=== PATIENT | female | born 1945 | race Caucasian/White ===

== ENCOUNTER 2018-06-22 13:13 | Observation (INO) | payer OTHER ==
[2018-06-22] VITALS (13 sets, daily range): BP systolic 130–168; BP diastolic 67–82; PULSE 75–91; TEMP 36.4–37; O2SAT 91–97; Ht 162.6 cm; Wt 69.7 kg
[~2018-06-22] VITALS: Ht 162.6 cm; Wt 69.7 kg
[2018-06-22] MEDS ORDERED: ASPIRIN 81 MG CHEW PO STA (13:36)
[2018-06-22] MEDS ORDERED: LORAZEPAM 0.5 MG TAB SL STA (13:40)
[2018-06-22] MEDS ORDERED: NITROGLYCERIN 0.4 MG SL PER TAB CHARGE SL PRN (13:45)
--- NOTE | 2018-06-22 13:56 | EMERGENCY ROOM VISIT NOTE ---
History Report prepared by Cayla: Amandeep Tracy Under the Supervision of: Dr. Yaritza Graff M.D. First contact with patient: 13:35 Chief Complaint: CHEST PAIN Stated Complaint: CHEST PAIN History of Present Illness The patient is a 72 year old female who presents to the Emergency Room with complaints of worsening chest pain beginning 2.5 hours ago. The patient states her symptoms radiate into her back and shoulders. She reports she also has numbness in her left arm. The patient denies jaw pain. She notes she is also mildly short of breath and deep breathing worsens her symptoms. The patient denies a pertinent past medication history. She states she has been in and out of [facility] because of foot surgery that became infected. The patient has been on several different antibiotics and has had reactions to vancomycin most recently. The patient reports she takes a baby aspirin every morning, and she took one this morning. She notes she did not take nitroglycerin. The patient states she was evaluated for a blood clot one week ago at [facility]. She reports she had a CT and US to evaluate for a PE. The patient notes the D-Dimer was elevated, and it has been elevated since her foot surgery in January. She denies taking nitroglycerin, a history of hypertension, and a history of smoking. Source of History: patient Onset: 2.5 hours ago Position: chest Timing: worsening Modifying Factors (Worsening): breathing (deep) Associated Symptoms: + SOB, + back pain Note: Associated symptoms: shoulder pain Denies: jaw pain Review of Systems See HPI for pertinent positives & negatives. A total of 10 systems reviewed and were otherwise negative. Past Medical & Surgical Medical Problems: (1) No Known Active Medical Problems Family History Patient reports no known family medical history. Social History Smoking Status: Never Smoker Marital Status: Housing Status: lives with significant other Occupation Status: employed Current/Historical Medications Scheduled Aspirin (Aspirin Ec), 81 MG PO DAILY Estrogens, Conjugated (Premarin), 1 APPLN VAGRING 3XWK Multiple Vitamin (Multi Vitamin), 1 TAB PO DAILY Scheduled PRN Albuterol Hfa (Ventolin Hfa), 2-4 PUFFS INH Q6H PRN for Shortness of Breath Allergies Coded Allergies: Cefaclor (Unverified Allergy, Unknown, ., 06/22/18) Ceftaroline (Unverified Allergy, Unknown, WHITE BLOOD COUNT DECREASE, 06/22) Daptomycin (Unverified Allergy, Unknown, PNEUMONIA, 06/22/18) Diphenhydramine (Unverified Allergy, Unknown, ., 06/22/18) Gluten (Unverified Allergy, Unknown, ., 06/22/18) Indomethacin (Unverified Allergy, Unknown, ., 06/22/18) Moxifloxacin (Unverified Allergy, Unknown, ., 06/22/18) Nitrofurantoin (Unverified Allergy, Unknown, ., 06/22/18) Penicillins (Unverified Allergy, Unknown, ., 06/22/18) Hubert (Unverified Allergy, Unknown, ., 06/22/18) Sulfa Antibiotics (Unverified Allergy, Unknown, ., 06/22/18) Tetracycline (Unverified Allergy, Unknown, ., 06/22/18) Vancomycin (Unverified Allergy, Unknown, JANET BEBETO SYNDROME, 06/22/18) Physical Exam Vital Signs Date Time Temp Pulse Resp B/P (MAP) Pulse Ox O2 Delivery O2 Flow Rate FiO2 06/22/18 15:08 94 22 163/94 97 Room Air 06/22/18 13:30 100 Room Air 06/22/18 13:21 110 06/22/18 13:18 36.6 111 20 206/111 100 Room Air 06/22/18 13:15 100 Room Air Physical Exam Vital signs reviewed. Noted to be markedly hypertensive and tachycardic General: Anxious-appearing 72 year old female, in no significant distress. HEENT: No scleral icterus, PERRLA, neck supple. Atraumatic. Cardiovascular: Tachycardic rate and regular rhythm, no extra sounds. Pulmonary: Clear to auscultation bilaterally, normal work of breathing. Abdomen: Soft, nontender, nondistended, positive bowel sounds. Musculoskeletal: Atraumatic, no peripheral edema. Neurologic: Patient awake alert and oriented x 3 Skin: Warm, dry, no rash Medical Decision & Procedures ER Provider Diagnostic Interpretation: Radiology results as stated below per my review and radiologist interpretation: SINGLE VIEW CHEST CLINICAL HISTORY: Atypical chest pain. FINDINGS: An AP, portable, upright chest radiograph is obtained. No prior studies are available for comparison at the time of dictation. The examination is degraded by portable technique and patient rotation. The cardiomediastinal silhouette is unremarkable noting atherosclerotic calcification of the thoracic aorta. Nonspecific interstitial thickening is likely chronic. No airspace consolidation or large pleural effusion is identified. Minimal bibasilar atelectasis is observed. No pneumothorax is seen. The skeletal structures are osteopenic. The bony thorax is grossly intact. Extensive fusion hardware is seen at the thoracolumbar junction. IMPRESSION: No acute cardiopulmonary abnormality. Electronically signed by: Royce Henry M.D. 06/22/2018 2:19 PM Dictated Date/Time: 06/22/2018 2:[address] ANGIOGRAM OF THE CHEST CLINICAL HISTORY: Atypical chest pain. COMPARISON STUDY: Chest x-ray dated 06/22/2018. TECHNIQUE: Following the IV administration of 93 of Optiray 320, CT angiogram of the chest is performed from the upper abdomen to the thoracic inlet utilizing the pulmonary embolus protocol. Images are reviewed in the axial, sagittal, and coronal planes. 3-D MIPS images are created and assessed. IV contrast was administered without complication. A dose lowering technique was utilized adhering to the principles of ALARA. CT DOSE: 495.80 mGycm FINDINGS: Thyroid: Imaged portions of the thyroid gland are normal in size and attenuation. Thoracic aorta: There is atherosclerotic calcification of the thoracic aorta, which is normal in caliber and demonstrates standard 3-vessel arch anatomy. No dissection is seen. Pulmonary vasculature: The pulmonary trunk is normal in caliber. There are no filling defects identified in the main, lobar, or segmental pulmonary arteries to indicate pulmonary embolus. Heart: The heart is top normal in size, noting trace pericardial effusion. The coronary arteries are densely calcified. Lungs and pleural spaces: Evaluation of the lung parenchyma is degraded by motion artifact. There is no airspace consolidation or pleural effusion. Dependent atelectasis is noted the trachea and central airways are clear. Mediastinum: There is no mediastinal lymphadenopathy. Courtney: Clear. Axillae: There is no axillary lymphadenopathy. Upper abdomen: Scattered hepatic cysts measure up to 5.3 cm. There is a small to moderate hiatal hernia. Bony thorax: The skeletal structures are osteopenic. Post laminectomy and fusion change is seen at the thoracolumbar junction. No lytic or blastic lesions are identified. Arthritic change is seen in the shoulders. Calcific tendinopathy is noted in the left shoulder. IMPRESSION: 1. There is no evidence of pulmonary embolus in the main, lobar, or segmental pulmonary arteries. 2. There is no airspace consolidation or pleural effusion. 3. Hiatal hernia. Electronically signed by: Royce Henry M.D. 06/22/2018 3:26 PM Dictated Date/Time: 06/22/2018 3:19 PM Laboratory Results 06/22/18 13:30 Red Blood Count 4.14, Mean Corpuscular Volume 86.7, Mean Corpuscular Hemoglobin 28.3, Mean Corpuscular Hemoglobin Concent 32.6, Mean Platelet Volume 9.3, Neutrophils (%) (Auto) 63.6, Lymphocytes (%) (Auto) 19.4, Monocytes (%) (Auto) 13.7, Eosinophils (%) (Auto) 2.6, Basophils (%) (Auto) 0.5, Neutrophils # (Auto ) 6.05, Lymphocytes # (Auto) 1.85, Monocytes # (Auto) 1.31, Eosinophils # (Auto ) 0.25, Basophils # (Auto) 0.05 06/22/18 13:30 Test 06/22/18 13:30 06/22/18 13:46 White Blood Count 9.53 K/uL (4.8-10.8) Red Blood Count 4.14 M/uL (4.2-5.4) Hemoglobin 11.7 g/dL (12.0-16.0) Hematocrit 35.9 % (37-47) Mean Corpuscular Volume 86.7 fL (80-100) Mean Corpuscular Hemoglobin 28.3 pg (25-34) Mean Corpuscular Hemoglobin Concent 32.6 g/dl (32-36) Platelet Count 463 K/uL (130-400) Mean Platelet Volume 9.3 fL (7.4-10.4) Neutrophils (%) (Auto) 63.6 % Lymphocytes (%) (Auto) 19.4 % Monocytes (%) (Auto) 13.7 % Eosinophils (%) (Auto) 2.6 % Basophils (%) (Auto) 0.5 % Neutrophils # (Auto) 6.05 K/uL (1.4-6.5) Lymphocytes # (Auto) 1.85 K/uL (1.2-3.4) Monocytes # (Auto) 1.31 K/uL (0.11-0.59) Eosinophils # (Auto) 0.25 K/uL (0-0.5) Basophils # (Auto) 0.05 K/uL (0-0.2) RDW Standard Deviation 49.0 fL (36.4-46.3) RDW Coefficient of Variation 15.3 % (11.5-14.5) Immature Granulocyte % (Auto) 0.2 % Immature Granulocyte # (Auto) 0.02 K/uL (0.00-0.02) Prothrombin Time 10.4 SECONDS (9.0-12.0) Prothromb Time International Ratio 1.0 (0.9-1.1) Activated Partial Thromboplast Time 28.9 SECONDS (21.0-31.0) Partial Thromboplastin Ratio 1.1 Anion Gap 11.0 mmol/L (3-11) Est Creatinine Clear Calc Drug Dose 50.8 ml/min Estimated GFR () 70.2 Estimated GFR (Non- 60.5 BUN/Creatinine Ratio 21.7 (10-20) Calcium Level 9.1 mg/dl (8.5-10.1) Magnesium Level 2.0 mg/dl (1.8-2.4) Total Bilirubin 0.3 mg/dl (0.2-1) Direct Bilirubin 0.1 mg/dl (0-0.2) Aspartate Amino Transf (AST/SGOT) 17 U/L (15-37) Alanine Aminotransferase (ALT/SGPT) 28 U/L (12-78) Alkaline Phosphatase 148 U/L (45-117) Troponin I 0.199 ng/ml (0-0.045) Total Protein 8.2 gm/dl (6.4-8.2) Albumin 3.3 gm/dl (3.4-5.0) Lipase 115 U/L (73-393) Bedside D-Dimer > 450 ng/mlFEU (0-450) Laboratory results per my review. Medications Administered Medications (Trade) Dose Ordered Sig/Cherelle Route Start Time Stop Time Status Last Admin Dose Admin Aspirin (Aspirin Chew) 243 mg NOW STAT PO 06/22/18 13:36 06/22/18 13:38 DC 06/22/18 14:10 243 MG Nitroglycerin (Nitrostat Tab) 0.4 mg Q5M PRN SL 06/22/18 13:45 07/22/18 13:44 06/22/18 14:11 0.4 MG Lorazepam (Ativan Tab) 0.5 mg NOW STAT SL 06/22/18 13:40 06/22/18 13:41 DC 06/22/18 14:10 0.5 MG Nitroglycerin (Nitroglycerin 2% Oint) 0.5 inch NOW STAT EXT 06/22/18 14:00 06/22/18 14:01 DC 06/22/18 14:10 0.5 INCH Fentanyl Citrate (Fentanyl Inj) 25 mcg NOW STAT IV 06/22/18 14:49 06/22/18 14:52 DC 06/22/18 15:21 25 MCG Heparin Sodium (Porcine) (Heparin Iv Bolus) 10,000 unit STK-MED ONCE .ROUTE 06/22/18 15:05 06/22/18 15:06 DC 06/22/18 15:19 10,000 UNIT Heparin Sodium/ Dextrose (Heparin 25,000 Unit/500ml D5W) 25,000 unit STK-MED ONCE .ROUTE 06/22/18 15:05 06/22/18 15:06 DC 06/22/18 15:21 25,000 UNIT ECG Per My Interpretation Indication: chest pain Rate (beats per minute): 111 Rhythm: sinus tachycardia Findings: ST depression (Diffuse), no acute ischemic change, other (QTc of 514) Change: Repeat at 1322: Sinus tachycardia with a rate of 109. Left atrial enlargement. Diffuse ST depression. No change from previous. Repeat at 1402: Normal sinus with a rate of 93. Diffuse ST depression but improved from previous. ED Course 1335: Past medical records reviewed. The patient was evaluated in room A09B. A complete history and physical examination was performed. 1441: Upon reevaluation, the patient is resting comfortably. I discussed laboratory and radiographic results with her. She verbalized agreement of the treatment plan. The patient will be evaluated for further management and care. 1453: I discussed the patient's case with Dr. Casillas, Cardiology. He will evaluate the patient. 1459: I discussed the patient's case with Dr. Gomez, [facility] Hospitalist. The patient will be evaluated for further management and care. Medical Decision Differential diagnoses include: Acute coronary syndrome, pulmonary embolus, aortic dissection, musculoskeletal pain, pneumonia, pleural effusion, pneumothorax This patient was evaluated and appeared to be anxious but in no significant distress. EKG was performed and reveals a sinus tachycardia with diffuse ST segment depression. Patient was given 3 baby aspirin to chew as she had taken one prior to arrival. Patient was given sublingual nitroglycerin which did help improve both pain and blood pressure. Patient's laboratory work reveals an elevated d-dimer. Given the presentation with back pain and hypertension, CT angiogram was performed which shows no evidence of PE. There is no change of the aorta to suggest aortic dissection to my review. Patient's troponin is noted to be mildly elevated at 0.199. Consents for records from [facility] have been signed and are in progress. The patient was started on heparin drip. Dr. Casillas of cardiology was consulted. He did agree to evaluate the patient in the emergency department. Patient's pain continued and she was given 25 mcg of IV fentanyl. She does have 1/2 inch of nitroglycerin paste to the anterior chest wall. Symptoms seem to be largely under control at this time. Dr. Casillas is at the bedside, Dr Gomez of the hospitalist service was consulted for admission. Patient and are aware of the plan and agree. Medication Reconcilliation Current Medication List: was personally reviewed by me Blood Pressure Screening Patient's blood pressure: Elevated blood pressure Blood pressure disposition: Elevated BP felt to be situational Consults Time Called: 1448 Consulting Physician: Dr. Casillas, Cardiology Returned Call: [phone] I discussed the patient's case with Dr. Casillas, Cardiology. He will evaluate the patient. Additional Consults: Time Called: 1454 Consulted Physician: Dr. Gomez, [facility] Hospitalist Returned Call: [phone] Additional Comments: I discussed the patient's case with Dr. Gomez, [facility] Hospitalist. The patient will be evaluated for further management and care. Impression Primary Impression: NSTEMI (non-ST elevated myocardial infarction) Critical Care I have personally spent greater than 60 minutes of critical care time in the direct management of this patient. This includes bedside care, interpretation of diagnostic studies, and testing, discussion with consultants, patient, and family members, and other required patient management activities. This 60 minutes is in excess of all separately billable procedures. Scribe Attestation The scribe's documentation has been prepared under my direction and personally reviewed by me in its entirety. I confirm that the note above accurately reflects all work, treatment, procedures, and medical decision making performed by me. Departure Information Dispostion Being Evaluated By Hospitalist Referrals Jesus Membreno M.D. (PCP) Patient Instructions My [facility]
[2018-06-22 13:59] LABS: BASO % 0.5 %; BASO ABS # 0.05 K/uL (0-0.2); EOS % 2.6 %; EOS ABS # 0.25 K/uL (0-0.5); HEMATOCRIT 35.9 % (37-47); HEMOGLOBIN 11.7 g/dL (12.0-16.0); IG# 0.02 K/uL (0.00-0.02); LYMPH % 19.4 %; LYMPH ABS # 1.85 K/uL (1.2-3.4); MEAN CELL VOLUME 86.7 fL (80-100); MEAN CORPUSCULAR HEMOGLOBIN 28.3 pg (25-34); MEAN CORPUSCULAR HGB CONC 32.6 g/dl (32-36); MEAN PLATELET VOLUME 9.3 fL (7.4-10.4); MONO % 13.7 %; MONO ABS # 1.31 K/uL (0.11-0.59); NEUT % 63.6 %; NEUT ABS # 6.05 K/uL (1.4-6.5); PLATELET COUNT 463 K/uL (130-400); RED CELL DISTRIBUTION WIDTH CV 15.3 % (11.5-14.5); WHITE BLOOD COUNT 9.53 K/uL (4.8-10.8)
[2018-06-22] MEDS ORDERED: NITROGLYCERIN 2% OINTMENT 30GM TUBE EXT ONE (14:00)
[2018-06-22] MEDS ORDERED: NITROGLYCERIN 2% OINTMENT 30GM TUBE EXT STA (14:00)
[2018-06-22] MEDS ORDERED: OPTIRAY 320 IV PRN (14:15)
--- NOTE | 2018-06-22 14:21 | DIAGNOSTIC IMAGING REPORT ---
SINGLE VIEW CHEST CLINICAL HISTORY: Atypical chest pain. FINDINGS: An AP, portable, upright chest radiograph is obtained. No prior studies are available for comparison at the time of dictation. The examination is degraded by portable technique and patient rotation. The cardiomediastinal silhouette is unremarkable noting atherosclerotic calcification of the thoracic aorta. Nonspecific interstitial thickening is likely chronic. No airspace consolidation or large pleural effusion is identified. Minimal bibasilar atelectasis is observed. No pneumothorax is seen. The skeletal structures are osteopenic. The bony thorax is grossly intact. Extensive fusion hardware is seen at the thoracolumbar junction. IMPRESSION: No acute cardiopulmonary abnormality. Electronically signed by: Royce Henry M.D. 06/22/2018 2:19 PM Dictated Date/Time: 06/22/2018 2:18 PM
[2018-06-22 14:24] LABS: ALBUMIN 3.3 gm/dl (3.4-5.0); CALCIUM 9.1 mg/dl (8.5-10.1); CREATININE 0.93 mg/dl (0.60-1.20); POTASSIUM 3.8 mmol/L (3.5-5.1); TOTAL PROTEIN 8.2 gm/dl (6.4-8.2)
[2018-06-22] MEDS ORDERED: FENTANYL CITRATE INJ 50 MCG/1 ML 2 ML VIAL IV STA (14:49)
[2018-06-22 14:53] LABS: PTT PATIENT 28.9 SECONDS (21.0-31.0)
[2018-06-22] MEDS ORDERED: ASPI81TA28 PO (14:58)
[2018-06-22] MEDS ORDERED: VNTHFA/IN INH (14:58)
[2018-06-22] MEDS ORDERED: PRMVC VAGRING (14:58)
[2018-06-22] MEDS ORDERED: MULT-1027 PO (14:58)
[2018-06-22] MEDS ORDERED: HEPARIN 25000 UNIT/500 ML D5W ONE (15:05)
[2018-06-22] MEDS ORDERED: HEPARIN SOD (PORCINE) 1000 UNIT/ML 10 ML VIAL ONE ×3 (15:05→17:35)
--- NOTE | 2018-06-22 15:28 | DIAGNOSTIC IMAGING REPORT ---
CT ANGIOGRAM OF THE CHEST CLINICAL HISTORY: Atypical chest pain. COMPARISON STUDY: Chest x-ray dated 06/22/2018. TECHNIQUE: Following the IV administration of 93 of Optiray 320, CT angiogram of the chest is performed from the upper abdomen to the thoracic inlet utilizing the pulmonary embolus protocol. Images are reviewed in the axial, sagittal, and coronal planes. 3-D MIPS images are created and assessed. IV contrast was administered without complication. A dose lowering technique was utilized adhering to the principles of ALARA. CT DOSE: 495.80 mGycm FINDINGS: Thyroid: Imaged portions of the thyroid gland are normal in size and attenuation. Thoracic aorta: There is atherosclerotic calcification of the thoracic aorta, which is normal in caliber and demonstrates standard 3-vessel arch anatomy. No dissection is seen. Pulmonary vasculature: The pulmonary trunk is normal in caliber. There are no filling defects identified in the main, lobar, or segmental pulmonary arteries to indicate pulmonary embolus. Heart: The heart is top normal in size, noting trace pericardial effusion. The coronary arteries are densely calcified. Lungs and pleural spaces: Evaluation of the lung parenchyma is degraded by motion artifact. There is no airspace consolidation or pleural effusion. Dependent atelectasis is noted the trachea and central airways are clear. Mediastinum: There is no mediastinal lymphadenopathy. Courtney: Clear. Axillae: There is no axillary lymphadenopathy. Upper abdomen: Scattered hepatic cysts measure up to 5.3 cm. There is a small to moderate hiatal hernia. Bony thorax: The skeletal structures are osteopenic. Post laminectomy and fusion change is seen at the thoracolumbar junction. No lytic or blastic lesions are identified. Arthritic change is seen in the shoulders. Calcific tendinopathy is noted in the left shoulder. IMPRESSION: 1. There is no evidence of pulmonary embolus in the main, lobar, or segmental pulmonary arteries. 2. There is no airspace consolidation or pleural effusion. 3. Hiatal hernia. Electronically signed by: Royce Henry M.D. 06/22/2018 3:26 PM Dictated Date/Time: 06/22/2018 3:19 PM
[2018-06-22] MEDS ORDERED: NiCARDipine HCL INJ 2.5 MG/ML 10 ML AMP ONE (16:33)
[2018-06-22] MEDS ORDERED: MIDAZOLAM HCL 1 MG/ML 2ML VIAL ONE (16:34)
[2018-06-22] MEDS ORDERED: FENTANYL CITRATE INJ 50 MCG/1 ML 2 ML VIAL ONE (16:34)
[2018-06-22] MEDS ORDERED: NITROGLYCERIN/D5W 100MCG/ML 20ML SYR ONE (16:34)
--- NOTE | 2018-06-22 16:43 | Pre Sedation Assessment ---
Pre Sedation Assessment General Date of Sedation: Jun 22, 2018. Vital Signs Past 12 Hours Date Time Temp Pulse Resp B/P (MAP) Pulse Ox O2 Delivery O2 Flow Rate FiO2 06/22/18 15:08 94 22 163/94 97 Room Air 06/22/18 13:30 100 Room Air 06/22/18 13:21 110 06/22/18 13:18 36.6 111 20 206/111 100 Room Air 06/22/18 13:15 100 Room Air Review Cardiovascular: regular rate, rhythm, no murmur Lungs: lungs clear Pre-Sedation Airway Assessment Smoking Status: Never Smoker Hx of Sleep Apnea: No Hx of difficult intubation: No Short Thick Neck: No Thyro-mental Distance: > 3 Finger Breadths Oral Cavity: WNL Mallampati Classification: Class III ASA Classification: Class III Procedure Planning Contraindications for Sedation: None Current Medications Reviewed: Yes Notes The planned sedation has been discussed with the patient. Informed Consent was obtained. I have identified the patient, determined the appropriateness of sedation and have assessed the patient immediately prior to the procedure. All medicine(s) and interventions are by my order.
--- NOTE | 2018-06-22 17:27 | Cardiology Procedure Brief Nt ---
Preliminary Cardiology Note Procedure Date Jun 22, 2018. Pre-Procedure Diagnosis NSTEMI Post-Procedure Diagnosis NSTEMI Procedure(s) Performed Left heart catheterization, coronary angiography, PCI to the OM1 Gold Beater Chemo Casillas Lost Charge Card Clerk(s) none Estimated Blood Loss 10cc Medication(s) nicardipine, nitroglycerin, heparin Preliminary Findings 99 percent stenosis of OM1, 50 percent stenosis proximal right coronary, normal left ventricular pressures Recommendations Per orders Specimens None Complication(s) None Disposition PCU
[2018-06-22] MEDS ORDERED: TICAGRELOR 90 MG TAB PO ONE (17:28)
[2018-06-22] MEDS ORDERED: NITROGLYCERIN 0.4 MG SL PER TAB CHARGE ONE (17:35)
--- NOTE | 2018-06-22 17:55 | Cardiology Consultation ---
Cardiology Consultation Date of Consultation: Jun 22, 2018. Requesting Physician: Prerna Reason for Consultation: chest pain Pt evaluation today including: conversation w/ patient, conversation w/ family , physical exam, chart review, lab review, review of studies, review of inpatient medication list, conversation w/ attending History of Present Illness The patient is a 72-year-old woman without a known history of cardiac disease who has been struggling recently with a left foot infection. Patient underwent operative intervention for arthritis in the left foot which eventually resulted in poor healing and an infectious process. Her care has been provided at [facility] and she has cycle through a variety of antibiotics all of which appear to produce adverse reactions. Recently she had therapy with daptomycin which apparently caused symptoms such as chest discomfort and breathing difficulty. The daptomycin was discontinued as was a PICC line used for infusion. However, her symptoms of chest discomfort and some breathing difficulty have persisted. Initially this involved the precordium back and left shoulder. The symptoms were fairly fleeting in nature and nonexertional. More recently they become more frequent and today they were prolonged in nature. Patient was working outside earlier today and noticed the onset of the symptoms. Despite resting symptoms persisted and became more severe. The symptoms appear to be worse with deep inspiration and also with certain movements of the arms. Patient has difficulty getting comfortable in any particular position. The patient presented to [facility] for evaluation. Upon arrival she was notably hypertensive. Her EKG demonstrated some ST segment changes. She is placed on heparin infusion and given nitroglycerin. She also was given sedatives and narcotics all of which failed to alleviate her symptoms. At the time of this interview the patient states she is more comfortable but continues to have symptoms of chest discomfort. She just returned from the CT scanner and states that her symptoms became worse when she was required to raise her arms above her head. Past Medical/Surgical History Arthritis Obstructive sleep apnea Peripheral neuropathy Post concussion syndrome Glucose intolerance Reflex sympathetic dystrophy Sjogren syndrome Past surgical history: Hysterectomy Lumbar fusion Left foot surgery Family History Patient reports no known family medical history. Noncontributory given her advanced age Social History Smoking Status: Never Smoker Patient is [employer] sports [employer] Review of Systems Patient has not felt well for several weeks. She denies overt fevers but did have some chills. She has not had gastrointestinal symptoms. She generally monitors her blood pressure at home and is normotensive. All Other Systems: Reviewed and Negative Allergies Coded Allergies: Cefaclor (Unverified Allergy, Unknown, ., 06/22/18) Ceftaroline (Unverified Allergy, Unknown, WHITE BLOOD COUNT DECREASE, 06/22) Daptomycin (Unverified Allergy, Unknown, PNEUMONIA, 06/22/18) Diphenhydramine (Unverified Allergy, Unknown, ., 06/22/18) Gluten (Unverified Allergy, Unknown, ., 06/22/18) Indomethacin (Unverified Allergy, Unknown, ., 06/22/18) Moxifloxacin (Unverified Allergy, Unknown, ., 06/22/18) Nitrofurantoin (Unverified Allergy, Unknown, ., 06/22/18) Penicillins (Unverified Allergy, Unknown, ., 06/22/18) [place] (Unverified Allergy, Unknown, ., 06/22/18) Sulfa Antibiotics (Unverified Allergy, Unknown, ., 06/22/18) Tetracycline (Unverified Allergy, Unknown, ., 06/22/18) Vancomycin (Unverified Allergy, Unknown, JANET BEBETO SYNDROME, 06/22/18) Medications Current Inpatient Medications Medications (Trade) Dose Ordered Sig/Cherelle Route Start Time Stop Time Status Last Admin Dose Admin Nitroglycerin (Nitrostat Tab) 0.4 mg Q5M PRN SL 06/22/18 13:45 07/22/18 13:44 06/22/18 14:11 0.4 MG Ioversol (Optiray 320) 100 ml UD PRN IV 06/22/18 14:15 06/26/18 14:14 Ticagrelor (Brilinta Tab) 90 mg BID PO 06/22/18 21:00 07/22/18 20:59 UNV Sodium Chloride 1,000 ml @ 75 mls/hr [id number] IV 06/22/18 17:30 06/23/18 01:29 UNV Aspirin (Ecotrin Tab) 81 mg QAM PO 06/23/18 09:00 07/23/18 08:59 UNV Atorvastatin Calcium (Lipitor Tab) 80 mg QAM PO 06/23/18 09:00 07/23/18 08:59 UNV Metoprolol Tartrate (Lopressor Tab) 25 mg BID PO 06/22/18 21:00 07/22/18 20:59 UNV Lisinopril (Zestril Tab) 5 mg QAM PO 06/23/18 09:00 07/23/18 08:59 UNV Physical Exam Vital Signs Past 12 Hours Date Time Temp Pulse Resp B/P (MAP) Pulse Ox O2 Delivery O2 Flow Rate FiO2 06/22/18 17:42 77 16 152/78 (102) 98 Room Air 06/22/18 17:38 78 16 167/80 (109) 98 Room Air 06/22/18 17:27 80 16 165/80 (108) 98 Room Air 06/22/18 16:57 36.6 94 22 163/94 97 06/22/18 15:08 94 22 163/94 97 Room Air 06/22/18 13:30 100 Room Air 06/22/18 13:21 110 06/22/18 13:18 36.6 111 20 206/111 100 Room Air 06/22/18 13:15 100 Room Air She is alert and oriented x3. She did appear uncomfortable and mildly distressed. She answered all questions appropriately. HEENT: Sclerae are anicteric. Pupils are equal and reactive to light and accommodation. Extraocular movements were intact. Neuro: Cranial nerves intact Neck: Examination of the submandibular region did not reveal any significant lymphadenopathy. Carotids are palpable bilaterally and free of bruits on auscultation. There was no evidence of jugular venous distention. The thyroid was not enlarged. Lungs: Lungs are clear to auscultation bilaterally. There are no rales wheezes or rhonchi. She has normal respiratory effort without use of accessory muscles. There is normal pulmonary excursion. Cardiac: The rhythm was regular. S1 and S2 were normal. There are no murmurs on examination. The PMI was not markedly displaced on palpation. Abdomen: The abdomen was soft and nontender. Extremities: Patient has bilateral radial pulses that are equal in intensity. There is no evidence cyanosis or clubbing. There was no evidence of significant peripheral edema bilaterally. She did have a splint on the left foot Skin: There are no rashes noted on examination today. Data Laboratory Results: Last 24 Hours Test 06/22/18 13:30 06/22/18 13:46 White Blood Count 9.53 K/uL Red Blood Count 4.14 M/uL Hemoglobin 11.7 g/dL Hematocrit 35.9 % Mean Corpuscular Volume 86.7 fL Mean Corpuscular Hemoglobin 28.3 pg Mean Corpuscular Hemoglobin Concent 32.6 g/dl Platelet Count 463 K/uL Mean Platelet Volume 9.3 fL Neutrophils (%) (Auto) 63.6 % Lymphocytes (%) (Auto) 19.4 % Monocytes (%) (Auto) 13.7 % Eosinophils (%) (Auto) 2.6 % Basophils (%) (Auto) 0.5 % Neutrophils # (Auto) 6.05 K/uL Lymphocytes # (Auto) 1.85 K/uL Monocytes # (Auto) 1.31 K/uL Eosinophils # (Auto) 0.25 K/uL Basophils # (Auto) 0.05 K/uL RDW Standard Deviation 49.0 fL RDW Coefficient of Variation 15.3 % Immature Granulocyte % (Auto) 0.2 % Immature Granulocyte # (Auto) 0.02 K/uL Prothrombin Time 10.4 SECONDS Prothromb Time International Ratio 1.0 Activated Partial Thromboplast Time 28.9 SECONDS Partial Thromboplastin Ratio 1.1 Sodium Level 134 mmol/L Potassium Level 3.8 mmol/L Chloride Level 102 mmol/L Carbon Dioxide Level 21 mmol/L Anion Gap 11.0 mmol/L Blood Urea Nitrogen 20 mg/dl Creatinine 0.93 mg/dl Est Creatinine Clear Calc Drug Dose 50.8 ml/min Estimated GFR () 70.2 Estimated GFR (Non- 60.5 BUN/Creatinine Ratio 21.7 Random Glucose 142 mg/dl Calcium Level 9.1 mg/dl Magnesium Level 2.0 mg/dl Total Bilirubin 0.3 mg/dl Direct Bilirubin 0.1 mg/dl Aspartate Amino Transf (AST/SGOT) 17 U/L Alanine Aminotransferase (ALT/SGPT) 28 U/L Alkaline Phosphatase 148 U/L Troponin I 0.199 ng/ml Total Protein 8.2 gm/dl Albumin 3.3 gm/dl Lipase 115 U/L Bedside D-Dimer > 450 ng/mlFEU Imaging: Chest x-ray did not demonstrate any acute process. CT scan of the chest did not demonstrate any pulmonary embolus, pericardial effusion or aortic dissection. No parenchymal lung disease. She did have an incidental finding of liver cysts. EKG: Initial EKG demonstrated sinus tachycardia with diffuse ST segment depressions. Second EKG demonstrated sinus tachycardia with improvement of the depressions. Bedside echocardiogram revealed preserved LV systolic function with normal wall motion. No overt valvular disease. No pericardial effusion. Assessment & Plan 1. Atypical chest pain: Patient's symptoms of chest pain are clearly atypical. They are nonexertional and somewhat pleuritic in nature. They appear to have started after institution of daptomycin therapy. They have been present for several days but have progressed to increased severity. She does have some objective indicators of ischemia such as an abnormal EKG and elevated cardiac biomarkers. She was markedly hypertensive at the time of admission which could also have caused some of these changes. However, given the objective findings and persistent symptoms that would seem reasonable to proceed with coronary angiography. My suspicion for an acute coronary syndrome is quite low, but the persistent nature of her symptoms and abnormal studies precludes us from finding an alternate cause. I did discuss the risks benefits and alternatives of the procedure with the patient and her . We will plan on proceeding this afternoon. 2. Hypertension: Patient was markedly hypertensive the time of admission. This appears to be a rare thing for her. She claims to be normotensive most of the time in her outpatient record would support that assertion. This was likely due to her acute illness and feeling poorly. We will treat her with nitrates currently and additional agents as needed. 3. Elevated troponin: Her biomarkers are not normal. While my suspicion for an acute coronary syndrome is low it is in the differential. Will evaluate her with coronary angiography. Her EKG and echocardiogram are not consistent with a stress-induced cardiomyopathy. A myocarditis could produce similar elevations and symptoms although there is no evidence of regional wall motion abnormalities on her echocardiogram. Could be related to poorly controlled hypertension recently. We will trend her markers during her admission.
[2018-06-22] MEDS ORDERED: IV FLUIDS COMPLETED PRN (18:00)
--- NOTE | 2018-06-22 18:15 | ECHOCARDIOGRAM REPORT ---
*NOTICE TO RECEIVING DEMOCRAT AGENCY This information is strictly Confidential and protected under [place] law. [place] law prohibits you from making any further disclosure of this information unless further disclosure is expressly permitted by the written consent of the person to whom it pertains or is authorized by law. A general authorization for the release of medical or other information is not sufficient for this purpose. Hospital accepts no responsibility if the information is made available to any other person, INCLUDING THE PATIENT. Interpretation Summary * Name: NOHEMY LYNN Study Date: 06/22/2018 04:10 PM BP: 163/94 mmHg * Patient Location: [facility] HR: 94 * : 1945 (M/d/yyyy) Gender: Female Height: 64 in * Age: 72 yrs Ethnicity: CA Weight: 153 lb * Ordering Physician: Osiel Casillas * Referring Physician: Self, Referred * Performed By: Pita Mendez RDCS * * Reason For Study: Chest pain * BSA: 1.7 m2 * -- Conclusions -- * Left ventricular systolic function is normal. * Grade I diastolic dysfunction, (abnormal relaxation pattern). * Right ventricular systolic pressure is normal. Procedure Details * A complete two-dimensional transthoracic echocardiogram was performed (2D, M-mode, Doppler and color flow Doppler). Left Ventricle * The left ventricle is normal in size. * There is normal left ventricular wall thickness. * Ejection Fraction = 55-60%. * Left ventricular systolic function is normal. * Grade I diastolic dysfunction, (abnormal relaxation pattern). * The left ventricular wall motion is normal. Right Ventricle * The right ventricle is normal in size and function. Atria * The left atrial size is normal. * Right atrial size is normal. Mitral Valve * The mitral valve is grossly normal. * There is no mitral regurgitation noted. Tricuspid Valve * The tricuspid valve is not well visualized, but is grossly normal. * There is trace tricuspid regurgitation. * Right ventricular systolic pressure is normal. Aortic Valve * The aortic valve is normal in structure and function. * The aortic valve is trileaflet. * No hemodynamically significant valvular aortic stenosis. * There is no significant aortic regurgitation. Pulmonic Valve * The pulmonic valve is not well visualized. Great Vessels * The aortic root is normal size. Pericardium/Pleural * There is no pericardial effusion. MMode 2D Measurements and Calculations IVSd 1.0 cm LVIDd 3.6 cm LVIDs 2.5 cm LVPWd 1.1 cm IVS/LVPW 0.95 FS 28.7 % EDV(Teich) 52.9 ml ESV(Teich) 23.2 ml EF(Teich) 56.2 % EDV(cubed) 45.0 ml ESV(cubed) 16.3 ml EF(cubed) 63.7 % LV mass(C)d 112.2 grams LV mass(C)dI 64.3 grams/m\S\2 SV(Teich) 29.7 ml SI(Teich) 17.0 ml/m\S\2 SV(cubed) 28.7 ml SI(cubed) 16.4 ml/m\S\2 Ao root diam 3.0 cm Ao root area 7.0 cm\S\2 ACS 1.9 cm LA dimension 2.6 cm asc Aorta Diam 3.0 cm LA/Ao 0.88 LVOT diam 2.0 cm LVOT area 3.2 cm\S\2 LVAd ap4 25.5 cm\S\2 LVLd ap4 7.8 cm EDV(MOD-sp4) 67.3 ml EDV(sp4-el) 70.3 ml LVAs ap4 14.4 cm\S\2 LVLs ap4 6.3 cm ESV(MOD-sp4) 29.0 ml ESV(sp4-el) 28.2 ml EF(MOD-sp4) 56.9 % EF(sp4-el) 59.9 % LVAd ap2 21.2 cm\S\2 LVLd ap2 7.5 cm EDV(MOD-sp2) 48.0 ml EDV(sp2-el) 50.6 ml LVAs ap2 11.4 cm\S\2 LVLs ap2 5.8 cm ESV(MOD-sp2) 18.4 ml ESV(sp2-el) 18.9 ml EF(MOD-sp2) 61.7 % EF(sp2-el) 62.7 % LVLd %diff -4.05 % EDV(MOD-bp) 57.7 ml LVLs %diff -7.74 % ESV(MOD-bp) 23.6 ml EF(MOD-bp) 59.0 % SV(MOD-sp4) 38.3 ml SI(MOD-sp4) 21.9 ml/m\S\2 SV(MOD-sp2) 29.6 ml SI(MOD-sp2) 17.0 ml/m\S\2 SV(MOD-bp) 34.0 ml SI(MOD-bp) 19.5 ml/m\S\2 SV(sp4-el) 42.2 ml SI(sp4-el) 24.1 ml/m\S\2 SV(sp2-el) 31.7 ml SI(sp2-el) 18.2 ml/m\S\2 Doppler Measurements and Calculations MV E max madeleine 45.5 cm/sec MV A max madeleine 72.7 cm/sec MV E/A 0.63 MV dec time 0.20 sec Ao V2 max 82.0 cm/sec Ao max PG 2.7 mmHg Ao max PG (full) 0.89 mmHg CAREN(V,A) 2.6 cm\S\2 CAREN(V,D) 2.6 cm\S\2 LV V1 max PG 1.8 mmHg LV V1 max 67.0 cm/sec PA V2 max 74.2 cm/sec PA max PG 2.2 mmHg PA acc slope 462.0 cm/sec\S\2 PA acc time 0.14 sec TR max madeleine 69.0 cm/sec PA pr(Accel) 16.5 mmHg
[2018-06-22] MEDS: SODIUM CHLORIDE 0.45% 1000ML 1,000 ML IV SCH (18:47)
--- NOTE | 2018-06-22 18:52 | History and Physical ---
History & Physical Date & Time of Service: Jun 22, 2018 at 18:40 Chief Complaint: Heart Alert Primary Care Physician: Jesus Membreno M.D. History of Present Illness Source: patient 72 y/o F c/o chest pain. Pt is typically heathy and without any prior hx of cardiac disease, however she has had a rough course of care s/p OR for L foot arthritis. 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 Her surgery was done at [facility]. Her most recent d/c from that facility was 06/16. She was having chest pain and it was thought to be related to abx. Abx have been stopped at this time. She had a CT chest and LE US that were neg for PE. She was put on aspirin 81mg for DVT/PE prevention at that time. Despite this, she was still having ongoing chest pain and SOB. Initially, this was radiating to the back and left shoulder with mild sx that resolved quickly, however sx become more frequent and today they were not resolving. Patient was working outside at onset of the symptoms. She tried resting, however sx continued and became more severe. Chest pain and SOB are worse with deep inspiration UE movements. Pt was noted to have an elevated trop. She was taken to the supervisor laboratory and found to have a small circumflex lesion that was stented. Pt still has some chest pain, but it is much less than prior. No further SOB. Pt denies fever, abd pain, n/v/c/d. She does have LE swelling and pain related to her L foot post-op status. Past Medical/Surgical History Arthritis Obstructive sleep apnea Peripheral neuropathy Post concussion syndrome Glucose intolerance Reflex sympathetic dystrophy Sjogren syndrome Past surgical history: Hysterectomy Lumbar fusion Left foot surgery Family History Family history was reviewed; no changes noted. Mother: SC Brother: SC, DM Social History Smoking Status: Never Smoker Alcohol Use: none Drug Use: none Marital Status: Occupational Status: employed Allergies Coded Allergies: Cefaclor (Unverified Allergy, Unknown, ., 06/22/18) Ceftaroline (Unverified Allergy, Unknown, WHITE BLOOD COUNT DECREASE, 06/22) Daptomycin (Unverified Allergy, Unknown, PNEUMONIA, 06/22/18) Diphenhydramine (Unverified Allergy, Unknown, ., 06/22/18) Gluten (Unverified Allergy, Unknown, ., 06/22/18) Indomethacin (Unverified Allergy, Unknown, ., 06/22/18) Moxifloxacin (Unverified Allergy, Unknown, ., 06/22/18) Nitrofurantoin (Unverified Allergy, Unknown, ., 06/22/18) Penicillins (Unverified Allergy, Unknown, ., 06/22/18) [place] (Unverified Allergy, Unknown, ., 06/22/18) Sulfa Antibiotics (Unverified Allergy, Unknown, ., 06/22/18) Tetracycline (Unverified Allergy, Unknown, ., 06/22/18) Vancomycin (Unverified Allergy, Unknown, JANET BEBETO SYNDROME, 06/22/18) Home Medications Scheduled Aspirin (Aspirin Ec), 81 MG PO DAILY Estrogens, Conjugated (Premarin), 1 APPLN VAGRING 3XWK Multiple Vitamin (Multi Vitamin), 1 TAB PO DAILY Scheduled PRN Albuterol Hfa (Ventolin Hfa), 2-4 PUFFS INH Q6H PRN for Shortness of Breath Review of Systems Pertinent positives and negatives reviewed in HPI--all others negative Physical Exam Vital Signs Date Time Temp Pulse Resp B/P (MAP) Pulse Ox O2 Delivery O2 Flow Rate FiO2 06/22/18 18:15 36.4 79 18 162/82 (108) 91 Room Air 06/22/18 18:05 36.7 81 18 168/82 Room Air 06/22/18 17:58 36.7 81 18 168/82 (110) 95 Room Air 06/22/18 17:42 77 16 152/78 (102) 98 Room Air 06/22/18 17:38 78 16 167/80 (109) 98 Room Air 06/22/18 17:27 80 16 165/80 (108) 98 Room Air 06/22/18 16:57 36.6 94 22 163/94 97 06/22/18 15:08 94 22 163/94 97 Room Air 06/22/18 13:30 100 Room Air 06/22/18 13:21 110 06/22/18 13:18 36.6 111 20 206/111 100 Room Air 06/22/18 13:15 100 Room Air General Appearance: WD/WN, no apparent distress Head: normocephalic, atraumatic Eyes: normal inspection, sclerae normal Respiratory/Chest: normal breath sounds, no respiratory distress Cardiovascular: regular rate, rhythm, normal peripheral pulses Abdomen/GI: non tender, soft Extremities/Musculoskelatal: no calf tenderness, + swelling (L foot) Neurologic/Psych: alert, normal mood/affect, oriented x 3 Skin: normal color, warm/dry Diagnostics Laboratory Results Results Past 24 Hours Test 06/22/18 13:30 06/22/18 13:46 06/22/18 17:20 06/22/18 17:31 Range/Units White Blood Count 9.53 4.8-10.8 K/uL Red Blood Count 4.14 4.2-5.4 M/uL Hemoglobin 11.7 12.0-16.0 g/dL Hematocrit 35.9 37-47 % Mean Corpuscular Volume 86.7 80-100 fL Mean Corpuscular Hemoglobin 28.3 25-34 pg Mean Corpuscular Hemoglobin Concent 32.6 32-36 g/dl Platelet Count 463 130-400 K/uL Mean Platelet Volume 9.3 7.4-10.4 fL Neutrophils (%) (Auto) 63.6 % Lymphocytes (%) (Auto) 19.4 % Monocytes (%) (Auto) 13.7 % Eosinophils (%) (Auto) 2.6 % Basophils (%) (Auto) 0.5 % Neutrophils # (Auto) 6.05 1.4-6.5 K/uL Lymphocytes # (Auto) 1.85 1.2-3.4 K/uL Monocytes # (Auto) 1.31 0.11-0.59 K/uL Eosinophils # (Auto) 0.25 0-0.5 K/uL Basophils # (Auto) 0.05 0-0.2 K/uL RDW Standard Deviation 49.0 36.4-46.3 fL RDW Coefficient of Variation 15.3 11.5-14.5 % Immature Granulocyte % (Auto) 0.2 % Immature Granulocyte # (Auto) 0.02 0.00-0.02 K/uL Prothrombin Time 10.4 9.0-12.0 SECONDS Prothromb Time International Ratio 1.0 0.9-1.1 Activated Partial Thromboplast Time 28.9 21.0-31.0 SECONDS Partial Thromboplastin Ratio 1.1 Sodium Level 134 136-145 mmol/L Potassium Level 3.8 3.5-5.1 mmol/L Chloride Level 102 98-107 mmol/L Carbon Dioxide Level 21 21-32 mmol/L Anion Gap 11.0 3-11 mmol/L Blood Urea Nitrogen 20 7-18 mg/dl Creatinine 0.93 0.60-1.20 mg/dl Est Creatinine Clear Calc Drug Dose 50.8 ml/min Estimated GFR () 70.2 Estimated GFR (Non- 60.5 BUN/Creatinine Ratio 21.7 10-20 Random Glucose 142 70-99 mg/dl Calcium Level 9.1 8.5-10.1 mg/dl Magnesium Level 2.0 1.8-2.4 mg/dl Total Bilirubin 0.3 0.2-1 mg/dl Direct Bilirubin 0.1 0-0.2 mg/dl Aspartate Amino Transf (AST/SGOT) 17 15-37 U/L Alanine Aminotransferase (ALT/SGPT) 28 12-78 U/L Alkaline Phosphatase 148 45-117 U/L Troponin I 0.199 0-0.045 ng/ml Total Protein 8.2 6.4-8.2 gm/dl Albumin 3.3 3.4-5.0 gm/dl Lipase 115 73-393 U/L Bedside D-Dimer > 450 0-450 ng/mlFEU [place] Activated Coagulation Time 175 208 94-[address] chest: neg CXR: neg Normal EKG Impression Assessment and Plan 72 y/o F who was admitted for observation on 06/22 for chest pain Chest pain: possible ACS given circumflex lesion and improving sx s/p cath, however lesion was small Thoughts prior that this was related to abx use CT chest neg for PE, pt has been on aspirin 81mg as well ECHO noted Elevated trop, monitor Meds as per cardiology HTN emergency: Improving No hx of HTN, monitor + ddimer: has been elevated since post-op and likely related to post-op and infection status L foot post-op status: no plans for further abx Recent hardware d/c Asthma: PRN albuterol Diet and DVT proph as per cardiology Advanced Directives Existing Living Will: Yes Existing Power of Buggy Loader: Yes Resuscitation Status VTE Prophylaxis Will order VTE Prophylaxis: Yes
[2018-06-22] MEDS ORDERED: ALBUTEROL HFA 8 GM INHALER INH PRN (19:00)
[2018-06-22] MEDS: METOPROLOL TARTRATE 25 MG TAB PO SCH (21:05)
[2018-06-22] MEDS: TICAGRELOR 90 MG TAB PO SCH (21:05)
[2018-06-23 00:45] VITALS: BP 143/78; PULSE 76; TEMP 36.9; O2SAT 98
[2018-06-23 01:45] VITALS: BP 150/80; PULSE 79; TEMP 36.9; O2SAT 94
[2018-06-23 04:00] VITALS: BP 134/69; PULSE 82; TEMP 37; O2SAT 96
[2018-06-23] MEDS: SODIUM CHLORIDE 0.45% 1000ML 1,000 ML IV SCH (05:45)
[2018-06-23 06:27] LABS: BASO % 0.7 %; BASO ABS # 0.07 K/uL (0-0.2); EOS % 2.8 %; EOS ABS # 0.27 K/uL (0-0.5); HEMATOCRIT 33.4 % (37-47); HEMOGLOBIN 10.7 g/dL (12.0-16.0); IG# 0.02 K/uL (0.00-0.02); LYMPH % 20.3 %; LYMPH ABS # 1.98 K/uL (1.2-3.4); MEAN CELL VOLUME 86.1 fL (80-100); MEAN CORPUSCULAR HEMOGLOBIN 27.6 pg (25-34); MEAN PLATELET VOLUME 9.2 fL (7.4-10.4); MONO % 9.2 %; NEUT % 66.8 %; NEUT ABS # 6.51 K/uL (1.4-6.5); PLATELET COUNT 396 K/uL (130-400); RED CELL DISTRIBUTION WIDTH CV 15.4 % (11.5-14.5); RED CELL DISTRIBUTION WIDTH SD 48.4 fL (36.4-46.3); WHITE BLOOD COUNT 9.75 K/uL (4.8-10.8)
[2018-06-23 06:36] LABS: PTT PATIENT 26.5 SECONDS (21.0-31.0)
[2018-06-23 07:07] VITALS: BP 107/64; PULSE 73; TEMP 37; O2SAT 95
[2018-06-23] MEDS: TICAGRELOR 90 MG TAB PO SCH (08:05)
[2018-06-23] MEDS: METOPROLOL TARTRATE 25 MG TAB PO SCH (08:10)
[2018-06-23] MEDS ORDERED: ATORVASTATIN 40 MG TAB PO SCH (09:00)
[2018-06-23] MEDS ORDERED: MULTIVITAMIN TAB PO SCH (09:00)
[2018-06-23] MEDS ORDERED: ASPIRIN 81 MG ECTAB PO SCH (09:00)
[2018-06-23] MEDS ORDERED: LISINOPRIL 5 MG TAB PO SCH (09:00)
[2018-06-23] MEDS ORDERED: LISI-730 PO (11:14)
[2018-06-23] MEDS ORDERED: BRL90 PO (11:14)
[2018-06-23] MEDS ORDERED: ATOR80TA PO (11:14)
[2018-06-23 11:17] VITALS: BP 100/62; PULSE 62; TEMP 36.2; O2SAT 96
--- NOTE | 2018-06-23 11:28 | Discharge Instructions ---
Discharge Instructions Date of Service Jun 23, 2018. 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 Instructions / Follow-Up Instructions / Follow-Up Blockage in Obtuse Marginal Heart Vessel: - This has a stent in it now and will be important to take a baby aspirin (81 mg ) daily and Brilinta 90 mg twice a day. You may be on both of these for about a year but your engineering scientist will monitor this and adjust if needed. This will help keep the stent open and help prevent further heart disease - You will be started on Lisinopril 5 mg daily. This is a blood pressure medication but is a low dose. This may get adjusted with your follow-up appointment. It will be helpful to watch you blood pressure and keep a diary of this to show your doctor - You will also be started on Atorvastatin 80 mg daily. This will help prevent cholesterol issues and protect your heart. If you have to go on Daptomycin again for your foot please discuss with your doctor as it is recommended to not use Daptomycin and Cholesterol medications at the same time - Please read the handout on activity restrictions after a catheterization. Watch the insertion site in your hand for any redness, increased pain, or drainage. Please call your doctor or come to the hospital if you notice anything like this - Will give a prescription for Nitroglycerin. This is to be used if you develop chest pain. Take one tablet at place it under your tongue. If the chest pain does not go away in 5 minutes you can take another tablet. Then call 911. You may take another tablet 5 minutes after the last if you are still having chest pain. Home Care: * Take your medications exactly as directed. Don't skip doses. * May gradually increase activity but take breaks as needed. Walking is fine. Avoid strenuous acitivty until you follow-up with cardiology. Then return to normal activity when your doctor says it's okay. * If you are having chest pain, call 911 for an ambulance. Do NOT drive yourself to the hospital. * Ask your family members to learn CPR. * Learn to take your own blood pressure and pulse. Keep a record of your results. Ask your doctor when you should seek emergency medical attention. He or she will tell you which blood pressure reading is dangerous. Lifestyle Changes: * Maintain a healthy weight. Get help to lose any extra pounds. * Cut back on salt. * Limit canned, dried, packaged, and fast foods. * Don't add salt to your food. * Season foods with herbs instead of salt when you cook. * Break the smoking habit. Enroll in a stop-smoking program to improve your chances of success. * Limit fatty foods. * Ask your doctor about having your lipid levels checked regularly. * Build up your activity according to your doctor's recommendation. * Ask your doctor when it's okay to resume sexual activity. * Try to manage stress. Follow Up: It is important for you to keep your follow up appointments with your medical provider. Current Hospital Diet Patient's current hospital diet: AHA Diet (Heart Healthy) Discharge Diet Recommended Diet: AHA Diet (Heart Healthy) Pending Studies Studies pending at discharge: no Medical Emergencies . Who to Call and When: Medical Emergencies: If at any time you feel your situation is an emergency, please call 911 immediately. Call 911 immediately or go to your nearest Emergency Room if you experience any of the following: Warning Signs and Symptoms of a Heart Attack * Chest pain that is not relieved by medication * Shortness of breath . Non-Emergent Contact Non-Emergency issues call your: Primary Care Provider Call Non-Emergent contact if: you have a fever, your pain is concerning you, you have any medication questions . . "Provider Documentation" section prepared by Karissa Mosley. . AMI Core Measures Reason no ASA as I/P: Treatment provided - N/A Reason no ASA at D/C: Treatment provided - N/A Reason no statin as I/P: Treatment provided - N/A Reason no statin at D/C: Treatment provided - N/A
[2018-06-23] MEDS ORDERED: NTRGSL4 SL (11:34)
[2018-06-23 11:48] VITALS: BP 100/62; PULSE 62; TEMP 36.2; O2SAT 96
--- NOTE | 2018-06-23 12:45 | Cardiology Follow-Up ---
Subjective Date of Service: Jun 23, 2018. Pt evaluation today including: conversation w/ patient, physical exam, chart review, lab review, review of studies, review of inpatient medication list, conversation w/ attending History of Present Illness This morning the patient claims to be feeling quite well. It seems that her symptoms of chest discomfort have resolved entirely. Unclear when this exactly took place but sometime over the course of the evening she had resolution of her discomfort. This morning she is able eat breakfast. She has been ambulatory around her room without additional symptoms. She denies any discomfort at the site of her procedure performed yesterday. Social History Smoking Status: Never Smoker History of Alcohol Use: Yes (socially) Review of Systems Patient has not felt well for several weeks. She denies overt fevers but did have some chills. She has not had gastrointestinal symptoms. She generally monitors her blood pressure at home and is normotensive. Objective Vital Signs Past 12 Hours Date Time Temp Pulse Resp B/P (MAP) Pulse Ox O2 Delivery O2 Flow Rate FiO2 06/23/18 12:00 Room Air 06/23/18 11:48 36.2 62 19 96 Room Air 06/23/18 11:17 36.2 62 19 100/62 (75) 96 Room Air 06/23/18 08:00 Room Air 06/23/18 07:07 37.0 73 18 107/64 (78) 95 Room Air 06/23/18 04:00 37.0 82 16 134/69 (90) 96 Room Air 06/23/18 01:45 36.9 79 16 150/80 (103) 94 Room Air 06/23/18 00:45 36.9 76 16 143/78 (99) 98 Room Air Last Recorded Weight-Kilograms: 69.700 Physical Exam She is alert and oriented x3. She did appear uncomfortable and mildly distressed. She answered all questions appropriately. HEENT: Sclerae are anicteric. Pupils are equal and reactive to light and accommodation. Extraocular movements were intact. Neuro: Cranial nerves intact Neck: Examination of the submandibular region did not reveal any significant lymphadenopathy. Carotids are palpable bilaterally and free of bruits on auscultation. There was no evidence of jugular venous distention. The thyroid was not enlarged. Lungs: Lungs are clear to auscultation bilaterally. There are no rales wheezes or rhonchi. She has normal respiratory effort without use of accessory muscles. There is normal pulmonary excursion. Cardiac: The rhythm was regular. S1 and S2 were normal. There are no murmurs on examination. The PMI was not markedly displaced on palpation. Extremities: Patient has bilateral radial pulses that are equal in intensity. There is no evidence cyanosis or clubbing. She did have a splint on the left foot. She has good perfusion her right hand. Palpable right radial pulse. No hematoma. Skin: There are no rashes noted on examination today. Data Laboratory Results: Last 24 Hours Test 06/22/18 13:30 06/22/18 13:46 06/22/18 17:20 06/22/18 17:31 White Blood Count 9.53 K/uL Red Blood Count 4.14 M/uL Hemoglobin 11.7 g/dL Hematocrit 35.9 % Mean Corpuscular Volume 86.7 fL Mean Corpuscular Hemoglobin 28.3 pg Mean Corpuscular Hemoglobin Concent 32.6 g/dl Platelet Count 463 K/uL Mean Platelet Volume 9.3 fL Neutrophils (%) (Auto) 63.6 % Lymphocytes (%) (Auto) 19.4 % Monocytes (%) (Auto) 13.7 % Eosinophils (%) (Auto) 2.6 % Basophils (%) (Auto) 0.5 % Neutrophils # (Auto) 6.05 K/uL Lymphocytes # (Auto) 1.85 K/uL Monocytes # (Auto) 1.31 K/uL Eosinophils # (Auto) 0.25 K/uL Basophils # (Auto) 0.05 K/uL RDW Standard Deviation 49.0 fL RDW Coefficient of Variation 15.3 % Immature Granulocyte % (Auto) 0.2 % Immature Granulocyte # (Auto) 0.02 K/uL Prothrombin Time 10.4 SECONDS Prothromb Time International Ratio 1.0 Activated Partial Thromboplast Time 28.9 SECONDS Partial Thromboplastin Ratio 1.1 Sodium Level 134 mmol/L Potassium Level 3.8 mmol/L Chloride Level 102 mmol/L Carbon Dioxide Level 21 mmol/L Anion Gap 11.0 mmol/L Blood Urea Nitrogen 20 mg/dl Creatinine 0.93 mg/dl Est Creatinine Clear Calc Drug Dose 50.8 ml/min Estimated GFR () 70.2 Estimated GFR (Non- 60.5 BUN/Creatinine Ratio 21.7 Random Glucose 142 mg/dl Calcium Level 9.1 mg/dl Magnesium Level 2.0 mg/dl Total Bilirubin 0.3 mg/dl Direct Bilirubin 0.1 mg/dl Aspartate Amino Transf (AST/SGOT) 17 U/L Alanine Aminotransferase (ALT/SGPT) 28 U/L Alkaline Phosphatase 148 U/L Troponin I 0.199 ng/ml Total Protein 8.2 gm/dl Albumin 3.3 gm/dl Lipase 115 U/L Bedside D-Dimer > 450 ng/mlFEU Kaolin Activated Coagulation Time 175 SECONDS 208 SECONDS Test 06/23/18 06:00 White Blood Count 9.75 K/uL Red Blood Count 3.88 M/uL Hemoglobin 10.7 g/dL Hematocrit 33.4 % Mean Corpuscular Volume 86.1 fL Mean Corpuscular Hemoglobin 27.6 pg Mean Corpuscular Hemoglobin Concent 32.0 g/dl Platelet Count 396 K/uL Mean Platelet Volume 9.2 fL Neutrophils (%) (Auto) 66.8 % Lymphocytes (%) (Auto) 20.3 % Monocytes (%) (Auto) 9.2 % Eosinophils (%) (Auto) 2.8 % Basophils (%) (Auto) 0.7 % Neutrophils # (Auto) 6.51 K/uL Lymphocytes # (Auto) 1.98 K/uL Monocytes # (Auto) 0.90 K/uL Eosinophils # (Auto) 0.27 K/uL Basophils # (Auto) 0.07 K/uL RDW Standard Deviation 48.4 fL RDW Coefficient of Variation 15.4 % Immature Granulocyte % (Auto) 0.2 % Immature Granulocyte # (Auto) 0.02 K/uL Activated Partial Thromboplast Time 26.5 SECONDS Partial Thromboplastin Ratio 1.0 Telemetry reviewed: No significant arrhythmia Assessment and Plan 1. Atypical chest pain: This appears to have resolved. I am skeptical that her symptoms were entirely related to the coronary stenosis discovered. Her symptoms seemed more likely related to an inflammatory process of sorts. However she is not appear to have any life-threatening etiology otherwise. 2. Hypertension: Much improved today. The elevations seen yesterday likely related to her acute symptoms. She could continue on a dose of beta-tanner or a low-dose of Kraig inhibitor as an outpatient. Lisinopril may be better tolerated and metabolically more favorable. Given the absence of a significant infarct do not feel she requires a beta-tanner although this would also be reasonable antihypertensive. 3. Coronary artery disease: She underwent percutaneous intervention on the OM 1 yesterday. She had no evidence of complication. She will need to continue on dual anti-platelet therapy preferably for a year. She was started on high- dose atorvastatin.
--- NOTE | 2018-06-23 15:57 | [facility] Operative Report ---
Operative Report Date of Service Jun 22, 2018. Operative Report Procedure performed: Cardiac catheterization Staff relay mechanic: Osiel Casillas MD Indication: Patient is a 72-year-old woman without a known history of coronary disease who presented to [facility] with chest pain. She is noted to have both an abnormal EKG as well as elevated cardiac biomarkers. Based on certainty regarding the etiology of her symptoms she was advised to consider coronary angiography. Procedure in detail: The patient was informed of the risks benefits and alternatives to the intended procedure, he understood such and wished to proceed. He was taken to the cardiac catheterization suite in a fasting state. Conscious sedation was administered per protocol and the patient was monitored electrocardiographically throughout today's procedure. The right wrist area was prepped and draped in usual sterile fashion. This area was anesthetized using subcutaneous administration of a lidocaine solution. The right radial artery was then accessed using Seldinger technique, and a arterial sheath was placed at this site over a guidewire. The sheath was used to facilitate passage of the cardiac catheter for coronary angiography and left heart catheterization. Coronary angiogram was then obtained in multiple orthogonal views prior to removal of the catheter. At the conclusion of the procedure the sheath was removed and hemostasis was achieved at the access site using manual pressure. The patient tolerated procedure well, there were no immediate complications. Equipment used: 5 Armenian tiger 4 Findings: Opening aortic pressure: 143/70 Left ventricular pressure: 153/15 Left ventricular end-diastolic pressure 15 Coronary angiography: Left main: Left main was very short with nearly dual ostial physiology. Left anterior descending: Left anterior descending was a large transapical vessel it produced a medium size 1st diagonal and medium size 2nd diagonal branch with some additional diminutive diagonals more distally. There is no significant obstructive disease in this distribution Left circumflex: Left circumflex artery was a non dominant vessel. It produced a large 1st OM branch with a 99 percent stenosis in its proximal portion. There was a 2nd smaller obtuse marginal without significant disease. Right coronary artery: Right coronary was a large dominant vessel. He had had an irregular 50 percent lesion in its midportion. Impression: Obstructive coronary disease involving OM 1 Right-dominant system Normal left ventricular end-diastolic pressures Plan: Patient will be referred for immediate percutaneous intervention involving OM 1 I attest to the content of the Intraoperative Record and any orders documented therein. Any exceptions are noted below.
--- NOTE | 2018-06-23 17:49 | Discharge Summary ---
Discharge Summary Date of Service Jun 23, 2018. Discharge Summary Admission Date: Jun 22, 2018 at 17:05 Discharge Date: Jun 23, 2018 Discharge Disposition: Home Principal Diagnosis: CAD S/P PCI Problems/Secondary Diagnoses: 1. CAD S/P PCI to OM1; Mild RCA 2. ZANDER 3. Peripheral Neuropathy 4. Glucose Intolerance 5. Sjogren syndrome 6. S/P Hysterectomy 7.. S/P Lumbar Fusion 8. S/P L Foot Surgery and Infection Procedures: HEART CATHETERIZATION: Findings: Opening aortic pressure: 143/70 Left ventricular pressure: 153/15 Left ventricular end-diastolic pressure 15 Coronary angiography: Left main: Left main was very short with nearly dual ostial physiology. Left anterior descending: Left anterior descending was a large transapical vessel it produced a medium size 1st diagonal and medium size 2nd diagonal branch with some additional diminutive diagonals more distally. There is no significant obstructive disease in this distribution Left circumflex: Left circumflex artery was a non dominant vessel. It produced a large 1st OM branch with a 99 percent stenosis in its proximal portion. There was a 2nd smaller obtuse marginal without significant disease. Right coronary artery: Right coronary was a large dominant vessel. He had had an irregular 50 percent lesion in its midportion. Impression: Obstructive coronary disease involving OM 1 Right-dominant system Normal left ventricular end-diastolic pressures CT ANGIOGRAM OF THE CHEST FINDINGS: Thyroid: Imaged portions of the thyroid gland are normal in size and attenuation. Thoracic aorta: There is atherosclerotic calcification of the thoracic aorta, which is normal in caliber and demonstrates standard 3-vessel arch anatomy. No dissection is seen. Pulmonary vasculature: The pulmonary trunk is normal in caliber. There are no filling defects identified in the main, lobar, or segmental pulmonary arteries to indicate pulmonary embolus. Heart: The heart is top normal in size, noting trace pericardial effusion. The coronary arteries are densely calcified. Lungs and pleural spaces: Evaluation of the lung parenchyma is degraded by motion artifact. There is no airspace consolidation or pleural effusion. Dependent atelectasis is noted the trachea and central airways are clear. Mediastinum: There is no mediastinal lymphadenopathy. Courtney: Clear. Axillae: There is no axillary lymphadenopathy. Upper abdomen: Scattered hepatic cysts measure up to 5.3 cm. There is a small to moderate hiatal hernia. Bony thorax: The skeletal structures are osteopenic. Post laminectomy and fusion change is seen at the thoracolumbar junction. No lytic or blastic lesions are identified. Arthritic change is seen in the shoulders. Calcific tendinopathy is noted in the left shoulder. IMPRESSION: 1. There is no evidence of pulmonary embolus in the main, lobar, or segmental pulmonary arteries. 2. There is no airspace consolidation or pleural effusion. 3. Hiatal hernia. ECHO -- Conclusions -- * Left ventricular systolic function is normal. EF 55-60% * Grade I diastolic dysfunction, (abnormal relaxation pattern). * Right ventricular systolic pressure is normal. Consultations: 1. Cardiology - Dr. Casillas Medication Reconciliation New Medications: Nitroglycerin (Nitrostat) 0.4 Mg/1 Tab Subl 1 TAB SL UD PRN for Chest Pain for 30 Days, #10 TABS 1 tab under tongue for chest pain. Repeat in 5 mins if needed. If it doesn't resolve call 911 Atorvastatin (Lipitor) 80 Mg Tab 1 TAB PO DAILY for 30 Days, #30 TAB Lisinopril (Lisinopril) 5 Mg Tab 5 MG PO QAM for 30 Days, #30 TAB Ticagrelor (Brilinta) 90 Mg Tab 90 MG PO BID for 30 Days, #60 TAB Continued Medications: Albuterol Hfa (Ventolin Hfa) 200 Puffs/03055 Mcg Aers 2-4 PUFFS INH Q6H PRN for Shortness of Breath, #1 INHALER Aspirin (Aspirin Ec) 81 Mg Tab 81 MG PO DAILY Estrogens, Conjugated (Premarin) 14 Appln/30 Gm Cr 1 APPLN VAGRING 3XWK Multiple Vitamin (Multi Vitamin) 1 Tab Tab 1 TAB PO DAILY Discharge Exam Review of Systems: Constitutional: No fever, No chills, No fatigue Respiratory: No cough, No shortness of breath Cardiovascular: No chest pain Abdomen: No pain, No nausea, No vomiting, No diarrhea, No constipation Musculoskeletal: No swelling, No calf pain Genitourinary - Female: No dysuria Hematologic / Lymphatic: No abnormal bleeding/bruising Physical Exam: General Appearance: WD/WN, no apparent distress Eyes: sclerae normal ENT: hearing grossly normal Neck: supple, no JVD, trachea midline Respiratory/Chest: lungs clear, no respiratory distress, no accessory muscle use Cardiovascular: regular rate, rhythm, no gallop, no murmur Abdomen / GI: normal bowel sounds, non tender, soft Extremities: + pertinent finding (cath insertion site R wrist without bleeding) Neurologic/Psychiatric: alert, oriented x 3 Skin: normal color, warm/dry Hospital Course ADMISSION: 72 y/o F c/o chest pain. Pt is typically heathy and without any prior hx of cardiac disease, however she has had a rough course of care s/p OR for L foot arthritis. 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 [place] [facility] Her most recent d/c from that facility was 06/16. She was having chest pain and it was thought to be related to abx. Abx have been stopped at this time. She had a CT chest and LE US that were neg for PE. She was put on aspirin 81mg for DVT/PE prevention at that time. Despite this, she was still having ongoing chest pain and SOB. Initially, this was radiating to the back and left shoulder with mild sx that resolved quickly, however sx become more frequent and today they were not resolving. Patient was working outside at onset of the symptoms. She tried resting, however sx continued and became more severe. Chest pain and SOB are worse with deep inspiration UE movements. Pt was noted to have an elevated trop. She was taken to the liaison inspection laboratory assistant and found to have a small circumflex lesion that was stented. Pt still has some chest pain, but it is much less than prior. No further SOB. Pt denies fever, abd pain, n/v/c/d. She does have LE swelling and pain related to her L foot post-op status. HOSPITAL COURSE: Ms. Pham was admitted for chest pain that has been ongoing. She did have some nonspecific ST depressions and the decision was made to undergo cardiac catheterization. Please see procedures for catheterization findings. PCI placed in OM1. She will continue on ASA 81 mg daily and Brilinta BID. She was significantly hypertensive upon admission and improved with antihypertensives. She will continue on Lisinopril 5 mg daily and may be increased if necessary. Consideration of BB therapy can be discussed at F/U with cardiology as the current recommendation was to just use one agent at this time given no known HTN issues. Will continue Atorvastatin 80 mg daily at this time. Echo did not reveal any wall motion abnormalities. Total Time Spent: Greater than 30 minutes This includes examination of the patient, discharge planning, medication reconciliation, and communication with other providers. Discharge Instructions Please refer to the electronic Patient Visit Report (Discharge Instructions) for additional information. Additional Copies To Jesus Membreno M.D.
--- NOTE | 2018-06-24 08:14 | CARDIAC CATH REPORT ---
INDICATION: Unstable angina, non-ST elevated [place] in a 72-year-old female, not yet treated for hypertension and hypercholesterolemia. PROCEDURES PERFORMED: Include percutaneous coronary intervention, drug-eluting stent x1, circumflex, posterolateral branch, radiological interpretation vision. METHOD: Upon completion of cardiac catheterization and review of films, the 6-Micronesian sheath in the right radial artery was aspirated and flushed. IV heparin was administered and titrated to an ACT on the order of 250 seconds. A 6-Micronesian EBU 3.5 guiding catheter was advanced over wire under fluoroscopic guidance to the central circulation where it was aspirated and flushed. After confirmation of adequate waveform, it was advanced into the left main. Cineangiograms of the left circumflex posterolateral branch were obtained and reviewed. A 0.014-inch airplane pilot chief wire was advanced through the guiding catheter across the surface to the distal circumflex posterolateral branch. A 2.0 Mini Trek 15 angioplasty catheter positioned in the ostial and proximal vessel inflated to a maximum pressure of less than a minute, and balloon was withdrawn. A 2.5 Xience 15 stent was positioned in the ostial and proximal circumflex posterolateral branch, inflated to maximum pressure of less than a minute, and balloon was withdrawn. Final cineangiograms obtained, and the wire was removed from the coronary artery, guiding catheter removed from the left main under fluoroscopic guidance, removed from the sheath, was aspirated and flushed. An external compression device was deployed over the right radial artery. Patient returned to room in good condition. COMPLICATIONS: None. FINDINGS: Initial cineangiograms demonstrate a segmental (less than 10 mm) 95% proximal stenosis of a circumflex posterolateral branch. Final cineangiograms demonstrated no residual stenosis, no uncovered dissection, THANH grade 3 flow throughout the circumflex posterolateral branch. IMPRESSION: Successful angioplasty and drug-eluting stent placement. RECOMMENDATIONS: Dual antiplatelet therapy as per DAPT guidelines.
[2018-06-24] MEDS ORDERED: PREMARIN VAG CRM 14 APPLN/30 GM TUBE TOP SCH (09:00)
== END 2018-06-23 14:05 | disposition home or self-care (01) ==
LOC: C.EDB 13:14 → C.2T 17:05 → ENRESERV 17:17
PROVIDERS: ADMIT Internal Medicine Clinical Cardiac Electrophysiology; ATTEND Internal Medicine
DX: I21.4 Non-ST elevation (NSTEMI) myocardial infarction (principal); I25.10 Atherosclerotic heart disease of native coronary artery without angina pectoris; G47.33 Obstructive sleep apnea (adult) (pediatric); G62.9 Polyneuropathy, unspecified; I10 Essential (primary) hypertension; G90.50 Complex regional pain syndrome I, unspecified; J45.909 Unspecified asthma, uncomplicated; M35.00 Sjogren syndrome, unspecified; K44.9 Diaphragmatic hernia without obstruction or gangrene; Z90.710 Acquired absence of both cervix and uterus; Z98.1 Arthrodesis status; Z79.82 Long term (current) use of aspirin; Z88.0 Allergy status to penicillin; Z88.2 Allergy status to sulfonamides; Z88.1 Allergy status to other antibiotic agents

== ENCOUNTER 2019-12-07 00:40 | Inpatient (IN) ==
[2019-12-07] MEDS ORDERED: SODIUM CHLORIDE 0.9% 1000ML 1,000 ML IV ONE ×3 (01:10→03:31)
[2019-12-07] MEDS ORDERED: ALBUT/IPRATROP 3MG/0.5MG NEB 3 ML VIAL NEB STA (01:10)
[2019-12-07 01:53] LABS: Hematocrit (blood only) 41.8 % (37-47); Hemoglobin 14.1 g/dL (12.0-16.0); Mean Corpuscular Hemoglobin 29.7 pg (25-34); Mean Corpuscular Hgb Conc 33.7 g/dL (32-36); Mean Platelet Volume 9.8 fL (7.4-10.4); Platelet Count 173 K/uL (130-400); RDW Coefficient of Variation 14.8 % (11.5-14.5); RDW Standard Deviation 48.1 fL (36.4-46.3); Red Blood Count 4.75 M/uL (4.2-5.4); White Blood Count 7.34 K/uL (4.8-10.8)
[2019-12-07 02:04] LABS: Partial Thromboplastin Time 28.1 Seconds (21.0-31.0)
[2019-12-07 02:12] LABS: Alanine Aminotransferase 23 U/L (12-78); Albumin Level 3.5 gm/dl (3.4-5.0); Aspartate Aminotransferase 21 U/L (15-37); BUN Creatinine Ratio 20.5 (10-20); Blood Urea Nitrogen 16 mg/dl (7-18); Calcium 8.7 mg/dl (8.5-10.1); Carbon Dioxide 24 mmol/L (21-32); Chloride 104 mmol/L (98-107); Creatinine Clr Calc Pharmacy 58.4 ml/min; Est GFR (African American) 84.3; Est GFR (Non-African American) 72.7; Glucose 110 mg/dl (70-99); Magnesium 1.9 mg/dl (1.8-2.4); Potassium 3.6 mmol/L (3.5-5.1); Sodium 135 mmol/L (136-145)
[2019-12-07 02:15] LABS: Basophils # (auto) 0.01 K/uL (0-0.2); Basophils % (auto) 0.1 %; Eosinophils # (auto) 0.01 K/uL (0-0.5); Eosinophils % (auto) 0.1 %; Immature Granulocytes # (auto) 0.01 K/uL (0.00-0.02); Immature Granulocytes % (auto) 0.1 %; Lymphocytes # (auto) 0.99 K/uL (1.2-3.4); Lymphocytes % (auto) 13.5 %; Monocytes # (auto) 0.79 K/uL (0.11-0.59); Monocytes % (auto) 10.8 %; Neutrophils # (auto) 5.53 K/uL (1.4-6.5); Neutrophils % (auto) 75.4 %
[2019-12-07 02:17] LABS: Alkaline Phosphatase 84 U/L (45-117); Bilirubin,Total 0.3 mg/dl (0.2-1); Globulin 3.6 gm/dl (2.5-4.0); Total Protein 7.1 gm/dl (6.4-8.2); Troponin I < 0.015 ng/ml (0-0.045)
[2019-12-07 03:22] LABS: D Dimer 1150 ug/L FEU (0-500)
[2019-12-07] MEDS ORDERED: FAMOTIDINE 20MG/5ML IV PUSH IV STA (03:43)
[2019-12-07] MEDS ORDERED: OPTIRAY 320 125ml IV PRN (03:58)
[2019-12-07] MEDS ORDERED: AZITHROMYCIN 500 MG in DEXTROSE 5% 250 ML IV ONE (04:53)
[2019-12-07] MEDS ORDERED: BENZONATATE 100 MG CAPSULE PO ONE (04:53)
--- NOTE | 2019-12-07 06:15 | History & Physical Report ---
Date of Service December 07, 2019 Assessment & Plan (1) Bronchopneumonia: Bronchopneumonia/community-acquired pneumonia involving both lower lungs- From history it sounds like to be initially as a viral process, but then became secondary bacterial infection. Take into account her multiple allergies and sensitivities antibiotics, will prescribe following medications: Zyvox 600 mg IV every 12 hours. Atrium with as milligram IV every 8 hours. Azithromycin 5 mg IV daily. Pulmicort Respules 0.5 mg inhaled twice daily Methylprednisolone 40 mg IV every 8 hours. Guaifenesin with dextromethorphan 10 mils p.o. every 6 hours as needed Xopenex 0.65, every 6 hours PRN Sputum Gram stain and culture and sensitivity Consult infectious disease due to use of Zyvox Present on Admission?: Yes (2) Community acquired pneumonia, bilateral: See above Present on Admission?: Yes (3) Coronary artery disease: No significant findings, and active at this time. Present on Admission?: Yes History of Present Illness Chief Complaint: The patient presents to the emergency department with worsening shortness of breath, dyspnea on exertion and intermittently productive cough that initially began while in the country of [place] 2 weeks ago, and has continued since that time. Primary Care Provider: Jesus Membreno MD The patient is a 74-year-old female with a past medical history including [id number], multiple antibiotic allergies and sensitivities who traveled with a group to [place] and [facility]. Her reports that she began to get sick while in [place] about 2 weeks ago, as did many people in their traveling group, but she became more sick than most. He did have some Keflex on hand and had her take the Keflex without significant improvement in symptoms. Of note, she was nowhere near [place], with the current outbreak of viruses there, and did not have exposures while on the plane. Allergies Allergy/AdvReac Type Severity Reaction Status Date / Time ceftaroline fosamil Allergy Severe WHITE Verified 11/21/19 08:19 BLOOD COUNT DECREASE indomethacin Allergy Severe UNCONSIOUS Verified 11/21/19 08:19 FOR 6 HOURS. cefaclor Allergy Intermediate Hives Verified 11/21/19 08:19 daptomycin Allergy Intermediate PNEUMONIA Verified 11/21/19 08:19 gluten Allergy Intermediate Gastrointestinal Verified 11/21/19 08:19 Upset Penicillins Allergy Intermediate Hives Verified 11/21/19 08:19 Fozvnpt-Xnc-Gmh Reductase Allergy Intermediate MUSCLE Verified 11/21/19 08:19 Inhibitor ACHES strawberry Allergy Intermediate Anaphylaxis Verified 11/21/19 08:19 Sulfa (Sulfonamide Allergy Intermediate Hives Verified 11/21/19 08:19 Antibiotics) vancomycin Allergy Intermediate JANET Verified 11/21/19 08:19 BEBETO SYNDROME moxifloxacin Allergy Unknown CAN'T Verified 11/21/19 08:19 REMEMBER nitrofurantoin Allergy Unknown CAN'T Verified 11/21/19 08:19 REMEMBER tetracycline Allergy Unknown CAN'T Verified 11/21/19 08:19 REMEMBER adhesive Allergy Redness of Verified 11/21/19 08:19 Skin diphenhydramine AdvReac Intermediate SHAKING Verified 11/21/19 08:19 ALL OVER Home Medications Home Medications Medication Instructions Recorded Confirmed Type multivitamin 1 tab PO DAILY 04/08/19 12/07/19 History nitroglycerin [Nitrostat] 0.4 mg SUBLINGUAL DIRECTED PRN 04/08/19 12/07/19 History conjugated estrogens 0.625 mg/gram 0.625 mg VAGINAL 2XWK gm 07/07/19 12/07/19 History vaginal cream epinephrine 0.3 mg/0.3 mL 0.3 mg IM ONCE PRN #2 ea 07/07/19 12/07/19 History injection, auto-injector acetaminophen [Tylenol Arthritis 650 mg PO Q8H PRN 12/07/19 12/07/19 History Pain] aspirin [Aspir-81] 81 mg PO DAILY 12/07/19 12/07/19 History Past Med/Surg History Medical History Asthma uses PRN INH 1xmo on avg Atrial fibrillation ONSET 40 YEARS AGO - NO MEDS - FOLLOWS W/ DR. RUBALCAVA Ybcxmou-Epjfv-Ptnoo disease type 2 FOLLOWS W/ DR. MAYA Coronary artery disease Status post NSTEMI in 06/2018. Stent to om 1. 50 percent stenosis and RCA Hiatal hernia Myocardial Infarction 2017 Osteoarthritis Sleep apnea CPAP TMJ (temporomandibular joint disorder) Urinary leakage Surgical History History of arthroscopy of left knee History of cardiac cath 06/2018 - [place] - [facility] - 1 STENT - FOLLOWS W/ DR. RUBALCAVA History of cholecystectomy History of colonoscopy History of esophagogastroduodenoscopy (EGD) History of foot surgery LEFT History of heart artery stent X 1 History of hysterectomy History of lumbar spinal fusion History of thoracic spinal fusion History of tooth extraction History of tubal ligation Hx of left cataract extraction Slow to wake up after anesthesia Stented coronary artery Family History Mother Family history of diabetes mellitus Brother Family history of diabetes mellitus Grandmother (Maternal) Family history of diabetes mellitus Other Family history non-contributory Social History Preferred Language: Panamanian Communication Ability: Effective Doughnut Icer Required: No Beliefs That Will Affect Care: None Current Living Situation: Spouse Feels Safe at Home: Yes Smoking Status: Never smoker Second Hand Exposure: No ; Hx Alcohol Use: No Hx Substance Use: No Review of Systems Review of Systems: The patient denies chest pain, palpitations, lower extremity swelling, sore throat, fevers, chills, sweats, nausea, vomiting, diarrhea , constipation, abdominal pain, pelvic pain, blood in urine or stool, dysuria, urinary frequency or urgency, memory loss, loss of consciousness, rash, abnormal bruising or bleeding, imbalance, focal weakness, numbness or tingling in arms or legs, generalized arthralgias or myalgias, back or neck pain, or night sweats. The review of systems is otherwise negative other than for that already noted above, and at least 10 systems have been reviewed. Physical Exam Physical Exam: The patient is awake, alert and oriented 3, well developed and well nourished, normocephalic and atraumatic, lying in bed and in no acute distress. HEENT--PERRL, EOMI, mucous membranes and oropharynx normal. Neck--supple. No JVD. No bruits. Thyroid normal, trachea midline, no adenopathy. Heart--normal S1 and S2. No murmurs, rubs or gallops. Lungs--coarse breath sounds with harsh cough. No respiratory distress, no accessory muscle use. Abdomen--normal bowel sounds and soft. Nontender. Nondistended. Extremities--no cyanosis or clubbing. No edema. There is a diminished DP pulse on the left. There is a scar medially along the left great toe from previous surgery Dermatologic--as above. Neurologic--cranial nerves II through XII grossly intact. Rheumatologic--normal range of motion. Psychiatric--normal affect. Results & Data Vital Signs (Past 12 Hours) Vital Signs Temp Pulse Pulse Resp BP Pulse Ox 12/07/19 04:40 118 H 24 12/07/19 04:36 120 H 24 154/118 H 92 12/07/19 04:34 124 H 22 12/07/19 04:20 100.6 F H 122 H 17 12/07/19 04:10 124 H 18 91 12/07/19 04:01 122 H 21 93 12/07/19 04:00 123 H 18 153/87 H 90 12/07/19 03:58 120 H 17 12/07/19 03:40 117 H 19 90 12/07/19 03:36 110 H 20 91 12/07/19 03:35 123 H 148/91 H 12/07/19 03:01 78/65 L 12/07/19 02:50 90 12/07/19 02:40 91 12/07/19 02:38 144/65 H 91 12/07/19 02:34 90 12/07/19 02:10 90 12/07/19 02:00 91 12/07/19 01:50 124 H 17 92 12/07/19 01:40 111 H 109 H 24 94 12/07/19 01:30 103 H 15 94 12/07/19 01:20 110 H 20 91 12/07/19 01:11 94 12/07/19 01:10 107 H 22 93 12/07/19 01:00 114 H 22 12/07/19 00:57 115 H 21 12/07/19 00:42 99.3 F 119 H 18 161/78 H 94 Laboratory Results Laboratory Results WBC 7.34 K/uL (4.8-10.8) 12/07/19 01:20 RBC 4.75 M/uL (4.2-5.4) 12/07/19 01:20 Hgb 14.1 g/dL (12.0-16.0) 12/07/19 01:20 Hct 41.8 % (37-47) 12/07/19 01:20 MCV 88.0 fL (80-100) 12/07/19 01:20 MCH 29.7 pg (25-34) 12/07/19 01:20 MCHC 33.7 g/dL (32-36) 12/07/19 01: RDW Std Deviation 48.1 fL (36.4-46.3) H 12/07/19 01: RDW Coeff of Ramesh 14.8 % (11.5-14.5) H 12/07/19 01:20 Plt Count 173 K/uL (130-400) 12/07/19 01: MPV 9.8 fL (7.4-10.4) 12/07/19 01:20 Immature Gran % (Auto) 0.1 % 12/07/19 01:20 Neut % (Auto) 75.4 % 12/07/19 01:20 Lymph % (Auto) 13.5 % 12/07/19 01:20 Gray % (Auto) 10.8 % 12/07/19 01:20 Eos % (Auto) 0.1 % 12/07/19 01:20 Baso % (Auto) 0.1 % 12/07/19 01:20 Immature Gran # (Auto) 0.01 K/uL (0.00-0.02) 12/07/19 01: Neut # (Auto) 5.53 K/uL (1.4-6.5) 12/07/19 01:20 Lymph # (Auto) 0.99 K/uL (1.2-3.4) L 12/07/19 01:20 Gray # (Auto) 0.79 K/uL (0.11-0.59) H 12/07/19 01: Eos # (Auto) 0.01 K/uL (0-0.5) 12/07/19 01:20 Baso # (Auto) 0.01 K/uL (0-0.2) 12/07/19 01: PT 10.0 Seconds (9.0-12.0) 12/07/19 01: INR 1.0 (0.9-1.1) 12/07/19 01: APTT 28.1 Seconds (21.0-31.0) 12/07/19 01: PTT Ratio 1.0 12/07/19 01: D-Dimer 1150 ug/L FEU (0-500) H* 12/07/19 01:20 Sodium 135 mmol/L (136-145) L 12/07/19 01:20 Potassium 3.6 mmol/L (3.5-5.1) 12/07/19 01:20 Chloride 104 mmol/L (98-107) 12/07/19 01:20 Carbon Dioxide 24 mmol/L (21-32) 12/07/19 01:20 Anion Gap 7.0 (3-11) 12/07/19 01:20 BUN 16 mg/dl (7-18) 12/07/19 01:20 Creatinine 0.79 mg/dl (0.6-1.2) 12/07/19 01:20 Est Cr Clr Drug Dosing 58.4 ml/min 12/07/19 01:20 Est GFR ( Amer) 84.3 12/07/19 01:20 Est GFR (Non-Af Amer) 72.7 12/07/19 01:20 BUN/Creatinine Ratio 20.5 (10-20) H 12/07/19 01:20 Glucose 110 mg/dl (70-99) H 12/07/19 01:20 Lactate 1.3 mmol/L (0.4-2.0) 12/07/19 01:20 Calcium 8.7 mg/dl (8.5-10.1) 12/07/19 01:20 Magnesium 1.9 mg/dl (1.8-2.4) 12/07/19 01:20 Total Bilirubin 0.3 mg/dl (0.2-1) 12/07/19 01:20 AST 21 U/L (15-37) 12/07/19 01:20 ALT 23 U/L (12-78) 12/07/19 01:20 Alkaline Phosphatase 84 U/L (45-117) 12/07/19 01:20 Troponin I < 0.015 ng/ml (0-0.045) 12/07/19 01:20 Total Protein 7.1 gm/dl (6.4-8.2) 12/07/19 01:20 Albumin 3.5 gm/dl (3.4-5.0) 12/07/19 01:20 Globulin 3.6 gm/dl (2.5-4.0) 12/07/19 01:20 Albumin/Globulin Ratio 1.0 (0.9-2) 12/07/19 01:20 Influenza Type A Ag Neg for Influ A (Neg) 12/07/19 01:25 Influenza Type B Ag Neg for Influ B (Neg) 12/07/19 01:25 Code Status & VTE Plan Code Status Full code VTE Prophylaxis Plan VTE Prophylaxis will be ordered: Yes PG Care Time/CCT Total # of Minutes Spent Total Time Spent with Patient: Total time spent is greater than 50% in coordination of care (as documented) at patient's floor/unit and/or counseling patient: Coding Level of Care Code 02568 Initial Inpt Care Lvl 3 Diagnoses Bronchopneumonia J18.0 Community acquired pneumonia, bilateral J18.9 Coronary artery disease I25.10
--- NOTE | 2019-12-07 06:38 | XRay Report ---
XR chest 1V portable HISTORY: 74 years-old Female SEPSIS acute sepsis COMPARISON: CTA of the chest of same day, chest radiograph 04/08/2019 TECHNIQUE: Portable AP view of the chest FINDINGS: Cardiomediastinal and hilar silhouettes are within normal limits. Calcified plaque of the thoracic ao rtic arch. No pneumothorax, pleural effusion or overt pulmonary edema. Mild patchy right greater than left bibasilar opacities are noted. Degenerative changes of the shoulders and spine. IMPRESSION: 1. Mild asymmetric right basilar opacities suspicious for pneumonia versus aspiration pneumonitis. ACT 112: Negative or not required by law. The above report was generated using voice recognition software. It may contain grammatical, syntax o r spelling errors. Electronically signed by: George Freed M.D. 12/07/2019 6:37 AM
[2019-12-07] MEDS ORDERED: ALUMINUM/MAGNESIUM SUSP 30 ML UDC PO PRN (07:18)
[2019-12-07] MEDS ORDERED: MAGNESIUM HYDROXIDE SUSP 30 ML UDC PO PRN (07:18)
[2019-12-07] MEDS ORDERED: NON-FORMULARY MEDICATION (Acetaminophen [Tylenol Arthritis Pain] 650 MG) PO PRN (07:18)
[2019-12-07] MEDS ORDERED: ONDANSETRON INJ 2 MG/ML 2 ML VIAL IV PRN (07:18)
[2019-12-07] MEDS ORDERED: NITROGLYCERIN SL 0.4 MG/TAB TAB SL PRN (07:18)
[2019-12-07] MEDS ORDERED: LINEZOLID 600 MG/300 ML D5W IV SCH (07:18)
[2019-12-07] MEDS: ACETAMINOPHEN 325 MG TAB PO PRN (07:43)
[2019-12-07] MEDS ORDERED: LINEZOLID 600 MG/300 ML BAG IV SCH (08:00)
[2019-12-07] MEDS: BUDESONIDE 0.5 MG/2 ML VIAL (PULMICORT) NEB SCH ×2 (08:06→19:32)
--- NOTE | 2019-12-07 08:15 | Emergency Department Note ---
Entered by Alize Cade acting as a scribe for Yuliet Hartley DO History of Present Illness General Chief complaint: Illness Stated complaint: BACK PAIN,CHEST PAIN Time Seen by Provider: 12/07/19 00:54 Source: patient and family () Limitations: no limitations History of Present Illness Onset (ago): day(s) 6 Location: chest Pain Consistency: + other (worsening ) Maximum Pain Intensity: 4 Quality: + other (pain, discomfort) Associated symptoms: + denies other symptoms (abdominal pain, new lower extremity pain), + fever/chills and + other (back pain, cough) The patient is a 74 year old female who presents to the Emergency Room with complaints of chest pain and discomfort with coughing that began 6 days ago. Her , at bedside, notes that her chest pain has worsened over the past hour. The patient reports that the symptoms feel similar to her past heart attack. 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 The patient complains of back pain. The patient complains of a cough over the past few days. She denies any abdominal pain and new lower extremity pain. Her , at bedside, notes that her pulse ox was 92 at home. She reports that she had the influenza vaccine this year. The marce gordon's notes that they returned home from a 2 week vacation to [facility] and [place]. The reports that the patient was started on Keflex 5 days ago. Home Medications Home Medications Medication Instructions Recorded Confirmed Type multivitamin 1 tab PO DAILY 04/08/19 12/07/19 History nitroglycerin [Nitrostat] 0.4 mg SUBLINGUAL DIRECTED PRN 04/08/19 12/07/19 History conjugated estrogens 0.625 mg/gram 0.625 mg VAGINAL 2XWK gm 07/07/19 12/07/19 History vaginal cream epinephrine 0.3 mg/0.3 mL 0.3 mg IM ONCE PRN #2 ea 07/07/19 12/07/19 History injection, auto-injector acetaminophen [Tylenol Arthritis 650 mg PO Q8H PRN 12/07/19 12/07/19 History Pain] aspirin [Aspir-81] 81 mg PO DAILY 12/07/19 12/07/19 History Allergies Allergy/AdvReac Type Severity Reaction Status Date / Time ceftaroline fosamil Allergy Severe WHITE Verified 11/21/19 08:19 BLOOD COUNT DECREASE indomethacin Allergy Severe UNCONSIOUS Verified 11/21/19 08:19 FOR 6 HOURS. cefaclor Allergy Intermediate Hives Verified 11/21/19 08:19 daptomycin Allergy Intermediate PNEUMONIA Verified 11/21/19 08:19 gluten Allergy Intermediate Gastrointestinal Verified 11/21/19 08:19 Upset Penicillins Allergy Intermediate Hives Verified 11/21/19 08:19 Rupytqq-Tsg-Pxx Reductase Allergy Intermediate MUSCLE Verified 11/21/19 08:19 Inhibitor ACHES strawberry Allergy Intermediate Anaphylaxis Verified 11/21/19 08:19 Sulfa (Sulfonamide Allergy Intermediate Hives Verified 11/21/19 08:19 Antibiotics) vancomycin Allergy Intermediate JANET Verified 11/21/19 08:19 BEBETO SYNDROME moxifloxacin Allergy Unknown CAN'T Verified 11/21/19 08:19 REMEMBER nitrofurantoin Allergy Unknown CAN'T Verified 11/21/19 08:19 REMEMBER tetracycline Allergy Unknown CAN'T Verified 11/21/19 08:19 REMEMBER adhesive Allergy Redness of Verified 11/21/19 08:19 Skin diphenhydramine AdvReac Intermediate SHAKING Verified 11/21/19 08:19 ALL OVER Past Med/Surg History Medical History Asthma uses PRN INH 1xmo on avg Atrial fibrillation ONSET 40 YEARS AGO - NO MEDS - FOLLOWS W/ DR. RUBALCAVA Hyjvaij-Eqonq-Wlsso disease type 2 FOLLOWS W/ DR. MAYA Coronary artery disease Status post NSTEMI in 06/2018. Stent to om 1. 50 percent stenosis and RCA Hiatal hernia Myocardial Infarction 2017 Osteoarthritis Sleep apnea CPAP TMJ (temporomandibular joint disorder) Urinary leakage Surgical History History of arthroscopy of left knee History of cardiac cath 06/2018 - [facility] - 1 STENT - FOLLOWS W/ DR. RUBALCAVA History of cholecystectomy History of colonoscopy History of esophagogastroduodenoscopy (EGD) History of foot surgery LEFT History of heart artery stent X 1 History of hysterectomy History of lumbar spinal fusion History of thoracic spinal fusion History of tooth extraction History of tubal ligation Hx of left cataract extraction Slow to wake up after anesthesia Stented coronary artery Family History Mother Family history of diabetes mellitus Brother Family history of diabetes mellitus Grandmother (Maternal) Family history of diabetes mellitus Other Family history non-contributory Social History Preferred Language: Frisian Communication Ability: Effective Equipment Cleaner Required: No Beliefs That Will Affect Care: None Current Living Situation: Spouse Feels Safe at Home: Yes Smoking Status: Never smoker Second Hand Exposure: No ; Hx Alcohol Use: Yes Alcohol type: wine Hx Substance Use: No Review of Systems See HPI for pertinent positives & negatives. and A total of 10 systems reviewed and were otherwise negative Physical Exam Vital Signs Vital Signs - 24 hr 12/07/19 00:42 12/07/19 00:57 12/07/19 01:00 Temperature 37.4 C Temperature Source Oral Pulse Rate 119 H 115 H 114 H Pulse Rate [Right Finger] Pulse Rate from SpO2 Sensor Respiratory Rate 18 21 22 Respiratory Effort / Characteristics Non-Labored Spontaneous Respiratory Depth Normal Blood Pressure 161/78 H Blood Pressure Mean 105 Pulse Oximetry 94 Oxygen Delivery Method Room Air Sepsis Recent Fever Within 48 Hours Yes Sepsis Action Taken by Nursing No Action Required 12/07/19 01:10 12/07/19 01:11 12/07/19 01:20 Temperature Temperature Source Pulse Rate 107 H 110 H Pulse Rate [Right Finger] Pulse Rate from SpO2 Sensor 108 H 110 H Respiratory Rate 22 20 Respiratory Effort / Characteristics Respiratory Depth Blood Pressure Blood Pressure Mean Pulse Oximetry 93 94 91 Oxygen Delivery Method Room Air Sepsis Recent Fever Within 48 Hours Sepsis Action Taken by Nursing 12/07/19 01:30 12/07/19 01:40 12/07/19 01:50 Temperature Temperature Source Pulse Rate 103 H 111 H 124 H Pulse Rate [Right Finger] 109 H Pulse Rate from SpO2 Sensor 102 H 125 H Respiratory Rate 15 24 17 Respiratory Effort / Characteristics Spontaneous Respiratory Depth Blood Pressure Blood Pressure Mean Pulse Oximetry 94 94 92 Oxygen Delivery Method Room Air Sepsis Recent Fever Within 48 Hours Sepsis Action Taken by Nursing 12/07/19 02:00 12/07/19 02:10 12/07/19 02:34 Temperature Temperature Source Pulse Rate Pulse Rate [Right Finger] Pulse Rate from SpO2 Sensor 120 H 127 H 115 H Respiratory Rate Respiratory Effort / Characteristics Respiratory Depth Blood Pressure Blood Pressure Mean Pulse Oximetry 91 90 90 Oxygen Delivery Method Sepsis Recent Fever Within 48 Hours Sepsis Action Taken by Nursing 12/07/19 02:38 12/07/19 02:40 12/07/19 02:50 Temperature Temperature Source Pulse Rate Pulse Rate [Right Finger] Pulse Rate from SpO2 Sensor 120 H 118 H 117 H Respiratory Rate Respiratory Effort / Characteristics Respiratory Depth Blood Pressure 144/65 H Blood Pressure Mean 94 Pulse Oximetry 91 91 90 Oxygen Delivery Method Sepsis Recent Fever Within 48 Hours Sepsis Action Taken by Nursing 12/07/19 03:01 12/07/19 03:35 12/07/19 03:36 Temperature Temperature Source Pulse Rate 123 H 110 H Pulse Rate [Right Finger] Pulse Rate from SpO2 Sensor 110 H Respiratory Rate 20 Respiratory Effort / Characteristics Respiratory Depth Blood Pressure 78/65 L 148/91 H Blood Pressure Mean 71 103 Pulse Oximetry 91 Oxygen Delivery Method Sepsis Recent Fever Within 48 Hours Sepsis Action Taken by Nursing 12/07/19 03:40 12/07/19 03:58 12/07/19 04:00 Temperature Temperature Source Pulse Rate 117 H 120 H 123 H Pulse Rate [Right Finger] Pulse Rate from SpO2 Sensor 117 H 123 H Respiratory Rate 19 17 18 Respiratory Effort / Characteristics Respiratory Depth Blood Pressure 153/87 H Blood Pressure Mean 95 Pulse Oximetry 90 90 Oxygen Delivery Method Sepsis Recent Fever Within 48 Hours Sepsis Action Taken by Nursing 12/07/19 04:01 12/07/19 04:10 12/07/19 04:20 Temperature 38.1 C H Temperature Source Pulse Rate 122 H 124 H 122 H Pulse Rate [Right Finger] Pulse Rate from SpO2 Sensor 121 H 126 H Respiratory Rate 21 18 17 Respiratory Effort / Characteristics Respiratory Depth Blood Pressure Blood Pressure Mean Pulse Oximetry 93 91 Oxygen Delivery Method Sepsis Recent Fever Within 48 Hours Sepsis Action Taken by Nursing 12/07/19 04:34 12/07/19 04:36 12/07/19 04:40 Temperature Temperature Source Pulse Rate 124 H 120 H 118 H Pulse Rate [Right Finger] Pulse Rate from SpO2 Sensor 120 H Respiratory Rate 22 24 24 Respiratory Effort / Characteristics Respiratory Depth Blood Pressure 154/118 H Blood Pressure Mean 132 Pulse Oximetry 92 Oxygen Delivery Method Sepsis Recent Fever Within 48 Hours Sepsis Action Taken by Nursing 12/07/19 05:01 12/07/19 05:30 Temperature Temperature Source Pulse Rate 118 H 115 H Pulse Rate [Right Finger] Pulse Rate from SpO2 Sensor 119 H Respiratory Rate 18 22 Respiratory Effort / Characteristics Respiratory Depth Blood Pressure 156/88 H 163/90 H Blood Pressure Mean 108 111 Pulse Oximetry 90 Oxygen Delivery Method Sepsis Recent Fever Within 48 Hours Sepsis Action Taken by Nursing General: Appears anxious, tachypneic HEENT: Head - normocephalic and atraumatic Pupils are equal, round, and reactive to light. Extraocular eye muscles are intact, and sclera are anicteric. Nose - moist nasal mucosa without discharge. Mouth - dry buccal mucosa. Oropharynx is nonerythematous and there is no tonsillar exudate or edema noted. Neck: Supple; no nuchal rigidity or cervical lymphadenopathy Heart: Tachycardic rate and regular rhythm. There is a normal S1 and S2 with no murmurs, clicks, or gallops appreciated. Lungs: Decreased breath sounds in her right lung base. Expiratory wheezing in both lung bases. Abdomen: Soft, completely nontender, nondistended, with good bowel sounds. There are no palpable pulsatile masses or hepatosplenomegaly. There is no guarding, rigidity, or rebound noted. Extremities: No evidence of cyanosis, clubbing, or edema. There are easily pa lpable peripheral pulses. Skin: warm and dry with good turgor and no rashes. Course Course 0101: The patient was evaluated in room A10. A complete history and physical exam was performed. A septic protocol was performed. An order was placed for continuous cardiac monitoring. The patient remained in a sinus tachycardia at a rate of 120 here in the emergency department. A twelve-lead EKG was obtained. 0110: NSS 1000 mL, Duoeb 3 ml NEB. Her nose was swabbed for influenza. 0149: The patient stated that she could not tolerate the breathing treatment and removed it. 0331: NSS 1000 mL 0337: I reevaluated the patient, and her repeat blood pressure was 140/80. She stated that she went to the bathroom and was coughing a lot. She will got to CT to rule out a PE. She complained of body pain at this time. He was also complaining of reflux. A twelve-lead EKG was repeated at that time and showed no evidence of cardiac ischemia. 0343: Pepcid 20 mg IV 0444: I had a long conversation with the patient and her . 0453: Zithromax 500 mg IV, Tessalon Perle 100 mg PO 0525: I spoke with Dr. Izquierdo, [facility] hospitalist, about the patient's case. He will further evaluate the patient. 0630: I checked on the patient, and she was confused. She had ripped both of her IVs out. However, she could be reoriented. The had told me that she has not slept in the past 48 hours and this could be as a result of sleep deprivation. Administered Medications Acetaminophen (Tylenol) 650 mg PO Q4H PRN PRN Reason: Pain or Fever Stop: 01/06/20 07:26 Last Admin: 12/07/19 07:43 Dose: 650 mg Documented by: [id number] Aspirin (Ecotrin Ectab) 81 mg PO DAILY BARBRA Stop: 01/06/20 08:59 Last Admin: 12/07/19 08:36 Dose: 81 mg Documented by: [id number] Budesonide (Pulmicort Respules) 0.5 mg NEB BIDR BARBRA Stop: 01/06/20 07:17 Last Admin: 12/07/19 19:32 Dose: 0.5 mg Documented by: [id number] Admin: 12/07/19 08:06 Dose: 0.5 mg Documented by: [id number] Guaifenesin/Dextromethorphan (Robitussin Cough-Chest Dm) 10 ml PO Q6H PRN PRN Reason: Cough Stop: 01/06/20 07:17 Last Admin: 12/07/19 08:35 Dose: 10 ml Documented by: [id number] Heparin Sodium (Porcine) (Heparin Sodium (Porcine)) 5,000 units SQ Q12 BARBRA Stop: 01/06/20 20:59 Last Admin: 12/07/19 20:58 Dose: 5,000 units Documented by: [id number] Cosigned by: [id number] Multivitamins (Multivitamin Tab) 1 tab PO DAILY BARBRA Stop: 01/06/20 08:59 Last Admin: 12/07/19 08:35 Dose: 1 tab Documented by: [id number] Discontinued Medications Albuterol (Duoneb) 3 ml NEB NOW STA Stop: 12/07/19 01:11 Last Admin: 12/07/19 01:40 Dose: 3 ml Documented by: [id number] Benzonatate (Tessalon Perle) 100 mg PO NOW ONE Stop: 12/07/19 04:54 Last Admin: 12/07/19 05:03 Dose: 100 mg Documented by: [id number] Famotidine (Pepcid 20mg Iv Push) 20 mg IV ONE STA Stop: 12/07/19 03:44 Last Admin: 12/07/19 04:10 Dose: 20 mg Documented by: [id number] Sodium Chloride (Nss 1000ml) 1,000 mls @ 999 mls/hr IV .Q1H1M ONE Stop: 12/07/19 02:10 Last Infusion: 12/07/19 02:40 Dose: 0 mls/hr Documented by: [id number] Admin: 12/07/19 01:23 Dose: 999 mls/hr Documented by: [id number] Sodium Chloride (Nss 1000ml) 1,000 mls @ 999 mls/hr IV .Q1H1M ONE Stop: 12/07/19 02:11 Last Infusion: 12/07/19 02:40 Dose: 0 mls/hr Documented by: [id number] Admin: 12/07/19 01:23 Dose: 999 mls/hr Documented by: [id number] Sodium Chloride (Nss 1000ml) 1,000 mls @ 999 mls/hr IV .Q1H1M ONE Stop: 12/07/19 04:31 Last Admin: 12/07/19 04:10 Dose: Not Given Documented by: [id number] Azithromycin 500 mg/ Dextrose 255 mls @ 125 mls/hr IV ONE ONE Stop: 12/07/19 06:55 Last Infusion: 12/07/19 07:42 Dose: 0 mls/hr Documented by: [id number] Admin: 12/07/19 05:03 Dose: 125 mls/hr Documented by: [id number] Aztreonam 1,000 mg/ Dextrose 105 mls @ 100 mls/hr IV Q8H [facility]; Protocol Stop: 12/14/19 07:59 Last Infusion: 12/07/19 16:31 Dose: 0 mls/hr Documented by: [id number] Admin: 12/07/19 15:31 Dose: 100 mls/hr Documented by: [id number] Infusion: 12/07/19 09:46 Dose: 0 mls/hr Documented by: [id number] Admin: 12/07/19 08:30 Dose: 100 mls/hr Documented by: [id number] Methylprednisolone 40 mg/ (Syringe) 0.64 mls @ 1.5 mls/min IV Q8H BARBRA Stop: 01/06/20 07:59 Last Admin: 12/07/19 15:31 Dose: 1.5 mls/min Documented by: [id number] Admin: 12/07/19 08:34 Dose: 1.5 mls/min Documented by: [id number] Linezolid (Zyvox) 600 mg in 300 mls @ 200 mls/hr IV Q12H BARBRA Stop: 12/14/19 07:59 Last Infusion: 12/07/19 10:01 Dose: 0 mls/hr Documented by: [id number] Admin: 12/07/19 08:28 Dose: 200 mls/hr Documented by: [id number] Sodium Chloride (Nss 1000ml) 1,000 mls @ 100 mls/hr IV .Q10H BARBRA Stop: 12/08/19 08:29 Last Infusion: 12/07/19 15:07 Dose: 0 mls/hr Documented by: [id number] Admin: 12/07/19 12:36 Dose: 100 mls/hr Documented by: [id number] Ioversol (Optiray 320 125ml) 89 ml IV ONCE PRN PRN Reason: Interaction Checking Stop: 12/11/19 03:57 Last Admin: 12/07/19 03:59 Dose: 89 ml Documented by: [id number] Medical Decision Making Differential Diagnosis The differential diagnosis includes: sepsis, pneumonia, viral syndrome, acute coronary syndrome, bronchitis, influenza, and PE. Medical Records Attestation: I reviewed the patient's medical records. Home Medications Current Medication List: was personally reviewed by me Laboratory Data Attestation: I reviewed the patient's lab results. Result diagrams: 12/07/19 01:12/07/19:20 Lab Results 12/07/19 12/07/19 12/07/19 Range/Units 01: 01:20 01:20 WBC 7.34 (4.8-10.8) K/uL RBC 4.75 (4.2-5.4) M/uL Hgb 14.1 (12.0-16.0) g/dL Hct 41.8 (37-47) % MCV 88.0 (80-100) fL MCH 29.7 (25-34) pg MCHC 33.7 (32-36) g/dL RDW Std Deviation 48.1 H (36.4-46.3) fL RDW Coeff of Ramesh 14.8 H (11.5-14.5) % Plt Count 173 (130-400) K/uL MPV 9.8 (7.4-10.4) fL Immature Gran % (Auto) 0.1 % Neut % (Auto) 75.4 % Lymph % (Auto) 13.5 % Ogle % (Auto) 10.8 % Eos % (Auto) 0.1 % Baso % (Auto) 0.1 % Immature Gran # (Auto) 0.01 (0.00-0.02) K/uL Neut # (Auto) 5.53 (1.4-6.5) K/uL Lymph # (Auto) 0.99 L (1.2-3.4) K/uL Ogle # (Auto) 0.79 H (0.11-0.59) K/uL Eos # (Auto) 0.01 (0-0.5) K/uL Baso # (Auto) 0.01 (0-0.2) K/uL PT 10.0 (9.0-12.0) Seconds INR 1.0 (0.9-1.1) APTT 28.1 (21.0-31.0) Seconds PTT Ratio 1.0 D-Dimer (0-500) ug/L FEU Sodium 135 L (136-145) mmol/L Potassium 3.6 (3.5-5.1) mmol/L Chloride 104 (98-107) mmol/L Carbon Dioxide 24 (21-32) mmol/L Anion Gap 7.0 (3-11) BUN 16 (7-18) mg/dl Creatinine 0.79 (0.6-1.2) mg/dl Est Cr Clr Drug Dosing 58.4 ml/min Est GFR ( Amer) 84.3 Est GFR (Non-Af Amer) 72.7 BUN/Creatinine Ratio 20.5 H (10-20) Glucose 110 H (70-99) mg/dl Lactate (0.4-2.0) mmol/L Calcium 8.7 (8.5-10.1) mg/dl Magnesium 1.9 (1.8-2.4) mg/dl Total Bilirubin 0.3 (0.2-1) mg/dl AST 21 (15-37) U/L ALT 23 (12-78) U/L Alkaline Phosphatase 84 (45-117) U/L Troponin I < 0.015 (0-0.045) ng/ml Total Protein 7.1 (6.4-8.2) gm/dl Albumin 3.5 (3.4-5.0) gm/dl Globulin 3.6 (2.5-4.0) gm/dl Albumin/Globulin Ratio 1.0 (0.9-2) Influenza Type A Ag (Neg) Influenza Type B Ag (Neg) 12/07/19 12/07/19 12/07/19 Range/Units : 01: 01:25 WBC (4.8-10.8) K/uL RBC (4.2-5.4) M/uL Hgb (12.0-16.0) g/dL Hct (37-47) % MCV (80-100) fL MCH (25-34) pg MCHC (32-36) g/dL RDW Std Deviation (36.4-46.3) fL RDW Coeff of Ramesh (11.5-14.5) % Plt Count (130-400) K/uL MPV (7.4-10.4) fL Immature Gran % (Auto) % Neut % (Auto) % Lymph % (Auto) % Ogle % (Auto) % Eos % (Auto) % Baso % (Auto) % Immature Gran # (Auto) (0.00-0.02) K/uL Neut # (Auto) (1.4-6.5) K/uL Lymph # (Auto) (1.2-3.4) K/uL Ogle # (Auto) (0.11-0.59) K/uL Eos # (Auto) (0-0.5) K/uL Baso # (Auto) (0-0.2) K/uL PT (9.0-12.0) Seconds INR (0.9-1.1) APTT (21.0-31.0) Seconds PTT Ratio D-Dimer 1150 H* (0-500) ug/L FEU Sodium (136-145) mmol/L Potassium (3.5-5.1) mmol/L Chloride (98-107) mmol/L Carbon Dioxide (21-32) mmol/L Anion Gap (3-11) BUN (7-18) mg/dl Creatinine (0.6-1.2) mg/dl Est Cr Clr Drug Dosing ml/min Est GFR ( Amer) Est GFR (Non-Af Amer) BUN/Creatinine Ratio (10-20) Glucose (70-99) mg/dl Lactate 1.3 (0.4-2.0) mmol/L Calcium (8.5-10.1) mg/dl Magnesium (1.8-2.4) mg/dl Total Bilirubin (0.2-1) mg/dl AST (15-37) U/L ALT (12-78) U/L Alkaline Phosphatase (45-117) U/L Troponin I (0-0.045) ng/ml Total Protein (6.4-8.2) gm/dl Albumin (3.4-5.0) gm/dl Globulin (2.5-4.0) gm/dl Albumin/Globulin Ratio (0.9-2) Influenza Type A Ag Neg for Influ A (Neg) Influenza Type B Ag Neg for Influ B (Neg) Imaging Data Attestation: I personally reviewed and interpreted this imaging study as follows: My Impression: XR CHEST 1V: No cardiomegaly. Narrow mediastinum. No pleural effusion. Radiologist's Impression: Radiology results as stated below per my review and the radiologist's interpretation: CTA CHEST: No pulmonary edema. No lobar pneumonia. Bronchial wall thickening in the lower lobes as can be seen in the setting of bronchitis. No pleural effusion. Few cysts within the liver. Hiatal hernia. Coronary artery calcifications. Radiologist: Saad Dover MD Study ready at 04:02 and initial results transmitted at 04:20. ECG Data Attestation: I personally reviewed and interpreted this ECG as follows: Indication: + chest pain Rate (beats per minute): 119 Rhythm: + sinus tachycardia ECG Findings: + Other (no ischemia, no ectopy ) Additional Comments: Repeat EKG: Sinus tachycardia, 116 beats per minute, no ectopy, no ischemia, flattened T waves laterally Blood Pressure Blood Pressure Findings: Elevated blood pressure Blood Pressure Disposition: further management by hospitalist TORY Tam The patient is a 74 year old female who presents to the Emergency Room with complaints of chest pain and discomfort with coughing that began 6 days ago. The patient's presentation was concerning for sepsis or pneumonia. However, lab oratory studies were fairly unremarkable. O2 saturations remained stable. The patient appeared anxious and agitated at times but has not slept in the past [address] scan of the chest which revealed no evidence of PE or pneumonia according to stat rad. However I remain concerned about the possibility of a pulmonary infection and started the patient on IV azithromycin. I discussed the case, at length, with Dr. Hess and he will evaluate the patient for further management. Patient may have an extensive viral illness as she recently traveled 14 hours on an international flight. Dynamically stable while here in the emerge department. Impression & Plan Febrile illness, Bronchitis Discharge Plan Visit Data *Final* Discharge Date/Time: 12/07/19 06:19 Chief Complaint: Illness Stated Complaint: BACK PAIN,CHEST PAIN ED Provider: Yuliet Hartley Discharge Problem: Febrile illness, Bronchitis Patient Disposition: Admitted As Inpatient Discharge Instructions Interventions: ED Discharge Assessment Last Done: 12/07/19 06:19 The scribe's documentation has been prepared under my direction and personally reviewed by me in its entirety. I confirm that the note above accurately reflects all work, treatment, procedures, and medical decision making performed by me.
[2019-12-07] MEDS: AZTREONAM 1,000 MG in DEXTROSE 5% 100 ML IV SCH ×2 (08:30→15:31)
[2019-12-07] MEDS: methylPREDNISolone 40 MG in SYRINGE 0 ML IV SCH ×2 (08:34→15:31)
[2019-12-07] MEDS: GUAIFENESIN/DEXTROM SYRUP 200MG/20MG 10ML UDC PO PRN (08:35)
[2019-12-07] MEDS: MULTIVITAMIN TAB PO SCH (08:35)
[2019-12-07] MEDS: ASPIRIN 81 MG ECTAB PO SCH (08:36)
--- NOTE | 2019-12-07 09:11 | CT Scan Report ---
CT angio chest PE protocol CT DOSE: 743.38 mGy.cm HISTORY: 74 years-old Female with PE. Acute shortness of breath TECHNIQUE: Multiple CTA images of the chest were obtained after the intravenous administration of 89 ml Optiray 320. Coronal and sagittal MIPS were obtained from the axial data set and were submitted f or review. All measurements were obtained according to NASCET criteria. A dose lowering technique wa s utilized adhering to the principles of ALARA. COMPARISON: Chest radiograph of same day, CTA chest dated 2017 FINDINGS: CTA: Mild cardiomegaly with trace pericardial effusion. Extensive coronary arterial calcifications. No tho racic aortic aneurysm. Moderate mixed plaque of the thoracic aorta without dissection. Patency of the imaged great vessels. Pulmonary arterial tree is opacified to the level of the proximal subsegmental branches. No filling defects identified to suggest pulmonary thromboembolic disease. Respiratory mot ion artifact limits the study. CT CHEST: No dominant thyroid nodule. Prominent paratracheal lymph nodes measure up to 8 mm. Mildly enlarged patino bcarinal lymph nodes measure up to 1.3 x 1.1 cm. Prominent nonenlarged bilateral hilar lymph nodes. T here is mild wall thickening with surrounding inflammatory stranding surrounding the trachea which is new from prior (for example image 214 of series 4). No pneumothorax or pleural effusion. Mild bilateral intralobular septal thickening with areas of mosa ic attenuation. Bronchial wall thickening with right greater than left bibasilar mucous plugging. Sub segmental patchy groundglass/consolidative opacities of the basal right lower lobe noted in conjuncti on with mild dependent subsegmental bibasilar atelectasis. No lobar airspace consolidation. Wall thickening is noted throughout the esophagus. Moderate hiatal hernia. Multiple hepatic cysts are redemonstrated measuring up to 5.3 cm. Partially imaged thoracolumbar fusion hardware. Degenerative changes of the shoulders and spine. No acute fracture identified. IMPRESSION: 1. Cardiomegaly without evidence of acute aortic pathology or pulmonary thromboembolic disease. 2. Mild pulmonary edema without pleural effusion. 3. Bronchial wall thickening with right greater than left mucous plugging and air trapping. Additiona lly, there are subsegmental groundglass and consolidative opacities of the basal right lower lobe sug gestive of pneumonia or aspiration pneumonitis. This finding was called/faxed to the nursing unit at time of dictation. 4. Mild mediastinal adenopathy, likely reactive. 5. Nonspecific wall thickening with mild inflammatory stranding surrounds the proximal and mid thorac ic trachea, new from comparison. Findings are suspicious for an infectious or inflammatory process. 6. Moderate hiatal hernia. ACT 112: Negative or not required by law. The above report was generated using voice recognition software. It may contain grammatical, syntax o r spelling errors. Electronically signed by: George Freed M.D. 12/07/2019 9:10 AM
[2019-12-07 09:58] LABS: Appearance Urine Clear (Clear); Bacteria Urine Automated Negative (Negative); Bilirubin Urine Negative (Negative); Blood Urine 2+ (Negative); Color Urine Yellow; Glucose Urine UA Negative (Negative); Ketones Urine Negative (Negative); Leukocyte Esterase Urine Negative (Negative); Nitrite Urine Negative (Negative); Protein Urine Negative (Negative); RBC Urine Automated 0-4 /hpf (0-4); Specific Gravity Urine 1.042 (1.000-1.030); Urobilinogen Urine Negative (Negative)
[2019-12-07] MEDS ORDERED: SODIUM CHLORIDE 0.9% 1000ML 1,000 ML IV SCH (12:30)
--- NOTE | 2019-12-07 14:44 | History & Physical Bridge Note ---
Date of Service December 07, 2019 History & Physical Bridge Note I have examined the patient, reviewed the History & Physical and in the interval since the performance of the History & Physical I have noted the following changes of clinical significance: no changes noted Ms. Pham was somewhat confused this morning, she did not remember that I had been in to see her. This afternoon she is much better, oriented. Afebrile since 0730, requiring 3L NC. Continues to have a non productive cough but no further chest pain. Her was bedside and was updated this afternoon. Will continue with abx, appreciate ID input, hopefully can de-escalate antibiotics once cultures are back. Rapid flu was negative, will order PCR. Discussed chest CT with attending and pulmonology and they are unconvinced this is truly pneumonia and may in fact be viral. Timeline fits with virus, this would be day 6 of this illness per patient's . 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 Will discontinue fluids for mild pulmonary edema on CT.
[2019-12-07 15:30] LABS: Influenza A virus by PCR Neg for Influ A (Neg)
--- NOTE | 2019-12-07 16:32 | History & Physical Bridge Note ---
Date of Service December 07, 2019 History & Physical Bridge Note Patient positive for Flu B on PCR - dc steroids and abx. Will hold off on starting Tamiflu as this is day 6 of the illness. I did suggest her may want to consider getting a prescription since he has just started to feel ill.
--- NOTE | 2019-12-07 18:09 | Electrocardiogram Report ---
Test Reason : Blood Pressure : / mmHG Vent. Rate : 119 BPM Atrial Rate : 119 BPM P-R Int : 118 ms QRS Dur : 082 ms QT Int : 310 ms P-R-T Axes : 039 069 058 degrees QTc Int : 436 ms Sinus tachycardia Otherwise normal ECG When compared with ECG of 08-APR-2019 22:42, Vent. rate has increased BY 59 BPM Confirmed by Osiel Casillas ([id number]) on 12/07/2019 6:09:22 PM Referred By: REFERRED SELF Confirmed By:Kam Casillas
--- NOTE | 2019-12-07 18:11 | Electrocardiogram Report ---
Test Reason : Blood Pressure : / mmHG Vent. Rate : 116 BPM Atrial Rate : 116 BPM P-R Int : 128 ms QRS Dur : 082 ms QT Int : 322 ms P-R-T Axes : 042 059 030 degrees QTc Int : 447 ms Sinus tachycardia Nonspecific T wave abnormality Abnormal ECG When compared with ECG of 07-DEC-2019 00:53, (unconfirmed) Nonspecific T wave abnormality now evident in Lateral leads Confirmed by Osiel Casillas ([id number]) on 12/07/2019 6:11:12 PM Referred By: REFERRED SELF Confirmed By:Kam Casillas
[2019-12-07] MEDS: HEPARIN SOD 5,000 UNIT/0.5 ML VIAL SQ SCH (20:58)
[2019-12-08] MEDS ORDERED: AZITHROMYCIN 500 MG in DEXTROSE 5% 250 ML IV SCH (06:00)
[2019-12-08 07:05] LABS: Hemoglobin 13.5 g/dL (12.0-16.0); Mean Corpuscular Hemoglobin 29.5 pg (25-34); Mean Corpuscular Hgb Conc 33.8 g/dL (32-36); Mean Corpuscular Volume 87.3 fL (80-100); Mean Platelet Volume 10.2 fL (7.4-10.4); Platelet Count 170 K/uL (130-400); RDW Standard Deviation 48.1 fL (36.4-46.3); Red Blood Count 4.58 M/uL (4.2-5.4); White Blood Count 14.24 K/uL (4.8-10.8)
[2019-12-08] MEDS: BUDESONIDE 0.5 MG/2 ML VIAL (PULMICORT) NEB SCH (07:09)
[2019-12-08 07:22] LABS: Basophils # (auto) 0.01 K/uL (0-0.2); Basophils % (auto) 0.1 %; Immature Granulocytes # (auto) 0.04 K/uL (0.00-0.02); Immature Granulocytes % (auto) 0.3 %; Lymphocytes # (auto) 1.51 K/uL (1.2-3.4); Lymphocytes % (auto) 10.6 %; Monocytes # (auto) 0.69 K/uL (0.11-0.59); Monocytes % (auto) 4.8 %; Neutrophils # (auto) 11.99 K/uL (1.4-6.5); Neutrophils % (auto) 84.2 %
[2019-12-08 07:40] LABS: BUN Creatinine Ratio 19.9 (10-20); Calcium 9.2 mg/dl (8.5-10.1); Creatinine Clr Calc Pharmacy 73.5 ml/min; Est GFR (Non-African American) 87.1; Potassium 3.5 mmol/L (3.5-5.1)
[2019-12-08 07:43] LABS: Albumin Globulin Ratio 0.8 (0.9-2); Bilirubin,Total 0.4 mg/dl (0.2-1); Globulin 3.7 gm/dl (2.5-4.0); Total Protein 6.7 gm/dl (6.4-8.2)
[2019-12-08] MEDS: ASPIRIN 81 MG ECTAB PO SCH (08:37)
[2019-12-08] MEDS: MULTIVITAMIN TAB PO SCH (08:37)
[2019-12-08] MEDS: HEPARIN SOD 5,000 UNIT/0.5 ML VIAL SQ SCH ×2 (08:37→21:34)
[2019-12-08] MEDS ORDERED: PREMARIN VAG CRM 14 APPLN/30 GM TUBE PV SCH (09:00)
[2019-12-08] MEDS ORDERED: AZITHROMYCIN 250 MG TAB PO STA (13:37)
--- NOTE | 2019-12-08 13:55 | Hospitalist Progress Note ---
Date of Service December 08, 2019 Assessment & Plan (1) Influenza B: Began with fevers, malaise, sore throat, ear pain, and then cough on 12/02/19 while on a trip to [place]. Continued fevers through day of admission. Finally feeling better now with treatment for PNA Rapid flu antigen negative but flu PCR positive for Flu B Malaise and appetite improving today, remains with cough, generalized weakness. -given that she is a complicated flu case with pneumonia, age>65, requiring hospitalization, she should be treated with Tamiflu -start Tamiflu 75mg po bid x 5 day course on 12/08/19 -treating PNA as below -supportive care -supplemental O2 as needed -tylenol for body aches, fevers (2) Bronchopneumonia: Bronchopneumonia in RLL on imaging, with some mucus plugging otherwise From history it sounds like to be initially as a viral process, but then became secondary bacterial infection. MRSA swab nose negative therefore linezolid discontinued after one dose -continue azithromycin x 5 day course-today day #2 -continue Pulmicort Respules 0.5 mg inhaled twice daily -continue scheduled albuterol nebs, Mucomyst nebs -continue Guaifenesin with dextromethorphan 10 mils p.o. every 6 hours as needed for cough -collect Sputum cx -appreciate Pulm consult -no steroids needed (received a dose of SOlu Medrol in ER) -check Legionella ag, Mycoplasma (3) Coronary artery disease: h/o RIVER placed 2017 With chest pain here as below -continue home ASA -cannot tolerate statins--> Cardio considering Zetia or Repatha as outpt -had too many side effects with lisinopril and metoprolol and she stopped them on her own (4) Chest pain: Had many hours of chest pain anteriorly on 12/08--> ECG no ischemia, troponins here negative x 3, and is tender to palpation on chest--> seems MSK in nature -no further eval needed (5) Asthma: With mosaicism seen on Chest CT as per PUlm -needs LABA/ICS upon discharge as per PULM -needs formal PFTs as outpt -f/u IgE level as well given high absolute esopsinophil count, multiple allergies to medications (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 Her fevers have now resolved for the last 24 hours and her appetite is returning. Feeling stronger and wants to try to get out of bed to a chair today. She is making urine, no diarrhea. Does have some constant anterior chest pain that seems to be more tender to the touch, and is achy all over her body. Is requesting tylenol for pain. Tele with NSR, ST rates 70s-100s Review of Systems Review of Systems: All systems reviewed & are unremarkable except as noted in HPI & below intermittent sore throat, no ear pain no abd pain Physical Exam Constitutional: WD/WN, vitals as above Eyes: PERRL, conjunctivae normal, anicteric sclerae ENMT: external ear and nose normal, oropharynx normal Neck: trachea midline, no thyromegaly Respiratory: normal respiratory effort; no labored breathing Auscultation: + rhonchi (right lower lung field); no crackles and no wheezes Cardiovascular: RRR, no murmur, no edema Chest (Breasts): Chest: normal inspection of chest Gastrointestinal (Abdomen): normal bowel sounds, soft, nontender, no hepatosplenomegaly Musculoskeletal: Extremities: extremities normal to inspection; no cyanosis and no clubbing Skin: no rashes, warm and dry Neurologic: moves all extremities and awake; no focal motor deficits Psychiatric: A+Ox3, euthymic affect Lymphatic: no lymphedema Results & Data Vital Signs (Past 12 Hours) Vital Signs Temp Pulse Pulse Resp BP Pulse Ox 12/08/19 11:07 36.5 C 75 18 126/66 92 12/08/19 07:22 36.6 C 81 19 138/71 92 12/08/19 07:11 78 16 93 12/08/19 03:52 36.4 C L 105 H 19 148/81 H 94 Laboratory Results 12/08/19 12/08/19 12/08/19 Range/Units 13:51 11:16 11:16 WBC (4.8-10.8) K/uL RBC (4.2-5.4) M/uL Hgb (12.0-16.0) g/dL Hct (37-47) % MCV (80-100) fL MCH (25-34) pg MCHC (32-36) g/dL RDW Std Deviation (36.4-46.3) fL RDW Coeff of Ramesh (11.5-14.5) % Plt Count (130-400) K/uL MPV (7.4-10.4) fL Immature Gran % (Auto) % Neut % (Auto) % Lymph % (Auto) % [place] % (Auto) % Eos % (Auto) % Baso % (Auto) % Immature Gran # (Auto) (0.00-0.02) K/uL Neut # (Auto) (1.4-6.5) K/uL Lymph # (Auto) (1.2-3.4) K/uL [place] # (Auto) (0.11-0.59) K/uL Eos # (Auto) (0-0.5) K/uL Baso # (Auto) (0-0.2) K/uL Sodium (136-145) mmol/L Potassium (3.5-5.1) mmol/L Chloride (98-107) mmol/L Carbon Dioxide (21-32) mmol/L Anion Gap (3-11) BUN (7-18) mg/dl Creatinine (0.6-1.2) mg/dl Est Cr Clr Drug Dosing ml/min Est GFR ( Amer) Est GFR (Non-Af Amer) BUN/Creatinine Ratio (10-20) Glucose (70-99) mg/dl Calcium (8.5-10.1) mg/dl Total Bilirubin (0.2-1) mg/dl AST (15-37) U/L ALT (12-78) U/L Alkaline Phosphatase (45-117) U/L Troponin I < 0.015 (0-0.045) ng/ml Total Protein (6.4-8.2) gm/dl Albumin (3.4-5.0) gm/dl Globulin (2.5-4.0) gm/dl Albumin/Globulin Ratio (0.9-2) Procalcitonin 0.25 (0-0.5) ng/ml IgE Pending 12/08/19 12/08/19 Range/Units 06:26 06:26 WBC 14.24 H (4.8-10.8) K/uL RBC 4.58 (4.2-5.4) M/uL Hgb 13.5 (12.0-16.0) g/dL Hct 40.0 (37-47) % MCV 87.3 (80-100) fL MCH 29.5 (25-34) pg MCHC 33.8 (32-36) g/dL RDW Std Deviation 48.1 H (36.4-46.3) fL RDW Coeff of Ramesh 15.0 H (11.5-14.5) % Plt Count 170 (130-400) K/uL MPV 10.2 (7.4-10.4) fL Immature Gran % (Auto) 0.3 % Neut % (Auto) 84.2 % Lymph % (Auto) 10.6 % [place] % (Auto) 4.8 % Eos % (Auto) 0.0 % Baso % (Auto) 0.1 % Immature Gran # (Auto) 0.04 H (0.00-0.02) K/uL Neut # (Auto) 11.99 H (1.4-6.5) K/uL Lymph # (Auto) 1.51 (1.2-3.4) K/uL [place] # (Auto) 0.69 H (0.11-0.59) K/uL Eos # (Auto) 0.00 (0-0.5) K/uL Baso # (Auto) 0.01 (0-0.2) K/uL Sodium 141 (136-145) mmol/L Potassium 3.5 (3.5-5.1) mmol/L Chloride 110 H (98-107) mmol/L Carbon Dioxide 22 (21-32) mmol/L Anion Gap 9.0 (3-11) BUN 13 (7-18) mg/dl Creatinine 0.63 (0.6-1.2) mg/dl Est Cr Clr Drug Dosing 73.5 ml/min Est GFR ( Amer) 101.0 Est GFR (Non-Af Amer) 87.1 BUN/Creatinine Ratio 19.9 (10-20) Glucose 118 H (70-99) mg/dl Calcium 9.2 (8.5-10.1) mg/dl Total Bilirubin 0.4 (0.2-1) mg/dl AST 27 (15-37) U/L ALT 22 (12-78) U/L Alkaline Phosphatase 68 (45-117) U/L Troponin I (0-0.045) ng/ml Total Protein 6.7 (6.4-8.2) gm/dl Albumin 3.0 L (3.4-5.0) gm/dl Globulin 3.7 (2.5-4.0) gm/dl Albumin/Globulin Ratio 0.8 L (0.9-2) Procalcitonin (0-0.5) ng/ml IgE ECG Additional Comments: NSR, no ischemia PG Care Time/CCT Total # of Minutes Spent Total Time Spent with Patient: Total time spent is greater than 50% in coordination of care (as documented) at patient's floor/unit and/or counseling patient: Coding Level of Care Code 53996 Subseq Hosp Care Lvl 3 Diagnoses Influenza B J10.1 Bronchopneumonia J18.0 Coronary artery disease I25.10 Chest pain R07.9 Asthma J45.909 Iicgnoy-Njmkc-Acfdg disease type 2 G60.0 DVT prophylaxis Z29.9
[2019-12-08] MEDS: ACETAMINOPHEN 325 MG TAB PO PRN (14:10)
[2019-12-08] MEDS: OSELTAMIVIR PHOSPHATE 75 MG CAP PO SCH ×2 (14:11→21:34)
--- NOTE | 2019-12-08 14:25 | Pulmonary Consultation ---
Date of Consultation December 08, 2019 Assessment & Plan (1) Influenza B: --Bronchopneumonia Tree-in-bud opacities in the right lower lobe ProCalcitonin 0.25, could still be atypical pneumonia especially given patient is influenza B positive Continue with oseltamivir 75 mg twice daily for 5 days, will give the patient azithromycin for 5 days Leukocytosis is likely secondary to patient getting Solu-Medrol while in the ER. Would recommend avoiding steroids while the patient is being treated for influenza. Check mycoplasma IgM and [facility] management CT chest witho CTA chest done 12/07/2019: Shows diffuse mosaicism, but minimal airway trapping appreciated especially in the lower lobes. There is mild tree-in-bud opacities appreciated in the right lower lobe. Minimal interstitial thickening appreciated in the upper lobes (could represent mild pulmonary edema) Mediastinal lymphadenopathy is appreciated likely reactive CAT scan was compared to done on 06/22/2018. She has mosaicism even at that time --Asthma with diffuse mosaicism Was apparently benign CAT scan done 06/2018. Patient is not taking any inhalers at home. Given the significant mosaicism appreciated would recommend patient to be discharged on LABA/ICS inhaler Patient will benefit from Pulmonary function test which can be done as an outpatient Follow-up IgE Patient had absolute eosinophil count of 350 on 04/08/2019 Given that the patient has multiple allergies hypersensitive pneumonitis could be worked up on again as an outpatient. (2) Bronchitis: (3) Asthma: History of Present Illness Attending Physician: Eufemia Thompson MD History of Present Illness 74-year-old female with past medical history of asthma, Vrkkghq-Oiyld-Cusrc disease comes to the hospital with complaints of generalized weakness along with cough and subjective fever and chills. She states that she she coughs all the time but she is not able to bring anything up. This has been going on since her travel to a [place] and [place] a week since admission. Patient return to [facility] on 12/06/2019. As per the patient she was on a tour and wanted to bother multiple patients were coughing and sneezing all the time. Her is a doctor who is also coughing but not as sick as the patient. Patient tried mnba-qfh-dwlptis antihistamines but did not help. Denies any dysuria, no diarrhea, mild headache, no dizziness, no blurry vision. Positive muscle pain. Positive fever and chills. Denies any weight loss. No travel history to [place]. Social history: Non-smoker, no illicit drug use, no alcohol use. 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 No personal or family history of any cancer. Patient has multiple allergies. Allergies Allergy/AdvReac Type Severity Reaction Status Date / Time ceftaroline fosamil Allergy Severe WHITE Verified 11/21/19 08:19 BLOOD COUNT DECREASE indomethacin Allergy Severe UNCONSIOUS Verified 11/21/19 08:19 FOR 6 HOURS. cefaclor Allergy Intermediate Hives Verified 11/21/19 08:19 daptomycin Allergy Intermediate PNEUMONIA Verified 11/21/19 08:19 gluten Allergy Intermediate Gastrointestinal Verified 11/21/19 08:19 Upset Penicillins Allergy Intermediate Hives Verified 11/21/19 08:19 Vuagoen-Vff-Efe Reductase Allergy Intermediate MUSCLE Verified 11/21/19 08:19 Inhibitor ACHES strawberry Allergy Intermediate Anaphylaxis Verified 11/21/19 08:19 Sulfa (Sulfonamide Allergy Intermediate Hives Verified 11/21/19 08:19 Antibiotics) vancomycin Allergy Intermediate JANET Verified 11/21/19 08:19 BEBETO SYNDROME moxifloxacin Allergy Unknown CAN'T Verified 11/21/19 08:19 REMEMBER nitrofurantoin Allergy Unknown CAN'T Verified 11/21/19 08:19 REMEMBER tetracycline Allergy Unknown CAN'T Verified 11/21/19 08:19 REMEMBER adhesive Allergy Redness of Verified 11/21/19 08:19 Skin diphenhydramine AdvReac Intermediate SHAKING Verified 11/21/19 08:19 ALL OVER Home Medications Home Medications Medication Instructions Recorded Confirmed Type multivitamin 1 tab PO DAILY 04/08/19 12/07/19 History nitroglycerin [Nitrostat] 0.4 mg SUBLINGUAL DIRECTED PRN 04/08/19 12/07/19 History conjugated estrogens 0.625 mg/gram 0.625 mg VAGINAL 2XWK gm 07/07/19 12/07/19 History vaginal cream epinephrine 0.3 mg/0.3 mL 0.3 mg IM ONCE PRN #2 ea 07/07/19 12/07/19 History injection, auto-injector acetaminophen [Tylenol Arthritis 650 mg PO Q8H PRN 12/07/19 12/07/19 History Pain] aspirin [Aspir-81] 81 mg PO DAILY 12/07/19 12/07/19 History Patient History Medical History Asthma uses PRN INH 1xmo on avg Atrial fibrillation ONSET 40 YEARS AGO - NO MEDS - FOLLOWS W/ DR. RUBALCAVA Dbbcdgb-Lwrna-Stuar disease type 2 FOLLOWS W/ DR. MAYA Coronary artery disease Status post NSTEMI in 06/2018. Stent to om 1. 50 percent stenosis and RCA Hiatal hernia Myocardial Infarction 2017 Osteoarthritis Sleep apnea CPAP TMJ (temporomandibular joint disorder) Urinary leakage Surgical History History of arthroscopy of left knee History of cardiac cath 06/2018 - [facility] - 1 STENT - FOLLOWS W/ DR. RUBALCAVA History of cholecystectomy History of colonoscopy History of esophagogastroduodenoscopy (EGD) History of foot surgery LEFT History of heart artery stent X 1 History of hysterectomy History of lumbar spinal fusion History of thoracic spinal fusion History of tooth extraction History of tubal ligation Hx of left cataract extraction Slow to wake up after anesthesia Stented coronary artery Family History Mother Family history of diabetes mellitus Brother Family history of diabetes mellitus Grandmother (Maternal) Family history of diabetes mellitus Other Family history non-contributory Social History Preferred Language: [place] Communication Ability: Effective Human Resource Manager Required: No Beliefs That Will Affect Care: None Current Living Situation: Spouse Feels Safe at Home: Yes Smoking Status: Never smoker Second Hand Exposure: No ; Hx Alcohol Use: Yes Alcohol type: wine Hx Substance Use: No Review of Systems Review of Systems: All systems reviewed & are unremarkable except as noted in HPI & below Physical Exam Physical Exam: Constitutional: No acute distress HEENT: EOMI, PERRLA, moist mucous membranes Respiratory system: Good air entry bilaterally, mild expiratory, positive rhonchi, no crackles CVS: S1-S2 positive, no murmurs or gallops Abdomen: Soft, nontender, nondistended, positive bowel sounds x4 Extremities: +2 pulses bilaterally radialis/ dorsalis pedis, no cyanosis, no edema Neuro: Awake alert oriented x3 Psych: Normal mood and affect G/U: No [place] Skin: no rashes, warm and dry Lymphatic: no cervical or axillary lymphadenopathy Results & Data Vital Signs (Past 12 Hours) Vital Signs Temp Pulse Pulse Resp BP Pulse Ox 12/08/19 11:07 36.5 C 75 18 126/66 92 12/08/19 07:22 36.6 C 81 19 138/71 92 12/08/19 07:11 78 16 93 12/08/19 03:52 36.4 C L 105 H 19 148/81 H 94 12/08/19 06:26 12/08/19 06:[address] chest witho CTA chest done 12/07/2019: Shows diffuse mosaicism, but minimal airway trapping appreciated especially in the lower lobes. There is mild tree-in-bud opacities appreciated in the right lower lobe. Minimal interstitial thickening appreciated in the upper lobes (could represent mild pulmonary edema) Mediastinal lymphadenopathy is appreciated likely reactive CAT scan was compared to done on 06/22/2018. She has mosaicism even at that time PG Care Time/CCT Total # of Minutes Spent Total Time Spent with Patient: Total time spent is greater than 50% in coordination of care (as documented) at patient's floor/unit and/or counseling patient: [place] [address] Initial Inpt Care Lvl 3 Patient Type New Diagnoses Influenza B J10.1 Bronchitis J40 Asthma J45.909
[2019-12-08] MEDS: ALBUT/IPRATROP 3MG/0.5MG NEB 3 ML VIAL NEB SCH (19:34)
[2019-12-08] MEDS: ACETYLCYSTEINE 20% INHAL SOLN 4ML ***DISPENSED BY RESP. INH SCH (19:34)
--- NOTE | 2019-12-08 20:11 | Electrocardiogram Report ---
Test Reason : Blood Pressure : / mmHG Vent. Rate : 068 BPM Atrial Rate : 068 BPM P-R Int : 114 ms QRS Dur : 090 ms QT Int : 408 ms P-R-T Axes : 074 080 069 degrees QTc Int : 433 ms Normal sinus rhythm with sinus arrhythmia Normal ECG When compared with ECG of 07-DEC-2019 03:39, Vent. rate has decreased BY 48 BPM Nonspecific T wave abnormality no longer evident in Inferior leads Nonspecific T wave abnormality no longer evident in Lateral leads Confirmed by Osiel Casillas ([id number]) on 12/08/2019 8:11:37 PM Referred By: REFERRED SELF Confirmed By:Kam Casillas
[2019-12-09] MEDS: ALBUT/IPRATROP 3MG/0.5MG NEB 3 ML VIAL NEB SCH ×4 (01:04→19:16)
[2019-12-09] MEDS: ACETYLCYSTEINE 20% INHAL SOLN 4ML ***DISPENSED BY RESP. INH SCH ×2 (07:04→19:17)
[2019-12-09 07:05] LABS: Hematocrit (blood only) 35.9 % (37-47); Hemoglobin 11.9 g/dL (12.0-16.0); Mean Corpuscular Hemoglobin 29.5 pg (25-34); Mean Corpuscular Hgb Conc 33.1 g/dL (32-36); Mean Corpuscular Volume 88.9 fL (80-100); Mean Platelet Volume 9.8 fL (7.4-10.4); Platelet Count 208 K/uL (130-400); RDW Coefficient of Variation 15.2 % (11.5-14.5); RDW Standard Deviation 49.2 fL (36.4-46.3); Red Blood Count 4.04 M/uL (4.2-5.4); White Blood Count 11.66 K/uL (4.8-10.8)
[2019-12-09 07:42] LABS: Basophils # (auto) 0.02 K/uL (0-0.2); Basophils % (auto) 0.2 %; Immature Granulocytes # (auto) 0.03 K/uL (0.00-0.02); Immature Granulocytes % (auto) 0.3 %; Lymphocytes % (auto) 29.2 %; Monocytes # (auto) 0.84 K/uL (0.11-0.59); Monocytes % (auto) 7.2 %; Neutrophils # (auto) 7.37 K/uL (1.4-6.5); Neutrophils % (auto) 63.1 %
[2019-12-09 07:44] LABS: Calcium 8.6 mg/dl (8.5-10.1); Creatinine Clr Calc Pharmacy 67.5 ml/min; Est GFR (African American) 98.5; Potassium 3.4 mmol/L (3.5-5.1)
[2019-12-09] MEDS: AZITHROMYCIN 250 MG TAB PO SCH (07:52)
[2019-12-09] MEDS: MULTIVITAMIN TAB PO SCH (07:52)
[2019-12-09] MEDS: OSELTAMIVIR PHOSPHATE 75 MG CAP PO SCH ×2 (07:52→20:49)
[2019-12-09] MEDS: ASPIRIN 81 MG ECTAB PO SCH (07:53)
[2019-12-09] MEDS ORDERED: POTASSIUM CHLORIDE 20 MEQ TABCR PO STA (09:21)
[2019-12-09] MEDS: HEPARIN SOD 5,000 UNIT/0.5 ML VIAL SQ SCH ×2 (09:22→20:49)
--- NOTE | 2019-12-09 10:44 | Pulmonology Progress Note ---
Date of Service December 09, 2019 Assessment & Plan (1) Influenza B: --Bronchopneumonia Tree-in-bud opacities in the right lower lobe ProCalcitonin 0.25, could still be atypical pneumonia especially given patient is influenza B positive Continue with oseltamivir 75 mg twice daily for 5 days, will give the patient azithromycin for 5 days Leukocytosis is likely secondary to patient getting Solu-Medrol while in the ER. Would recommend avoiding steroids while the patient is being treated for influenza. Follow-up mycoplasma IgM and [facility] DM for symptomatic cough management CTA chest done 12/07/2019: Shows diffuse mosaicism, but minimal airway trapping appreciated especially in the lower lobes. There is mild tree-in-bud opacities appreciated in the right lower lobe. Minimal interstitial thickening appreciated in the upper lobes (could represent mild pulmonary edema) Mediastinal lymphadenopathy is appreciated likely reactive CAT scan was compared to done on 06/22/2018. She has mosaicism even at that time --Asthma with diffuse mosaicism Was apparently benign CAT scan done 06/2018. Patient is not taking any inhalers at home. Given the significant mosaicism appreciated would recommend patient to be discharged on LABA/ICS inhaler Patient will benefit from Pulmonary function test which can be done as an outpatient Follow-up IgE Patient had absolute eosinophil count of 350 on 04/08/2019 Given that the patient has multiple allergies hypersensitive pneumonitis could be worked up on again as an outpatient. Please note the above document was generated using voice recognition software. It may contain grammatical, syntax or spelling errors. (2) Bronchitis: (3) Asthma: Subjective Patient seen and examined at bedside. No acute distress, no adverse events overnight. Patient states that she is feeling more energetic. Still coughing not bringing up much phlegm. Denies any chest pain, no nausea or vomiting, good appetite. No dysuria, no diarrhea. Still getting sweating episodes. Afebrile. Review of Systems Review of Systems: All systems reviewed & are unremarkable except as noted in HPI & below Physical Exam Physical Exam: Constitutional: No acute distress HEENT: EOMI, PERRLA, moist mucous membranes Respiratory system: Good air entry bilaterally, positive right lower lobe crackles, no wheeze, no rhonchi CVS: S1-S2 positive, no murmurs or gallops Abdomen: Soft, nontender, nondistended, positive bowel sounds x4 Extremities: +2 pulses bilaterally radialis/ dorsalis pedis, no cyanosis, no edema Neuro: Awake alert oriented x3 Psych: Normal mood and affect G/U: No [place] Skin: no rashes, warm and dry Lymphatic: no cervical or axillary lymphadenopathy Results & Data Vital Signs (Past 12 Hours) Vital Signs Temp Pulse Pulse Pulse Resp BP Pulse Ox 12/09/19 08:00 78 12/09/19 07:07 36.6 C 81 22 126/79 94 12/09/19 07:05 76 18 94 12/09/19 04:04 36.6 C 83 18 128/69 96 12/09/19 01:05 76 16 94 12/08/19 23:49 36.7 C 72 19 143/79 H 95 12/08/19 23:20 70 12/09/19 06:46 12/09/19 06:46 PG Care Time/CCT Total # of Minutes Spent Total Time Spent with Patient: Total time spent is greater than 50% in coordination of care (as documented) at patient's floor/unit and/or counseling patient: C[place] [address] Subseq Hosp Care Lvl 3 Patient Type Established Diagnoses Influenza B J10.1 Bronchitis J40 Asthma J45.909
--- NOTE | 2019-12-09 18:39 | Hospitalist Progress Note ---
Date of Service December 09, 2019 Assessment & Plan (1) Influenza B: Began with fevers, malaise, sore throat, ear pain, and then cough on 12/02/19 while on a trip to [place]. Continued fevers through day of admission. Finally feeling better now with treatment for PNA Rapid flu antigen negative but flu PCR positive for Flu B Malaise, appetite, cough, myalgias all slowly improving today -given that she is a complicated flu case with pneumonia, age>65, requiring hospitalization, she should be treated with Tamiflu -started Tamiflu 75mg po bid x 5 day course on 12/08/19-continue -treating PNA as below -supportive care -supplemental O2 as needed -tylenol for body aches, fevers (2) Bronchopneumonia: Bronchopneumonia in RLL on imaging, with some mucus plugging otherwise From history it sounds like to be initially as a viral process, but then became secondary bacterial infection. MRSA swab nose negative therefore linezolid discontinued after one dose -continue azithromycin x 5 day course-today day #3 -continue Pulmicort Respules 0.5 mg inhaled twice daily -continue scheduled albuterol nebs, Mucomyst nebs -continue Guaifenesin with dextromethorphan 10 mils p.o. every 6 hours as needed for cough -collect Sputum cx -appreciate Pulm consult -no steroids needed (received a dose of SOlu Medrol in ER) -check Legionella ag, Mycoplasma -add flutter valve -follow CXR to resolution -continue O2 to keep POx>90% (3) Acute respiratory failure with hypoxia: Secondary to PNA and influenza as above -continue supplemental O2 and treating PNA as above -wean O2 as tolerated (4) Coronary artery disease: h/o RIVER placed 2017 With chest pain here as below now resolved -continue home ASA -cannot tolerate statins--> Cardio considering Zetia or Repatha as outpt -had too many side effects with lisinopril and metoprolol and she stopped them on her own (5) Chest pain: Had many hours of chest pain anteriorly on 12/08--> ECG no ischemia, troponins here negative x 3, and is tender to palpation on chest--> seems MSK in nature -no further eval needed Now resolved (6) Asthma: With mosaicism seen on Chest CT as per PUlm -needs LABA/ICS upon discharge as per PULM -needs formal PFTs as outpt -f/u IgE level as well given high absolute esopsinophil count, multiple allergies to medications -continue scheduled nebs here, no wheezing though, no steroids needed (received one dose in ER) (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 Ambualted in the room and feels stronge lucy her feet. Is eating. No nausea, no diarrhea. Is making urine. Body aches are improved. Tele with NSR rate 70s Review of Systems Review of Systems: All systems reviewed & are unremarkable except as noted in HPI & below Physical Exam Constitutional: WD/WN, vitals as above Eyes: + anicteric sclerae ENMT: external ear and nose normal, oropharynx normal Neck: trachea midline, no thyromegaly Respiratory: normal respiratory effort; no labored breathing Auscultation: + rhonchi (right lower lung field); no crackles and no wheezes Cardiovascular: RRR, no murmur, no edema Chest (Breasts): Chest: normal inspection of chest Gastrointestinal (Abdomen): normal bowel sounds, soft, nontender, no hepatosplenomegaly Musculoskeletal: Extremities: extremities normal to inspection; no cyanosis and no clubbing Skin: no rashes, warm and dry Neurologic: moves all extremities and awake; no focal motor deficits Psychiatric: A+Ox3, euthymic affect Lymphatic: no lymphedema Results & Data Vital Signs (Past 12 Hours) Vital Signs Temp Pulse Pulse Pulse Resp BP Pulse Ox 12/09/19 15:28 36.7 C 87 20 130/75 95 12/09/19 14:36 86 12/09/19 12:40 91 H 18 95 12/09/19 10:57 36.5 C 86 18 111/62 95 12/09/19 08:00 78 12/09/19 07:07 36.6 C 81 22 126/79 94 12/09/19 07:05 76 18 94 Laboratory Results 12/09/19 12/09/19 12/09/19 Range/Units 11:04 10:18 06:46 WBC (4.8-10.8) K/uL RBC (4.2-5.4) M/uL Hgb (12.0-16.0) g/dL Hct (37-47) % MCV (80-100) fL MCH (25-34) pg MCHC (32-36) g/dL RDW Std Deviation (36.4-46.3) fL RDW Coeff of Ramesh (11.5-14.5) % Plt Count (130-400) K/uL MPV (7.4-10.4) fL Immature Gran % (Auto) % Neut % (Auto) % Lymph % (Auto) % [place] % (Auto) % Eos % (Auto) % Baso % (Auto) % Immature Gran # (Auto) (0.00-0.02) K/uL Neut # (Auto) (1.4-6.5) K/uL Lymph # (Auto) (1.2-3.4) K/uL [place] # (Auto) (0.11-0.59) K/uL Eos # (Auto) (0-0.5) K/uL Baso # (Auto) (0-0.2) K/uL Sodium 144 (136-145) mmol/L Potassium 3.4 L (3.5-5.1) mmol/L Chloride 114 H (98-107) mmol/L Carbon Dioxide 25 (21-32) mmol/L Anion Gap 5.0 (3-11) BUN 14 (7-18) mg/dl Creatinine 0.68 (0.6-1.2) mg/dl Est Cr Clr Drug Dosing 67.5 ml/min Est GFR ( Amer) 98.5 Est GFR (Non-Af Amer) 85.0 BUN/Creatinine Ratio 21.0 H (10-20) Glucose 91 (70-99) mg/dl Calcium 8.6 (8.5-10.1) mg/dl Urine Legionella Ag Pending Mycoplasma pneumon IgM Pending 12/09/19 Range/Units 06:46 WBC 11.66 H (4.8-10.8) K/uL RBC 4.04 L (4.2-5.4) M/uL Hgb 11.9 L (12.0-16.0) g/dL Hct 35.9 L (37-47) % MCV 88.9 (80-100) fL MCH 29.5 (25-34) pg MCHC 33.1 (32-36) g/dL RDW Std Deviation 49.2 H (36.4-46.3) fL RDW Coeff of Ramesh 15.2 H (11.5-14.5) % Plt Count 208 (130-400) K/uL MPV 9.8 (7.4-10.4) fL Immature Gran % (Auto) 0.3 % Neut % (Auto) 63.1 % Lymph % (Auto) 29.2 % [place] % (Auto) 7.2 % Eos % (Auto) 0.0 % Baso % (Auto) 0.2 % Immature Gran # (Auto) 0.03 H (0.00-0.02) K/uL Neut # (Auto) 7.37 H (1.4-6.5) K/uL Lymph # (Auto) 3.40 (1.2-3.4) K/uL [place] # (Auto) 0.84 H (0.11-0.59) K/uL Eos # (Auto) 0.00 (0-0.5) K/uL Baso # (Auto) 0.02 (0-0.2) K/uL Sodium (136-145) mmol/L Potassium (3.5-5.1) mmol/L Chloride (98-107) mmol/L Carbon Dioxide (21-32) mmol/L Anion Gap (3-11) BUN (7-18) mg/dl Creatinine (0.6-1.2) mg/dl Est Cr Clr Drug Dosing ml/min Est GFR ( Amer) Est GFR (Non-Af Amer) BUN/Creatinine Ratio (10-20) Glucose (70-99) mg/dl Calcium (8.5-10.1) mg/dl Urine Legionella Ag Mycoplasma pneumon IgM PG Care Time/CCT Total # of Minutes Spent Total Time Spent with Patient: Total time spent is greater than 50% in coordination of care (as documented) at patient's floor/unit and/or counseling patient: Coding Level of Care Code 09021 Subseq Hosp Care Lvl 3 Diagnoses Influenza B J10.1 Bronchopneumonia J18.0 Acute respiratory failure with hypoxia J96.01 Coronary artery disease I25.10 Chest pain R07.9 Asthma J45.909 Duyvmlb-Jaank-Blgce disease type 2 G60.0 DVT prophylaxis Z29.9
[2019-12-10] MEDS: ALBUT/IPRATROP 3MG/0.5MG NEB 3 ML VIAL NEB SCH ×3 (01:05→13:15)
[2019-12-10] MEDS: ACETYLCYSTEINE 20% INHAL SOLN 4ML ***DISPENSED BY RESP. INH SCH (07:01)
[2019-12-10] MEDS: MULTIVITAMIN TAB PO SCH (08:34)
[2019-12-10] MEDS: OSELTAMIVIR PHOSPHATE 75 MG CAP PO SCH (08:34)
[2019-12-10] MEDS: ASPIRIN 81 MG ECTAB PO SCH (08:34)
[2019-12-10] MEDS: HEPARIN SOD 5,000 UNIT/0.5 ML VIAL SQ SCH (08:35)
[2019-12-10] MEDS: AZITHROMYCIN 250 MG TAB PO SCH (08:35)
--- NOTE | 2019-12-10 12:34 | Pulmonology Progress Note ---
Date of Service December 10, 2019 Assessment & Plan (1) Influenza B: --Bronchopneumonia Tree-in-bud opacities in the right lower lobe ProCalcitonin 0.25, could still be atypical pneumonia especially given patient is influenza B positive Continue with oseltamivir 75 mg twice daily for 5 days, will give the patient azithromycin for 5 days Leukocytosis is likely secondary to patient getting Solu-Medrol while in the ER. Would recommend avoiding steroids while the patient is being treated for influenza. Follow-up mycoplasma IgM and Legionella [facility] for symptomatic cough management CTA chest done 12/07/2019: Shows diffuse mosaicism, but minimal airway trapping appreciated especially in the lower lobes. There is mild tree-in-bud opacities appreciated in the right lower lobe. Minimal interstitial thickening appreciated in the upper lobes (could represent mild pulmonary edema) Mediastinal lymphadenopathy is appreciated likely reactive CAT scan was compared to done on 06/22/2018. She has mosaicism even at that time --Asthma with diffuse mosaicism Was apparently benign CAT scan done 06/2018. Patient is not taking any inhalers at home. Given the significant mosaicism appreciated would recommend patient to be discharged on LABA/ICS inhaler Patient will benefit from Pulmonary function test which can be done as an outpatient Follow-up IgE Patient had absolute eosinophil count of 350 on 04/08/2019 Given that the patient has multiple allergies hypersensitive pneumonitis could be worked up on again as an outpatient. From pulmonary perspective I think patient is doing better. Continue with total course of oseltamivir and azithromycin. Symptomatic therapy for cough. Would recommend discharging the patient on mucolytic with a cough suppressant. Given the patient is afebrile for more than 48 hours while being on oseltamivir droplet precautions can be taken off. Make patient walk on room air to see if she desaturates below 88% if she does she will qualify for home O2. Needs repeat chest x-ray to be done in 2 to 4 weeks. No further intervention from pulmonary perspective. Will sign off. Recall if needed. Please note the above document was generated using voice recognition software. It may contain grammatical, syntax or spelling errors. (2) Bronchitis: (3) Asthma: Subjective Patient seen and examined at bedside. No acute distress, no adverse events overnight. Shortness of breath is improved. Still complains of generalized weakness but it is getting better than since the time she came into the hospital. Denies any night sweats anymore. No nausea or vomiting. Good appetite. No chest pain. Still is not able to bring up phlegm. Review of Systems Review of Systems: All systems reviewed & are unremarkable except as noted in HPI & below Physical Exam Physical Exam: Constitutional: No acute distress, positive coughing at the time of examination HEENT: EOMI, PERRLA, moist mucous membranes Respiratory system: Good air entry bilaterally, positive right lower lobe crackles, no wheeze, no rhonchi CVS: S1-S2 positive, no murmurs or gallops Abdomen: Soft, nontender, nondistended, positive bowel sounds x4 Extremities: +2 pulses bilaterally radialis/ dorsalis pedis, no cyanosis, no edema Neuro: Awake alert oriented x3 Psych: Normal mood and affect G/U: No [place] Skin: no rashes, warm and dry Lymphatic: no cervical or axillary lymphadenopathy Results & Data Vital Signs (Past 12 Hours) Vital Signs Temp Pulse Pulse Resp BP Pulse Ox 12/10/19 11:10 36.5 C 100 H 18 115/65 94 12/10/19 10:26 95 12/10/19 07:44 36.6 C 86 19 130/68 95 12/10/19 07:06 82 18 94 12/10/19 03:38 37.2 C 77 20 134/80 94 12/10/19 01:07 79 18 95 12/09/19 06:46 12/09/19 06:46 PG Care Time/CCT Total # of Minutes Spent Total Time Spent with Patient: Total time spent is greater than 50% in coordination of care (as documented) at patient's floor/unit and/or counseling patient: Coding Level of Care Code 13364 Subseq Hosp Care Lvl 3 Diagnoses Influenza B J10.1 Bronchitis J40 Asthma J45.909
[2019-12-10] MEDS: GUAIFENESIN/DEXTROM SYRUP 200MG/20MG 10ML UDC PO PRN (13:04)
--- NOTE | 2019-12-10 17:45 | Discharge Summary ---
Date of Service December 10, 2019 Admission HPI Per Admitting Provider The patient is a 74-year-old female with a past medical history including Rgtvvij-Tgqhq-Yrojd, multiple antibiotic allergies and sensitivities who traveled with a group to [place] and [facility]. Her reports that she began to get sick while in [place] about 2 weeks ago, as did many people in their traveling group, but she became more sick than most. He did have some Keflex on hand and had her take the Keflex without significant improvement in symptoms. Of note, she was nowhere near [place], with the current outbreak of viruses there, and did not have exposures while on the plane. Principal Diagnosis Influenza B, Pneumonia, Acute respiratory failure with hypoxia Discharge Exam Constitutional WD/WN, vitals as above Eyes + anicteric sclerae ENMT external ear and nose normal, oropharynx normal Neck trachea midline, no thyromegaly Respiratory normal respiratory effort; no labored breathing Auscultation: + rhonchi (right lower lung field); no crackles and no wheezes Cardiovascular RRR, no murmur, no edema Chest (Breasts) Chest: normal inspection of chest Gastrointestinal (Abdomen) normal bowel sounds, soft, nontender, no hepatosplenomegaly Musculoskeletal Extremities: extremities normal to inspection; no cyanosis and no clubbing Skin no rashes, warm and dry Neurologic moves all extremities and awake; no focal motor deficits Psychiatric A+Ox3, euthymic affect Lymphatic no lymphedema Discharge Data Allergies Allergy/AdvReac Type Severity Reaction Status Date / Time ceftaroline fosamil Allergy Severe WHITE Verified 11/21/19 08:19 BLOOD COUNT DECREASE indomethacin Allergy Severe UNCONSIOUS Verified 11/21/19 08:19 FOR 6 HOURS. cefaclor Allergy Intermediate Hives Verified 11/21/19 08:19 daptomycin Allergy Intermediate PNEUMONIA Verified 11/21/19 08:19 gluten Allergy Intermediate Gastrointestinal Verified 11/21/19 08:19 Upset Penicillins Allergy Intermediate Hives Verified 11/21/19 08:19 Yakvrja-Dgi-Csb Reductase Allergy Intermediate MUSCLE Verified 11/21/19 08:19 Inhibitor ACHES strawberry Allergy Intermediate Anaphylaxis Verified 11/21/19 08:19 Sulfa (Sulfonamide Allergy Intermediate Hives Verified 11/21/19 08:19 Antibiotics) vancomycin Allergy Intermediate JANET Verified 11/21/19 08:19 BEBETO SYNDROME moxifloxacin Allergy Unknown CAN'T Verified 11/21/19 08:19 REMEMBER nitrofurantoin Allergy Unknown CAN'T Verified 11/21/19 08:19 REMEMBER tetracycline Allergy Unknown CAN'T Verified 11/21/19 08:19 REMEMBER adhesive Allergy Redness of Verified 11/21/19 08:19 Skin diphenhydramine AdvReac Intermediate SHAKING Verified 11/21/19 08:19 ALL OVER Consultations 12/07/19 05:25 ED Decision to Admit Stat 12/07/19 07:18 Consult Case Management - Discharge Planning Routine 12/08/19 07:58 Consult Pulmonology Routine 12/09/19 09:21 [facility] COPD/Pnx Program Referral Routine Ordered Studies 12/07/19 03:31 CT angio chest PE protocol Urgent CXR ECHO Hospital Course (1) Influenza B: Began with fevers, malaise, sore throat, ear pain, and then cough on 12/02/19 while on a trip to [place]. Continued fevers through day of admission. Finally feeling better now with treatment for PNA Rapid flu antigen negative but flu PCR positive for Flu B Malaise, appetite, cough, myalgias all improving today -given that she is a complicated flu case with pneumonia, age>65, requiring hos pitalization, she should be treated with Tamiflu -started Tamiflu 75mg po bid x 5 day course on 12/08/19-continue through 12/12 -treating PNA as below -supportive care was given -weaned off O2 -tylenol for body aches, fevers (2) Bronchopneumonia: Bronchopneumonia in RLL on imaging, with some mucus plugging otherwise From history it sounds like to be initially as a viral process, but then became secondary bacterial infection. COuld be atypical pneumonitis MRSA swab nose negative therefore linezolid discontinued after one dose -continue azithromycin x 5 day course-today day #4 -received Pulmicort Respules 0.5 mg inhaled twice daily while here -continue albuterol HFA after dc, continue guafenesin DM prn -Sputum cx never collected -appreciate Pulm consult-f/u as outpt -no steroids needed (received a dose of SOlu Medrol in ER) -check Legionella ag, Mycoplasma-pending at time of discharge -added flutter valve -follow CXR to resolution in a few weeks -ambulated without O2 and POx 95% on day of discharge (3) Acute respiratory failure with hypoxia: Secondary to PNA and influenza as above -weaned off O2 prior to discharge (4) Coronary artery disease: h/o RIVER placed 2017 With chest pain here as below now resolved -continue home ASA -cannot tolerate statins--> Cardio considering Zetia or Repatha as outpt -had too many side effects with lisinopril and metoprolol and she stopped them on her own (5) Chest pain: Had many hours of chest pain anteriorly on 12/08--> ECG no ischemia, troponins here negative x 3, and is tender to palpation on chest--> seems MSK in nature -no further eval needed Now resolved (6) Asthma: With mosaicism seen on Chest CT as per PUlm -needs LABA/ICS as per PULM on discharge-Rx written for Symbicort -needs formal PFTs as outpt -f/u IgE level as well given high absolute esopsinophil count, multiple allergies to medications--> IgE level pending at time of discharge and can be followed up on by Pulm -albuterol HFA prn prescribed also (7) Uxmfaps-Vuiya-Odbol disease type 2: 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 -with some unsteadiness in gait with PT--> recommend home health but declined this Recommend she use her walker at home until stronger (8) DVT prophylaxis: Heparin SQ provided Dispo-stable for dc to home Total Time Total Time Spent Total Time Spent (In Minutes): 35 min Total Time Includes: Examination of the Patient, Discharge Planning and Medication Reconciliation Discharge Plan Discharge Items Patient Disposition: Home - Self-Care Reason For Visit: BRONCHOPNEUMONIA Discharge Diagnosis: Influenza B, Pneumonia Condition on Discharge: Fair Activity: As commented below Lifting: Gradually increase as tolerated Bathing: No limitations Exercise/Sports: Gradually increase as tolerated Non-emergency contact: Primary Care Provider and Home Comfort Advisor Call non-emergency contact if: you have any medication questions, your symptoms worsen, you have a fever and your temperature is above 101 Follow-up/Referrals: Wong Roberts MD [Physician] - 12/16/19 1:00 pm (Please, follow up at [facility] Pulmonology Office / COPD Clinic with Dr. Roberts on SundayDecember 16 at 1:00 pm. *The office is located in [address] of [facility], next to this hospital. If you need to change this appointment, call the office at [phone].) Jesus Membreno MD [Primary Care Provider] - 12/18/19 11:30 am (Please, follow up with Dr. Membreno on December 18 at 11:30 am. *If you need to change this appointment, call the office at [phone].) Diet: Heart Healthy Addtl Attending Provider Instructions: Please finish out the course of azithromycin with your last dose on 12/11. Finish out the course of Tamiflu on the evening of 12/12/19. You should have a repeat chest xray in a few weeks to ensure your pneumonia is resolving. An appointment was made for you with a Home Comfort Advisor for follow up as well. You should use a walker at the house for ambulation until you're feeling stronger. Please follow up with your PCP within 1-2 weeks as scheduled. Pending Studies at Discharge: Yes (Mycoplasma titer, Legionella antigen, final Blood culture) Stand-Alone Forms: [facility] Medications and DC Order Prescriptions: New azithromycin [Zithromax] 250 mg Tablet 500 mg PO QAM 1 Days Qty: 2 RF: 0 oseltamivir [Tamiflu] 75 mg Capsule 75 mg PO BID Qty: 5 RF: 0 Robitussin Cough-Chest Lavon DM 5-100 mg/5 mL Liquid 10 ml PO Q6H PRN (Reason: cough) Qty: 237 RF: 0 albuterol sulfate 90 mcg/actuation HFA aerosol inhaler 2 puffs INH QID PRN (Reason: shortness of breath or wheezing) Qty: 18 RF: 0 Symbicort 80-4.5 mcg/actuation HFA aerosol inhaler 2 puffs INH BID Qty: 10.2 RF: 0 Continued epinephrine 0.3 mg/0.3 mL auto-injector 0.3 mg IM ONCE PRN (Reason: anaphylaxis) Qty: 2 RF: 0 multivitamin Tablet 1 tab PO DAILY RF: 0 nitroglycerin [Nitrostat] 0.4 mg Tablet, Sublingual 0.4 mg sublingual DIRECTED PRN (Reason: Chest Pain) RF: 0 Premarin 0.625 mg/gram cream 0.625 mg VAGINAL 2XWK RF: 0 acetaminophen [Tylenol Arthritis Pain] 650 mg Tablet Extended Release 650 mg PO Q8H PRN (Reason: Pain) RF: 0 aspirin [Aspir-81] 81 mg Tablet,Delayed Release (Dr/Ec) 81 mg PO DAILY RF: 0 Discharge Orders: Discharge Order (Routine); Ordered 12/10/19 Ordered By: Eufemia Thompson Admission Data Admit Date/Time: 12/07/19 05:57 Attending Provider: Eufemia Thompson Admit Provider: Zack Izquierdo Primary Care Provider: Jesus Membreno Other Providers: Guillermo Saldana ; Josefina Hendrix ; Libby Rashid Coding Level of Care Code D/C Day Management >30 mins Diagnoses Influenza B J10.1 Bronchopneumonia J18.0 Acute respiratory failure with hypoxia J96.01 Coronary artery disease I25.10 Chest pain R07.9 Asthma J45.909 Jsotvex-Gtbrs-Bvfyn disease type 2 G60.0 DVT prophylaxis Z29.9
[2019-12-10] MEDS ORDERED: guaiFENesin 600 MG TABCR PO SCH (21:00)
== END 2019-12-10 18:37 | disposition home or self-care (01) | DRG 193 ==
LOC: ED 00:40 → SUATTDRO 05:57 → 2E 05:57

== ENCOUNTER 2020-12-23 14:40 | Observation (INO) ==
[2020-12-23 15:15] LABS: Eosinophils % (auto) 0.4 %; Hematocrit (blood only) 44.3 % (37-47); Hemoglobin 14.7 g/dL (12.0-16.0); Lymphocytes % (auto) 40.2 %; Mean Corpuscular Hemoglobin 30.5 pg (25-34); Mean Corpuscular Hgb Conc 33.2 g/dL (32-36); Mean Corpuscular Volume 91.9 fL (80-100); Mean Platelet Volume 9.7 fL (7.4-10.4); Monocytes % (auto) 12.6 %; Neutrophils % (auto) 46.3 %; Platelet Count 305 K/uL (130-400); RDW Coefficient of Variation 14.6 % (11.5-14.5); RDW Standard Deviation 49.6 fL (36.4-46.3); Red Blood Count 4.82 M/uL (4.2-5.4); White Blood Count 9.94 K/uL (4.8-10.8)
[2020-12-23 15:16] LABS: Basophils # (auto) 0.01 K/uL (0-0.2); Basophils % (auto) 0.1 %; Eosinophils # (auto) 0.04 K/uL (0-0.5); Immature Granulocytes # (auto) 0.04 K/uL (0.00-0.02); Immature Granulocytes % (auto) 0.4 %; Monocytes # (auto) 1.25 K/uL (0.11-0.59)
[2020-12-23 15:31] LABS: Partial Thromboplastin Ratio 0.9; Partial Thromboplastin Time 23.4 Seconds (21.0-31.0); Prothrombin Time 9.9 Seconds (9.0-12.0)
[2020-12-23 15:32] LABS: Alanine Aminotransferase 26 U/L (12-78); Albumin Level 3.8 gm/dl (3.4-5.0); Aspartate Aminotransferase 11 U/L (15-37); BUN Creatinine Ratio 23.1 (10-20); Blood Urea Nitrogen 19 mg/dl (7-18); Calcium 8.9 mg/dl (8.5-10.1); Carbon Dioxide 27 mmol/L (21-32); Chloride 106 mmol/L (98-107); Creatinine Clr Calc Pharmacy 55.5 ml/min; Est GFR (African American) 78.8; Glucose 101 mg/dl (70-99); Potassium 3.8 mmol/L (3.5-5.1); Sodium 139 mmol/L (136-145)
[2020-12-23 15:36] LABS: Alkaline Phosphatase 108 U/L (45-117); Bilirubin,Total 0.3 mg/dl (0.2-1); Globulin 3.7 gm/dl (2.5-4.0); Total Protein 7.5 gm/dl (6.4-8.2); Troponin I < 0.015 ng/ml (0-0.045)
--- NOTE | 2020-12-23 16:40 | Electrocardiogram Report ---
Test Reason : Blood Pressure : / mmHG Vent. Rate : 085 BPM Atrial Rate : 085 BPM P-R Int : 128 ms QRS Dur : 088 ms QT Int : 388 ms P-R-T Axes : 055 057 082 degrees QTc Int : 461 ms Normal sinus rhythm Nonspecific ST abnormality Lateral leads Abnormal ECG When compared with ECG of 08-DEC-2019 14:13, ST now depressed in Lateral leads Confirmed by Bryan Pemberton ([id number]) on 12/23/2020 4:39:42 PM Referred By: Confirmed By:Bryan Pemberton
[2020-12-23] MEDS ORDERED: NITROGLYCERIN SL 0.4 MG/TAB TAB SL STA (17:49)
[2020-12-23] MEDS ORDERED: ASPIRIN CHEW 324 MG PO STA (17:49)
[2020-12-23] MEDS ORDERED: SODIUM CHLORIDE 0.9% 1000ML 1,000 ML IV SCH (18:00)
--- NOTE | 2020-12-23 18:25 | XRay Report ---
SINGLE VIEW CHEST CLINICAL HISTORY: Atypical chest pain. Dyspnea. FINDINGS: An AP, portable, upright chest radiograph is compared to study dated 01/07/2020 and correlat ed with chest CT dated 12/07/2019. The heart is enlarged noting atherosclerotic calcification of the t horacic aorta. The pulmonary vasculature is noncongested. Chronic interstitial thickening is similar to previous. There is bibasilar scarring/atelectasis. No airspace consolidation or large pleural effu abiola is identified. No pneumothorax is seen. The skeletal structures are osteopenic. The bony thorax is grossly intact. There is postoperative change at the thoracolumbar junction with spinal rods in pl minnie. IMPRESSION: Cardiomegaly with no acute cardiopulmonary abnormality. ACT 112: Negative or not required by law. Electronically signed by: Royce Henry M.D. 12/23/2020 6:24 PM
[2020-12-23 18:31] LABS: D Dimer 720 ug/L FEU (0-500)
--- NOTE | 2020-12-23 18:56 | Emergency Department Note ---
History of Present Illness General Chief Complaint: Chest Pain Stated Complaint: CHEST PAIN,SOB,PRESSURE IN CHEST Time Seen by Provider: 12/23/20 17:38 History of Present Illness Provider Complaint: chest pain Onset (ago): day(s) 3 Duration: intermittent Onset: during exertion Pain Location: substernal Pain Radiation: none Maximum Pain Intensity: 5 Current Pain Intensity: 5 Quality: + heaviness Relieved By: + rest Exacerbated By: + exertion Context: no recent illness, no recent surgery, no recent immobilization, no recent travel, no trauma/injury, no new medications and no history of DVT/PE Associated symptoms: + dyspnea; no nausea, no vomiting, no diaphoresis, no syncope, no palpitations, no fever and no cough Related Data On Oral Contraceptives: Yes (On exogenous hormone creams) Home Medications Medication Instructions Recorded Confirmed Type multivitamin 1 tab PO DAILY 04/08/19 12/23/20 History nitroglycerin [Nitrostat] 0.4 mg SUBLINGUAL DIRECTED PRN 04/08/19 12/23/20 History conjugated estrogens 0.625 mg/gram 0.625 mg VAGINAL 2XWK gm 07/07/19 12/23/20 History vaginal cream epinephrine 0.3 mg/0.3 mL 0.3 mg IM ONCE PRN #2 ea 07/07/19 12/23/20 History injection, auto-injector acetaminophen [Tylenol Arthritis 650 mg PO Q8H PRN 12/07/19 12/23/20 History Pain] albuterol sulfate 2 puffs INH QID PRN #18 gm 12/10/19 12/23/20 Rx aspirin [Aspir-Low] 81 mg PO DAILY 12/23/20 12/23/20 History Allergies Allergy/AdvReac Type Severity Reaction Status Date / Time cefaclor Allergy Intermediate Hives Verified 12/20/20 12:05 gluten Allergy Intermediate Gastrointestinal Verified 12/20/20 12:05 Upset Penicillins Allergy Intermediate Hives Verified 12/20/20 12:05 strawberry Allergy Intermediate Anaphylaxis Verified 12/20/20 12:05 Sulfa (Sulfonamide Allergy Intermediate Hives Verified 12/20/20 12:05 Antibiotics) moxifloxacin Allergy Unknown CAN'T Verified 12/20/20 12:05 REMEMBER nitrofurantoin Allergy Unknown CAN'T Verified 12/20/20 12:05 REMEMBER tetracycline Allergy Unknown CAN'T Verified 12/20/20 12:05 REMEMBER adhesive Allergy Redness of Verified 12/20/20 12:05 Skin ceftaroline fosamil AdvReac Severe WHITE Verified 12/20/20 12:05 BLOOD COUNT DECREASE indomethacin AdvReac Severe UNCONSIOUS Verified 12/20/20 12:05 FOR 6 HOURS. daptomycin AdvReac Intermediate PNEUMONIA Verified 12/20/20 12:05 diphenhydramine AdvReac Intermediate SHAKING Verified 12/20/20 12:05 ALL OVER Lanheeg-Tbk-Nxv Reductase AdvReac Intermediate MUSCLE Verified 12/20/20 12:05 Inhibitor ACHES vancomycin AdvReac Intermediate JANET Verified 12/20/20 12:05 BEBETO SYNDROME Past Med/Surg History Medical History (Updated 12/23/20 @ 20:50 by Carlos Burns) Asthma uses PRN INH 1xmo on avg Atrial fibrillation ONSET 40 YEARS AGO - NO MEDS - FOLLOWS W/ DR. RUBALCAVA Jotwyws-Wenud-Dvrgv disease type 2 FOLLOWS W/ DR. MAYA Coronary artery disease Status post NSTEMI in 06/2018. Stent to om 1. 50 percent stenosis and RCA Hiatal hernia Myocardial Infarction 2018 Osteoarthritis Right knee DJD Sleep apnea CPAP TMJ (temporomandibular joint disorder) Urinary leakage Surgical History History of arthroscopy of left knee History of cardiac cath 06/2018 - [facility] - 1 STENT - FOLLOWS W/ DR. RUBALCAVA History of cholecystectomy History of colonoscopy History of esophagogastroduodenoscopy (EGD) History of foot surgery LEFT History of heart artery stent X 1 History of hysterectomy History of lumbar spinal fusion History of thoracic spinal fusion History of tooth extraction History of tubal ligation Hx of left cataract extraction Slow to wake up after anesthesia Stented coronary artery Family History Mother Family history of diabetes mellitus Brother Family history of diabetes mellitus Grandmother (Maternal) Family history of diabetes mellitus Other Family history non-contributory Social History Smoking Status: Never smoker Second Hand Exposure: No; Hx Alcohol Use: Yes Alcohol type: wine Hx Substance Use: No Preferred Language: Nepali Communication Ability: Effective [employer] Required: No Beliefs That Will Affect Care: None Current Living Situation: Spouse Feels Safe at Home: Yes Assistive Devices: Glasses Review of Systems A total of 10 systems reviewed and were otherwise negative Physical Exam Vital Signs Vital Signs - 24 hr 12/23/20 14:43 12/23/20 17:37 12/23/20 17:41 Temperature 36.2 C L Temperature Source Temporal Artery Scan Oral Pulse Rate 105 H 63 Pulse Rate [Apical] Pulse Rate from SpO2 Sensor 65 Pulse Rhythm Regular Pulse Strength Normal Respiratory Rate 22 16 Respiratory Effort / Characteristics Non-Labored Spontaneous Respiratory Depth Normal Respiratory Pattern Regular Blood Pressure 177/98 H 179/91 H Blood Pressure [Right Arm] Blood Pressure Mean 124 120 Blood Pressure Mean [Right Arm] Blood Pressure Position Sitting Pulse Oximetry 98 97 Oxygen Delivery Method Room Air Room Air Sepsis Recent Fever Within 48 Hours No Sepsis New/Unexplained Change in Mental Status No Sepsis Action Taken by Nursing No Action Required 12/23/20 17:54 12/23/20 18:00 12/23/20 18:01 Temperature Temperature Source Pulse Rate 63 63 63 Pulse Rate [Apical] Pulse Rate from SpO2 Sensor 64 64 63 Pulse Rhythm Pulse Strength Respiratory Rate 14 14 18 Respiratory Effort / Characteristics Respiratory Depth Respiratory Pattern Blood Pressure 157/90 H Blood Pressure [Right Arm] Blood Pressure Mean 112 Blood Pressure Mean [Right Arm] Blood Pressure Position Pulse Oximetry 97 98 95 Oxygen Delivery Method Sepsis Recent Fever Within 48 Hours Sepsis New/Unexplained Change in Mental Status Sepsis Action Taken by Nursing 12/23/20 19:06 Temperature Temperature Source Pulse Rate Pulse Rate [Apical] 66 Pulse Rate from SpO2 Sensor Pulse Rhythm Pulse Strength Respiratory Rate 18 Respiratory Effort / Characteristics Non-Labored Spontaneous Respiratory Depth Normal Respiratory Pattern Blood Pressure Blood Pressure [Right Arm] 132/81 Blood Pressure Mean Blood Pressure Mean [Right Arm] 98 Blood Pressure Position Pulse Oximetry 97 Oxygen Delivery Method Room Air Sepsis Recent Fever Within 48 Hours Sepsis New/Unexplained Change in Mental Status Sepsis Action Taken by Nursing Physical Exam GENERAL: She is oriented to person, place, and time. She appears well-developed and well-nourished. She does not appear distressed. HENT: Exam performed. -Head: Normocephalic and atraumatic. -Right Ear: External ear normal. No mastoid tenderness. -Left Ear: External ear normal. No mastoid tenderness. -Mouth/Throat: The oropharynx is clear and moist. No trismus in the jaw. No dental abscesses or uvula swelling. No oropharyngeal exudate or tonsillar abscesses. EYES: Conjunctivae and EOM are normal. Pupils are equal, round, and reactive to light. Right eye exhibits no discharge. Left eye exhibits no discharge. No scle ral icterus. NECK: Normal range of motion. Neck supple. No JVD present. No spinous process tenderness present. No carotid bruit present. No rigidity. No tracheal deviation and normal range of motion present. No Brudzinski's sign and no Kernig's sign noted. CV: Normal rate, regular rhythm, normal heart sounds and intact distal pulses. There is no peripheral edema. Palpable radial pulses bue. PULM/CHEST: Effort normal and breath sounds normal. No respiratory distress. No stridor. She has no wheezes. She has no rales. -Chest Wall: She exhibits no tenderness. ABD: The abdomen is soft. Bowel sounds are normal. She has no distension. No mass is present. There is no tenderness. There is no rebound, no guarding, no Osuna's sign and no tenderness at McBurney's point. Rovsig negative MUSC/SKEL: Normal range of motion. There is no peripheral edema, tenderness or deformity. LYMPH: No cervical adenopathy. NEURO: She is alert and oriented to person, place, and time. She has normal strength. No cranial nerve deficit or sensory deficit. Coordination and gait normal. GCS eye subscore is 4. GCS verbal subscore is 5. GCS motor subscore is 6. Cerebellar tests wnl. SKIN: Skin is warm and dry. She is not diaphoretic. PSYCH: She has a normal mood and affect. Behavior is normal. Judgment and thoug ht content normal. Course Course 1737: The patient was evaluated in room B11. A complete history and physical exam was performed. Patient was seen during a time of extreme high volume and extreme high acuity during the COVID-19 pandemic. Nursing triage protocols were established and labs and imaging were conducted on the waiting room. Cardiac monitoring: An order was placed for continuous cardiac monitoring. The monitor shows a rate of 60 with sinus rhythm 1852: Vital signs stable. Status post 1 sublingual nitro the patient reports her chest pain has improved to a 2 out of 10. Patient's D-dimer is elevated 720. Will obtain CT of the chest to rule out PE. We will plan on admitting the patient to the hospitalist service regardless of CTA outcomes for rule out ACS. 2049: Vital signs stable. CT of the chest negative for PE. Patient will be admitted to the [facility] hospitalist service Dr. Pham notified. Administered Medications Sodium Chloride (Nss 1000ml) 1,000 mls @ 125 mls/hr IV .Q8H BARBRA Stop: 01/22/21 17:59 Last Admin: 12/23/20 18:19 Dose: 125 mls/hr Documented by: [id number] Discontinued Medications Aspirin (Aspirin Chew 324 Mg) 324 mg PO NOW STA Stop: 12/23/20 17:50 Last Admin: 12/23/20 18:19 Dose: 324 mg Documented by: [id number] Ioversol (Optiray 320 125ml) 119 ml IV ONCE ONE Stop: 12/23/20 19:46 Last Admin: 12/23/20 19:45 Dose: 119 ml Documented by: [id number] Nitroglycerin (Nitroglycerin Sl 0.4 Mg/Tab Tab) 0.4 mg SL NOW STA Stop: 12/23/20 17:50 Last Admin: 12/23/20 18:19 Dose: 0.4 mg Documented by: [id number] Medical Decision Making Laboratory Data Result diagrams: 12/23/20 15:00 12/23/20 15:00 Labs: Lab Results 12/23/20 12/23/20 12/23/20 Range/Units 15:00 15:00 15:00 WBC 9.94 (4.8-10.8) K/uL RBC 4.82 (4.2-5.4) M/uL Hgb 14.7 (12.0-16.0) g/dL Hct 44.3 (37-47) % MCV 91.9 (80-100) fL MCH 30.5 (25-34) pg MCHC 33.2 (32-36) g/dL RDW Std Deviation 49.6 H (36.4-46.3) fL RDW Coeff of Ramesh 14.6 H (11.5-14.5) % Plt Count 305 (130-400) K/uL MPV 9.7 (7.4-10.4) fL Immature Gran % (Auto) 0.4 % Neut % (Auto) 46.3 % Lymph % (Auto) 40.2 % Lynn % (Auto) 12.6 % Eos % (Auto) 0.4 % Baso % (Auto) 0.1 % Neut # (Auto) 4.60 (1.4-6.5) K/uL Lymph # (Auto) 4.00 H (1.2-3.4) K/uL Lynn # (Auto) 1.25 H (0.11-0.59) K/uL Eos # (Auto) 0.04 (0-0.5) K/uL Baso # (Auto) 0.01 (0-0.2) K/uL Immature Gran # (Auto) 0.04 H (0.00-0.02) K/uL PT 9.9 (9.0-12.0) Seconds INR 1.0 (0.9-1.1) APTT 23.4 (21.0-31.0) Seconds PTT Ratio 0.9 D-Dimer (0-500) ug/L FEU Sodium 139 (136-145) mmol/L Potassium 3.8 (3.5-5.1) mmol/L Chloride 106 (98-107) mmol/L Carbon Dioxide 27 (21-32) mmol/L Anion Gap 6.0 (3-11) BUN 19 H (7-18) mg/dl Creatinine 0.83 (0.6-1.2) mg/dl Est Cr Clr Drug Dosing 55.5 ml/min Est GFR ( Amer) 78.8 Est GFR (Non-Af Amer) 68.0 BUN/Creatinine Ratio 23.1 H (10-20) Glucose 101 H (70-99) mg/dl Calcium 8.9 (8.5-10.1) mg/dl Total Bilirubin 0.3 (0.2-1) mg/dl AST 11 L (15-37) U/L ALT 26 (12-78) U/L Alkaline Phosphatase 108 (45-117) U/L Troponin I < 0.015 (0-0.045) ng/ml Total Protein 7.5 (6.4-8.2) gm/dl Albumin 3.8 (3.4-5.0) gm/dl Globulin 3.7 (2.5-4.0) gm/dl Albumin/Globulin Ratio 1.0 (0.9-2) COVID-19 Eval Order 12/23/20 12/23/20 Range/Units 15:00 20:30 WBC (4.8-10.8) K/uL RBC (4.2-5.4) M/uL Hgb (12.0-16.0) g/dL Hct (37-47) % MCV (80-100) fL MCH (25-34) pg MCHC (32-36) g/dL RDW Std Deviation (36.4-46.3) fL RDW Coeff of Ramesh (11.5-14.5) % Plt Count (130-400) K/uL MPV (7.4-10.4) fL Immature Gran % (Auto) % Neut % (Auto) % Lymph % (Auto) % Lynn % (Auto) % Eos % (Auto) % Baso % (Auto) % Neut # (Auto) (1.4-6.5) K/uL Lymph # (Auto) (1.2-3.4) K/uL Lynn # (Auto) (0.11-0.59) K/uL Eos # (Auto) (0-0.5) K/uL Baso # (Auto) (0-0.2) K/uL Immature Gran # (Auto) (0.00-0.02) K/uL PT (9.0-12.0) Seconds INR (0.9-1.1) APTT (21.0-31.0) Seconds PTT Ratio D-Dimer 720 H* (0-500) ug/L FEU Sodium (136-145) mmol/L Potassium (3.5-5.1) mmol/L Chloride (98-107) mmol/L Carbon Dioxide (21-32) mmol/L Anion Gap (3-11) BUN (7-18) mg/dl Creatinine (0.6-1.2) mg/dl Est Cr Clr Drug Dosing ml/min Est GFR ( Amer) Est GFR (Non-Af Amer) BUN/Creatinine Ratio (10-20) Glucose (70-99) mg/dl Calcium (8.5-10.1) mg/dl Total Bilirubin (0.2-1) mg/dl AST (15-37) U/L ALT (12-78) U/L Alkaline Phosphatase (45-117) U/L Troponin I (0-0.045) ng/ml Total Protein (6.4-8.2) gm/dl Albumin (3.4-5.0) gm/dl Globulin (2.5-4.0) gm/dl Albumin/Globulin Ratio (0.9-2) COVID-19 Eval Order Covid19 IDNow [facility] Imaging Data Chest x-ray: Radiologist's impression: SINGLE VIEW CHEST CLINICAL HISTORY: Atypical chest pain. Dyspnea. FINDINGS: An AP, portable, upright chest radiograph is compared to study dated 01/07/2020 and correlated with chest CT dated 12/07/2019. The heart is enlarged noting atherosclerotic calcification of the thoracic aorta. The pulmonary vasculature is noncongested. Chronic interstitial thickening is similar to previous. There is bibasilar scarring/atelectasis. No airspace consolidation or large pleural effusion is identified. No pneumothorax is seen. The skeletal structures are osteopenic. The bony thorax is grossly intact. There is postoperative change at the thoracolumbar junction with spinal rods in place. IMPRESSION: Cardiomegaly with no acute cardiopulmonary abnormality. ACT 112: Negative or not required by law. Electronically signed by: Royce Henry M.D. 12/23/2020 6:24 PM Dictated: 12/23/201822 Transcribed: 12/23/201822 CT ANGIOGRAM OF THE CHEST CLINICAL HISTORY: Atypical chest pain. COMPARISON STUDY: Chest CT scans dated 12/07/2019 and 06/22/2018. Chest x-ray dated 12/23/2020. TECHNIQUE: Following the IV administration of 119 cc of Optiray 320, CT angiogram of the chest was performed from the upper abdomen to the thoracic inlet utilizing the pulmonary embolus protocol. Images are reviewed in the axial, sagittal, and coronal planes. 3-D MIPS images are created and assessed. IV contrast was administered without complication. A dose lowering technique was utilized adhering to the principles of ALARA. CT DOSE: 381.23 mGy.cm FINDINGS: Thyroid: Atrophic. Thoracic aorta: There is atherosclerotic calcification of the thoracic aorta, which is normal in caliber and demonstrates standard 3-vessel arch anatomy. No dissection is seen. Pulmonary vasculature: The pulmonary trunk is normal in caliber. There are no filling defects identified in main, lobar, or segmental pulmonary branches to suggest pulmonary embolus. Heart: The heart is enlarged and without pericardial effusion. The coronary arteries are densely calcified. Lungs and pleural spaces: Evaluation of the lung parenchyma is modestly degraded by motion artifact. There is no airspace consolidation or pleural effusion. The trachea and central airways are clear. Mild diffuse peribronchial thickening is observed. Foci of air trapping are suggested throughout both lungs. There is bibasilar scarring/atelectasis. Mediastinum: There is no mediastinal lymphadenopathy. Courtney: Clear. Axillae: There is no axillary lymphadenopathy. Upper abdomen: Hepatic cysts measure up to 5.4 cm. There is a small to moderate hiatal hernia. Skeletal structures: The skeletal structures are osteopenic. Postoperative change and spinal rods are present at the thoracolumbar junction. There is mild kyphoscoliosis of the thoracic spine. No lytic or blastic bony lesions are seen. IMPRESSION: 1. There is no evidence of pulmonary embolus in the main, lobar, or segmental pulmonary arteries. 2. There is no airspace consolidation or pleural effusion. 3. Cardiomegaly. 4. Mild diffuse peribronchial thickening suggests bronchitis/reactive airway disease. Clinical correlation will be required. 5. Additional findings as above. ACT 112: Negative or not required by law. Electronically signed by: Royce Henry M.D. 12/23/2020 8:46 PM Dictated: 12/23/202040Transcribed: 12/23/202040 ECG Data Additional Comments: EKG #1 at 1450: Sinus rhythm with a rate of 85. W[place] QRS and QTc intervals are within normal limits. No ST elevation or ST depression. EKG #2 at 1755: Sinus rhythm with rate of 63. [place] and QTc intervals within normal limits. QRS 76. No ST elevation or ST depression. [facility] Narrative 1738: The patient was evaluated in room B11. A complete history and physical exam was performed. Patient was seen during a time of extreme high volume and extreme high acuity during the COVID-19 pandemic. Nursing triage protocols were established and labs and imaging were conducted on the waiting room. Cardiac monitoring: An order was placed for continuous cardiac monitoring. The monitor shows a rate of 60 with sinus rhythm 1853: Vital signs stable. Status post 1 sublingual nitro the patient reports her chest pain has improved to a 2 out of 10. Patient's D-dimer is elevated 720. Will obtain CT of the chest to rule out PE. We will plan on admitting the patient to the hospitalist service regardless of CTA outcomes for rule out ACS. 2049: Vital signs stable. CT of the chest negative for PE. Patient will be admitted to the [facility] hospitalist service Dr. Pham notified. Impression & Plan Chest pain Discharge Plan Visit Data Chief Complaint: Chest Pain Stated Complaint: CHEST PAIN,SOB,PRESSURE IN CHEST ED Provider: Carlos Burns Discharge Problem: Chest pain Patient Disposition: Being Evaluated by Hospitalist Forms Stand Alone Forms: My [facility] Prescriptions Prescriptions: No Action epinephrine 0.3 mg/0.3 mL auto-injector 0.3 mg IM ONCE PRN (Reason: anaphylaxis) Qty: 2 RF: 0 multivitamin Tablet 1 tab PO DAILY RF: 0 nitroglycerin [Nitrostat] 0.4 mg Tablet, Sublingual 0.4 mg sublingual DIRECTED PRN (Reason: Chest Pain) RF: 0 Premarin 0.625 mg/gram cream 0.625 mg VAGINAL 2XWK RF: 0 acetaminophen [Tylenol Arthritis Pain] 650 mg Tablet Extended Release 650 mg PO Q8H PRN (Reason: Pain) RF: 0 albuterol sulfate 90 mcg/actuation HFA aerosol inhaler 2 puffs INH QID PRN (Reason: shortness of breath or wheezing) Qty: 18 RF: 0 aspirin [Aspir-Low] 81 mg Tablet,Delayed Release (Dr/Ec) 81 mg PO DAILY RF: 0 Referrals Referrals: Jesus Membreno MD [Primary Care Provider] - Discharge Problem: Chest pain Qualifiers: Chest pain type: unspecified Qualified Code(s): R07.9 - Chest pain, unspecified
[2020-12-23] MEDS ORDERED: OPTIRAY 320 125ml IV ONE (19:45)
--- NOTE | 2020-12-23 20:48 | CT Scan Report ---
CT ANGIOGRAM OF THE CHEST CLINICAL HISTORY: Atypical chest pain. COMPARISON STUDY: Chest CT scans dated 12/07/2019 and 06/22/2018. Chest x-ray dated 12/23/2020. TECHNIQUE: Following the IV administration of 119 cc of Optiray 320, CT angiogram of the chest was pe rformed from the upper abdomen to the thoracic inlet utilizing the pulmonary embolus protocol. Images are reviewed in the axial, sagittal, and coronal planes. 3-D MIPS images are created and assessed. I V contrast was administered without complication. A dose lowering technique was utilized adhering to the principles of ALARA. CT DOSE: 381.23 mGy.cm FINDINGS: Thyroid: Atrophic. Thoracic aorta: There is atherosclerotic calcification of the thoracic aorta, which is normal in helena raudel and demonstrates standard 3-vessel arch anatomy. No dissection is seen. Pulmonary vasculature: The pulmonary trunk is normal in caliber. There are no filling defects identif ied in main, lobar, or segmental pulmonary branches to suggest pulmonary embolus. Heart: The heart is enlarged and without pericardial effusion. The coronary arteries are densely calc ified. Lungs and pleural spaces: Evaluation of the lung parenchyma is modestly degraded by motion artifact. There is no airspace consolidation or pleural effusion. The trachea and central airways are clear. Mi ld diffuse peribronchial thickening is observed. Foci of air trapping are suggested throughout both l ungs. There is bibasilar scarring/atelectasis. Mediastinum: There is no mediastinal lymphadenopathy. Courtney: Clear. Axillae: There is no axillary lymphadenopathy. Upper abdomen: Hepatic cysts measure up to 5.4 cm. There is a small to moderate hiatal hernia. Skeletal structures: The skeletal structures are osteopenic. Postoperative change and spinal rods are present at the thoracolumbar junction. There is mild kyphoscoliosis of the thoracic spine. No lytic or blastic bony lesions are seen. IMPRESSION: 1. There is no evidence of pulmonary embolus in the main, lobar, or segmental pulmonary arteries. 2. There is no airspace consolidation or pleural effusion. 3. Cardiomegaly. 4. Mild diffuse peribronchial thickening suggests bronchitis/reactive airway disease. Clinical correl ation will be required. 5. Additional findings as above. ACT 112: Negative or not required by law. Electronically signed by: Royce Henry M.D. 12/23/2020 8:46 PM
[2020-12-23] MEDS ORDERED: NITROGLYCERIN SL 0.4 MG/TAB TAB ONE (21:03)
--- NOTE | 2020-12-23 21:46 | History & Physical Report ---
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 related to side effects, she also stopped her CARLA inhibitor. - She has been intolerant to statin therapy secondary to myalgias, Options at that time were to possibly introduce her to Zetia or Repatha-- Lipid panel is pending and can be multidisciplinary discussion with pateint. - If her HR and BP need controlled tonight will use Metoprolol 5mg IV for short action and decrease her double product to see if this assists with her chest pain. - ECHO in morning evaluate for wall motion abnormalities (3) HLD (hyperlipidemia): as above (4) Asthma: Patient with mosaic pattern on CT scan of chest, not changed from previous pulmonary evaluation and scan. - Bronchiectasis vs Asthma- No increase use of her inhalers per patient (5) DVT prophylaxis: heparin 5000 sub q History of Present Illness Chief Complaint: Chest pain Primary Care Provider: Jesus Membreno MD 75 YOF with past medical history of DJD, Ybbqwnb-Gcxbw-Cmlms disease type 2, CAD with stents x2, asthma/bronchitis. Patient was brought to the emergency room tonight by her . The patient complains of chest pain that has been off and on for the past 3 days, and now is associated with exertion/activity. The patient's pain is left 3-4 intercostal space mid clavicular and patient states that the last time she had this type of pain and location was when she had her stents. The pain is pressure in nature to sharp in nature, does not radiate anywhere. The pain is associated with some nausea and patient and both report increase in fatigue past 2 days. The patient had experienced pain in the emergency room when she was walking to CT scan table, walking to the restroom, and while lying in bed during my visit. The patient's pain was relieved with nitroglycerin tabs sl. Upon my evaluation the patient was lying in bed with BP 160's HR 80s, sublingual NTG was given and pain was gone, BP decreased to 130. To complicate this presentation, the patient also has multiple areas on her chest wall where she has pain with palpation and is very similar to some of her pain episodes. The patient currently has a normal ECG and negative troponin I x1, second increased to 0.069. In the emergency room the patient had a CT scan done for chest discomfort and elevated D-dimer, received an aspirin, nitrogly cerin as above and 500 ml of crystalloid. I have also given the patient a GI cocktail. Patient will be observed for risk stratification and following of symptoms with ECG. Allergies Allergy/AdvReac Type Severity Reaction Status Date / Time cefaclor Allergy Intermediate Hives Verified 12/20/20 12:05 gluten Allergy Intermediate Gastrointestinal Verified 12/20/20 12:05 Upset Penicillins Allergy Intermediate Hives Verified 12/20/20 12:05 strawberry Allergy Intermediate Anaphylaxis Verified 12/20/20 12:05 Sulfa (Sulfonamide Allergy Intermediate Hives Verified 12/20/20 12:05 Antibiotics) moxifloxacin Allergy Unknown CAN'T Verified 12/20/20 12:05 REMEMBER nitrofurantoin Allergy Unknown CAN'T Verified 12/20/20 12:05 REMEMBER tetracycline Allergy Unknown CAN'T Verified 12/20/20 12:05 REMEMBER adhesive Allergy Redness of Verified 12/20/20 12:05 Skin ceftaroline fosamil AdvReac Severe WHITE Verified 12/20/20 12:05 BLOOD COUNT DECREASE indomethacin AdvReac Severe UNCONSIOUS Verified 12/20/20 12:05 FOR 6 HOURS. daptomycin AdvReac Intermediate PNEUMONIA Verified 12/20/20 12:05 diphenhydramine AdvReac Intermediate SHAKING Verified 12/20/20 12:05 ALL OVER Bhxuikh-Amj-Bwz Reductase AdvReac Intermediate MUSCLE Verified 12/20/20 12:05 Inhibitor ACHES vancomycin AdvReac Intermediate JANET Verified 12/20/20 12:05 BEBETO SYNDROME Home Medications Medication Instructions Recorded Confirmed Type multivitamin 1 tab PO DAILY 04/08/19 12/23/20 History nitroglycerin [Nitrostat] 0.4 mg SUBLINGUAL DIRECTED PRN 04/08/19 12/23/20 History conjugated estrogens 0.625 mg/gram 0.625 mg VAGINAL 2XWK gm 07/07/19 12/23/20 History vaginal cream epinephrine 0.3 mg/0.3 mL 0.3 mg IM ONCE PRN #2 ea 07/07/19 12/23/20 History injection, auto-injector acetaminophen [Tylenol Arthritis 650 mg PO Q8H PRN 12/07/19 12/23/20 History Pain] albuterol sulfate 2 puffs INH QID PRN #18 gm 12/10/19 12/23/20 Rx aspirin [Aspir-Low] 81 mg PO DAILY 12/23/20 12/23/20 History Past Med/Surg History Medical History (Updated 12/23/20 @ 22:37 by LENCHO Bhat) Asthma uses PRN INH 1xmo on avg Atrial fibrillation ONSET 40 YEARS AGO - NO MEDS - FOLLOWS W/ DR. RUBALCAVA Lhwicko-Tstne-Ibwmf disease type 2 FOLLOWS W/ DR. MAYA Coronary artery disease Status post NSTEMI in 06/2018. Stent to om 1. 50 percent stenosis and RCA Hiatal hernia Myocardial Infarction 2017 Osteoarthritis Right knee DJD Sleep apnea CPAP TMJ (temporomandibular joint disorder) Urinary leakage Surgical History History of arthroscopy of left knee History of cardiac cath 06/2018 - [place] - [facility] - 1 STENT - FOLLOWS W/ DR. RUBALCAVA History of cholecystectomy History of colonoscopy History of esophagogastroduodenoscopy (EGD) History of foot surgery LEFT History of heart artery stent X 1 History of hysterectomy History of lumbar spinal fusion History of thoracic spinal fusion History of tooth extraction History of tubal ligation Hx of left cataract extraction Slow to wake up after anesthesia Stented coronary artery Family History Mother Family history of diabetes mellitus Brother Family history of diabetes mellitus Grandmother (Maternal) Family history of diabetes mellitus Other Family history non-contributory Social History Smoking Status: Never smoker Second Hand Exposure: No; Hx Alcohol Use: Yes Alcohol type: wine Hx Substance Use: No Preferred Language: Korean Communication Ability: Effective Etl Data Architect Required: No Beliefs That Will Affect Care: None Current Living Situation: Spouse Other Information That Helps Us Care for You: No Feels Safe at Home: Yes Safety Concerns: Feels Safe At This Time Assistive Devices: Cane Review of Systems Review of Systems: REVIEW OF SYSTEMS: Constitutional: No fever, sweats or chills Eyes: No diplopia, no worsening or blurred vision ENT: normal hearing, no trouble swallowing Respiratory: (+) cough, (-) sputum, dyspnea at rest or on exertion Cardiovascular: (+) chest pain, tightness. (-) palpitations Abdomen: No pain, nausea, vomiting, diarrhea or constipation Musculoskeletal: No joint pain, calf pain, swelling Neurologic: No weakness, numbness/tingling, or balance problems Psychiatric: No anxiety or depression Skin: No rash or itch Physical Exam Physical Exam: PHYSICAL EXAM: General: awake, alert, no apparent distress Head: Normocephalic, atraumatic ENT: PERRL, EOMI, no pharyngeal exudate, mucous membranes moist Neuro: AAO x 3, speech clear and appropriate, strength intact bilaterally 5/5, sensation intact and equal all extremities and dermatones, no pronator drift Chest: equal rise and fall of the chest, no accessory muscle use, no heaves or thrills, Clear to auscultation, on room air, Cardiac: Regular rate and rhythm, telemetry reviewed, skin warm dry, cap refill <3 seconds, peripheral pulses +2 no JVD, no murmur, no edema, reproducible and non-reproducible cp per HPI, no carotid bruit GI: NABS x 4 quadrants, soft, nontender to palpation, no rebound, guarding or tenderness : Spontaneously voiding, no pain, no CVA tenderness, Extremities: Normal inspection, no peripheral edema or erythema, calfs nontender to palpation, walks with a "walking stick" for stability. Psych: Normal mood and affect Skin: no rash or erythema Results & Data Results & Data ([facility]) Vital Signs (Past 12 Hours) Vital Signs Temp Pulse Pulse Resp BP BP Pulse Ox 12/23/20 21:08 86 16 133/92 95 12/23/20 21:01 82 16 97 12/23/20 21:00 74 17 167/97 H 96 12/23/20 20:31 63 18 95 12/23/20 20:30 64 15 150/84 H 95 12/23/20 20:01 63 11 L 98 12/23/20 20:00 74 25 H 142/79 H 94 12/23/20 19:58 65 16 149/81 H 98 12/23/20 19:32 99 12/23/20 19:06 66 66 22 132/81 132/81 98 12/23/20 19:01 68 14 97 12/23/20 19:00 63 19 139/82 97 12/23/20 18:31 91 H 16 96 12/23/20 18:30 96 H 25 H 143/93 H 96 12/23/20 18:01 63 18 95 12/23/20 18:00 63 14 157/90 H 98 12/23/20 17:54 63 14 97 12/23/20 17:37 63 16 179/91 H 97 12/23/20 14:43 36.2 C L 105 H 22 177/98 H 98 Laboratory Results Abnormal lab results 12/23/20 12/23/20 12/23/20 Range/Units 15:00 15:00 15:00 RDW Std Deviation 49.6 H (36.4-46.3) fL RDW Coeff of Ramesh 14.6 H (11.5-14.5) % Lymph # (Auto) 4.00 H (1.2-3.4) K/uL Laurens # (Auto) 1.25 H (0.11-0.59) K/uL Immature Gran # (Auto) 0.04 H (0.00-0.02) K/uL D-Dimer 720 H* (0-500) ug/L FEU BUN 19 H (7-18) mg/dl BUN/Creatinine Ratio 23.1 H (10-20) Glucose 101 H (70-99) mg/dl AST 11 L (15-37) U/L Diagnostic Findings SINGLE VIEW CHEST CLINICAL HISTORY: Atypical chest pain. Dyspnea. FINDINGS: An AP, portable, upright chest radiograph is compared to study dated 01/07/2020 and correlated with chest CT dated 12/07/2019. The heart is enlarged noting atherosclerotic calcification of the thoracic aorta. The pulmonary vasculature is noncongested. Chronic interstitial thickening is similar to previous. There is bibasilar scarring/atelectasis. No airspace consolidation or large pleural effusion is identified. No pneumothorax is seen. The skeletal structures are osteopenic. The bony thorax is grossly intact. There is postoperative change at the thoracolumbar junction with spinal rods in place. IMPRESSION: Cardiomegaly with no acute cardiopulmonary abnormality. CT ANGIOGRAM OF THE CHEST CLINICAL HISTORY: Atypical chest pain. COMPARISON STUDY: Chest CT scans dated 12/07/2019 and 06/22/2018. Chest x-ray dated 12/23/2020. TECHNIQUE: Following the IV administration of 119 cc of Optiray 320, CT angiogram of the chest was performed from the upper abdomen to the thoracic inlet utilizing the pulmonary embolus protocol. Images are reviewed in the axial, sagittal, and coronal planes. 3-D MIPS images are created and assessed. IV contrast was administered without complication. A dose lowering technique was utilized adhering to the principles of ALARA. CT DOSE: 381.23 mGy.cm FINDINGS: Thyroid: Atrophic. Thoracic aorta: There is atherosclerotic calcification of the thoracic aorta, which is normal in caliber and demonstrates standard 3-vessel arch anatomy. No dissection is seen. Pulmonary vasculature: The pulmonary trunk is normal in caliber. There are no filling defects identified in main, lobar, or segmental pulmonary branches to suggest pulmonary embolus. Heart: The heart is enlarged and without pericardial effusion. The coronary arteries are densely calcified. Lungs and pleural spaces: Evaluation of the lung parenchyma is modestly degraded by motion artifact. There is no airspace consolidation or pleural effusion. The trachea and central airways are clear. Mild diffuse peribronchial thickening is observed. Foci of air trapping are suggested throughout both lungs. There is bibasilar scarring/atelectasis. Mediastinum: There is no mediastinal lymphadenopathy. Courtney: Clear. Axillae: There is no axillary lymphadenopathy. Upper abdomen: Hepatic cysts measure up to 5.4 cm. There is a small to moderate hiatal hernia. Skeletal structures: The skeletal structures are osteopenic. Postoperative change and spinal rods are present at the thoracolumbar junction. There is mild kyphoscoliosis of the thoracic spine. No lytic or blastic bony lesions are seen. IMPRESSION: 1. There is no evidence of pulmonary embolus in the main, lobar, or segmental pulmonary arteries. 2. There is no airspace consolidation or pleural effusion. 3. Cardiomegaly. 4. Mild diffuse peribronchial thickening suggests bronchitis/reactive airway disease. Clinical correlation will be required. 5. Additional findings as above. Medications Administered Sodium Chloride (Nss 1000ml) 1,000 mls @ 125 mls/hr IV .Q8H BARBRA Stop: 01/22/21 17:59 Last Admin: 12/23/20 18:19 Dose: 125 mls/hr Documented by: [id number] Discontinued Medications Aspirin (Aspirin Chew 324 Mg) 324 mg PO NOW STA Stop: 12/23/20 17:50 Last Admin: 12/23/20 18:19 Dose: 324 mg Documented by: [id number] Ioversol (Optiray 320 125ml) 119 ml IV ONCE ONE Stop: 12/23/20 19:46 Last Admin: 12/23/20 19:45 Dose: 119 ml Documented by: [id number] Nitroglycerin (Nitroglycerin Sl 0.4 Mg/Tab Tab) 0.4 mg SL NOW STA Stop: 12/23/20 17:50 Last Admin: 12/23/20 18:19 Dose: 0.4 mg Documented by: [id number] Nitroglycerin (Nitroglycerin Sl 0.4 Mg/Tab Tab) Confirm Administered Dose 0.4 mg .ROUTE .STK-MED ONE Stop: 12/23/20 21:04 Last Admin: 12/23/20 21:04 Dose: 0.4 mg Documented by: [id number] ECG Additional Comments: Normal sinus rhythm Nonspecific ST abnormality Lateral leads Abnormal ECG When compared with ECG of 08-DEC-2019 14:13, ST now depressed in Lateral leads Confirmed by Bryan Pemberton ([id number]) on 12/23/2020 4:39:42 PM 23-DEC-2020 17:55:13: Normal sinus rhythm Normal ECG When compared with ECG of 23-DEC-2020 14:50, ST no longer depressed in Lateral leads Code Status & VTE Plan Code Status Full Code VTE: heparin 5000 TID VTE Prophylaxis Plan VTE Prophylaxis will be ordered: Yes Supervising Physician Co-Signing Physician Notes Patient seen and examined, chart reviewed, case discussed with LENCHO Ruvalcaba and I agree with his assessment and plan as documented above. Briefly, patient is a 75yo female with history of CAD s/p stent placement to -1 in 2018 presenting with CP x 3 days. Exertional, increasing in frequency and occurring with minimal exertion. Relieved with Nitro On exam she is afebrile, HD stable, NAD. BP mildly elevated - presently 154/86 Skin - intact, no rash HEENT - NC/AT, PERRL, EOMI, Neck supple, no JVD, no carotid bruits Heart - +S1/S2, regular, 2/6 FRANK across precordium, no rubs/gallops, +reproducible chest wall discomfort on left side as well as epigastric area, 2+ pulses, extremities well perfused Lungs - CTA Abd - +BS, soft, NT/ND Ext - warm, well perfused, no clubbing/cyanosis or edema Neuro - grossly normal Labs and images reviewed. D-dimer elevated at 720 with negative CTA chest Trop=<0.015 --> 0.069 Initial EKG with NSR, ST depression in I and aVL - confirmed by Cardiology Assessment/Plan - 75yo female with history of CAD s/p stent placement in 2018 presenting with 3 days of progressive exertional chest discomfort. Patient with subtle ST changes on EKG #2, elevation of troponin to 0.069 concerning for NS XAVIER -Admit to PCU -Heparin gtt -Trend troponin -NPO after midnight for possible cath in AM -Remainder of plan as above PG Care Time/CCT Total # of Minutes Spent Total Time Spent with Patient: Total time spent is greater than 50% in coordination of care (as documented) at patient's floor/unit and/or counseling patient: Coding Level of Care Code 50116 OBS Care - Level 3 Diagnoses Chest pain R07.9 Chest pain type: unspecified Coronary artery disease I25.10 HLD (hyperlipidemia) E78.5 Hyperlipidemia type: unspecified Asthma J45.909 Asthma complication type: unspecified Asthma persistence: unspecified DVT prophylaxis Z29.9 (1) HLD (hyperlipidemia) Hyperlipidemia type: unspecified Qualified Code(s): E78.5 - Hyperlipidemia, unspecified (2) Chest pain Chest pain type: unspecified Qualified Code(s): R07.9 - Chest pain, unspecified (3) Asthma Asthma complication type: unspecified Asthma persistence: unspecified
[2020-12-23] MEDS ORDERED: HEPARIN SOD 5,000 UNIT/0.5 ML VIAL SQ SCH (22:51)
[2020-12-23] MEDS ORDERED: ALBUTEROL HFA 8 GM INHALER INH PRN (22:51)
[2020-12-23] MEDS ORDERED: NITROGLYCERIN SL 0.4 MG/TAB TAB SL PRN ×2 (22:51)
[2020-12-23] MEDS ORDERED: ONDANSETRON INJ 2 MG/ML 2 ML VIAL IV PRN (22:51)
[2020-12-23] MEDS ORDERED: EPINEPHrine ADULT AUTO-INJECT 0.3 MG SYR IM PRN (22:51)
[2020-12-23 22:55] LABS: Troponin I 0.069 ng/ml (0-0.045)
[2020-12-23] MEDS ORDERED: Heparin IV Standard *NO* Bolus ONE (22:59)
[2020-12-23] MEDS ORDERED: HEPARIN SODIUM/DEXTROSE 25,000 UNITS/500 ML BAG IV SCH (23:00)
[2020-12-23] MEDS ORDERED: ACETAMINOPHEN 325 MG TAB PO PRN (23:05)
[2020-12-23 23:10] LABS: C Reactive Protein < 0.29 mg/dl (0-0.29)
[2020-12-23] MEDS ORDERED: ALUMINUM/MAGNESIUM SUSP 18 ML, LIDOCAINE HCL VISCOUS 2% 6 ML, BARCODE IDENTIFIER 1 EA PO ONE (23:30)
[2020-12-24 04:43] LABS: Chol HDL Ratio 4; Cholesterol 199 mg/dl (0-200); HDL Cholesterol 56 mg/dl; LDL Cholesterol Calculated 112 mg/dl; Triglycerides 155 mg/dl (0-150); VLDL Cholesterol 31 mg/dl
[2020-12-24 07:07] LABS: Partial Thromboplastin Ratio 2.2
[2020-12-24 07:13] LABS: Partial Thromboplastin Time 57.5 Seconds (21.0-31.0)
--- NOTE | 2020-12-24 07:24 | Hospitalist Progress Note ---
Date of Service December 24, 2020 Assessment & Plan (1) Chest pain: #Chest Pain determined to be an NSTEMI, patient status post coronary artery catheterization and stent placement POD #0 Patient with nonspecific chest pain, currently relived with nitro, extremely variable. ECG x2 was obtained with no ischemic changes the patient was given a GI cocktail without significant improvement. Nitroglycerin or Lopressor have been used for symptomatic relief. Patient was started on a heparin drip and a slight increase in her troponin to 0.069 now downtrending to 0.05. - Trending Troponins -0.015->0.069->0.055 - ECG x2 with no ischemic changes - GI cocktail x1 - NTG or Lopressor IV for symptomatic relief - On heparin drip -Echo on 12/24 demonstrated normal LV systolic function, no regional wall motion abnormalities,. Mild concentric LV hypertrophy, EF 55-60, no significant valvular pathology, when compared to study dated 06/22/2018 no significant changes. - Cardiology is consulted appreciate their recommendations. -Recommending cardiac catheterization. -Demonstrated 95% occlusion of the RCA, stent placed patient recovering well. -Dual antiplatelet therapy for at least 1 year -Consult cardiac rehab #CAD Stents x2 patient has previously stopped her BB in 2019 ? related to side effects, she also stopped her CARLA inhibitor. - She has been intolerant to statin therapy secondary to myalgias, Options at that time were to possibly introduce her to Zetia or Repatha - Lipid panel is pending and can be multidisciplinary discussion with pateint. -Triglycerides 155, cholesterol 199, LDL 112, VLDL 31, HDL 56 - IV Lopressor 5 mg for BP/heart rate control. #HLD as above #Asthma Patient with mosaic pattern on CT scan of chest, not changed from previous pulmonary evaluation and scan. - Bronchiectasis vs Asthma - No increase use of her inhalers per patient FENa: Advance diet as tolerated Code Status:Full DVT PPX: SCDs, received bolus of heparin intraoperatively PT/OT:Not indicated at present Dispo:Tele Al Pham MD PGY 2, FCM This chart was completed utilizing [employer] voice recognition software. Grammatical errors, random word insertions, pronoun errors, and in complete sentences are an occasional consequence of the system. Any questions or concerns about the content, text, or information contained within the body of this dictation should be addressed directly to the physician for clarification. (2) Coronary artery disease: (3) HLD (hyperlipidemia): (4) Asthma: (5) DVT prophylaxis: Admission and Anticipated Discharge Date Admission Date: December 23, 2020 Supervising Physician Co-Signing Physician Notes Resident Physician Supervision Note: I independently interviewed and examined the patient and verified the benjamin history and physical, reviewed labs and image studies, discussed the case with the resident Dr. Pham and agree with the findings and care plan. Subjective Patient lying in bed comfortably this morning in no acute distress. Patient reports history of anginal symptoms with exertion. She states the symptoms are previous to the prior time that she was experiencing coronary artery disease symptoms when cathed and subsequently stented. Otherwise the patient is doing well, she been tolerating diet, voiding, stooling and sleeping. Acute concerns are related to her chest pain all questions have been answered. Review of Systems Review of Systems: All systems reviewed & are unremarkable except as noted in HPI & below Physical Exam Physical Exam: General: Lying in bed in no acute distress HEENT: Normocephalic atraumatic Neck: Normal to visual inspection, trachea midline Cardiac: Regular rate and rhythm I did not appreciate significant murmurs rubs or gallops, normal S1, normal S2, negative pedal edema, patient did not endorse chest pain with palpation of the left side of the chest Respiratory: Clear to auscultation bilaterally with symmetrical chest expansion I did not appreciate significant wheezes, rales, rhonchi GI: Soft, nontender, nondistended, bowel sounds present MSK: Moves all extremities Neuro: Alert and oriented x4 Psych: Calm and cooperative with the interview Results & Data Results & Data ([facility]) Vital Signs (Past 12 Hours) Vital Signs Temp Pulse Pulse Resp BP BP Pulse Ox 12/24/20 03:57 36.8 C 77 18 138/80 96 12/23/20 23:47 154/86 H 12/23/20 22:51 36.7 C 64 16 160/87 H 96 12/23/20 22:32 36.7 C 96 H 20 130/60 94 12/23/20 22:27 80 18 143/71 H 97 12/23/20 21:08 86 16 133/92 95 12/23/20 21:01 82 16 97 12/23/20 21:00 74 17 167/97 H 96 12/23/20 20:31 63 18 95 12/23/20 20:30 64 15 150/84 H 95 12/23/20 20:01 63 11 L 98 12/23/20 20:00 74 25 H 142/79 H 94 12/23/20 19:58 65 16 149/81 H 98 12/23/20 19:32 99 Laboratory Results 12/24/20 12/24/20 12/24/20 Range/Units 06:06 04:09 04:09 WBC (4.8-10.8) K/uL RBC (4.2-5.4) M/uL Hgb (12.0-16.0) g/dL Hct (37-47) % MCV (80-100) fL MCH (25-34) pg MCHC (32-36) g/dL RDW Std Deviation (36.4-46.3) fL RDW Coeff of Ramesh (11.5-14.5) % Plt Count (130-400) K/uL MPV (7.4-10.4) fL Immature Gran % (Auto) % Neut % (Auto) % Lymph % (Auto) % [place] % (Auto) % Eos % (Auto) % Baso % (Auto) % Neut # (Auto) (1.4-6.5) K/uL Lymph # (Auto) (1.2-3.4) K/uL [place] # (Auto) (0.11-0.59) K/uL Eos # (Auto) (0-0.5) K/uL Baso # (Auto) (0-0.2) K/uL Immature Gran # (Auto) (0.00-0.02) K/uL ESR (0-21) mm/hr PT (9.0-12.0) Seconds INR (0.9-1.1) APTT 57.5 H* (21.0-31.0) Seconds PTT Ratio 2.2 D-Dimer (0-500) ug/L FEU Sodium (136-145) mmol/L Potassium (3.5-5.1) mmol/L Chloride (98-107) mmol/L Carbon Dioxide (21-32) mmol/L Anion Gap (3-11) BUN (7-18) mg/dl Creatinine (0.6-1.2) mg/dl Est Cr Clr Drug Dosing ml/min Est GFR ( Amer) Est GFR (Non-Af Amer) BUN/Creatinine Ratio (10-20) Glucose (70-99) mg/dl Calcium (8.5-10.1) mg/dl Total Bilirubin (0.2-1) mg/dl AST (15-37) U/L ALT (12-78) U/L Alkaline Phosphatase (45-117) U/L Troponin I 0.055 H* (0-0.045) ng/ml C-Reactive Protein (0-0.29) mg/dl Total Protein (6.4-8.2) gm/dl Albumin (3.4-5.0) gm/dl Globulin (2.5-4.0) gm/dl Albumin/Globulin Ratio (0.9-2) Triglycerides 155 H (0-150) mg/dl Cholesterol 199 (0-200) mg/dl LDL Cholesterol, Calc 112 mg/dl VLDL Cholesterol, Calc 31 mg/dl HDL Cholesterol 56 mg/dl Cholesterol/HDL Ratio 4 COVID-19 Eval Order SARS-CoV-2, RNA, NAAT (NEGATIVE) 12/23/20 12/23/20 12/23/20 Range/Units 22:15 20:30 20:30 WBC (4.8-10.8) K/uL RBC (4.2-5.4) M/uL Hgb (12.0-16.0) g/dL Hct (37-47) % MCV (80-100) fL MCH (25-34) pg MCHC (32-36) g/dL RDW Std Deviation (36.4-46.3) fL RDW Coeff of Ramesh (11.5-14.5) % Plt Count (130-400) K/uL MPV (7.4-10.4) fL Immature Gran % (Auto) % Neut % (Auto) % Lymph % (Auto) % [place] % (Auto) % Eos % (Auto) % Baso % (Auto) % Neut # (Auto) (1.4-6.5) K/uL Lymph # (Auto) (1.2-3.4) K/uL [place] # (Auto) (0.11-0.59) K/uL Eos # (Auto) (0-0.5) K/uL Baso # (Auto) (0-0.2) K/uL Immature Gran # (Auto) (0.00-0.02) K/uL ESR (0-21) mm/hr PT (9.0-12.0) Seconds INR (0.9-1.1) APTT (21.0-31.0) Seconds PTT Ratio D-Dimer (0-500) ug/L FEU Sodium (136-145) mmol/L Potassium (3.5-5.1) mmol/L Chloride (98-107) mmol/L Carbon Dioxide (21-32) mmol/L Anion Gap (3-11) BUN (7-18) mg/dl Creatinine (0.6-1.2) mg/dl Est Cr Clr Drug Dosing ml/min Est GFR ( Amer) Est GFR (Non-Af Amer) BUN/Creatinine Ratio (10-20) Glucose (70-99) mg/dl Calcium (8.5-10.1) mg/dl Total Bilirubin (0.2-1) mg/dl AST (15-37) U/L ALT (12-78) U/L Alkaline Phosphatase (45-117) U/L Troponin I 0.069 H* (0-0.045) ng/ml C-Reactive Protein < 0.29 (0-0.29) mg/dl Total Protein (6.4-8.2) gm/dl Albumin (3.4-5.0) gm/dl Globulin (2.5-4.0) gm/dl Albumin/Globulin Ratio (0.9-2) Triglycerides (0-150) mg/dl Cholesterol (0-200) mg/dl LDL Cholesterol, Calc mg/dl VLDL Cholesterol, Calc mg/dl HDL Cholesterol mg/dl Cholesterol/HDL Ratio COVID[facility]-2, RNA, NAAT NEGATIVE (NEGATIVE) 12/23/20 12/23/20 12/23/20 Range/Units 15:00 15:00 15:00 WBC (4.8-10.8) K/uL RBC (4.2-5.4) M/uL Hgb (12.0-16.0) g/dL Hct (37-47) % MCV (80-100) fL MCH (25-34) pg MCHC (32-36) g/dL RDW Std Deviation (36.4-46.3) fL RDW Coeff of Ramesh (11.5-14.5) % Plt Count (130-400) K/uL MPV (7.4-10.4) fL Immature Gran % (Auto) % Neut % (Auto) % Lymph % (Auto) % [place] % (Auto) % Eos % (Auto) % Baso % (Auto) % Neut # (Auto) (1.4-6.5) K/uL Lymph # (Auto) (1.2-3.4) K/uL [place] # (Auto) (0.11-0.59) K/uL Eos # (Auto) (0-0.5) K/uL Baso # (Auto) (0-0.2) K/uL Immature Gran # (Auto) (0.00-0.02) K/uL ESR 10 (0-21) mm/hr PT (9.0-12.0) Seconds INR (0.9-1.1) APTT (21.0-31.0) Seconds PTT Ratio D-Dimer 720 H* (0-500) ug/L FEU Sodium 139 (136-145) mmol/L Potassium 3.8 (3.5-5.1) mmol/L Chloride 106 (98-107) mmol/L Carbon Dioxide 27 (21-32) mmol/L Anion Gap 6.0 (3-11) BUN 19 H (7-18) mg/dl Creatinine 0.83 (0.6-1.2) mg/dl Est Cr Clr Drug Dosing 55.5 ml/min Est GFR ( Amer) 78.8 Est GFR (Non-Af Amer) 68.0 BUN/Creatinine Ratio 23.1 H (10-20) Glucose 101 H (70-99) mg/dl Calcium 8.9 (8.5-10.1) mg/dl Total Bilirubin 0.3 (0.2-1) mg/dl AST 11 L (15-37) U/L ALT 26 (12-78) U/L Alkaline Phosphatase 108 (45-117) U/L Troponin I < 0.015 (0-0.045) ng/ml C-Reactive Protein (0-0.29) mg/dl Total Protein 7.5 (6.4-8.2) gm/dl Albumin 3.8 (3.4-5.0) gm/dl Globulin 3.7 (2.5-4.0) gm/dl Albumin/Globulin Ratio 1.0 (0.9-2) Triglycerides (0-150) mg/dl Cholesterol (0-200) mg/dl LDL Cholesterol, Calc mg/dl VLDL Cholesterol, Calc mg/dl HDL Cholesterol mg/dl Cholesterol/HDL Ratio COVID-19 Eval Order SARS-CoV-2, RNA, NAAT (NEGATIVE) 12/23/20 12/23/20 Range/Units 15:00 15:00 WBC 9.94 (4.8-10.8) K/uL RBC 4.82 (4.2-5.4) M/uL Hgb 14.7 (12.0-16.0) g/dL Hct 44.3 (37-47) % MCV 91.9 (80-100) fL MCH 30.5 (25-34) pg MCHC 33.2 (32-36) g/dL RDW Std Deviation 49.6 H (36.4-46.3) fL RDW Coeff of Ramesh 14.6 H (11.5-14.5) % Plt Count 305 (130-400) K/uL MPV 9.7 (7.4-10.4) fL Immature Gran % (Auto) 0.4 % Neut % (Auto) 46.3 % Lymph % (Auto) 40.2 % [place] % (Auto) 12.6 % Eos % (Auto) 0.4 % Baso % (Auto) 0.1 % Neut # (Auto) 4.60 (1.4-6.5) K/uL Lymph # (Auto) 4.00 H (1.2-3.4) K/uL [place] # (Auto) 1.25 H (0.11-0.59) K/uL Eos # (Auto) 0.04 (0-0.5) K/uL Baso # (Auto) 0.01 (0-0.2) K/uL Immature Gran # (Auto) 0.04 H (0.00-0.02) K/uL ESR (0-21) mm/hr PT 9.9 (9.0-12.0) Seconds INR 1.0 (0.9-1.1) APTT 23.4 (21.0-31.0) Seconds PTT Ratio 0.9 D-Dimer (0-500) ug/L FEU Sodium (136-145) mmol/L Potassium (3.5-5.1) mmol/L Chloride (98-107) mmol/L Carbon Dioxide (21-32) mmol/L Anion Gap (3-11) BUN (7-18) mg/dl Creatinine (0.6-1.2) mg/dl Est Cr Clr Drug Dosing ml/min Est GFR ( Amer) Est GFR (Non-Af Amer) BUN/Creatinine Ratio (10-20) Glucose (70-99) mg/dl Calcium (8.5-10.1) mg/dl Total Bilirubin (0.2-1) mg/dl AST (15-37) U/L ALT (12-78) U/L Alkaline Phosphatase (45-117) U/L Troponin I (0-0.045) ng/ml C-Reactive Protein (0-0.29) mg/dl Total Protein (6.4-8.2) gm/dl Albumin (3.4-5.0) gm/dl Globulin (2.5-4.0) gm/dl Albumin/Globulin Ratio (0.9-2) Triglycerides (0-150) mg/dl Cholesterol (0-200) mg/dl LDL Cholesterol, Calc mg/dl VLDL Cholesterol, Calc mg/dl HDL Cholesterol mg/dl Cholesterol/HDL Ratio COVID-19 Eval Order SARS-CoV-2, RNA, NAAT (NEGATIVE) Medications Administered Current Inpatient Medications Acetaminophen (Acetaminophen 325 Mg Tab) 650 mg PO Q4H PRN PRN Reason: Pain Stop: 01/22/21 23:04 Albuterol (Albuterol Hfa 8 Gm Inhaler) 2 puffs INH QID PRN PRN Reason: shortness of breath or wheezing Stop: 01/22/21 22:50 Aspirin (Aspirin 81 Mg Ectab) 81 mg PO DAILY BARBRA Stop: 01/23/21 08:59 Epinephrine HCl (Epinephrine Adult Auto-Inject 0.3 Mg Syr) 0.3 mg IM ONCE PRN PRN Reason: anaphylaxis Stop: 01/22/21 22:50 Heparin Sodium/Dextrose (Heparin Sodium/Dextrose) 25,000 units in 500 mls @ 22 mls/hr IV .[id number] BARBRA; Protocol Stop: 01/22/21 22:59 Last Titration: 12/24/20 07:16 Dose: 1,100 units/hr, 22 mls/hr Documented by: Multivitamins (Multivitamin Tab) 1 tab PO DAILY BARBRA Stop: 01/23/21 08:59 Nitroglycerin (Nitroglycerin Sl 0.4 Mg/Tab Tab) 0.4 mg SL UD PRN PRN Reason: Chest Pain Stop: 01/22/21 22:50 Last Admin: 12/23/20 23:19 Dose: 0.4 mg Documented by: Ondansetron HCl (Ondansetron Inj 2 Mg/Ml 2 Ml Vial) 4 mg IV Q6H PRN PRN Reason: Nausea Stop: 01/22/21 22:50 Resident Activity Tracking Resident Involvement: Resident Care Provided Care Provided: Adult Hospital Medicine (1) HLD (hyperlipidemia) Hyperlipidemia type: unspecified Qualified Code(s): E78.5 - Hyperlipidemia, unspecified (2) Chest pain Chest pain type: unspecified Qualified Code(s): R07.9 - Chest pain, unspecified (3) Asthma Asthma complication type: unspecified Asthma persistence: unspecified
--- NOTE | 2020-12-24 09:07 | Cardiology Consultation ---
Date of Consultation December 24, 2020 Assessment & Plan (1) Chest pain: 2. Coronary artery disease s/p PCI of circumflex posterolateral branch with single RIVER 06/24/19 3. Dyslipidemia - statin intolerant 4. Hypertension - currently uncontrolled Patient presented yesterday with progressive exertional chest pain and shortness of breath. Her symptoms are similar to what she experienced with prior coronary stent placement in 2018. Initial troponin was undetectable. Second troponin was mildly elevated at 0.069 and has since trended down. ECGs have shown no acute ischemic abnormality. Given the concerning nature of her symptoms with known coronary artery disease, recommend proceeding directly with cardiac catheterization for further evaluation of her coronary anatomy. Further recommendations to follow pending the results of the study. History of Present Illness Reason for Consultation: Exertional chest pain Requesting Physician: LENCHO Morley History of Present Illness Mrs. Pham is a 75-year-old female with a past medical history for coronary artery disease s/p PCI of circumflex posterolateral branch with single RIVER 06/24/19, dyslipidemia (statin intolerant), hypertension, Aqrqxke-Vuuat-Xothr, and asthma who was admitted yesterday in the setting of exertional chest pain. She reports that she has had progressive exertional dyspnea for "quite some time." She is not sure of the duration. Over the past 3-4 days, she has also developed an exertional chest discomfort described as a substernal bur georgiana/pressure that can radiate down her bilateral arms to her elbows. The discomfort is gradually worsening and now occurs with very minimal exertion. She has associated shortness of breath and nausea with the discomfort. The discomfort takes about 30 minutes to resolve after resting. She rarely has the discomfort at rest. She reports that her discomfort is similar in quality as to what she had with her prior stent placement, but with her prior stent, she also felt very diaphoretic, which she does not feel now. Her symptoms worsened yesterday and was advised to go to the ER by her primary care provider. She had the discomfort while in the ER, and it improved with sublingual nitro. She is currently resting in bed. She has a dull discomfort in her chest and back, and she is not sure how long it has been going on. She briefly had some burning in her chest while talking, but it resolved. She has not noted any lower extremity edema. She notes a long-standing history of occasional palpitations, which are very brief in duration and not particularly bothersome to her. She denies lightheadedness, syncope, or near syncope. She denies abnormal bleeding such as melena, hematochezia, or hematuria. She denies cerebrovascular symptoms. Family history: Mother had premature CAD. Social history: She is with 4 children and numerous grandchildren. She denies smoking. She has an occasional glass of wine. Allergies Allergy/AdvReac Type Severity Reaction Status Date / Time cefaclor Allergy Intermediate Hives Verified 12/20/20 12:05 gluten Allergy Intermediate Gastrointestinal Verified 12/20/20 12:05 Upset Penicillins Allergy Intermediate Hives Verified 12/20/20 12:05 strawberry Allergy Intermediate Anaphylaxis Verified 12/20/20 12:05 Sulfa (Sulfonamide Allergy Intermediate Hives Verified 12/20/20 12:05 Antibiotics) moxifloxacin Allergy Unknown CAN'T Verified 12/20/20 12:05 REMEMBER nitrofurantoin Allergy Unknown CAN'T Verified 12/20/20 12:05 REMEMBER tetracycline Allergy Unknown CAN'T Verified 12/20/20 12:05 REMEMBER adhesive Allergy Redness of Verified 12/20/20 12:05 Skin ceftaroline fosamil AdvReac Severe WHITE Verified 12/20/20 12:05 BLOOD COUNT DECREASE indomethacin AdvReac Severe UNCONSIOUS Verified 12/20/20 12:05 FOR 6 HOURS. daptomycin AdvReac Intermediate PNEUMONIA Verified 12/20/20 12:05 diphenhydramine AdvReac Intermediate SHAKING Verified 12/20/20 12:05 ALL OVER Aytlbvo-Ioi-Yew Reductase AdvReac Intermediate MUSCLE Verified 12/20/20 12:05 Inhibitor ACHES vancomycin AdvReac Intermediate JANET Verified 12/20/20 12:05 BEBETO SYNDROME Home Medications Medication Instructions Recorded Confirmed Type multivitamin 1 tab PO DAILY 04/08/19 12/23/20 History nitroglycerin [Nitrostat] 0.4 mg SUBLINGUAL DIRECTED PRN 04/08/19 12/23/20 History conjugated estrogens 0.625 mg/gram 0.625 mg VAGINAL 2XWK gm 07/07/19 12/23/20 History vaginal cream epinephrine 0.3 mg/0.3 mL 0.3 mg IM ONCE PRN #2 ea 07/07/19 12/23/20 History injection, auto-injector acetaminophen [Tylenol Arthritis 650 mg PO Q8H PRN 12/07/19 12/23/20 History Pain] albuterol sulfate 2 puffs INH QID PRN #18 gm 12/10/19 12/23/20 Rx aspirin [Aspir-Low] 81 mg PO DAILY 12/23/20 12/23/20 History Patient History Medical History (Updated 12/23/20 @ 22:37 by LENCHO Bhat) Asthma uses PRN INH 1xmo on avg Atrial fibrillation ONSET 40 YEARS AGO - NO MEDS - FOLLOWS W/ DR. RUBALCAVA Shodnjt-Ilslq-Ypxnq disease type 2 FOLLOWS W/ DR. MAYA Coronary artery disease Status post NSTEMI in 06/2018. Stent to om 1. 50 percent stenosis and RCA Hiatal hernia Myocardial Infarction 2017 Osteoarthritis Right knee DJD Sleep apnea CPAP TMJ (temporomandibular joint disorder) Urinary leakage Surgical History History of arthroscopy of left knee History of cardiac cath 06/2018 - [facility] - 1 STENT - FOLLOWS W/ DR. RUBALCAVA History of cholecystectomy History of colonoscopy History of esophagogastroduodenoscopy (EGD) History of foot surgery LEFT History of heart artery stent X 1 History of hysterectomy History of lumbar spinal fusion History of thoracic spinal fusion History of tooth extraction History of tubal ligation Hx of left cataract extraction Slow to wake up after anesthesia Stented coronary artery Family History Mother Family history of diabetes mellitus Brother Family history of diabetes mellitus Grandmother (Maternal) Family history of diabetes mellitus Other Family history non-contributory Social History Smoking Status: Never smoker Second Hand Exposure: No; Hx Alcohol Use: Yes Alcohol type: wine Hx Substance Use: No Preferred Language: Guinean Communication Ability: Effective Eyeglass Frames Inspector Required: No Beliefs That Will Affect Care: None Current Living Situation: Spouse Other Information That Helps Us Care for You: No Feels Safe at Home: Yes Safety Concerns: Feels Safe At This Time Assistive Devices: Cane Physical Exam Physical Exam: Constitutional: Alert, oriented, in no acute distress HEENT: Head is atraumatic and normocephalic. EOMs intact. Sclera non-icteric. Face is symmetric. No perioral cyanosis. Mucous membranes moist Neck: Supple, no JVD Chest: Tender upon palpation, but palpation seems to make the dull discomfort worse, not reproduce the burning discomfort Pulmonary: Normal respiratory effort, clear to auscultation throughout Cardiac: Regular rate and rhythm, normal S1 and S2, no gallops, no rubs, no murmurs Extremities: No edema. No clubbing or cyanosis. Pulses 2+ and symmetric Abdomen: Normal bowel sounds, soft, non-tender, no abdominal masses palpated Skin: Normal skin color, turgor, and pigmentation. No rash or skin lesions Neurological: Oriented to person, place, and time Results & Data ([facility]) Vital Signs (Past 12 Hours) Vital Signs Temp Pulse Pulse Resp BP BP Pulse Ox 12/24/20 08:51 98.1 F 66 20 155/74 H 96 12/24/20 08:00 59 L 12/24/20 03:57 98.2 F 77 18 138/80 96 12/23/20 23:47 154/86 H 12/23/20 22:51 98.1 F 64 16 160/87 H 96 12/23/20 22:32 98.1 F 96 H 20 130/60 94 12/23/20 22:27 80 18 143/71 H 97 12/23/20 21:08 86 16 133/92 95 Laboratory Results Laboratory Results WBC 9.94 K/uL (4.8-10.8) 12/23/20 15:00 RBC 4.82 M/uL (4.2-5.4) 12/23/20 15:00 Hgb 14.7 g/dL (12.0-16.0) 12/23/20 15:00 Hct 44.3 % (37-47) 12/23/20 15:00 MCV 91.9 fL (80-100) 12/23/20 15:00 MCH 30.5 pg (25-34) 12/23/20 15:00 MCHC 33.2 g/dL (32-36) 12/23/20 15:00 RDW Std Deviation 49.6 fL (36.4-46.3) H 12/23/20 15:00 RDW Coeff of Ramesh 14.6 % (11.5-14.5) H 12/23/20 15:00 Plt Count 305 K/uL (130-400) 12/23/20 15:00 MPV 9.7 fL (7.4-10.4) 12/23/20 15:00 Immature Gran % (Auto) 0.4 % 12/23/20 15:00 Neut % (Auto) 46.3 % 12/23/20 15:00 Lymph % (Auto) 40.2 % 12/23/20 15:00 Whitman % (Auto) 12.6 % 12/23/20 15:00 Eos % (Auto) 0.4 % 12/23/20 15:00 Baso % (Auto) 0.1 % 12/23/20 15:00 Neut # (Auto) 4.60 K/uL (1.4-6.5) 12/23/20 15:00 Lymph # (Auto) 4.00 K/uL (1.2-3.4) H 12/23/20 15:00 Whitman # (Auto) 1.25 K/uL (0.11-0.59) H 12/23/20 15:00 Eos # (Auto) 0.04 K/uL (0-0.5) 12/23/20 15:00 Baso # (Auto) 0.01 K/uL (0-0.2) 12/23/20 15:00 Immature Gran # (Auto) 0.04 K/uL (0.00-0.02) H 12/23/20 15:00 ESR 10 mm/hr (0-21) 12/23/20 15:00 PT 9.9 Seconds (9.0-12.0) 12/23/20 15:00 INR 1.0 (0.9-1.1) 12/23/20 15:00 APTT 57.5 Seconds (21.0-31.0) H* 12/24/20 06:06 PTT Ratio 2.2 12/24/20 06:06 D-Dimer 720 ug/L FEU (0-500) H* 12/23/20 15:00 Sodium 139 mmol/L (136-145) 12/23/20 15:00 Potassium 3.8 mmol/L (3.5-5.1) 12/23/20 15:00 Chloride 106 mmol/L (98-107) 12/23/20 15:00 Carbon Dioxide 27 mmol/L (21-32) 12/23/20 15:00 Anion Gap 6.0 (3-11) 12/23/20 15:00 BUN 19 mg/dl (7-18) H 12/23/20 15:00 Creatinine 0.83 mg/dl (0.6-1.2) 12/23/20 15:00 Est Cr Clr Drug Dosing 55.5 ml/min 12/23/20 15:00 Est GFR ( Amer) 78.8 12/23/20 15:00 Est GFR (Non-Af Amer) 68.0 12/23/20 15:00 BUN/Creatinine Ratio 23.1 (10-20) H 12/23/20 15:00 Glucose 101 mg/dl (70-99) H 12/23/20 15:00 Calcium 8.9 mg/dl (8.5-10.1) 12/23/20 15:00 Total Bilirubin 0.3 mg/dl (0.2-1) 12/23/20 15:00 AST 11 U/L (15-37) L 12/23/20 15:00 ALT 26 U/L (12-78) 12/23/20 15:00 Alkaline Phosphatase 108 U/L (45-117) 12/23/20 15:00 Troponin I 0.055 ng/ml (0-0.045) H* 12/24/20 04:09 C-Reactive Protein < 0.29 mg/dl (0-0.29) 12/23/20 22:15 Total Protein 7.5 gm/dl (6.4-8.2) 12/23/20 15:00 Albumin 3.8 gm/dl (3.4-5.0) 12/23/20 15:00 Globulin 3.7 gm/dl (2.5-4.0) 12/23/20 15:00 Albumin/Globulin Ratio 1.0 (0.9-2) 12/23/20 15:00 Triglycerides 155 mg/dl (0-150) H 12/24/20 04:09 Cholesterol 199 mg/dl (0-200) 12/24/20 04:09 LDL Cholesterol, Calc 112 mg/dl 12/24/20 04:09 VLDL Cholesterol, Calc 31 mg/dl 12/24/20 04:09 HDL Cholesterol 56 mg/dl 02/12/21 04:09 Cholesterol/HDL Ratio 4 12/24/20 04:09 COVID-19 Eval Order Covid19 [facility] 12/23/20 20:30 SARS-CoV-2, RNA, NAAT NEGATIVE (NEGATIVE) 12/23/20 20:30 Diagnostic Findings ECGs have shown sinus rhythm with no acute ST-T wave abnormality. Echo: Normal LV size, wall motion, and systolic function. EF 55-60%. Mild LVH. No significant valvular abnormality. No significant change from prior study on 06/22/18. Telemetry: Sinus rhythm in 60s-70s. PG Care Time/CCT Total # of Minutes Spent Total Time Spent with Patient: Total time spent is greater than 50% in coordination of care (as documented) at patient's floor/unit and/or counseling patient: Coding Level of Care Code 62360 Initial Inpt Care Lvl 3 Diagnoses Chest pain R07.9 Chest pain type: unspecified (1) Chest pain Chest pain type: unspecified Qualified Code(s): R07.9 - Chest pain, unspecified
--- NOTE | 2020-12-24 09:54 | XCELERA ---
[id number] \\[id number]
[2020-12-24] MEDS ORDERED: HEPARIN (PORCINE) 1000 UNIT/ML 10 ML (CATH LAB USE ONLY) ONE (10:29)
[2020-12-24] MEDS ORDERED: MIDAZOLAM HCL 1 MG/ML 2ML VIAL ONE ×2 (10:30→11:21)
[2020-12-24] MEDS ORDERED: niCARdipine HCL INJ 2.5 MG/ML 10 ML AMP ONE (10:30)
[2020-12-24] MEDS ORDERED: fentaNYL citrate 100 MCG/2 ML VIAL ONE ×2 (10:30→11:36)
[2020-12-24] MEDS ORDERED: NITROGLYCERIN/D5W 100MCG/ML 20ML SYR ONE (10:39)
[2020-12-24] MEDS ORDERED: CLOPIDOGREL BISULFATE 300 MG TAB ONE (11:31)
--- NOTE | 2020-12-24 11:42 | Pre Anesthesia Assessment ---
Date of Service December 24, 2020 Pre Sedation Assessment Vital Signs Temp Pulse Pulse Resp BP BP Pulse Ox 12/24/20 08:51 98.1 F 66 20 155/74 H 96 12/24/20 08:00 59 L 12/24/20 03:57 98.2 F 77 18 138/80 96 12/23/20 23:47 154/86 H 12/23/20 22:51 98.1 F 64 16 160/87 H 96 12/23/20 22:32 98.1 F 96 H 20 130/60 94 12/23/20 22:27 80 18 143/71 H 97 12/23/20 21:08 86 16 133/92 95 12/23/20 21:01 82 16 97 12/23/20 21:00 74 17 167/97 H 96 12/23/20 20:31 63 18 95 12/23/20 20:30 64 15 150/84 H 95 12/23/20 20:01 63 11 L 98 12/23/20 20:00 74 25 H 142/79 H 94 12/23/20 19:58 65 16 149/81 H 98 12/23/20 19:32 99 12/23/20 19:06 66 66 22 132/81 132/81 98 12/23/20 19:01 68 14 97 12/23/20 19:00 63 19 139/82 97 12/23/20 18:31 91 H 16 96 12/23/20 18:30 96 H 25 H 143/93 H 96 12/23/20 18:01 63 18 95 12/23/20 18:00 63 14 157/90 H 98 12/23/20 17:54 63 14 97 12/23/20 17:37 63 16 179/91 H 97 12/23/20 14:43 97.2 F L 105 H 22 177/98 H 98 Cardiovascular RRR, no murmur, no edema Respiratory normal respiratory effort, lungs clear to auscultation Pre-Sedation Airway Assessment Smoking Status: Never smoker Hx Sleep Apnea: No Hx Difficult Intubation: No Short, Thick Neck: No Thyromental Distance: < 3.5 Finger Breadths Oral Cavity: + WNL Mallampati Class: III ASA: ASA3 Procedure Planning Contraindications for Sedation: none Current Medications Reviewed: Yes Notes The planned sedation has been discussed with the patient. Informed Consent was obtained. I have identified the patient, determined the appropriateness of sedation and have assessed the patient immediately prior to the procedure. All medicine(s) and interventions are by my order.
--- NOTE | 2020-12-24 11:42 | Post Anesthesia Assessment ---
Date of Service December 24, 2020 Post Sedation Assessment Vital Signs Temp Pulse Pulse Resp BP BP Pulse Ox 12/24/20 08:51 98.1 F 66 20 155/74 H 96 12/24/20 08:00 59 L 12/24/20 03:57 98.2 F 77 18 138/80 96 12/23/20 23:47 154/86 H 12/23/20 22:51 98.1 F 64 16 160/87 H 96 12/23/20 22:32 98.1 F 96 H 20 130/60 94 12/23/20 22:27 80 18 143/71 H 97 12/23/20 21:08 86 16 133/92 95 12/23/20 21:01 82 16 97 12/23/20 21:00 74 17 167/97 H 96 12/23/20 20:31 63 18 95 12/23/20 20:30 64 15 150/84 H 95 12/23/20 20:01 63 11 L 98 12/23/20 20:00 74 25 H 142/79 H 94 12/23/20 19:58 65 16 149/81 H 98 12/23/20 19:32 99 12/23/20 19:06 66 66 22 132/81 132/81 98 12/23/20 19:01 68 14 97 12/23/20 19:00 63 19 139/82 97 12/23/20 18:31 91 H 16 96 12/23/20 18:30 96 H 25 H 143/93 H 96 12/23/20 18:01 63 18 95 12/23/20 18:00 63 14 157/90 H 98 12/23/20 17:54 63 14 97 12/23/20 17:37 63 16 179/91 H 97 12/23/20 14:43 97.2 F L 105 H 22 177/98 H 98 Recovery Score Activity: Moves 4 extremities Respiration: Deep Breath/Cough Circulation: +/-20% PreAnes Value Consciousness: Fully Awake Oxygen Saturation: O2 needed for >90% Discharge Sedation Level of Care: Fast Track Phase II Post Sedation Plan On clinical assessment, the patient appears to have tolerated the sedation without complications. Patient is recovering as anticipated. Patient will continue to be monitored by nursing and may be discharged when sedation discharge criteria are met per below protocol. Upon Completions of procedure up to 15 minutes continue every 5 minute vital signs and the P.A.R. score; then discharge to a Phase I or Fast Track to Phase II per the following guidelines: * Discharge Patient to appropriate Phase II area if PAR is 8 or greater or return to pre- procedure baseline. The post - procedure orders will be as directed. * If PAR score is less than 8 or not return to pre-procedure baseline then patient will follow Phase I monitoring till PAR is reached for Phase II. The Phase I may be done in procedure room or may call to secure a Phase I area. * If naloxone or flumazenil are used for reversal, hold in Phase I for continued monitoring from when last reversal dose was given for a minimum of 60 minutes or longer pending the nurse and/or physician discretion of patient condition before discharge to Phase II. Please call the Sedation Physician to re-evaluate and complete post-note for discharge to Phase II area. Do NOT discharge from procedure sedation or Phase 1 until post- sedation evaluation note is complete by procedure /sedation MD Sedation Discharge Instructions to be given to the patient at discharge to home.
--- NOTE | 2020-12-24 11:54 | Cardiac Catheterization ---
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 Cardiac Status Clinical evaluation leading to the procedure CAD Presenation: Non STEMI Anginal Classification: CCS IV Heart Failure: No Cardiogenic Shock within 24 Hours: No Cardiac Arrest within 24 Hours: No Imaging Studies Past 6 Months: Yes Stress Studies Past 6 Months: No Diagnostic Physicians Name: Osiel Stone MD Status: Elective Closure Device Percutaneous Entry Location: Radial Closure Device: Radial Band Recommendations: PCI without planned CABG PCI Indication: PCI for high risk Non-JANETT Lesion Segment Name: Mid RCA Culprit Artery: Yes Stenosis Prior to Rx (%): 95 Chronic Total Occlusion: No IVUS: Yes FFR: No Pre-Procedure THANH Flow: 3 Previously Treated Lesion: No Lesion Complexity: Non-High/Non-C Lesion Length (mm): 12 Thrombus Present: Yes Bifurcation Lesion: No Guidewire Across Lesion: Stenosis Post-Procedure (%): 0 Post-Procedure THANH Flow: 3 Devices(s) Deployed: Yes Yes Intraprocedure Events Significant Disection: No Perforation: No Cardiac Cath Procedure Full Procedure Date December 24, 2020 Pre-Procedure Diagnosis Pre-Procedure Diagnosis: Non STEMI AUC Score AUC Score: 8 Post-Procedure Diagnosis Post-Procedure Diagnosis: Severe CAD, Successful PCI and Normal Intracardiac P ressures Procedure(s) Performed Procedure(s) Performed: Coronary Angiography, Left Heart Cath, Drug Eluting Stent and IVUS Brand Planner Osiel Stone MD Big Data Developer(s) Marixa Estimated Blood Loss Estimated Blood Loss: 10 Medication(s) Medication(s): Clopidogrel, Fentanyl, Heparin, Lidocaine 1%, Nicardipine, Nitroglycerin and Versed Summary of Findings Indication: NSTEMI Access: 6 Fr right radial artery Catheters: [place], JR4 guide Findings: LM -normal caliber, no significant disease LAD -medium caliber, calcified proximally, diffuse 30% proximal to mid disease, distal vessel tapers around apex. Small D1 with severe ostial stenosis. Circumflex -medium caliber, mid segment luminal irregularities. Proximal stent and large OM1 widely patent. RCA -dominant, large caliber, calcified, 95% acute latemid RCA stenosis, distal RCA and large PDA/PLB without significant disease LVEDP -3 -- PCI -- Antithrombotic therapy: Heparin, clopidogrel Procedure: RCA cannulated with JR4 guide BMW wire passed across lesion into distal vessel Mid RCA lesion predilated with 2.5 compliant balloon Dilated lesion stented with 3.5 x 18 mm [place] drug-eluting stent Stent post-dilated with 4.0 noncompliant balloon IC vasodilators administered for spasm [place] IVUS catheter placed into distal RCA. Pullback revealed no apparent edge complications. Stent well apposed but underexpanded in the midsegment. Stent redilated with 4.5 NC balloon Post procedure THANH 3 flow, stent well expanded with minimal residual stenosis and no apparent cardiac complications. Arterial Closure: TR Band Summary: 1. Severe single vessel coronary artery disease - 95% mid RCA stenosis Prior OM1 stent widely patent Diffuse proximal to mid LAD 30% disease 2. Normal intracardiac filling pressure 3. Successful PCI of mid RCA with single RIVER (3.5 x 18mm [place]; post-dilated with 4.5 NC). Recommendations: To PCU for continued monitoring Loaded with clopidogrel 600mg Continue dual-antiplatelet therapy for at least 1 year Consult cardiac Rehab Hemodynamics Rest Ao:: 142/77/102 Final Ao: 118/55/70 LV: 150/3 Recommendations Recommendations: PCI without planned CABG Specimens Specimens: None Radiation Exposure (mGy) 1464 Contrast (mls) 80 Fluids (cc crystalloids) Fluids (cc crystalloids): 100 Drains Drains: None Anesthesia Moderate Procedural Complication(s) None Disposition PCU I attest to the content of the Intraoperative Record and any orders documented therein. Any exceptions are noted below. [facility] Card Cath Procedure Codes Cardiac Catheterization Procedure 1: Cardiovascular Cath Procedures: 32487 Coronaries and LHC (+/-LV) Therapeutic Services & Ancillary Proc Procedure 1: Cardiovascular Tx and Anc Procedures: 90375 IV Ultrasound (Coronary or Graft) Moderate Sedation Procedure 1: Sedation/Anesthesia: 16223 Mod Sedation by the same physician;Init15 Min Child Age 5 & Up Procedure 2: Sedation/Anesthesia: 06538 Mod Sedation by the same physician; Ea [id number] Minutes Stenting Procedure 1: Cardiovascular Stent Procedures: 90463 Perc transcatheter placement of intracoronary stent(s), with ang PG Care Time/CCT Total # of Minutes Spent Total Time Spent with Patient: Total time spent is greater than 50% in coordination of care (as documented) at patient's floor/unit and/or counseling patient:
[2020-12-24] MEDS ORDERED: ONDANSETRON INJ 2 MG/ML 2 ML VIAL IV PRN (13:49)
[2020-12-24] MEDS ORDERED: SODIUM CHLORIDE 0.9% 1000ML 1,000 ML IV SCH (14:00)
[2020-12-24] MEDS: MULTIVITAMIN TAB PO SCH (17:01)
[2020-12-24] MEDS: ASPIRIN 81 MG ECTAB PO SCH (17:01)
--- NOTE | 2020-12-24 17:58 | Electrocardiogram Report ---
Test Reason : Blood Pressure : / mmHG Vent. Rate : 063 BPM Atrial Rate : 063 BPM P-R Int : 120 ms QRS Dur : 076 ms QT Int : 428 ms P-R-T Axes : 039 043 037 degrees QTc Int : 437 ms Poor data quality, interpretation may be adversely affected Normal sinus rhythm Normal ECG When compared with ECG of 23-DEC-2020 14:50, ST no longer depressed in Lateral leads Confirmed by Frank Duarte ([id number]) on 12/24/2020 5:58:18 PM Referred By: REFERRED SELF Confirmed By:Frank Duarte
--- NOTE | 2020-12-24 18:01 | Electrocardiogram Report ---
Test Reason : Blood Pressure : / mmHG Vent. Rate : 059 BPM Atrial Rate : 059 BPM P-R Int : 128 ms QRS Dur : 084 ms QT Int : 444 ms P-R-T Axes : 048 062 055 degrees QTc Int : 439 ms Sinus bradycardia Otherwise normal ECG When compared with ECG of 23-DEC-2020 17:55, (unconfirmed) No significant change was found Confirmed by Frank Duarte ([id number]) on 12/24/2020 6:01:13 PM Referred By: REFERRED SELF Confirmed By:Frank Duarte
--- NOTE | 2020-12-24 18:05 | Electrocardiogram Report ---
Test Reason : Blood Pressure : / mmHG Vent. Rate : 070 BPM Atrial Rate : 070 BPM P-R Int : 134 ms QRS Dur : 084 ms QT Int : 432 ms P-R-T Axes : 061 069 054 degrees QTc Int : 466 ms Normal sinus rhythm Normal ECG When compared with ECG of 23-DEC-2020 22:59, (unconfirmed) No significant change was found Confirmed by Frank Duarte ([id number]) on 12/24/2020 6:05:31 PM Referred By: REFERRED SELF Confirmed By:Frank Duarte
--- NOTE | 2020-12-24 18:17 | Electrocardiogram Report ---
Test Reason : Blood Pressure : / mmHG Vent. Rate : 077 BPM Atrial Rate : 077 BPM P-R Int : 138 ms QRS Dur : 084 ms QT Int : 410 ms P-R-T Axes : 051 052 058 degrees QTc Int : 463 ms Normal sinus rhythm Nonspecific ST abnormality Abnormal ECG When compared with ECG of 24-DEC-2020 06:53, (unconfirmed) ST elevation now present in Inferior leads Confirmed by Frank Duarte ([id number]) on 12/24/2020 6:17:28 PM Referred By: REFERRED SELF Confirmed By:Frank Duarte
[2020-12-25 06:58] LABS: Basophils # (auto) 0.02 K/uL (0-0.2); Basophils % (auto) 0.2 %; Eosinophils # (auto) 0.35 K/uL (0-0.5); Eosinophils % (auto) 3.8 %; Hematocrit (blood only) 44.7 % (37-47); Hemoglobin 14.8 g/dL (12.0-16.0); Immature Granulocytes # (auto) 0.01 K/uL (0.00-0.02); Immature Granulocytes % (auto) 0.1 %; Lymphocytes # (auto) 2.79 K/uL (1.2-3.4); Lymphocytes % (auto) 30.7 %; Mean Corpuscular Hemoglobin 30.1 pg (25-34); Mean Corpuscular Hgb Conc 33.1 g/dL (32-36); Mean Corpuscular Volume 90.9 fL (80-100); Mean Platelet Volume 9.5 fL (7.4-10.4); Monocytes # (auto) 1.04 K/uL (0.11-0.59); Monocytes % (auto) 11.4 %; Neutrophils # (auto) 4.89 K/uL (1.4-6.5); Neutrophils % (auto) 53.8 %; Platelet Count 263 K/uL (130-400); RDW Coefficient of Variation 14.3 % (11.5-14.5); RDW Standard Deviation 47.9 fL (36.4-46.3); Red Blood Count 4.92 M/uL (4.2-5.4)
[2020-12-25 07:46] LABS: BUN Creatinine Ratio 24.8 (10-20); Calcium 9.4 mg/dl (8.5-10.1); Creatinine Clr Calc Pharmacy 58.8 ml/min; Est GFR (African American) 83.7; Est GFR (Non-African American) 72.2; Potassium 4.4 mmol/L (3.5-5.1)
[2020-12-25] MEDS ORDERED: CLOPIDOGREL BISULFATE 75 MG TAB PO SCH (09:00)
[2020-12-25] MEDS: MULTIVITAMIN TAB PO SCH (09:30)
[2020-12-25] MEDS: ASPIRIN 81 MG ECTAB PO SCH (09:31)
--- NOTE | 2020-12-25 12:18 | Cardiology Progress Note ---
Date of Service December 25, 2020 Assessment & Plan (1) Acute coronary syndrome: (2) Coronary artery disease: (3) S/P coronary artery stent placement: (4) HLD (hyperlipidemia): ASSESSMENT/PLAN: 1. Acute coronary syndrome: Angina has completely resolved following PCI of the RCA. Continue dual anti-platelet therapy for at least 1 year, and aspirin 81 mg daily indefinitely. Intolerant to statin. Likely not on beta-tanner due to underlying history of asthma? Cardiac rehabilitation recommended. She is not interested in the formal rehab but is interested in the home based rehab. 2. CAD s/p PCI: Received RCA PCI this admission and previously, documented OM PCI. No further angina. No heart failure symptoms. Continue aspirin 81 mg daily indefinitely and Plavix for least 1 year without interruption. This was discussed with her. She is intolerant to statin therapy. 911 for angina that does not resolve within 5 minutes of nitroglycerin. 3. Dyslipidemia: LDL not at goal. She is not tolerant to statin therapy. Consider PCSK9 inhibitor. She plans on discussing this with her neurologist as well. She will discuss this further with Cardiology as an outpatient. 4. Disposition: Post catheterization instructions have been added to her discharge. She was asked to ambulate in the hallway and if tolerated, can be discharged home today from a cardiology perspective. Please discharge her on aspirin 81 mg daily, Plavix 75 mg daily, and nitroglycerin to be used as needed. Patient care communicated with primary hospitalist, Dr. Valverde. Admission and Anticipated Discharge Date Admission Date: December 23, 2020 Subjective Patient was seen earlier this morning. She underwent PCI of her RCA yesterday. She feels much better today. She has not had any further angina other than some lingering chest discomfort shortly after her PCI. This has since resolved completely. She denies shortness of breath, syncope, near-syncope, palpitations, edema, or bleeding. She has not yet ambulated in the hallway. Review of systems: As above. Physical Exam Physical Exam: Gen.: No acute distress. Alert and oriented. HEENT: Anicteric sclera. Neck: No JVD. Cardiac: Regular. Normal S1-S2. No murmurs, rubs, or gallops. Pulmonary: Clear to auscultation bilaterally without wheezes, rales, or rhonchi. Abdomen: Soft, nontender, nondistended, with normoactive bowel sounds. No bruits noted. Extremities: 2+ radial pulses bilaterally. Right radial cath site is clean, dry, and intact without erythema or discharge. 2+ posterior tibialis pulses bilaterally. No edema or cyanosis. Psychiatric: Affect appears appropriate. Results & Data ([facility]) Vital Signs (Past 12 Hours) Vital Signs Temp Pulse Pulse Resp BP Pulse Ox 12/25/20 11:48 36.7 C 89 20 129/97 96 12/25/20 11:01 75 12/25/20 07:39 36.7 C 76 19 116/71 95 12/25/20 03:44 36.7 C 76 14 99/61 L 95 Laboratory Results Laboratory Results - last 24 hr 12/25/20 12/25/20 06:04 06:04 WBC 9.10 RBC 4.92 Hgb 14.8 Hct 44.7 MCV 90.9 MCH 30.1 MCHC 33.1 RDW Std Deviation 47.9 H RDW Coeff of Ramesh 14.3 Plt Count 263 MPV 9.5 Immature Gran % (Auto) 0.1 Neut % (Auto) 53.8 Lymph % (Auto) 30.7 Andrew % (Auto) 11.4 Eos % (Auto) 3.8 Baso % (Auto) 0.2 Neut # (Auto) 4.89 Lymph # (Auto) 2.79 Andrew # (Auto) 1.04 H Eos # (Auto) 0.35 Baso # (Auto) 0.02 Immature Gran # (Auto) 0.01 Sodium 139 Potassium 4.4 D Chloride 105 Carbon Dioxide 27 Anion Gap 7.0 BUN 20 H Creatinine 0.79 Est Cr Clr Drug Dosing 58.8 Est GFR ( Amer) 83.7 Est GFR (Non-Af Amer) 72.2 BUN/Creatinine Ratio 24.8 H Glucose 86 Calcium 9.4 Diagnostic Findings Telemetry personally reviewed: Sinus rhythm. Cardiac catheterization report from 12/24/2020 reviewed. ECG personally reviewed: ECG 12/25/2020: Sinus rhythm 90 beats per minute. Cardiac catheterization 12/24/2020: LM -normal caliber, no significant disease LAD -medium caliber, calcified proximally, diffuse 30% proximal to mid disease, distal vessel tapers around apex. Small D1 with severe ostial stenosis. Circumflex -medium caliber, mid segment luminal irregularities. Proximal stent and large OM1 widely patent. RCA -dominant, large caliber, calcified, 95% acute latemid RCA stenosis, distal RCA and large PDA/PLB without significant disease LVEDP -3 -- PCI -- Antithrombotic therapy: Heparin, clopidogrel Procedure: RCA cannulated with JR4 guide [place] wire passed across lesion into distal vessel Mid RCA lesion predilated with 2.5 compliant balloon Dilated lesion stented with 3.5 x 18 mm [place] drug-eluting stent Stent post-dilated with 4.0 noncompliant balloon IC vasodilators administered for spasm [place] IVUS catheter placed into distal RCA. Pullback revealed no apparent edge complications. Stent well apposed but underexpanded in the midsegment. Stent redilated with 4.5 NC balloon Post procedure THANH 3 flow, stent well expanded with minimal residual stenosis and no apparent cardiac complications. Medications Administered Current Inpatient Medications Acetaminophen (Acetaminophen 325 Mg Tab) 650 mg PO Q4H PRN PRN Reason: Pain Stop: 01/22/21 23:04 Last Admin: 12/24/20 13:49 Dose: 650 mg Documented by: Albuterol (Albuterol Hfa 8 Gm Inhaler) 2 puffs INH QID PRN PRN Reason: shortness of breath or wheezing Stop: 01/22/21 22:50 Aspirin (Aspirin 81 Mg Ectab) 81 mg PO DAILY [facility] Stop: 01/23/21 08:59 Last Admin: 12/25/20 09:31 Dose: 81 mg Documented by: Clopidogrel Bisulfate (Clopidogrel Bisulfate 75 Mg Tab) 75 mg PO QAM [facility] Stop: 01/24/21 08:59 Last Admin: 12/25/20 09:31 Dose: 75 mg Documented by: Epinephrine HCl (Epinephrine Adult Auto-Inject 0.3 Mg Syr) 0.3 mg IM ONCE PRN PRN Reason: anaphylaxis Stop: 01/22/21 22:50 Multivitamins (Multivitamin Tab) 1 tab PO DAILY [facility] Stop: 01/23/21 08:59 Last Admin: 12/25/20 09:30 Dose: 1 tab Documented by: Nitroglycerin (Nitroglycerin Sl 0.4 Mg/Tab Tab) 0.4 mg SL UD PRN PRN Reason: Chest Pain Stop: 01/22/21 22:50 Last Admin: 12/23/20 23:19 Dose: 0.4 mg Documented by: Ondansetron HCl (Ondansetron Inj 2 Mg/Ml 2 Ml Vial) 4 mg IV Q6H PRN PRN Reason: Nausea Stop: 01/22/21 22:50 Ondansetron HCl (Ondansetron Inj 2 Mg/Ml 2 Ml Vial) 4 mg IV Q6H PRN PRN Reason: Nausea And Vomiting Stop: 01/23/21 13:48 PG Care Time/CCT Total # of Minutes Spent Total Time Spent with Patient: Total time spent is greater than 50% in coordination of care (as documented) at patient's floor/unit and/or counseling patient: Coding Level of Care Code 54037 Office/Outpt Visit, Est Diagnoses Acute coronary syndrome I24.9 Coronary artery disease I25.10 S/P coronary artery stent placement Z95.5 HLD (hyperlipidemia) E78.5 Hyperlipidemia type: unspecified (1) HLD (hyperlipidemia) Hyperlipidemia type: unspecified Qualified Code(s): E78.5 - Hyperlipidemia, unspecified
--- NOTE | 2020-12-25 13:09 | Discharge Summary ---
Date of Service December 25, 2020 Admission HPI Per Admitting Provider 75 YOF with past medical history of DJD, Dhjtnyv-Plwag-Iuuvf disease type 2, CAD with stents x2, asthma/bronchitis. Patient was brought to the emergency room tonight by her . The patient complains of chest pain that has been off and on for the past 3 days, and now is associated with exertion/activity. The patient's pain is left 3-4 intercostal space mid clavicular and patient states that the last time she had this type of pain and location was when she had her stents. The pain is pressure in nature to sharp in nature, does not radiate anywhere. The pain is associated with some nausea and patient and both report increase in fatigue past 2 days. The patient had experienced pain in the emergency room when she was walking to CT scan table, walking to the restroom, and while lying in bed during my visit. The patient's pain was relieved with nitroglycerin tabs sl. Upon my evaluation the patient was lying in bed with BP 160's HR 80s, sublingual NTG was given and pain was gone, BP decreased to 130. To complicate this presentation, the patient also has multiple areas on her chest wall where she has pain with palpation and is very similar to some of her pain episodes. The patient currently has a normal ECG and negative troponin I x1, second increased to 0.069. In the emergency room the patient had a CT scan done for chest discomfort and elevated D-dimer, received an aspirin, ni troglycerin as above and 500 ml of crystalloid. I have also given the patient a GI cocktail. Patient will be observed for risk stratification and following of symptoms with ECG. Principal Diagnosis ACS Discharge Exam Constitutional WD/WN, vitals as above Eyes PERRL, conjunctivae normal, anicteric sclerae ENMT external ear and nose normal, oropharynx normal Respiratory normal respiratory effort, lungs clear to auscultation Cardiovascular RRR, no murmur, no edema Gastrointestinal (Abdomen) normal bowel sounds, soft, nontender, no hepatosplenomegaly Skin no rashes, warm and dry Psychiatric A+Ox3, euthymic affect Discharge Data Allergies Allergy/AdvReac Type Severity Reaction Status Date / Time cefaclor Allergy Intermediate Hives Verified 12/20/20 12:05 gluten Allergy Intermediate Gastrointestinal Verified 12/20/20 12:05 Upset Penicillins Allergy Intermediate Hives Verified 12/20/20 12:05 strawberry Allergy Intermediate Anaphylaxis Verified 12/20/20 12:05 Sulfa (Sulfonamide Allergy Intermediate Hives Verified 12/20/20 12:05 Antibiotics) moxifloxacin Allergy Unknown CAN'T Verified 12/20/20 12:05 REMEMBER nitrofurantoin Allergy Unknown CAN'T Verified 12/20/20 12:05 REMEMBER tetracycline Allergy Unknown CAN'T Verified 12/20/20 12:05 REMEMBER adhesive Allergy Redness of Verified 12/20/20 12:05 Skin ceftaroline fosamil AdvReac Severe WHITE Verified 12/20/20 12:05 BLOOD COUNT DECREASE indomethacin AdvReac Severe UNCONSIOUS Verified 12/20/20 12:05 FOR 6 HOURS. daptomycin AdvReac Intermediate PNEUMONIA Verified 12/20/20 12:05 diphenhydramine AdvReac Intermediate SHAKING Verified 12/20/20 12:05 ALL OVER Tbntuno-Tjs-Oev Reductase AdvReac Intermediate MUSCLE Verified 12/20/20 12:05 Inhibitor ACHES vancomycin AdvReac Intermediate JANET Verified 12/20/20 12:05 BEBETO SYNDROME Consultations 12/23/20 20:38 ED Decision to Admit Stat 12/23/20 22:51 Consult Cardiology Routine 12/24/20 13:52 Consult Cardiac Rehabilitation Routine Procedures Performed Operation Date: 12/24/20 10:30 Actual Procedures p Drug Eluting Stent SGl Vessel - Guzman Stone MD s Cath, Left with Cors and Vent - Guzman Stone MD s IVUS Coronary Single Vessel - Guzman Stone MD s Cineradiography w/Routine Exam - Guzman Stone MD Ordered Studies 12/23/20 18:33 CT angio chest PE protocol Stat 12/24/20 10:17 CL Cath Imgs for PACS use only Stat 12/24/20 12:25 CL IVUS Coronary Single Vessel Routine Hospital Course (1) Chest pain: 75-year-old female with a past medical history for coronary artery disease s/p PCI of circumflex posterolateral branch with single RIVER 06/24/19, dyslipidemia (statin intolerant), hypertension, Jylpwlj-Ejzkx-Tkawo, and asthma who was admitted in the setting of exertional chest pain. The following was the medical management during stay here: NSTEMI On admission, patient with nonspecific chest pain, relieved with nitro, extremely variable. ECG x2 was obtained with no ischemic changes the patient was given a GI cocktail without significant improvement. Nitroglycerin or Lopressor had been used for symptomatic relief. Patient was started on a heparin drip and a slight increase in her troponin to 0.069 now downtrending to 0.05. -Trended Troponins -0.015->0.069->0.055 -ECG x2 with no ischemic changes -On heparin drip initially -Echo on 12/24 normal LV systolic function, no regional wall motion abnormalities. Mild concentric LV hypertrophy. -Cardiology was consulted Underwent [facility]: 95% occlusion of the RCA, stent placed. Angina completely resolved following PCI of the RCA -Dual antiplatelet therapy for at least 1 year: ASA and Plavix. And aspirin 81 mg daily indefinitely. -per review of outpt notes, pt had perceived adverse reactions to beta-tanner and Kraig inhibitors in the past and chose not to restart these medications. Cardiology also discussed with her PCSK9 inhibitors and Zetia, but she declined those as well. She is willing to consider PCSK9 inhibitors based on today's conversation, but only after conversing with other providers as an outpatient. Please f/u -Cardiac rehabilitation was recommended. Pt is not interested in the formal rehab but is interested in the home based rehab CAD -Stents x2 patient has previously stopped her BB in 2019 related to side effects, she also stopped her KRAIG inhibitor as above. - She has been intolerant to statin therapy secondary to myalgias, Options at that time were to possibly introduce her to Zetia or Repatha, please discuss further on discharge - Lipid panel: Triglycerides 155, cholesterol 199, LDL 112, VLDL 31, HDL 56 - LDL not at goal. Consider PCSK9 inhibitor. Asthma Patient with mosaic pattern on CT scan of chest, not changed from previous pulmonary evaluation and scan. - Bronchiectasis vs Asthma - No increase use of her inhalers per patient At time of discharge patient with no other acute concerns or complaints. Total Time Total Time Spent Total Time Spent (In Minutes): 30 Discharge Plan Discharge Items Patient Disposition: Home - Self-Care Reason For Visit: CHEST PAIN Discharge Diagnosis: NSTEMI Activity: As commented below Lifting: No more than 5 pounds Exercise/Sports: Gradually increase as tolerated Driving/Machine Use: Resume 1 day after discharge Non-emergency contact: Primary Care Provider Call non-emergency contact if: you have any medication questions, your symptoms worsen and your pain is not controlled Follow-up/Referrals: Guzman Casillas MD [Physician] - Jesus Membreno MD [Primary Care Provider] - Diet: Heart Healthy Addtl Attending Provider Instructions: You were admitted with concerns of chest pain and underwent a sten placements. Please follow the below instructions on discharge: You will take dual antiplatelet therapy with aspirin and Plavix for 1 year. And aspirin indefinitely thereafter. These have been sent to your [facility] pharmacy. A one month supply was given, please see your PCP for additional refills moving forward We have also sent nitroglycerin to be used as needed for any chest pain 911 for angina that does not resolve within 5 minutes of nitroglycerin It was noted that you are intolerant to any statin therapy or beta-tanner or KRAIG inhibitor therapy due to unwanted side effects. Please discuss with your PCP for other options for managing your cholesterol, which can include PCSK9 inhibitors or Zetia, etc, which your PCP will be made aware of ACTIVITY RECOMMENDATIONS: Excess manipulation of the wrist should be avoided for the next 24-48 hours. * No lifting over 2 pounds (approximately a 1/2 gallon of milk) with the utilized arm for 24 hours. * No strenuous activity such as bowling or tennis for 3 days. * Keep the site of the procedure covered with a bandage for 24 hours. *You may shower the day after the procedure. Do not take a tub bath or submerge the puncture site in water for the next 3 days. *Do not operate any motorized equipment for 3 days. SPECIAL CARE INSTRUCTIONS: The site may be slightly bruised and sore following your procedure. Should any of the following occur, contact the Dr. who performed your procedure. 1. Redness/inflammation, swelling, chills, or fever, or colored drainage at procedure site within 3-7 days after your procedure. 2. Coldness, discoloration, ongoing numbness, severe pain, or swelling. Expect mild tingling of hand and tenderness at the puncture site for up to three days. If this persists beyond three days, or other symptoms develop, notify the Dr. who performed your procedure. BLEEDING: If the procedure site on your wrist begins to bleed, do not panic 1. Place 1 or 2 fingers firmly just slightly above the insertion site to stop the bleeding. You may be able to feel your pulse as you hold pressure. 2. Lift your finger after 5 minutes to see if the bleeding has stopped. 3. Once the bleeding has stopped, gently wipe the wrist area clean with a bandage. * If the bleeding from your wrist does not stop after 10 minutes, or if there is a large amount of bleeding or spurting, call 911 ([address] drive yourself to the hospital). SKIN IRRITATION: * You may experience some redness and/or swelling in the area where radiation was administered. If any skin irritation occurs, please contact your family physician. FOLLOW UP VISIT: Follow-up with Dr. Casillas in approximately 1 week. Keep any scheduled doctor appointments. Pending Studies at Discharge: No Stand-Alone Forms: My [facility] [employer], Smoking Cessation Medications and DC Order Prescriptions: New aspirin 81 mg tablet,chewable 81 mg PO DAILY Qty: 30 RF: 0 clopidogrel [Plavix] 75 mg tablet 75 mg PO DAILY Qty: 30 RF: 0 nitroglycerin 0.4 mg tablet, sublingual 0.4 mg sublingual .prn Qty: 30 RF: 0 Continued epinephrine 0.3 mg/0.3 mL auto-injector 0.3 mg IM ONCE PRN (Reason: anaphylaxis) Qty: 2 RF: 0 multivitamin Tablet 1 tab PO DAILY RF: 0 nitroglycerin [Nitrostat] 0.4 mg Tablet, Sublingual 0.4 mg sublingual DIRECTED PRN (Reason: Chest Pain) RF: 0 Premarin 0.625 mg/gram cream 0.625 mg VAGINAL 2XWK RF: 0 acetaminophen [Tylenol Arthritis Pain] 650 mg Tablet Extended Release 650 mg PO Q8H PRN (Reason: Pain) RF: 0 albuterol sulfate 90 mcg/actuation HFA aerosol inhaler 2 puffs INH QID PRN (Reason: shortness of breath or wheezing) Qty: 18 RF: 0 aspirin 81 mg Tablet,Delayed Release (Dr/Ec) 81 mg PO DAILY RF: 0 Discharge Orders: Discharge Order (Routine); Ordered 12/25/20 Ordered By: Monster Medina/Other Patient Handouts: Taking Aspirin for Atherosclerosis, Clopidogrel tablets Admission Data Admit Date/Time: 12/23/20 21:56 Attending Provider: Yary Valverde Admit Provider: Del Ruvalcaba Primary Care Provider: Jesus Membreno Other Providers: Jody Pham Charles C. Other Interventions: Discharge Summary Assessment (RN) Last Done: 12/25/20 14:31 Supervising Physician Co-Signing Physician Notes Resident Physician Supervision Note: I independently interviewed and examined the patient and verified the benjamin history and physical, reviewed labs and image studies, discussed the case with the resident Dr. Douglas and agree with the findings and care plan. Resident Activity Tracking Resident Involvement: Resident Care Provided Care Provided: Adult Hospital Medicine
--- NOTE | 2020-12-26 06:26 | Electrocardiogram Report ---
Test Reason : Blood Pressure : / mmHG Vent. Rate : 090 BPM Atrial Rate : 090 BPM P-R Int : 130 ms QRS Dur : 084 ms QT Int : 346 ms P-R-T Axes : 071 074 069 degrees QTc Int : 423 ms Normal sinus rhythm Normal ECG When compared with ECG of 24-DEC-2020 14:06, Nonspecific T wave abnormality now evident in Lateral leads Confirmed by Will Garza ([id number]) on 12/26/2020 6:25:52 AM Referred By: REFERRED SELF Confirmed By:Will Garza
== END 2020-12-25 15:23 | disposition home or self-care (01) ==
LOC: ED 14:40 → 2S 14:40 → SUATTDRO 21:56 → 2S 22:27

== ENCOUNTER 2021-01-26 11:57 | Observation (INO) ==
[2021-01-26] MEDS ORDERED: NITROGLYCERIN SL 0.4 MG/TAB TAB ONE (12:11)
[2021-01-26] MEDS ORDERED: NITROGLYCERIN SL 0.4 MG/TAB TAB SL PRN ×2 (12:12→16:11)
[2021-01-26] MEDS ORDERED: NITROGLYCERIN 2% OINTMENT 30GM TUBE EXT STA (12:12)
--- NOTE | 2021-01-26 12:15 | Emergency Department Note ---
History of Present Illness General Chief complaint: Chest Pain Stated complaint: CHEST PAIN Time Seen by Provider: 01/26/21 12:03 Source: patient and family History of Present Illness Provider complaint: Chest pain Onset (ago): hour(s) Location: chest and left Radiation: extremity (Left armpit) Severity: moderate Pain Consistency: + constant Maximum Pain Intensity: 3 Quality: + other (Pressure) Relieved By: + medication (1 sublingual nitroglycerin) and + rest Exacerbated By: + other (Exertion) Associated symptoms: + nausea/vomiting (Nausea no vomiting) and + shortness of breath; no cough, no diaphoresis, no fever/chills and no malaise This is a 75-year-old female who was recently admitted for a non-STEMI in December presenting with chest pain starting this morning. Patient states that she was doing some housework and started having chest pain in the left side of her chest radiating into her left armpit. She describes it as a pressure-like sensation. She rates it currently as a 3 out of 10 in severity. She states it got better after she took 1 sublingual nitroglycerin. She did take her aspirin today as well. She states that she had some associated nausea and shortness of breath. After she had her stent she felt much better when she was discharged from the hospital. Gradually over the next several days she developed worsening tolerance to exertion. She could not climb stairs and developed chest pain. She was seen by cardiology who did a stress test last week. Unfortunately the stress test. Too early hence that was inconclusive and so she is scheduled for another 1 tomorrow. She states that she gets chest pain and very short of breath whenever she tries to climb the stairs or do any activity. She is better at rest. She denies any fever, cough or cold symptoms, abdominal pain, vomiting, diarrhea, urinary symptoms or leg swelling or pain. Home Medications Medication Instructions Recorded Confirmed Type multivitamin 1 tab PO DAILY 04/08/19 01/26/21 History epinephrine 0.3 mg/0.3 mL 0.3 mg IM ONCE PRN #2 ea 07/07/19 01/26/21 History injection, auto-injector albuterol sulfate 2 puffs INH QID PRN #18 gm 12/10/19 01/26/21 Rx aspirin 81 mg PO DAILY #30 tab 12/25/20 01/26/21 Rx clopidogrel [Plavix] 75 mg PO DAILY #30 tab 12/25/20 01/26/21 Rx nitroglycerin 0.4 mg SUBLINGUAL .prn #30 tab 12/25/20 01/26/21 Rx ezetimibe 10 mg tablet 10 mg PO DAILY #30 tab 01/14/21 01/26/21 Rx Allergies Allergy/AdvReac Type Severity Reaction Status Date / Time cefaclor Allergy Intermediate Hives Verified 01/26/21 13:17 gluten Allergy Intermediate Gastrointestinal Verified 01/26/21 13:17 Upset Penicillins Allergy Intermediate Hives Verified 01/26/21 13:17 strawberry Allergy Intermediate Anaphylaxis Verified 01/26/21 13:17 Sulfa (Sulfonamide Allergy Intermediate Hives Verified 01/26/21 13:17 Antibiotics) moxifloxacin Allergy Unknown CAN'T Verified 01/26/21 13:17 REMEMBER nitrofurantoin Allergy Unknown CAN'T Verified 01/26/21 13:17 REMEMBER tetracycline Allergy Unknown CAN'T Verified 01/26/21 13:17 REMEMBER adhesive Allergy Redness of Verified 01/26/21 13:17 Skin ceftaroline fosamil AdvReac Severe WHITE Verified 01/26/21 13:17 BLOOD COUNT DECREASE indomethacin AdvReac Severe UNCONSIOUS Verified 01/26/21 13:17 FOR 6 HOURS. daptomycin AdvReac Intermediate PNEUMONIA Verified 01/26/21 13:17 diphenhydramine AdvReac Intermediate SHAKING Verified 01/26/21 13:17 ALL OVER Pairqoh-Rgj-Wst Reductase AdvReac Intermediate MUSCLE Verified 01/26/21 13:17 Inhibitor ACHES vancomycin AdvReac Intermediate JANET Verified 01/26/21 13:17 BEBETO SYNDROME Past Med/Surg History Medical History Asthma uses PRN INH 1xmo on avg Atrial fibrillation ONSET 40 YEARS AGO - NO MEDS - FOLLOWS W/ DR. RUBALCAVA Hozokgk-Rjuri-Jtwte disease type 2 FOLLOWS W/ DR. MAYA Coronary artery disease Hiatal hernia Myocardial Infarction 2018 Osteoarthritis Right knee DJD Sleep apnea CPAP TMJ (temporomandibular joint disorder) Urinary leakage Surgical History History of arthroscopy of left knee History of cardiac cath 06/2018 - [facility] - 1 STENT - FOLLOWS W/ DR. RUBALCAVA History of cholecystectomy History of colonoscopy History of esophagogastroduodenoscopy (EGD) History of foot surgery LEFT History of heart artery stent X 1 History of hysterectomy History of lumbar spinal fusion History of thoracic spinal fusion History of tooth extraction History of tubal ligation Hx of left cataract extraction Slow to wake up after anesthesia Stented coronary artery Family History Mother Family history of diabetes mellitus Brother Family history of diabetes mellitus Grandmother (Maternal) Family history of diabetes mellitus Other Family history non-contributory Social History Smoking Status: Never smoker Second Hand Exposure: No; Hx Alcohol Use: Yes Alcohol type: wine Hx Substance Use: No Preferred Language: Maori Communication Ability: Effective Timber Buyer Required: No Beliefs That Will Affect Care: None Current Living Situation: Spouse Feels Safe at Home: Yes Assistive Devices: Cane Review of Systems See HPI for pertinent positives & negatives. and A total of 10 systems reviewed and were otherwise negative Physical Exam Vital Signs Vital Signs - 24 hr 01/26/21 12:02 01/26/21 12:10 01/26/21 12:23 Temperature 36.5 C Temperature Source Temporal Artery Scan Pulse Rate 84 99 H Pulse Rate [Apical] 99 H Pulse Rhythm Regular Pulse Rhythm [Apical] Regular Pulse Strength [Apical] Normal Respiratory Rate 20 20 18 Respiratory Effort / Characteristics Spontaneous SOB on Exertion Non-Labored Spontaneous Respiratory Depth Normal Respiratory Pattern Regular Blood Pressure 157/74 H Blood Pressure [Left Arm] 157/85 H Blood Pressure Mean 101 Blood Pressure Mean [Left Arm] 109 Blood Pressure Position Sitting Blood Pressure Position [Left Arm] Sitting Pulse Oximetry 95 96 95 Oxygen Delivery Method Room Air Room Air Room Air Sepsis Recent Fever Within 48 Hours No Sepsis New/Unexplained Change in Mental Status No Sepsis Action Taken by Nursing No Action Required 01/26/21 13:22 Temperature Temperature Source Pulse Rate Pulse Rate [Apical] 86 Pulse Rhythm Pulse Rhythm [Apical] Regular Pulse Strength [Apical] Normal Respiratory Rate 20 Respiratory Effort / Characteristics Non-Labored Spontaneous Respiratory Depth Normal Respiratory Pattern Regular Blood Pressure Blood Pressure [Left Arm] 129/81 Blood Pressure Mean Blood Pressure Mean [Left Arm] 97 Blood Pressure Position Blood Pressure Position [Left Arm] Sitting Pulse Oximetry 96 Oxygen Delivery Method Room Air Sepsis Recent Fever Within 48 Hours Sepsis New/Unexplained Change in Mental Status Sepsis Action Taken by Nursing Constitutional: Vital signs reviewed. Eyes: Pupils are equal round reactive to light. Conjunctiva are noninjected. ENT: Pharynx is clear without erythema or exudate. Mucous membranes are moist. Neck supple without meningeal signs. Respiratory: Clear to auscultation bilaterally. Breath sounds are equal bilaterally. Cardiovascular: Regular rate and rhythm. No rubs or gallops. GI: Soft, nondistended and nontender. Bowel sounds are present. Musculoskeletal: No peripheral edema. No lower extremity tenderness. Integumentary: No cyanosis. or jaundice. Neurological: The patient is awake and alert. No focal deficits. Psychiatric: Slightly anxious. Course Administered Medications Heparin Sodium/Dextrose (Heparin Iv Low Dose With Bolus) 1 ea IV Q30M [facility]; Protocol Stop: 02/25/21 13:58 Last Admin: 01/26/21 14:19 Dose: 1 ea Documented by: [id number] Discontinued Medications Heparin Sodium (Porcine) (Heparin Sod (Porcine) 1000 Unit/Ml 10 Ml Vial) Confirm Administered Dose 10,000 units .ROUTE .STK-MED ONE Stop: 01/26/21 14:12 Last Admin: 01/26/21 14:17 Dose: 4,000 units Documented by: [id number] Cosigned by: [id number] Heparin Sodium/Dextrose (Heparin 17962 Unit/500 Ml D5w) Confirm Administered Dose 25,000 units IV .STK-MED ONE Stop: 01/26/21 14:11 Last Admin: 01/26/21 14:19 Dose: 15 ml Documented by: [id number] Cosigned by: [id number] Nitroglycerin (Nitroglycerin Sl 0.4 Mg/Tab Tab) Confirm Administered Dose 0.4 mg .ROUTE .STK-MED ONE Stop: 01/26/21 12:12 Last Admin: 01/26/21 12:12 Dose: 0.4 mg Documented by: [id number] Nitroglycerin (Nitroglycerin 2% Ointment 30gm Tube) 0.5 inch EXT NOW STA Stop: 01/26/21 12:13 Last Admin: 01/26/21 12:26 Dose: 0.5 inch Documented by: [id number] Medical Decision Making Differential Diagnosis Unstable angina, NM, pleurisy, pericarditis, Jersey syndrome Medical Records Attestation: I reviewed the patient's medical records. The patient was admitted to the hospital in December for an NSTEMI. She had a stent placed in the RCA. She was noted to have diffuse proximal to mid LAD 30% disease. Home Medications Current Medication List: was personally reviewed by me Laboratory Data Attestation: I reviewed the patient's lab results. Result diagrams: 01/26/21 12:20 01/26/21 12:20 Lab Results 01/26/21 01/26/21 01/26/21 Range/Units 12:20 12:20 12:20 WBC 6.57 (4.8-10.8) K/uL RBC 4.58 (4.2-5.4) M/uL Hgb 13.8 (12.0-16.0) g/dL Hct 40.4 (37-47) % MCV 88.2 (80-100) fL MCH 30.1 (25-34) pg MCHC 34.2 (32-36) g/dL RDW Std Deviation 46.8 H (36.4-46.3) fL RDW Coeff of Ramesh 14.4 (11.5-14.5) % Plt Count 239 (130-400) K/uL MPV 9.7 (7.4-10.4) fL Immature Gran % (Auto) 0.0 % Neut % (Auto) 58.0 % Lymph % (Auto) 28.6 % [place] % (Auto) 9.1 % Eos % (Auto) 4.0 % Baso % (Auto) 0.3 % Neut # (Auto) 3.81 (1.4-6.5) K/uL Lymph # (Auto) 1.88 (1.2-3.4) K/uL [place] # (Auto) 0.60 H (0.11-0.59) K/uL Eos # (Auto) 0.26 (0-0.5) K/uL Baso # (Auto) 0.02 (0-0.2) K/uL Immature Gran # (Auto) 0.00 (0.00-0.02) K/uL PT 9.8 (9.0-12.0) Seconds INR 1.0 (0.9-1.1) APTT 26.0 (21.0-31.0) Seconds PTT Ratio 1.0 Sodium 139 (136-145) mmol/L Potassium 4.2 (3.5-5.1) mmol/L Chloride 109 H (98-107) mmol/L Carbon Dioxide 24 (21-32) mmol/L Anion Gap 6.0 (3-11) BUN 17 (7-18) mg/dl Creatinine 0.80 (0.6-1.2) mg/dl Est Cr Clr Drug Dosing 57.4 ml/min Est GFR ( Amer) 82.4 Est GFR (Non-Af Amer) 71.1 BUN/Creatinine Ratio 21.0 H (10-20) Glucose 89 (70-99) mg/dl Calcium 9.4 (8.5-10.1) mg/dl Total Bilirubin 0.3 (0.2-1) mg/dl AST 13 L (15-37) U/L ALT 24 (12-78) U/L Alkaline Phosphatase 108 (45-117) U/L Troponin I < 0.015 (0-0.045) ng/ml C-Reactive Protein 0.44 H (0-0.29) mg/dl Total Protein 7.0 (6.4-8.2) gm/dl Albumin 3.5 (3.4-5.0) gm/dl Globulin 3.5 (2.5-4.0) gm/dl Albumin/Globulin Ratio 1.0 (0.9-2) Lipase 115 (73-393) U/L COVID-19 Eval Order SARS-CoV-2, RNA, NAAT (NEGATIVE) 01/26/21 01/26/21 Range/Units 12:33 12:33 WBC (4.8-10.8) K/uL RBC (4.2-5.4) M/uL Hgb (12.0-16.0) g/dL Hct (37-47) % MCV (80-100) fL MCH (25-34) pg MCHC (32-36) g/dL RDW Std Deviation (36.4-46.3) fL RDW Coeff of Ramesh (11.5-14.5) % Plt Count (130-400) K/uL MPV (7.4-10.4) fL Immature Gran % (Auto) % Neut % (Auto) % Lymph % (Auto) % [place] % (Auto) % Eos % (Auto) % Baso % (Auto) % Neut # (Auto) (1.4-6.5) K/uL Lymph # (Auto) (1.2-3.4) K/uL [place] # (Auto) (0.11-0.59) K/uL Eos # (Auto) (0-0.5) K/uL Baso # (Auto) (0-0.2) K/uL Immature Gran # (Auto) (0.00-0.02) K/uL PT (9.0-12.0) Seconds INR (0.9-1.1) APTT (21.0-31.0) Seconds PTT Ratio Sodium (136-145) mmol/L Potassium (3.5-5.1) mmol/L Chloride (98-107) mmol/L Carbon Dioxide (21-32) mmol/L Anion Gap (3-11) BUN (7-18) mg/dl Creatinine (0.6-1.2) mg/dl Est Cr Clr Drug Dosing ml/min Est GFR ( Amer) Est GFR (Non-Af Amer) BUN/Creatinine Ratio (10-20) Glucose (70-99) mg/dl Calcium (8.5-10.1) mg/dl Total Bilirubin (0.2-1) mg/dl AST (15-37) U/L ALT (12-78) U/L Alkaline Phosphatase (45-117) U/L Troponin I (0-0.045) ng/ml C-Reactive Protein (0-0.29) mg/dl Total Protein (6.4-8.2) gm/dl Albumin (3.4-5.0) gm/dl Globulin (2.5-4.0) gm/dl Albumin/Globulin Ratio (0.9-2) Lipase (73-393) U/L COVID-19 Eval [facility] SARS-CoV-2, RNA, NAAT NEGATIVE (NEGATIVE) Imaging Data Radiologist's Impression: XR chest 1V portable CLINICAL HISTORY: Atypical chest pain COMPARISON STUDY: 12/23/2020 FINDINGS: The cardiac and mediastinal contours remain stable. There is no failure. There is no focal pulmonary consolidation. There are no pleural effusions. There are postsurgical changes of a thoracoabdominal spinal rodding[ IMPRESSION: No active disease in the chest. ACT 112: Negative or not required by law. Electronically signed by: Lowell Cormier M.D. 01/26/2021 1:03 PM Dictated: 01/26/[id number] Transcribed: 01/26/211258 ECG Data Attestation: I personally reviewed and interpreted this ECG as follows: Indication: + chest pain Rate (beats per minute): 76 Rhythm: + normal sinus ECG [place]: + Normal ECG ST segments: no ST elevation ECG Findings: no PVCs MDM Narrative I did evaluate the patient as noted above. The patient is presenting with progressively worsening chest pain since being discharged from the hospital after an NSTEMI. She states that she cannot tolerate mild exertion. She is seen by cardiology who attempted to do a stress test last week but this was aborted early. She is scheduled to have another one tomorrow. She was doing some housework this morning at 9:30 AM and developed chest pain again. She feels better now with rest and 1 sublingual nitroglycerin but does still complain of some chest pressure. IV access was established. I did place an order for continuous cardiac monitoring. The monitor showed normal sinus rhythm at a rate of 75 bpm. I did order and personally review the patient's 12-lead EKG as described above. She has no acute ischemic changes. I did treat her with a sublingual nitroglycerin as well as nitroglycerin paste to the anterior chest wall. I did order and personally reviewed the images of the patient's chest x-ray as described above. There is no evidence of acute abnormality on chest x-ray. I did order and review the patient's blood work as noted in the electronic medical record. CBC is unremarkable. Electrolytes are unremarkable. Troponin is negative. CRP is slightly elevated. I did reassess the patient. She is no longer having any chest discomfort. She states that the pressure is gone but she feels like if you try to get up that it would come right back. I did recommend hospitalization for further care and evaluation and she was agreeable. I did attempt to call her contact lens blocker but he was not on-call. I did speak to the lead case manager and Dr. Hancock who will consult cardiology. Rapid Covid testing is negative. Impression & Plan Unstable angina Discharge Plan Visit Data Chief Complaint: Chest Pain Stated Complaint: CHEST PAIN ED Provider: Martell Mcintyre Discharge Problem: Unstable angina Patient Disposition: Admitted As Inpatient Discharge Instructions Interventions: ED Discharge Assessment Last Done: 01/26/21 14:56
[2021-01-26 12:42] LABS: Basophils # (auto) 0.02 K/uL (0-0.2); Basophils % (auto) 0.3 %; Eosinophils # (auto) 0.26 K/uL (0-0.5); Hematocrit (blood only) 40.4 % (37-47); Hemoglobin 13.8 g/dL (12.0-16.0); Lymphocytes # (auto) 1.88 K/uL (1.2-3.4); Lymphocytes % (auto) 28.6 %; Mean Corpuscular Hemoglobin 30.1 pg (25-34); Mean Corpuscular Hgb Conc 34.2 g/dL (32-36); Mean Corpuscular Volume 88.2 fL (80-100); Mean Platelet Volume 9.7 fL (7.4-10.4); Monocytes % (auto) 9.1 %; Neutrophils # (auto) 3.81 K/uL (1.4-6.5); Platelet Count 239 K/uL (130-400); RDW Coefficient of Variation 14.4 % (11.5-14.5); RDW Standard Deviation 46.8 fL (36.4-46.3); Red Blood Count 4.58 M/uL (4.2-5.4); White Blood Count 6.57 K/uL (4.8-10.8)
[2021-01-26 12:59] LABS: Prothrombin Time 9.8 Seconds (9.0-12.0)
[2021-01-26 13:03] LABS: Alanine Aminotransferase 24 U/L (12-78); Albumin Level 3.5 gm/dl (3.4-5.0); Aspartate Aminotransferase 13 U/L (15-37); Blood Urea Nitrogen 17 mg/dl (7-18); C Reactive Protein 0.44 mg/dl (0-0.29); Calcium 9.4 mg/dl (8.5-10.1); Carbon Dioxide 24 mmol/L (21-32); Chloride 109 mmol/L (98-107); Creatinine Clr Calc Pharmacy 57.4 ml/min; Est GFR (African American) 82.4; Est GFR (Non-African American) 71.1; Glucose 89 mg/dl (70-99); Lipase 115 U/L (73-393); Potassium 4.2 mmol/L (3.5-5.1); Sodium 139 mmol/L (136-145)
--- NOTE | 2021-01-26 13:04 | XRay Report ---
XR chest 1V portable CLINICAL HISTORY: Atypical chest pain COMPARISON STUDY: 12/23/2020 FINDINGS: The cardiac and mediastinal contours remain stable. There is no failure. There is no focal pulmonary consolidation. There are no pleural effusions. There are postsurgical changes of a thoracoa bdominal spinal rodding[ IMPRESSION: No active disease in the chest. ACT 112: Negative or not required by law. Electronically signed by: Lowell Cormier M.D. 01/26/2021 1:03 PM
[2021-01-26 13:07] LABS: Alkaline Phosphatase 108 U/L (45-117); Bilirubin,Total 0.3 mg/dl (0.2-1); Globulin 3.5 gm/dl (2.5-4.0); Troponin I < 0.015 ng/ml (0-0.045)
[2021-01-26] MEDS ORDERED: HEPARIN SODIUM/DEXTROSE 25,000 UNITS/500 ML BAG IV SCH (14:00)
[2021-01-26] MEDS ORDERED: HEPARIN 25000 UNIT/500 ML D5W IV ONE (14:10)
[2021-01-26] MEDS ORDERED: HEPARIN SOD (PORCINE) 1000 UNIT/ML ONE (14:11)
--- NOTE | 2021-01-26 14:13 | History & Physical Report ---
Date of Service January 26, 2021 Assessment & Plan (1) Unstable angina: Previously mentioned patient had perceived side effects to beta-blockers therefore discontinued this however the patient seems amenable to starting this for her current angina. Start metoprolol 12.5 mg p.o. twice daily Continue nitroglycerin patch 1 inch every 6 hourly IV heparin low-dose bolus and drip Trend troponins Continue aspirin 81 mg and Plavix 75 mg p.o. daily Consult cardiology for consideration of cardiac cath versus repeat stress echocardiogram (2) S/P coronary artery stent placement: (3) Chest pain: Appears to be consistent with her anginal pain. Possible Jersey syndrome/reflux but given exertional nature these alternative explanations are less likely. (4) Hyperlipidemia: Ezetimibe 10 mg p.o. daily. (5) Gfohhux-Aswjm-Jmpjj disease type 2: Admission and Anticipated Discharge Date Admission Date: January 26, 2021 History of Present Illness Chief Complaint: Chest pain Primary Care Provider: Jesus Membreno MD Beth Pham is a 75-year-old female with recent NSTEMI s/p PCI to RCA (prior OM1 stent widely patent) in December this year who presents to the ER with chest pain and shortness of breath. Following her cardiac cath and subsequent stents placement she felt much improved for the following week. 40 after this she has been getting increasing chest pain, fatigue and shortness of breath on exertion. She followed up with her coil finisher to arrange a stress EKG however this was nondiagnostic as she is already managed a few minutes on the treadmill. Plan had been to perform a dobutamine stress echo tomorrow. However, this morning while doing normal activities around the house she develops substernal chest pain which radiated to her left axilla. Improved with nitroglycerin but given ongoing pain she decided to come to the ER for further evaluation. In the ER EKG showed no acute ischemic change and initial troponin negative. However given similar chest pain to a prior NSTEMI remains concern for unstable angina. She is currently chest pain-free after nitroglycerin paste placed in ER. She was referred to medicine for admission ongoing management of unstable angina. Allergies Allergy/AdvReac Type Severity Reaction Status Date / Time cefaclor Allergy Intermediate Hives Verified 01/26/21 13:17 gluten Allergy Intermediate Gastrointestinal Verified 01/26/21 13:17 Upset Penicillins Allergy Intermediate Hives Verified 01/26/21 13:17 strawberry Allergy Intermediate Anaphylaxis Verified 01/26/21 13:17 Sulfa (Sulfonamide Allergy Intermediate Hives Verified 01/26/21 13:17 Antibiotics) moxifloxacin Allergy Unknown CAN'T Verified 01/26/21 13:17 REMEMBER nitrofurantoin Allergy Unknown CAN'T Verified 01/26/21 13:17 REMEMBER tetracycline Allergy Unknown CAN'T Verified 01/26/21 13:17 REMEMBER adhesive Allergy Redness of Verified 01/26/21 13:17 Skin ceftaroline fosamil AdvReac Severe WHITE Verified 01/26/21 13:17 BLOOD COUNT DECREASE indomethacin AdvReac Severe UNCONSIOUS Verified 01/26/21 13:17 FOR 6 HOURS. daptomycin AdvReac Intermediate PNEUMONIA Verified 01/26/21 13:17 diphenhydramine AdvReac Intermediate SHAKING Verified 01/26/21 13:17 ALL OVER Trsotpu-Hsb-Rff Reductase AdvReac Intermediate MUSCLE Verified 01/26/21 13:17 Inhibitor ACHES vancomycin AdvReac Intermediate JANET Verified 01/26/21 13:17 BEBETO SYNDROME Home Medications Medication Instructions Recorded Confirmed Type multivitamin 1 tab PO DAILY 04/08/19 01/26/21 History epinephrine 0.3 mg/0.3 mL 0.3 mg IM ONCE PRN #2 ea 07/07/19 01/26/21 History injection, auto-injector albuterol sulfate 2 puffs INH QID PRN #18 gm 12/10/19 01/26/21 Rx aspirin 81 mg PO DAILY #30 tab 12/25/20 01/26/21 Rx clopidogrel [Plavix] 75 mg PO DAILY #30 tab 12/25/20 01/26/21 Rx nitroglycerin 0.4 mg SUBLINGUAL .prn #30 tab 12/25/20 01/26/21 Rx ezetimibe 10 mg tablet 10 mg PO DAILY #30 tab 01/14/21 01/26/21 Rx Past Med/Surg History Medical History Asthma Atrial fibrillation Ufhaoov-Wnspa-Afokk disease type 2 Coronary artery disease Hiatal hernia Myocardial Infarction Osteoarthritis Right knee DJD Sleep apnea TMJ (temporomandibular joint disorder) Urinary leakage Surgical History History of arthroscopy of left knee History of cardiac cath History of cholecystectomy History of colonoscopy History of esophagogastroduodenoscopy (EGD) History of foot surgery History of heart artery stent History of hysterectomy History of lumbar spinal fusion History of thoracic spinal fusion History of tooth extraction History of tubal ligation Hx of left cataract extraction Slow to wake up after anesthesia Stented coronary artery Family History Mother Family history of diabetes mellitus Brother Family history of diabetes mellitus Grandmother (Maternal) Family history of diabetes mellitus Other Family history non-contributory Social History Smoking Status: Never smoker Second Hand Exposure: No; Hx Alcohol Use: Yes Alcohol type: wine Hx Substance Use: No Preferred Language: Turkish Communication Ability: Effective Photo Optics Technician Required: No Beliefs That Will Affect Care: None marital status: Current Living Situation: Spouse Other Information That Helps Us Care for You: No Feels Safe at Home: Yes Assistive Devices: Cane and Contacts Review of Systems Review of Systems: All systems reviewed & are unremarkable except as noted in HPI & below Physical Exam Constitutional: WD/WN, vitals as above Eyes: + anicteric sclerae; normal pupil size ENMT: external ear and nose normal, oropharynx normal Neck: trachea midline, no thyromegaly Respiratory: normal respiratory effort, lungs clear to auscultation Cardiovascular: RRR, no murmur, no edema Chest (Breasts): Chest: normal inspection of chest (Chest pain nonreproducible on palpation) Gastrointestinal (Abdomen): normal bowel sounds, soft, nontender, no hepatosplenomegaly Musculoskeletal: no cyanosis or clubbing, extremities motor strength 5/5 Skin: no rashes, warm and dry Neurologic: moves all extremities and awake; not confused Psychiatric: A+Ox3, euthymic affect Genitourinary: no CVA tenderness Results & Data Results & Data ([facility]) Vital Signs (Past 12 Hours) Vital Signs Temp Pulse Pulse Resp BP BP Pulse Ox 01/26/21 13:22 86 20 129/81 96 01/26/21 12:23 99 H 18 95 01/26/21 12:10 99 H 20 157/85 H 96 01/26/21 12:02 36.5 C 84 20 157/74 H 95 Diagnostic Findings XR chest 1V portable IMPRESSION: No active disease in the chest. Medications Administered ER medications given: Nitroglycerin 0.4 mg sublingual Nitroglycerin 2% 0.5 inch ECG Indication: chest pain Rate (beats per minute): 76 Rhythm: normal sinus Findings: no acute ischemic change Comparison ECG Date: from (December 25, 2020) Change: no significant change Code Status & VTE Plan Code Status Full VTE Prophylaxis Plan VTE Prophylaxis will be ordered: Yes PG Care Time/CCT Total # of Minutes Spent Total Time Spent with Patient: Total time spent is greater than 50% in coordination of care (as documented) at patient's floor/unit and/or counseling patient: Coding Level of Care Code 59653 OBS Care - Level 3 Diagnoses Unstable angina I20.0 S/P coronary artery stent placement Z95.5 Chest pain R07.9 Chest pain type: unspecified Hyperlipidemia E78.5 Oapbejx-Jydix-Kijyi disease type 2 G60.0 (1) Chest pain Chest pain type: unspecified Qualified Code(s): R07.9 - Chest pain, unspecified
[2021-01-26] MEDS: Heparin IV Adult Wt-Based Low-Dose WITH Bolus Protocol IV SCH ×5 (14:19→17:01)
[2021-01-26] MEDS ORDERED: ACETAMINOPHEN 325 MG TAB PO PRN (16:11)
[2021-01-26] MEDS ORDERED: ONDANSETRON INJ 2 MG/ML 2 ML VIAL IV PRN (16:11)
[2021-01-26] MEDS ORDERED: POLYETHYLENE (MIRALAX) 17 GM PACK PO PRN (16:11)
--- NOTE | 2021-01-26 18:24 | Cardiology Consultation ---
Date of Consultation January 26, 2021 Assessment & Plan (1) Unstable angina: (2) Chest pain: (3) Coronary artery disease: (4) S/P coronary artery stent placement: (5) HLD (hyperlipidemia): ASSESSMENT/PLAN: 1. Unstable angina/chest pain: Her symptoms are concerning for angina given crescendo pattern and feeling the same as her prior angina that resolved with PCI. She also has reproducible chest pain on exam that is likely noncardiac. We discussed further ischemic evaluation as she is currently scheduled for a dobutamine stress echo in the office tomorrow versus cardiac catheterization. Cardiac catheterization was considered and discussed in detail to definitively evaluate her coronary arteries and recent stent. Fortunately, initial ECG was unremarkable and initial troponin was negative. Repeat ECG. NPO after midnight for testing tomorrow. Currently angina free. Her presentation will be discussed with her primary stock repairer tomorrow (Dr. Casillas). She is on heparin drip. Continue dual anti-platelet therapy. Intolerant to statin. Has not tolerated beta-tanner many years ago. Has not tolerated calcium channel tanner. Could consider nitrate therapy for recurrent symptoms. No indication for urgent cardiac catheterization. 2. CAD s/p OM1 and RCA PCI: Currently angina free. Trend troponins. Repeat ECG. Dual anti-platelet therapy. On heparin drip. Has not tolerated statin therapy, beta-tanner, or calcium channel tanner therapy. 3. Dyslipidemia: Has not tolerated statin therapy. Currently tolerating Zetia, which was recently started in the outpatient setting. 4. Disposition: Cardiology will continue to follow. Will discuss her care with her primary stock repairer, Dr. Casillas. Highly complex medical issues. Thank you for allowing me to participate in the care of your patient. Please call for any other questions or concerns. Sincerely, Guy Garza M.D. History of Present Illness Reason for Consultation: Unstable angina Requesting Physician: Vito Hancock MD Attending Physician: Vito Hancock MD History of Present Illness Mrs. Pham is a very pleasant 75-year-old female with history significant for CAD s/p OM1 and RCA PCI, dyslipidemia, asthma, and Ywxsymc-Xelmc-Cminl. Her primary stock repairer is Dr. Casillas. She has previously undergone OM1 PCI in the past and most recent PCI on 12/24/2020, involving PCI to her mid RCA when she presented with NSTEMI. She felt very well for 1 week following PCI and then started developing the same symptoms that she had prior to her PCI. The symptoms included exertional substernal chest discomfort with radiation to the left side of her chest which initially was a burning sensation until more recently this morning when it felt more as though there was a lump on her chest. Her exertional symptoms have been progressively worsening. She also has noted associated shortness of breath and on occasion nausea but no diaphoresis. Today, the pain radiated to her left axilla and otherwise has occasionally radiated to her back. She took n itroglycerin this morning which improved her symptoms but did not resolve them but a second nitroglycerin in the emergency department resolved her angina completely. Symptoms are now occurring with light exertion as they did this morning. She had some symptoms yesterday at rest. Her chest discomfort has been resolving within a few minutes in general. She states that she has been very discouraged by her symptoms and she is worried in general. She nearly became tearful on a few occasions while discussing this. She also recalls having night sweats prior to her RCA PCI which completely resolved following PCI until the past 7 days when she has had 3 nights of diaphoresis, not associated with chest discomfort however. She underwent stress testing as an outpatient on 01/20/2021 but had poor exercise tolerance, exercising 3 minutes and experiencing chest discomfort. There was concern that perhaps the lateral wall did not augment appropriately on one view and further testing was planned for tomorrow, namely dobutamine stress echo. Because of her symptoms this morning however she called the cardiology office and was referred to come to the emergency department. She denies melena, hematochezia, hematuria, abdominal pain, diarrhea, syncope, near-syncope, or worsening edema. She did have some palpitations yesterday. Review of systems: As above. Review of systems otherwise negative/unremarkable. Family history: Positive CAD. Social history: Denies tobacco or alcohol abuse. She lives at home with her who is a cloth bleaching range operator chief. She has 4 children and 4 stepchildren. Many grandchildren. She was unaccompanied in her hospital room. Allergies Allergy/AdvReac Type Severity Reaction Status Date / Time cefaclor Allergy Intermediate Hives Verified 01/26/21 13:17 gluten Allergy Intermediate Gastrointestinal Verified 01/26/21 13:17 Upset Penicillins Allergy Intermediate Hives Verified 01/26/21 13:17 strawberry Allergy Intermediate Anaphylaxis Verified 01/26/21 13:17 Sulfa (Sulfonamide Allergy Intermediate Hives Verified 01/26/21 13:17 Antibiotics) moxifloxacin Allergy Unknown CAN'T Verified 01/26/21 13:17 REMEMBER nitrofurantoin Allergy Unknown CAN'T Verified 01/26/21 13:17 REMEMBER tetracycline Allergy Unknown CAN'T Verified 01/26/21 13:17 REMEMBER adhesive Allergy Redness of Verified 01/26/21 13:17 Skin ceftaroline fosamil AdvReac Severe WHITE Verified 01/26/21 13:17 BLOOD COUNT DECREASE indomethacin AdvReac Severe UNCONSIOUS Verified 01/26/21 13:17 FOR 6 HOURS. daptomycin AdvReac Intermediate PNEUMONIA Verified 01/26/21 13:17 diphenhydramine AdvReac Intermediate SHAKING Verified 01/26/21 13:17 ALL OVER Zpkmtpr-Wvc-Spb Reductase AdvReac Intermediate MUSCLE Verified 01/26/21 13:17 Inhibitor ACHES vancomycin AdvReac Intermediate JANET Verified 01/26/21 13:17 BEBETO SYNDROME Home Medications Medication Instructions Recorded Confirmed Type multivitamin 1 tab PO DAILY 04/08/19 01/26/21 History epinephrine 0.3 mg/0.3 mL 0.3 mg IM ONCE PRN #2 ea 07/07/19 01/26/21 History injection, auto-injector albuterol sulfate 2 puffs INH QID PRN #18 gm 12/10/19 01/26/21 Rx aspirin 81 mg PO DAILY #30 tab 12/25/20 01/26/21 Rx clopidogrel [Plavix] 75 mg PO DAILY #30 tab 12/25/20 01/26/21 Rx nitroglycerin 0.4 mg SUBLINGUAL .prn #30 tab 12/25/20 01/26/21 Rx ezetimibe 10 mg tablet 10 mg PO DAILY #30 tab 01/14/21 01/26/21 Rx Patient History Medical History Asthma uses PRN INH 1xmo on avg Atrial fibrillation ONSET 40 YEARS AGO - NO MEDS - FOLLOWS W/ DR. CASILLAS Frrlyvo-Qvjys-Kxeqg disease type 2 FOLLOWS W/ DR. MATEER Coronary artery disease Hiatal hernia Myocardial Infarction 2018 Osteoarthritis Right knee DJD Sleep apnea CPAP TMJ (temporomandibular joint disorder) Urinary leakage Surgical History History of arthroscopy of left knee History of cardiac cath 06/2018 - [facility] - 1 STENT - FOLLOWS W/ DR. CASILLAS History of cholecystectomy History of colonoscopy History of esophagogastroduodenoscopy (EGD) History of foot surgery LEFT History of heart artery stent X 1 History of hysterectomy History of lumbar spinal fusion History of thoracic spinal fusion History of tooth extraction History of tubal ligation Hx of left cataract extraction Slow to wake up after anesthesia Stented coronary artery Family History Mother Family history of diabetes mellitus Brother Family history of diabetes mellitus Grandmother (Maternal) Family history of diabetes mellitus Other Family history non-contributory Social History Smoking Status: Never smoker Second Hand Exposure: No; Hx Alcohol Use: Yes Alcohol type: wine Hx Substance Use: No Preferred Language: Wolof Communication Ability: Effective 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 Alert and oriented. HEENT: Anicteric sclera. Neck: No JVD. No bruits. Normal carotid upstrokes bilaterally. Cardiac: PMI was nondisplaced. No ventricular heave. Regular. Normal S1-S2. No murmurs, rubs, or gallops. Pulmonary: Clear to auscultation bilaterally without wheezes, rales, or rhonchi. Abdomen: Soft, nontender, nondistended, with normoactive bowel sounds. No bruits noted. Extremities: 2+ radial pulses bilaterally. 2+ posterior tibialis pulses bilaterally. No significant pitting edema or cyanosis. Psychiatric: Affect appears appropriate. Chest: Tender to palpation along the left side of her chest, reproducing her chest pain described in the HPI. No obvious rash or mass in this area. Results & Data ([facility]) Vital Signs (Past 12 Hours) Vital Signs Temp Pulse Pulse Resp BP BP Pulse Ox 03/17/21 15:35 36.8 C 78 69 18 134/74 96 01/26/21 14:20 73 20 115/70 97 01/26/21 13:22 86 20 129/81 96 01/26/21 12:23 99 H 18 95 01/26/21 12:10 99 H 20 157/85 H 96 01/26/21 12:02 36.5 C 84 20 157/74 H 95 Laboratory Results Laboratory Results - last 24 hr 01/26/21 01/26/21 01/26/21 12:20 12:20 12:20 WBC 6.57 RBC 4.58 Hgb 13.8 Hct 40.4 MCV 88.2 MCH 30.1 MCHC 34.2 RDW Std Deviation 46.8 H RDW Coeff of Ramesh 14.4 Plt Count 239 MPV 9.7 Immature Gran % (Auto) 0.0 Neut % (Auto) 58.0 Lymph % (Auto) 28.6 [place] % (Auto) 9.1 Eos % (Auto) 4.0 Baso % (Auto) 0.3 Neut # (Auto) 3.81 Lymph # (Auto) 1.88 [place] # (Auto) 0.60 H Eos # (Auto) 0.26 Baso # (Auto) 0.02 Immature Gran # (Auto) 0.00 PT 9.8 INR 1.0 APTT 26.0 PTT Ratio 1.0 Sodium 139 Potassium 4.2 Chloride 109 H Carbon Dioxide 24 Anion Gap 6.0 BUN 17 Creatinine 0.80 Est Cr Clr Drug Dosing 57.4 Est GFR ( Amer) 82.4 Est GFR (Non-Af Amer) 71.1 BUN/Creatinine Ratio 21.0 H Glucose 89 Calcium 9.4 Total Bilirubin 0.3 AST 13 L ALT 24 Alkaline Phosphatase 108 Troponin I < 0.015 C-Reactive Protein 0.44 H Total Protein 7.0 Albumin 3.5 Globulin 3.5 Albumin/Globulin Ratio 1.0 Lipase 115 COVID-19 Eval Order SARS-CoV-2, RNA, NAAT 01/26/21 01/26/21 12:33 12:33 WBC RBC Hgb Hct MCV MCH MCHC RDW Std Deviation RDW Coeff of Ramesh Plt Count MPV Immature Gran % (Auto) Neut % (Auto) Lymph % (Auto) [place] % (Auto) Eos % (Auto) Baso % (Auto) Neut # (Auto) Lymph # (Auto) [place] # (Auto) Eos # (Auto) Baso # (Auto) Immature Gran # (Auto) PT INR APTT PTT Ratio Sodium Potassium Chloride Carbon Dioxide Anion Gap BUN Creatinine Est Cr Clr Drug Dosing Est GFR ( Amer) Est GFR (Non-Af Amer) BUN/Creatinine Ratio Glucose Calcium Total Bilirubin AST ALT Alkaline Phosphatase Troponin I C-Reactive Protein Total Protein Albumin Globulin Albumin/Globulin Ratio Lipase COVID-19 [facility] SARS-CoV-2, RNA, NAAT NEGATIVE Diagnostic Findings Telemetry personally reviewed: No arrhythmia. Sinus rhythm. Chest x-ray 01/26/2021: No active disease in the chest per Radiology. ECG personally reviewed: ECG 01/26/2021: Sinus rhythm 76 beats per minute. Normal ECG. Exercise stress echo 01/20/2021: Possible lateral wall ischemia on only one view on stress echo imaging at 98% MPHR. Exercised 3 minutes on Carlos protocol and developed chest discomfort with exercise continuing into recovery. No significant ST changes on ECG reported. Cardiac catheterization report reviewed from 12/24/2020: Summary: 1. Severe single vessel coronary artery disease - 95% mid RCA stenosis Prior OM1 stent widely patent Diffuse proximal to mid LAD 30% disease 2. Normal intracardiac filling pressure 3. Successful PCI of mid RCA with single RIVER (3.5 x 18mm [place]; post-dilated with 4.5 NC). Medications Administered Current Inpatient Medications Acetaminophen (Acetaminophen 325 Mg Tab) 650 mg PO Q4H PRN PRN Reason: Pain or Fever Stop: 02/25/21 16:10 Last Admin: 01/26/21 16:29 Dose: 650 mg Documented by: Aspirin (Aspirin 81 Mg Ectab) 81 mg PO QAM [facility] Stop: 02/26/21 08:59 Clopidogrel Bisulfate (Clopidogrel Bisulfate 75 Mg Tab) 75 mg PO DAILY [facility] Stop: 02/26/21 08:59 Ezetimibe (Ezetimibe 10 Mg Tablet) 10 mg PO DAILY [facility] Stop: 02/26/21 08:59 Heparin Sodium/Dextrose (Heparin Sodium/Dextrose) 25,000 units in 500 mls @ 15 mls/hr IV .Q24H [facility]; Protocol Stop: 02/25/21 13:59 Last Admin: 01/26/21 16:57 Dose: 750 units/hr, 15 mls/hr Documented by: Metoprolol Tartrate (Metoprolol Tartrate 25 Mg Tab) 12.5 mg PO BID [facility] Stop: 02/25/21 20:59 Multivitamins (Multivitamin Tab) 1 tab PO DAILY [facility] Stop: 02/26/21 08:59 Nitroglycerin (Nitroglycerin Sl 0.4 Mg/Tab Tab) 0.4 mg SL UD PRN PRN Reason: Chest Pain Stop: 02/25/21 16:10 Nitroglycerin (Nitroglycerin 2% Ointment 30gm Tube) 1 inch EXT Q6 [facility] Stop: 02/25/21 17:59 Ondansetron HCl (Ondansetron Inj 2 Mg/Ml 2 Ml Vial) 4 mg IV Q6H PRN PRN Reason: Nausea Stop: 02/25/21 16:10 Polyethylene Glycol (Polyethylene (Miralax) 17 Gm Pack) 17 gm PO DAILY PRN PRN Reason: Constipation Stop: 02/25/21 16:10 PG Care Time/CCT Total # of Minutes Spent Total Time Spent with Patient: Total time spent is greater than 50% in coordination of care (as documented) at patient's floor/unit and/or counseling patient: Coding Level of Care Code 60104 Office/Outpt Visit, Est Diagnoses Unstable angina I20.0 Chest pain R07.9 Chest pain type: unspecified Coronary artery disease I25.10 S/P coronary artery stent placement Z95.5 HLD (hyperlipidemia) E78.5 Hyperlipidemia type: unspecified (1) Chest pain Chest pain type: unspecified Qualified Code(s): R07.9 - Chest pain, unspecified (2) HLD (hyperlipidemia) Hyperlipidemia type: unspecified Qualified Code(s): E78.5 - Hyperlipidemia, unspecified
[2021-01-26] MEDS: NITROGLYCERIN 2% OINTMENT 30GM TUBE EXT SCH (18:34)
[2021-01-26] MEDS: METOPROLOL TARTRATE 25 MG TAB PO SCH (21:17)
[2021-01-26 22:58] LABS: Partial Thromboplastin Ratio 1.7; Partial Thromboplastin Time 44.9 Seconds (21.0-31.0)
[2021-01-27] MEDS: NITROGLYCERIN 2% OINTMENT 30GM TUBE EXT SCH ×2 (01:28→06:49)
[2021-01-27 05:55] LABS: Partial Thromboplastin Ratio 1.8
--- NOTE | 2021-01-27 05:56 | Electrocardiogram Report ---
Test Reason : Blood Pressure : / mmHG Vent. Rate : 076 BPM Atrial Rate : 076 BPM P-R Int : 142 ms QRS Dur : 084 ms QT Int : 410 ms P-R-T Axes : 054 062 054 degrees QTc Int : 461 ms Normal sinus rhythm Normal ECG When compared with ECG of 25-DEC-2020 09:16, No significant change Confirmed by Will Garza ([id number]) on 01/27/2021 5:56:15 AM Referred By: Guzman Casillas Confirmed By:Will Garza
[2021-01-27 05:59] LABS: Partial Thromboplastin Time 47.6 Seconds (21.0-31.0)
[2021-01-27 06:02] LABS: BUN Creatinine Ratio 22.8 (10-20); Blood Urea Nitrogen 19 mg/dl (7-18); Calcium 8.7 mg/dl (8.5-10.1); Carbon Dioxide 27 mmol/L (21-32); Chloride 112 mmol/L (98-107); Creatinine Clr Calc Pharmacy 53.7 ml/min; Est GFR (African American) 76.6; Est GFR (Non-African American) 66.1; Glucose 96 mg/dl (70-99); Potassium 4.1 mmol/L (3.5-5.1); Sodium 142 mmol/L (136-145)
[2021-01-27 06:07] LABS: Troponin I < 0.015 ng/ml (0-0.045)
[2021-01-27] MEDS: METOPROLOL TARTRATE 25 MG TAB PO SCH (08:34)
[2021-01-27] MEDS ORDERED: ASPIRIN 81 MG ECTAB PO SCH (09:00)
[2021-01-27] MEDS ORDERED: CLOPIDOGREL BISULFATE 75 MG TAB PO SCH (09:00)
[2021-01-27] MEDS ORDERED: MULTIVITAMIN TAB PO SCH (09:00)
[2021-01-27] MEDS ORDERED: EZETIMIBE 10 MG TABLET PO SCH (09:00)
--- NOTE | 2021-01-27 11:02 | Cardiology Progress Note ---
Date of Service January 27, 2021 Assessment & Plan (1) Unstable angina: (2) Chest pain: (3) Coronary artery disease: (4) S/P coronary artery stent placement: (5) HLD (hyperlipidemia): ASSESSMENT/PLAN: 1. Unstable angina/chest pain: No evidence of infarction or myocardial injury based on normal markers. Episodes seem to be fairly prolonged in nature as she [place] with some element of symptoms. However, she seems quite anxious regarding her symptoms and they do appear quite alarming. Despite the absence of objective evidence of ischemia, it would seem prudent to proceed with coronary angiography for definitive evaluation. We did discuss the alternative of repeat stress testing. However, the patient and her are currently in favor of angiography. She is aware of the risks having undergone the procedure twice in the past. We will plan on proceeding later today. Continue heparin and beta-blockade. Currently on dual antiplatelet therapy. 2. CAD s/p OM1 and RCA PCI: Continue aggressive secondary prevention. In the past she has not consented to use of statins. I think she would be better served with Repatha. 3. Dyslipidemia: Has not tolerated statin therapy. Currently tolerating Zetia, which was recently started in the outpatient setting. Admission and Anticipated Discharge Date Admission Date: January 26, 2021 Subjective This morning the patient claims to be feeling well. She cannot recall any return of her symptoms over the course of the evening. She has been ambulatory to the bathroom back without symptoms of chest discomfort. Review of Systems Review of Systems: Per HPI Physical Exam Physical Exam: She is alert and oriented x3. Mood affect appear normal. She answered all questions appropriately. HEENT: Sclerae are anicteric. Pupils are equal and reactive to light and accommodation. Extraocular movements were intact. Neuro: Cranial nerves intact Lungs: Normal respiratory effort Extremities: Patient has bilateral radial pulses that are equal in intensity. There is no evidence cyanosis or clubbing. There was no evidence of significant peripheral edema bilaterally. Skin: Some erythema of the palmar aspect of the fingers on the right hand. Results & Data ([facility]) Vital Signs (Past 12 Hours) Vital Signs Temp Pulse Pulse Resp BP BP Pulse Ox 01/27/21 07:59 55 L 01/27/21 07:16 36.6 C 61 18 113/61 95 01/27/21 04:10 36.4 C L 62 18 120/70 93 01/26/21 23:45 36.4 C L 56 L 18 105/45 L 94 Laboratory Results Abnormal Lab Results 01/26/21 01/26/21 01/26/21 12:20 12:20 12:20 WBC 6.57 RBC 4.58 Hgb 13.8 Hct 40.4 MCV 88.2 MCH 30.1 MCHC 34.2 RDW Std Deviation 46.8 H RDW Coeff of Ramesh 14.4 Plt Count 239 MPV 9.7 Immature Gran % (Auto) 0.0 Neut % (Auto) 58.0 Lymph % (Auto) 28.6 [place] % (Auto) 9.1 Eos % (Auto) 4.0 Baso % (Auto) 0.3 Neut # (Auto) 3.81 Lymph # (Auto) 1.88 [place] # (Auto) 0.60 H Eos # (Auto) 0.26 Baso # (Auto) 0.02 Immature Gran # (Auto) 0.00 PT 9.8 INR 1.0 APTT 26.0 PTT Ratio 1.0 Sodium 139 Potassium 4.2 Chloride 109 H Carbon Dioxide 24 Anion Gap 6.0 BUN 17 Creatinine 0.80 Est Cr Clr Drug Dosing 57.4 Est GFR ( Amer) 82.4 Est GFR (Non-Af Amer) 71.1 BUN/Creatinine Ratio 21.0 H Glucose 89 Calcium 9.4 Total Bilirubin 0.3 AST 13 L ALT 24 Alkaline Phosphatase 108 Troponin I < 0.015 C-Reactive Protein 0.44 H Total Protein 7.0 Albumin 3.5 Globulin 3.5 Albumin/Globulin Ratio 1.0 Lipase 115 COVID-19 Eval Order SARS-CoV-2, RNA, NAAT 01/26/21 01/26/21 01/26/21 12:33 12:33 22:21 WBC RBC Hgb Hct MCV MCH MCHC RDW Std Deviation RDW Coeff of Ramesh Plt Count MPV Immature Gran % (Auto) Neut % (Auto) Lymph % (Auto) [place] % (Auto) Eos % (Auto) Baso % (Auto) Neut # (Auto) Lymph # (Auto) [place] # (Auto) Eos # (Auto) Baso # (Auto) Immature Gran # (Auto) PT INR APTT 44.9 H PTT Ratio 1.7 Sodium Potassium Chloride Carbon Dioxide Anion Gap BUN Creatinine Est Cr Clr Drug Dosing Est GFR ( Amer) Est GFR (Non-Af Amer) BUN/Creatinine Ratio Glucose Calcium Total Bilirubin AST ALT Alkaline Phosphatase Troponin I C-Reactive Protein Total Protein Albumin Globulin Albumin/Globulin Ratio Lipase COVID-19 Eval [facility] SARS-CoV-2, RNA, NAAT NEGATIVE 01/26/21 01/27/21 01/27/21 22:21 05:23 05:23 WBC RBC Hgb Hct MCV MCH MCHC RDW Std Deviation RDW Coeff of Ramesh Plt Count MPV Immature Gran % (Auto) Neut % (Auto) Lymph % (Auto) [place] % (Auto) Eos % (Auto) Baso % (Auto) Neut # (Auto) Lymph # (Auto) [place] # (Auto) Eos # (Auto) Baso # (Auto) Immature Gran # (Auto) PT INR APTT 47.6 H* PTT Ratio 1.8 Sodium 142 Potassium 4.1 Chloride 112 H Carbon Dioxide 27 Anion Gap 3.0 BUN 19 H Creatinine 0.85 Est Cr Clr Drug Dosing 53.7 Est GFR ( Amer) 76.6 Est GFR (Non-Af Amer) 66.1 BUN/Creatinine Ratio 22.8 H Glucose 96 Calcium 8.7 Total Bilirubin AST ALT Alkaline Phosphatase Troponin I < 0.015 < 0.015 C-Reactive Protein Total Protein Albumin Globulin Albumin/Globulin Ratio Lipase COVID-19 Eval Order SARS-CoV-2, RNA, NAAT PG Care Time/CCT Total # of Minutes Spent Total Time Spent with Patient: Total time spent is greater than 50% in coord ination of care (as documented) at patient's floor/unit and/or counseling patient: Coding Level of Care Code 22142 Subseq Obs Care Lvl 2 Diagnoses Unstable angina I20.0 Chest pain R07.9 Chest pain type: unspecified Coronary artery disease I25.10 S/P coronary artery stent placement Z95.5 HLD (hyperlipidemia) E78.5 Hyperlipidemia type: unspecified (1) Chest pain Chest pain type: unspecified Qualified Code(s): R07.9 - Chest pain, unspecified (2) HLD (hyperlipidemia) Hyperlipidemia type: unspecified Qualified Code(s): E78.5 - Hyperlipidemia, unspecified
[2021-01-27] MEDS ORDERED: SODIUM CHLORIDE 0.9% 1000ML 1,000 ML IV SCH (11:15)
[2021-01-27] MEDS ORDERED: HEPARIN (PORCINE) 1000 UNIT/ML 10 ML (CATH LAB USE ONLY) ONE (13:35)
[2021-01-27] MEDS ORDERED: MIDAZOLAM HCL 1 MG/ML 2ML VIAL ONE (13:35)
[2021-01-27] MEDS ORDERED: niCARdipine HCL INJ 2.5 MG/ML 10 ML AMP ONE (13:35)
[2021-01-27] MEDS ORDERED: fentaNYL citrate 100 MCG/2 ML VIAL ONE (13:36)
[2021-01-27] MEDS ORDERED: NITROGLYCERIN/D5W 100MCG/ML 20ML SYR ONE (13:36)
--- NOTE | 2021-01-27 13:50 | Pre Anesthesia Assessment ---
Date of Service January 27, 2021 Pre Sedation Assessment Vital Signs Temp Pulse Pulse Resp BP BP Pulse Ox 01/27/21 13:29 53 L 18 128/70 93 01/27/21 07:59 55 L 01/27/21 07:16 36.6 C 61 18 113/61 95 01/27/21 04:10 36.4 C L 62 18 120/70 93 01/26/21 23:45 36.4 C L 56 L 18 105/45 L 94 01/26/21 22:00 57 L 01/26/21 20:00 36.4 C L 93 H 16 133/75 95 01/26/21 15:35 36.8 C 78 69 18 134/74 96 01/26/21 14:20 73 20 115/70 97 Cardiovascular + regular rate Respiratory + respiratory effort normal Pre-Sedation Airway Assessment Smoking Status: Never smoker Hx Sleep Apnea: Yes Hx Difficult Intubation: No Short, Thick Neck: No Thyromental Distance: > or= 3.5 Finger Breadths Oral Cavity: + WNL Mallampati Class: III ASA: ASA2 NPO Status Date of Last Intake of Fluids: 01/27/21 Time of Last Intake of Fluids: 07:00 Date of Last Intake of Solid Food: 01/26/21 Time of Last Intake of Solid Foods: 19:00 Procedure Planning Contraindications for Sedation: none Current Medications Reviewed: Yes Notes The planned sedation has been discussed with the patient. Informed Consent was obtained. I have identified the patient, determined the appropriateness of sedation and have assessed the patient immediately prior to the procedure. All medicine(s) and interventions are by my order.
--- NOTE | 2021-01-27 14:17 | Cardiac Catheterization ---
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 Cardiac Status Clinical evaluation leading to the procedure CAD Presenation: Positive Stress Test Diagnostic Physicians Name: Osiel Casillas MD Closure Device Recommendations: Medical Therapy and/or Counseling Cardiac Cath Procedure Full Procedure Date January 27, 2021 Pre-Procedure Diagnosis Pre-Procedure Diagnosis: Positive Stress Test AUC Score AUC Score: 7 Post-Procedure Diagnosis Post-Procedure Diagnosis: Mild CAD and Normal Intracardiac Pressures Procedure(s) Performed Procedure(s) Performed: Coronary Angiography and Left Heart Cath Structural Rigger Osiel Casillas MD Estimated Blood Loss Estimated Blood Loss: 7cc Medication(s) Medication(s): Fentanyl, Heparin, Lidocaine 1%, Nicardipine, Nitroglycerin and Versed Summary of Findings Procedure performed: Left heart catheterization, selective coronary angiography Staff quality eng: Osiel Casillas MD Indication: The patient is a 75-year-old woman with a prior history of coronary disease having previously undergone percutaneous intervention on 2 occasions. She has been having progressive dyspnea and chest pain on exertion. She had an outpatient exercise treadmill test which was not entirely normal. She presented to the hospital with accelerating symptoms and was advised to consider coronary angiography. Procedure detail The patient was informed of the risk benefits and alternatives to the intended procedure. She understood and wished to proceed. She was taken to the cardiac catheterization suite in a fasting state. Conscious sedation was administered per protocol and the patient was monitored electrocardiographically throughout today's procedure. The right radial area is prepped and draped in usual sterile fashion. This area was anesthetized using subcutaneous ministration of a lidocaine solution. The right radial artery was accessed using Seldinger technique and a sheath was placed over guidewire at this site. The sheath was used to facilitate passage of the cardiac catheter for selective coronary angiography and left heart catheterization. Images were obtained in multiple orthogonal views prior to removal of the catheter and sheath. Hemostasis was achieved at the access site using manual pressure. The patient tolerated procedure well. There were no immediate complications. Equipment used: 5 [employer] Draper 4 Findings: Coronary angiography Left main: Left main was very short and there was nearly dual ostial physiology. No significant disease in this vessel. It did bifurcate normally into the left anterior descending and left circumflex arteries. Left anterior descending colon left anterior descending was a normal sized transapical vessel. It produced a small first and second diagonal branch and some diminutive additional diagonal branches. There was approximately 30% lesion in its proximal portion near the takeoff of the first diagonal branch. First diagonal branch was small but had approximately 50% stenosis in its proximal portion. No other disease in this vessel. Left circumflex: Left circumflex artery was a nondominant vessel. There was a prior stent in the first OM branch. This was widely patent. There was at most a 50% stenosis at the origin of the second obtuse marginal. Right coronary artery: The right coronary artery had previously placed stents in its proximal portion. There were luminal irregularities throughout the stented portion of the proximal right coronary artery. No discrete or flow-limiting lesions. There was a large PLB and PDA branch. No lesions in this distribution. Impression: Right dominant coronary system Patent stents in the right coronary and first obtuse marginal branches Branch vessel disease No acute coronary syndrome or flow-limiting stenosis in the major epicardial vessels Normal intracardiac pressures Hemodynamics Rest Ao:: 118/61 mmHg Final Ao: 149/6 mmHg LV: 141/1 mmHg Left ventricular end-diastolic pressure 14 mmHg Recommendations Recommendations: Medical Therapy and/or Counseling Radiation Exposure (mGy) 660 Contrast (mls) 45 Procedural Complication(s) None Disposition PCU I attest to the content of the Intraoperative Record and any orders documented therein. Any exceptions are noted below. [facility] Card Cath Procedure Codes Cardiac Catheterization Procedure 1: Cardiovascular Cath Procedures: 64111 Coronaries and LHC (+/-LV) Moderate Sedation Procedure 2: Sedation/Anesthesia: 44173 Mod Sedation by the same physician;Init15 Min Child Age 5 & Up Procedure 1: Sedation/Anesthesia: 55140 Mod Sedation by the same physician; Ea [id number] Minutes PG Care Time/CCT Total # of Minutes Spent Total Time Spent with Patient: Total time spent is greater than 50% in coordination of care (as documented) at patient's floor/unit and/or counseling patient:
--- NOTE | 2021-01-27 14:18 | Post Anesthesia Assessment ---
Date of Service January 27, 2021 Post Sedation Assessment Vital Signs Temp Pulse Pulse Resp BP BP Pulse Ox 01/27/21 13:29 53 L 18 128/70 93 01/27/21 07:59 55 L 01/27/21 07:16 36.6 C 61 18 113/61 95 01/27/21 04:10 36.4 C L 62 18 120/70 93 01/26/21 23:45 36.4 C L 56 L 18 105/45 L 94 01/26/21 22:00 57 L 01/26/21 20:00 36.4 C L 93 H 16 133/75 95 01/26/21 15:35 36.8 C 78 69 18 134/74 96 01/26/21 14:20 73 20 115/70 97 Recovery Score Activity: Moves 4 extremities Respiration: Deep Breath/Cough Circulation: +/-20% PreAnes Value Consciousness: Fully Awake Oxygen Saturation: > 92% On Room Air Discharge Sedation Level of Care: Fast Track Phase II Post Sedation Plan On clinical assessment, the patient appears to have tolerated the sedation without complications. Patient is recovering as anticipated. Patient will continue to be monitored by nursing and may be discharged when sedation discharge criteria are met per below protocol. Upon Completions of procedure up to 15 minutes continue every 5 minute vital signs and the P.A.R. score; then discharge to a Phase I or Fast Track to Phase II per the following guidelines: * Discharge Patient to appropriate Phase II area if PAR is 8 or greater or return to pre- procedure baseline. The post - procedure orders will be as directed. * If PAR score is less than 8 or not return to pre-procedure baseline then patient will follow Phase I monitoring till PAR is reached for Phase II. The Phase I may be done in procedure room or may call to secure a Phase I area. * If naloxone or flumazenil are used for reversal, hold in Phase I for continued monitoring from when last reversal dose was given for a minimum of 60 minutes or longer pending the nurse and/or physician discretion of patient condition before discharge to Phase II. Please call the Sedation Physician to re-evaluate and complete post-note for discharge to Phase II area. Do NOT discharge from procedure sedation or Phase 1 until post- sedation evaluation note is complete by procedure /sedation MD Sedation Discharge Instructions to be given to the patient at discharge to home.
--- NOTE | 2021-01-27 16:56 | Discharge Summary ---
Date of Service January 27, 2021 Admission HPI Per Admitting Provider Beth Pham is a 75-year-old female with recent NSTEMI s/p PCI to RCA (prior OM1 stent widely patent) in December this year who presents to the ER with chest pain and shortness of breath. Following her cardiac cath and subsequent stents placement she felt much improved for the following week. 40 after this she has been getting increasing chest pain, fatigue and shortness of breath on exertion. She followed up with her pressure testing technician to arrange a stress EKG however this was nondiagnostic as she is already managed a few minutes on the treadmill. Plan had been to perform a dobutamine stress echo tomorrow. However, this morning while doing normal activities around the house she develops substernal chest pain which radiated to her left axilla. Improved with nitroglycerin but given ongoing pain she decided to come to the ER for further evaluation. In the ER EKG showed no acute ischemic change and initial troponin negative. However given similar chest pain to a prior NSTEMI remains concern for unstable angina. She is currently chest pain-free after nitroglycerin paste placed in ER. She was referred to medicine for admission ongoing management of unstable angina. Principal Diagnosis q Discharge Exam Right radial access area with palpable pulse. No hematoma. Good perfusion of the right hand. Discharge Data Allergies Allergy/AdvReac Type Severity Reaction Status Date / Time cefaclor Allergy Intermediate Hives Verified 01/26/21 13:17 gluten Allergy Intermediate Gastrointestinal Verified 01/26/21 13:17 Upset Penicillins Allergy Intermediate Hives Verified 01/26/21 13:17 strawberry Allergy Intermediate Anaphylaxis Verified 01/26/21 13:17 Sulfa (Sulfonamide Allergy Intermediate Hives Verified 01/26/21 13:17 Antibiotics) moxifloxacin Allergy Unknown CAN'T Verified 01/26/21 13:17 REMEMBER nitrofurantoin Allergy Unknown CAN'T Verified 01/26/21 13:17 REMEMBER tetracycline Allergy Unknown CAN'T Verified 01/26/21 13:17 REMEMBER adhesive Allergy Redness of Verified 01/26/21 13:17 Skin ceftaroline fosamil AdvReac Severe WHITE Verified 01/26/21 13:17 BLOOD COUNT DECREASE indomethacin AdvReac Severe UNCONSIOUS Verified 01/26/21 13:17 FOR 6 HOURS. daptomycin AdvReac Intermediate PNEUMONIA Verified 01/26/21 13:17 diphenhydramine AdvReac Intermediate SHAKING Verified 01/26/21 13:17 ALL OVER Hubwfcf-Rub-Nup Reductase AdvReac Intermediate MUSCLE Verified 01/26/21 13:17 Inhibitor ACHES vancomycin AdvReac Intermediate JANET Verified 01/26/21 13:17 BEBETO SYNDROME Consultations 01/26/21 13:35 ED Decision to Admit Stat 01/26/21 13:57 Consult Cardiology Routine Procedures Performed Operation Date: 01/27/21 13:00 Actual Procedures p Cath, Left with Cors and Vent - Guzman Casillas MD s Cineradiography w/Routine Exam - Guzman Casillas MD Ordered Studies 01/27/21 13:40 CL Cath Imgs for PACS use only Stat Hospital Course (1) Unstable angina: (2) Chest pain: (3) Coronary artery disease: (4) S/P coronary artery stent placement: (5) HLD (hyperlipidemia): On the day of admission the patient was started on a heparin infusion and beta- blockade. Topical nitroglycerin was also placed with relief of her symptoms. Serum studies did not reveal any evidence of myocardial infarction or myocardial injury. On the morning following her admission the patient did undergo repeat coronary angiography using right radial approach. This demonstrated patent stents and no new stenoses. The procedure was uncomplicated. The patient tolerated procedure well. It was felt that perhaps small-vessel disease could be contributing to her symptoms. In any event she seemed to have relief with use of nitroglycerin and I felt that perhaps a daily perforation would improve her symptoms. Will also refer her for cardiac rehab. Total Time Total Time Spent Total Time Spent (In Minutes): 10 Discharge Plan Discharge Items Patient Disposition: Home - Self-Care Reason For Visit: CHEST PAIN RULE OUT IN Discharge Diagnosis: Atypical chest pain Activity: Resume your previous activity Lifting: No more than 5 pounds Lifting Comment: No vigorous use of right wrist for 1 week Bathing: No limitations Driving/Machine Use: Resume 1 day after discharge Non-emergency contact: Skin Lap Bonder Call non-emergency contact if: you have any medication questions Follow-up/Referrals: Jesus Membreno MD [Primary Care Provider] - Diet: Gluten Free and Heart Healthy Addtl Attending Provider Instructions: No vigorous use of right wrist or lifting over 5 lb with right hand for 1 week Pending Studies at Discharge: No Stand-Alone Forms: DuraFizz, Smoking Cessation Medications and DC Order Prescriptions: New isosorbide mononitrate 30 mg tablet extended release 24 hr 30 mg PO QAM Qty: 30 RF: 3 Continued ezetimibe [Zetia] 10 mg tablet 10 mg PO DAILY Qty: 30 RF: 2 epinephrine 0.3 mg/0.3 mL auto-injector 0.3 mg IM ONCE PRN (Reason: anaphylaxis) Qty: 2 RF: 0 multivitamin Tablet 1 tab PO DAILY RF: 0 albuterol sulfate 90 mcg/actuation HFA aerosol inhaler 2 puffs INH QID PRN (Reason: shortness of breath or wheezing) Qty: 18 RF: 0 aspirin 81 mg tablet,chewable 81 mg PO DAILY Qty: 30 RF: 0 clopidogrel [Plavix] 75 mg tablet 75 mg PO DAILY Qty: 30 RF: 0 nitroglycerin 0.4 mg tablet, sublingual 0.4 mg sublingual .prn Qty: 30 RF: 0 Discharge Orders: Discharge Order (Routine); Ordered 01/27/21 Ordered By: Guzman Casillas Admission Data Admit Date/Time: 01/26/21 14:02 Attending Provider: Damaso Moura Admit Provider: Vito Hancock Primary Care Provider: Jesus Membreno Other Providers: Vito Hancock ; Will Garza Coding Level of Care Code 13688 OBS Care - Discharge Diagnoses Unstable angina I20.0 Chest pain R07.9 Chest pain type: unspecified Coronary artery disease I25.10 S/P coronary artery stent placement Z95.5 HLD (hyperlipidemia) E78.5 Hyperlipidemia type: unspecified
--- NOTE | 2021-01-27 18:36 | Hospitalist Progress Note ---
Date of Service January 27, 2021 Assessment & Plan (1) Unstable angina: N.p.o. 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 Moura Patient seen in bedside chair with her present. No further chest pain or tightness. No radiating pain in arm, jaw, or shoulder. No n/v. Anxious about cardiac cath but feels as though she "needs answers". No acute complaints Review of Systems Review of Systems: All systems reviewed & are unremarkable except as noted in Subjective Physical Exam Physical Exam: GENERAL : No acute distress. Pleasant EYES: No icterus, gaze conjugate. Pupils equal round and reactive to light NOSE: No evidence of epistaxis. MOUTH: No lesions or candidiasis. Mucosa moist NECK: Supple. No carotid bruits LUNGS: CTA B/L, no wheezes, rales or rhonchi. Good inspiratory effort with no induced cough. No conversational dyspnea HEART: Regular, rate controlled. No appreciation of murmurs gallops or rubs. No ectopy appreciated ABDOMEN: Soft, NT, ND, BS Present. No rebound tenderness or guarding EXTREMITIES: No LE edema, pedal pulses intact.Well-healed surgical scar on left foot from CMT. Good sensation to both feet.Good capillary refill. NEURO: A&OX3 Results & Data Results & Data ([facility]) Vital Signs (Past 12 Hours) Vital Signs Temp Pulse Pulse Resp BP BP Pulse Ox 01/27/21 17:13 36.6 C 63 18 120/70 116/63 93 01/27/21 15:49 36.6 C 63 18 116/63 93 01/27/21 15:02 95 H 01/27/21 14:48 36.5 C 64 16 124/69 93 01/27/21 14:40 52 L 18 128/61 98 01/27/21 14:25 51 L 18 128/61 97 01/27/21 13:29 53 L 18 128/70 93 01/27/21 07:59 55 L 01/27/21 07:16 36.6 C 61 18 113/61 95 Laboratory Results 01/26/21 12:20 01/26/21 01/26/21 01/27/21 12:20 22:21 05:23 Troponin I < 0.015 < 0.015 < 0.015 01/27/21 05:23 INR 1.0 (0.9-1.1) 01/26/21 12:20 PG Care Time/CCT Total # of Minutes Spent Total Time Spent with Patient: Total time spent is greater than 50% in coordination of care (as documented) at patient's floor/unit and/or counseling patient:30 minutes Coding Level of Care Code 53184 Subseq Hosp Care Lvl 2 Diagnoses Unstable angina I20.0 Acute coronary syndrome I24.9 HLD (hyperlipidemia) E78.5 Hyperlipidemia type: unspecified Qryffjz-Zgwhh-Yerdh disease type 2 G60.0 Asthma J45.909 Asthma persistence: unspecified Asthma complication type: unspecified Time Spent (min) 30 (1) HLD (hyperlipidemia) Hyperlipidemia type: unspecified Qualified Code(s): E78.5 - Hyperlipidemia, unspecified (2) Asthma Asthma persistence: unspecified Asthma complication type: unspecified
--- NOTE | 2021-01-28 05:29 | Electrocardiogram Report ---
Test Reason : Blood Pressure : / mmHG Vent. Rate : 075 BPM Atrial Rate : 075 BPM P-R Int : 138 ms QRS Dur : 086 ms QT Int : 386 ms P-R-T Axes : 066 071 037 degrees QTc Int : 431 ms Normal sinus rhythm Nonspecific T wave abnormality Abnormal ECG When compared with ECG of 26-JAN-2021 12:08, Nonspecific T wave abnormality, worse in Inferolateral leads Confirmed by Will Garza ([id number]) on 01/28/2021 5:29:30 AM Referred By: Guzman Casillas Confirmed By:Will Garza
== END 2021-01-27 18:00 | disposition home or self-care (01) ==
LOC: ED 11:57 → 2S 11:57 → SUATTDRO 14:02 → 2S 14:56

== ENCOUNTER 2022-01-25 11:56 | Observation (INO) ==
[2022-01-25 12:30] LABS: Basophils # (auto) 0.02 K/uL (0-0.2); Basophils % (auto) 0.3 %; Eosinophils # (auto) 0.06 K/uL (0-0.5); Eosinophils % (auto) 0.9 %; Hematocrit (blood only) 42.2 % (37-47); Hemoglobin 13.7 g/dL (12.0-16.0); Immature Granulocytes # (auto) 0.01 K/uL (0.00-0.02); Immature Granulocytes % (auto) 0.1 %; Lymphocytes # (auto) 2.11 K/uL (1.2-3.4); Lymphocytes % (auto) 30.2 %; Mean Corpuscular Hemoglobin 30.2 pg (25-34); Mean Corpuscular Hgb Conc 32.5 g/dL (32-36); Mean Platelet Volume 9.7 fL (7.4-10.4); Monocytes # (auto) 0.75 K/uL (0.11-0.59); Monocytes % (auto) 10.7 %; Neutrophils # (auto) 4.03 K/uL (1.4-6.5); Neutrophils % (auto) 57.8 %; Platelet Count 214 K/uL (130-400); RDW Coefficient of Variation 14.6 % (11.5-14.5); RDW Standard Deviation 49.3 fL (36.4-46.3); Red Blood Count 4.54 M/uL (4.2-5.4); White Blood Count 6.98 K/uL (4.8-10.8)
[2022-01-25] MEDS ORDERED: OPTIRAY 320 125ml IV ONE (12:33)
--- NOTE | 2022-01-25 12:40 | Emergency Department Note ---
Impression & Plan Stroke-like symptoms ED Provider Note INFORMANT: Patient and ED PROVIDER(S): Lars Gómez MD CHIEF COMPLAINT: Left leg weakness PLAN: Disposition: Admitted Condition: Good Outpatient prescription management: none Referral: None MEDICAL DECISION MAKING: Patient was evaluated promptly on arrival. She was made a stroke alert given the neurologic symptoms. Last known well time would have been 8:30 AM at the onset of her anesthesia. At this point she is about 4 hours and 15 minutes into her possible neurologic event given the time under anesthesia. Symptoms are present upon waking. She was sent emergently for CT imaging including angiography. The patient had a consultation placed with Ashley rushstduyen, Dr. Ortiz. Case was discussed. Her NIH stroke scale is 1 at this point in time. Given the low stroke scale and recent surgery TNKase was not recommended. Patient will be evaluated by telestroke. She was reassessed prior to telestroke evaluation and was already feeling improvement of the left leg symptoms. On further reassessment the patient's symptoms appeared to have resolved. Telestroke recommended admission for neurologic work-up. The patient and were informed. Consultation was made with Dr. Barton of the [facility] service. Patient was evaluated in the ER for further management. Triage Nursing notes reviewed and agree them. Vital Signs: reviewed and remarkable for mild hypertension and tachycardia upon presentation. Differential diagnosis: CVA, TIA, complication of anesthesia, infection, dehydration, metabolic abnormality, hypo/hyperglycemia, electrolyte disturbance, anemia, hypoxia, cardiac sources, intracerebral event, toxicologic, neurologic, as well as other pathologies. Diagnostics interpreted by me: ECG: [none] Cardiac Monitoring: Cardiac monitoring ordered by me: The patient was placed on continuous cardiac monitoring and observed. It revealed a normal sinus rhythm at 99 beats per minute without ectopy or evidence of dysrhythmia. Imaging studies: CT of the head and CT angiography of the head and neck were negative for acute pathology per radiology. HPI: The patient is a 76 year old female who presents to the Emergency Room with complaints of left leg weakness. This started 1 hour and 15 minutes ago and is persisting. The patient was undergoing surgery on her right foot for CMT related issues. She has a history of difficulty waking from anesthesia. Anesthesia noted she also had a history of issues with motor and sensory issues after anesthesia. They were unsure if she was having a CVA or anesthesia related issue and she was sent to the ER for further evaluation. She was also complaining of a headache, slight chest pain, and her blood pressure was elevated. She routinely has normal blood pressure. She does have a history of back related issues but never had any problems with leg flexion at the hip. Pt denies LOC, fevers, chills, diaphoresis, visual changes, neck pain, breathing difficulties, nausea, vomiting, abdominal pain, back pain, melena, hematochezia, urinary symptoms, rash, or other complaints. ROS: See above HPI for pertinent positives & negatives. A total of 10 systems reviewed and were otherwise negative. PAST MEDICAL HISTORY:See Below , CMT, CAD PAST SURGICAL HISTORY:See Below, coronary stents FAMILY HISTORY:See Below SOCIAL HISTORY:See Below, HOME MEDICATIONS:See Below ALLERGIES:See Below VITALS:See Below PHYSICAL EXAMINATION: GENERAL: Awake, alert, mildly anxious-appearing, in no distress HENT: Normocephalic, atraumatic. Oropharynx unremarkable. EYES: Normal conjunctiva. Sclera non-icteric. NECK: Inspection normal. Non-tender. Supple. No nuchal rigidity. FROM. No masses. RESPIRATORY: Clear to auscultation. No wheezes. No rales. Normal respiratory effort. CARDIAC: Borderline tachycardic rate. Normal rhythm. No murmurs. No rubs. Extremities warm and well perfused. Pulses equal. No JVD. GI: Soft, non-distended. No tenderness to palpation. No rebound or guarding. No masses. RECTAL: Deferred. MUSCULOSKELETAL: Atraumatic. Chest examination reveals no tenderness. The back is symmetrical on inspection without obvious abnormality. There is no CVA tenderness to palpation. No joint edema. LOWER EXTREMITIES: Calves are equal size bilaterally and non-tender. No edema. No discoloration. NEURO: Normal sensorium. Patient has decreased sensation in the left leg compared to the right. She has decreased sensation in the right great toe which she states is normal for her secondary to her CMT. Patient has drift but is able to resist gravity for 10 seconds of the left leg. Patient has difficulty with [id number] on the left side which appears to be related to the weakness more than coordination. Cranial nerves II through XII intact. Speech normal. SKIN: No rash or jaundice noted. Lars Gómez MD Past Med/Surg History Medical History (Updated 01/25/22 @ 15:57 by Todd Knight MD) Abrasion of toe, left, infected Asthma uses PRN INH 1xmo on average Atrial fibrillation ONSET 40 YEARS AGO - NO MEDS - FOLLOWS W/ DR. RUBALCAVA > no pacer Tahudef-Nabkd-Nolvr disease TYPE II Coronary artery disease Hammer toe of left foot Hammer toe of second toe of right foot Hiatal hernia Hip bursitis, left Myocardial Infarction 2018 NSTEMI (non-ST elevated myocardial infarction) 2018 > stent Osteoarthritis Other hammer toe(s) (acquired), right foot Pes anserine bursitis Pes anserinus tendonitis of right lower extremity Right knee DJD Sleep apnea CPAP TMJ (temporomandibular joint disorder) Urinary leakage Surgical History History of arthroscopy of left knee History of cardiac cath TOTAL CARDIAC CATH X3 - 06/2018 - [place] - [facility] - 1 STENT - FOLLOWS W/ DR. RUBALCAVA DEC 2020 STENT X1 [facility] - RIGHT CORONARY ARTERY 95% BLOCKED JANUARY 2021 - C/P...CATH..NO STENT PLACED History of carpal tunnel surgery of left wrist History of carpal tunnel surgery of right wrist History of cholecystectomy History of colonoscopy History of esophagogastroduodenoscopy (EGD) History of foot surgery LEFT History of hysterectomy History of lumbar spinal fusion History of thoracic spinal fusion History of tooth extraction History of tubal ligation Hx of cataract extraction bilat Hx of surgical procedure Left Second Toe Amputation Slow to wake up after anesthesia pt reports can take several days to stop feeling sleepy all day Stented coronary artery x2 most recent Dec 2020 at [facility] Family History Mother Family history of diabetes mellitus Myocardial infarction Brother Family history of diabetes mellitus Grandmother (Maternal) Family history of diabetes mellitus Father Myocardial infarction Other Family history non-contributory Social History Smoking Status: Never smoker Second Hand Exposure: No; Hx Alcohol Use: No Hx Substance Use: No Preferred Language: Wolof Communication Ability: Effective Ged Instructor Required: No Beliefs That Will Affect Care: None marital status: Current Living Situation: Spouse Current Living Situation Comment: home with current occupation: Retired Other Information That Helps Us Care for You: No Feels Safe at Home: Yes Safety Concerns: Feels Safe At This Time Assistive Devices: None Assistive Devices Comment: "walking stick" Allergies Allergies Allergy/AdvReac Type Severity Reaction Status Date / Time adhesive Allergy Unknown Redness of Verified 01/25/22 12:31 Skin cefaclor Allergy Unknown Hives Verified 01/25/22 12:31 daptomycin Allergy Unknown PNEUMONIA Verified 01/25/22 12:31 gluten Allergy Unknown Gastrointestinal Verified 01/25/22 12:31 Upset moxifloxacin Allergy Unknown CAN'T Verified 01/25/22 12:31 REMEMBER nitrofurantoin Allergy Unknown CAN'T Verified 01/25/22 12:31 REMEMBER Penicillins Allergy Unknown Hives Verified 01/25/22 12:31 strawberry Allergy Unknown Anaphylaxis Verified 01/25/22 12:31 Sulfa (Sulfonamide Allergy Unknown Hives Verified 01/25/22 12:31 Antibiotics) tetracycline Allergy Unknown CAN'T Verified 01/25/22 12:31 REMEMBER indomethacin AdvReac Severe UNCONSIOUS Verified 01/25/22 12:31 FOR 6 HOURS. ceftaroline fosamil AdvReac Unknown WHITE Verified 01/25/22 12:31 BLOOD COUNT DECREASE diphenhydramine AdvReac Unknown SHAKING Verified 01/25/22 12:31 ALL OVER ezetimibe [From Zetia] AdvReac Unknown Unknown Verified 01/25/22 12:31 vancomycin AdvReac Unknown JANET Verified 01/25/22 12:31 BEBETO SYNDROME Home Meds Home Medications Medication Instructions Recorded Confirmed multivitamin 1 tab PO QAM 04/08/19 01/25/22 epinephrine 0.3 mg/0.3 mL 0.3 mg IM ONCE PRN #2 ea 07/07/19 01/25/22 injection, auto-injector nitroglycerin 0.4 mg sublingual 0.4 mg SUBLINGUAL UD PRN 03/25/21 01/25/22 tablet aspirin 81 mg chewable tablet 81 mg PO QAM 07/06/21 01/25/22 atorvastatin 10 mg tablet 10 mg PO Q OTHER DAY 01/25/22 01/25/22 Previous Rx's Medication Instructions Recorded albuterol sulfate 90 mcg/actuation 2 puffs INH QID PRN #18 gm 12/10/19 aerosol inhaler Results & Data (ED) Vital Signs Vital Signs - 24 hr 01/25/22 12:13 01/25/22 12:24 01/25/22 12:36 Temperature Temperature Source Pulse Rate 105 H 106 H 109 H Pulse Rate from SpO2 Sensor 107 H Respiratory Rate 18 21 24 Respiratory Effort / Characteristics Non-Labored Respiratory Depth Normal Blood Pressure 160/93 H Blood Pressure Mean 115 Pulse Oximetry 98 96 Oxygen Delivery Method Room Air Sepsis Recent Fever Within 48 Hours No Sepsis New/Unexplained Change in Mental Status No Sepsis Action Taken by Nursing No Action Required 01/25/22 12:40 01/25/22 12:42 01/25/22 12:50 Temperature Temperature Source Pulse Rate 106 H 101 H 100 H Pulse Rate from SpO2 Sensor Respiratory Rate 18 21 24 Respiratory Effort / Characteristics Respiratory Depth Blood Pressure 166/103 H 150/94 H Blood Pressure Mean 124 112 Pulse Oximetry Oxygen Delivery Method Sepsis Recent Fever Within 48 Hours Sepsis New/Unexplained Change in Mental Status Sepsis Action Taken by Nursing 01/25/22 12:51 01/25/22 13:00 01/25/22 13:30 Temperature Temperature Source Pulse Rate 102 H 100 H 95 H Pulse Rate from SpO2 Sensor 94 H Respiratory Rate 22 23 18 Respiratory Effort / Characteristics Respiratory Depth Blood Pressure 150/94 H 155/89 H 155/89 H Blood Pressure Mean 112 111 111 Pulse Oximetry 96 Oxygen Delivery Method Room Air Sepsis Recent Fever Within 48 Hours Sepsis New/Unexplained Change in Mental Status Sepsis Action Taken by Nursing 01/25/22 13:54 Temperature 36.4 C L Temperature Source Oral Pulse Rate Pulse Rate from SpO2 Sensor Respiratory Rate 18 Respiratory Effort / Characteristics Non-Labored Respiratory Depth Normal Blood Pressure Blood Pressure Mean Pulse Oximetry 98 Oxygen Delivery Method Room Air Sepsis Recent Fever Within 48 Hours Sepsis New/Unexplained Change in Mental Status Sepsis Action Taken by Nursing Laboratory Data Result diagrams: 01/25/22 12:20 01/25/22 12:20 Lab Results 01/25/22 01/25/22 01/25/22 Range/Units 12:20 12:20 12:20 WBC 6.98 (4.8-10.8) K/uL RBC 4.54 (4.2-5.4) M/uL Hgb 13.7 (12.0-16.0) g/dL Hct 42.2 (37-47) % MCV 93.0 (80-100) fL MCH 30.2 (25-34) pg MCHC 32.5 (32-36) g/dL RDW Std Deviation 49.3 H (36.4-46.3) fL RDW Coeff of Ramesh 14.6 H (11.5-14.5) % Plt Count 214 (130-400) K/uL MPV 9.7 (7.4-10.4) fL Immature Gran % (Auto) 0.1 % Neut % (Auto) 57.8 % Lymph % (Auto) 30.2 % [place] % (Auto) 10.7 % Eos % (Auto) 0.9 % Baso % (Auto) 0.3 % Neut # (Auto) 4.03 (1.4-6.5) K/uL Lymph # (Auto) 2.11 (1.2-3.4) K/uL [place] # (Auto) 0.75 H (0.11-0.59) K/uL Eos # (Auto) 0.06 (0-0.5) K/uL Baso # (Auto) 0.02 (0-0.2) K/uL Immature Gran # (Auto) 0.01 (0.00-0.02) K/uL PT 10.3 (9.0-12.0) Seconds INR 1.0 (0.9-1.1) APTT 23.2 (21.0-31.0) Seconds PTT Ratio 0.8 Sodium 141 (136-145) mmol/L Potassium 3.5 (3.5-5.1) mmol/L Chloride 106 (98-107) mmol/L Carbon Dioxide 24 (21-32) mmol/L Anion Gap 11 (3-11) BUN 16 (6-23) mg/dl Creatinine 0.76 (0.6-1.2) mg/dl Est Cr Clr Drug Dosing 66.1 ml/min Est GFR ( Amer) 87.1 ml/min Est GFR (Non-Af Amer) 75.1 ml/min BUN/Creatinine Ratio 21.1 H (10-20) Glucose 107 H (70-99(Fasting)) mg/dl Calcium 9.2 (8.5-10.1) mg/dl Magnesium 2.1 (1.7-2.4) mg/dl Total Bilirubin 0.4 (0.2-1.0) mg/dl AST 15 (13-39) U/L ALT 16 (7-52) U/L Alkaline Phosphatase 81 (34-104) U/L Troponin I < 0.03 (0-0.04) ng/ml Total Protein 6.4 (6.0-8.3) gm/dl Albumin 4.1 (3.4-5.0) gm/dl Globulin 2.3 L (2.5-4.0) gm/dl Albumin/Globulin Ratio 1.8 (0.9-2) SARS-CoV-2, RNA, NAAT (NEGATIVE) 01/25/22 Range/Units 13:20 WBC (4.8-10.8) K/uL RBC (4.2-5.4) M/uL Hgb (12.0-16.0) g/dL Hct (37-47) % MCV (80-100) fL MCH (25-34) pg MCHC (32-36) g/dL RDW Std Deviation (36.4-46.3) fL RDW Coeff of Ramesh (11.5-14.5) % Plt Count (130-400) K/uL MPV (7.4-10.4) fL Immature Gran % (Auto) % Neut % (Auto) % Lymph % (Auto) % [place] % (Auto) % Eos % (Auto) % Baso % (Auto) % Neut # (Auto) (1.4-6.5) K/uL Lymph # (Auto) (1.2-3.4) K/uL [place] # (Auto) (0.11-0.59) K/uL Eos # (Auto) (0-0.5) K/uL Baso # (Auto) (0-0.2) K/uL Immature Gran # (Auto) (0.00-0.02) K/uL PT (9.0-12.0) Seconds INR (0.9-1.1) APTT (21.0-31.0) Seconds PTT Ratio Sodium (136-145) mmol/L Potassium (3.5-5.1) mmol/L Chloride (98-107) mmol/L Carbon Dioxide (21-32) mmol/L Anion Gap (3-11) BUN (6-23) mg/dl Creatinine (0.6-1.2) mg/dl Est Cr Clr Drug Dosing ml/min Est GFR ( Amer) ml/min Est GFR (Non-Af Amer) ml/min BUN/Creatinine Ratio (10-20) Glucose (70-99(Fasting)) mg/dl Calcium (8.5-10.1) mg/dl Magnesium (1.7-2.4) mg/dl Total Bilirubin (0.2-1.0) mg/dl AST (13-39) U/L ALT (7-52) U/L Alkaline Phosphatase (34-104) U/L Troponin I (0-0.04) ng/ml Total Protein (6.0-8.3) gm/dl Albumin (3.4-5.0) gm/dl Globulin (2.5-4.0) gm/dl Albumin/Globulin Ratio (0.9-2) SARS-CoV-2, RNA, NAAT NEGATIVE (NEGATIVE) Administered Medications Sodium Chloride (Nss 1000ml) 1,000 mls @ 125 mls/hr IV .Q8H STA Stop: 01/25/22 21:07 Last Admin: 01/25/22 13:22 Dose: 125 mls/hr Documented by: [id number] Discontinued Medications Ioversol (Optiray 320 125ml) 120 ml IV ONCE ONE Stop: 01/25/22 12:34 Last Admin: 01/25/22 12:33 Dose: 120 ml Documented by: [id number] Imaging Data Radiologist's Impression: Head CT 01/25/22 12:18 CT angio neck with con, CT head/brain wo con, CT angio head w con CLINICAL HISTORY: Stroke Like Symptoms. Left leg weakness, headache TECHNIQUE: Contiguous axial CT images of the head were acquired from the base of the skull to the vertex without intravenous contrast administration. CT angiography of the head and neck was performed following intravenous administration of iodinated contrast. Coronal and sagittal MIPS were obtained from the axial data set and were submitted for review. Automated dose lowering techniques and/or adjustment according to patient size were utilized for this examination. All measurements were calculated based on NASCET criteria. Comparison: None available at the time of this dictation. FINDINGS: CT head: Areas of decreased attenuation are present in the periventricular and subcortical white matter bilaterally consistent with small vessel ischemic disease. Generalized cerebral atrophy with commensurate enlargement of the ventricles, sulci, and cisterns is also present. There is no acute intracranial hemorrhage or evidence of acute territorial infarction. No shift of the midline structures, mass effect, or extra-axial abnormalities are shown. Atherosclerotic calcifications are present in the intracranial segments of the internal carotid arteries. Lungs and soft tissues are unremarkable. CTA Neck: A 3 vessel aortic arch is shown. There is no significant atherosclerotic plaque in the aortic arch or the origins of the innominate, left common carotid, and left subclavian arteries. The common carotid, external carotid, cervical segments of the internal carotid arteries, and the cervical segments of the vertebral arteries are patent without hemodynamically significant stenosis. The left vertebral artery is dominant. CTA Head: The anterior and posterior cerebral circulations are patent. No hemodynamically significant stenosis, aneurysm, dissection, or arteriovenous mal formation is shown. Atherosclerotic disease is noted. IMPRESSION: 1. No acute intracranial hemorrhage, evidence of acute territorial infarction, or other acute intracranial disease process. 2. No occlusion, hemodynamically significant stenosis, aneurysm, dissection, or arteriovenous malformation in the major intracranial arteries. 3. No occlusion, hemodynamically significant stenosis, or dissection in the major cervical arteries. Assessment of stenosis of the internal carotid arteries is based on NASCET criteria. ACT 112: Negative or not required by law. Electronically signed by: Damaso Horne M.D. 01/25/2022 12:46 PM Head CTA 01/25/22 12:18 CT angio neck with con, CT head/brain wo con, CT angio head w con CLINICAL HISTORY: Stroke Like Symptoms. Left leg weakness, headache TECHNIQUE: Contiguous axial CT images of the head were acquired from the base of the skull to the vertex without intravenous contrast administration. CT angiography of the head and neck was performed following intravenous administration of iodinated contrast. Coronal and sagittal MIPS were obtained from the axial data set and were submitted for review. Automated dose lowering techniques and/or adjustment according to patient size were utilized for this examination. All measurements were calculated based on NASCET criteria. Comparison: None available at the time of this dictation. FINDINGS: CT head: Areas of decreased attenuation are present in the periventricular and subcortical white matter bilaterally consistent with small vessel ischemic disease. Generalized cerebral atrophy with commensurate enlargement of the ventricles, sulci, and cisterns is also present. There is no acute intracranial hemorrhage or evidence of acute territorial infarction. No shift of the midline structures, mass effect, or extra-axial abnormalities are shown. Atherosclerotic calcifications are present in the intracranial segments of the internal carotid arteries. Lungs and soft tissues are unremarkable. CTA Neck: A 3 vessel aortic arch is shown. There is no significant atherosclerotic plaque in the aortic arch or the origins of the innominate, left common carotid, and left subclavian arteries. The common carotid, external carotid, cervical segments of the internal carotid arteries, and the cervical segments of the vertebral arteries are patent without hemodynamically significant stenosis. The left vertebral artery is dominant. CTA Head: The anterior and posterior cerebral circulations are patent. No hemodynamically significant stenosis, aneurysm, dissection, or arteriovenous malformation is shown. Atherosclerotic disease is noted. IMPRESSION: 1. No acute intracranial hemorrhage, evidence of acute territorial infarction, or other acute intracranial disease process. 2. No occlusion, hemodynamically significant stenosis, aneurysm, dissection, or arteriovenous malformation in the major intracranial arteries. 3. No occlusion, hemodynamically significant stenosis, or dissection in the major cervical arteries. Assessment of stenosis of the internal carotid arteries is based on NASCET criteria. ACT 112: Negative or not required by law. Electronically signed by: Damaso Horne M.D. 01/25/2022 12:46 PM Neck CTA 01/25/22 12:18 CT angio neck with con, CT head/brain wo con, CT angio head w con CLINICAL HISTORY: Stroke Like Symptoms. Left leg weakness, headache TECHNIQUE: Contiguous axial CT images of the head were acquired from the base of the skull to the vertex without intravenous contrast administration. CT angiography of the head and neck was performed following intravenous administration of iodinated contrast. Coronal and sagittal MIPS were obtained from the axial data set and were submitted for review. Automated dose lowering techniques and/or adjustment according to patient size were utilized for this examination. All measurements were calculated based on NASCET criteria. Comparison: None available at the time of this dictation. FINDINGS: CT head: Areas of decreased attenuation are present in the periventricular and subcortical white matter bilaterally consistent with small vessel ischemic disease. Generalized cerebral atrophy with commensurate enlargement of the ventricles, sulci, and cisterns is also present. There is no acute intracranial hemorrhage or evidence of acute territorial infarction. No shift of the midline structures, mass effect, or extra-axial abnormalities are shown. Atherosclerotic calcifications are present in the intracranial segments of the internal carotid arteries. Lungs and soft tissues are unremarkable. CTA Neck: A 3 vessel aortic arch is shown. There is no significant atherosclerotic plaque in the aortic arch or the origins of the innominate, left common carotid, and left subclavian arteries. The common carotid, external carotid, cervical segments of the internal carotid arteries, and the cervical segments of the vertebral arteries are patent without hemodynamically significant stenosis. The left vertebral artery is dominant. CTA Head: The anterior and posterior cerebral circulations are patent. No hemodynamically significant stenosis, aneurysm, dissection, or arteriovenous malformation is shown. Atherosclerotic disease is noted. IMPRESSION: 1. No acute intracranial hemorrhage, evidence of acute territorial infarction, or other acute intracranial disease process. 2. No occlusion, hemodynamically significant stenosis, aneurysm, dissection, or arteriovenous malformation in the major intracranial arteries. 3. No occlusion, hemodynamically significant stenosis, or dissection in the major cervical arteries. Assessment of stenosis of the internal carotid arteries is based on NASCET criteria. ACT 112: Negative or not required by law. Electronically signed by: Damaso Horne M.D. 01/25/2022 12:46 PM Discharge Plan Visit Data Chief Complaint: Neuro Symptoms/Deficit ED Provider: Lars Gómez Discharge Problem: Stroke-like symptoms Patient Disposition: Admitted As Inpatient Discharge Instructions Interventions: ED Discharge Assessment Last Done: 01/25/22 17:00
[2022-01-25 12:42] LABS: Partial Thromboplastin Ratio 0.8; Partial Thromboplastin Time 23.2 Seconds (21.0-31.0); Prothrombin Time 10.3 Seconds (9.0-12.0)
--- NOTE | 2022-01-25 12:48 | CT Scan Report ---
CT angio neck with con, CT head/brain wo con, CT angio head w con CLINICAL HISTORY: Stroke Like Symptoms. Left leg weakness, headache TECHNIQUE: Contiguous axial CT images of the head were acquired from the base of the skull to the gerhard violet without intravenous contrast administration. CT angiography of the head and neck was performed f ollowing intravenous administration of iodinated contrast. Coronal and sagittal MIPS were obtained fr om the axial data set and were submitted for review. Automated dose lowering techniques and/or adjus tment according to patient size were utilized for this examination. All measurements were calculated based on NASCET criteria. Comparison: None available at the time of this dictation. FINDINGS: CT head: Areas of decreased attenuation are present in the periventricular and subcortical white prasad er bilaterally consistent with small vessel ischemic disease. Generalized cerebral atrophy with comme nsurate enlargement of the ventricles, sulci, and cisterns is also present. There is no acute intracr anial hemorrhage or evidence of acute territorial infarction. No shift of the midline structures, mas s effect, or extra-axial abnormalities are shown. Atherosclerotic calcifications are present in the intracranial segments of the internal carotid arteries. Lungs and soft tissues are unremarkable. CTA Neck: A 3 vessel aortic arch is shown. There is no significant atherosclerotic plaque in the aor tic arch or the origins of the innominate, left common carotid, and left subclavian arteries. The c ommon carotid, external carotid, cervical segments of the internal carotid arteries, and the cervical segments of the vertebral arteries are patent without hemodynamically significant stenosis. The left vertebral artery is dominant. CTA Head: The anterior and posterior cerebral circulations are patent. No hemodynamically significan t stenosis, aneurysm, dissection, or arteriovenous malformation is shown. Atherosclerotic disease is noted. IMPRESSION: 1. No acute intracranial hemorrhage, evidence of acute territorial infarction, or other acute intrac ranial disease process. 2. No occlusion, hemodynamically significant stenosis, aneurysm, dissection, or arteriovenous malfor mation in the major intracranial arteries. 3. No occlusion, hemodynamically significant stenosis, or dissection in the major cervical arteries. Assessment of stenosis of the internal carotid arteries is based on NASCET criteria. ACT 112: Negative or not required by law. Electronically signed by: Damaso Horne M.D. 01/25/2022 12:46 PM
[2022-01-25 12:53] LABS: Alanine Aminotransferase 16 U/L (7-52); Albumin Globulin Ratio 1.8 (0.9-2); Albumin Level 4.1 gm/dl (3.4-5.0); Alkaline Phosphatase 81 U/L (34-104); Anion Gap 11 (3-11); Aspartate Aminotransferase 15 U/L (13-39); BUN Creatinine Ratio 21.1 (10-20); Bilirubin,Total 0.4 mg/dl (0.2-1.0); Blood Urea Nitrogen 16 mg/dl (6-23); Calcium 9.2 mg/dl (8.5-10.1); Carbon Dioxide 24 mmol/L (21-32); Chloride 106 mmol/L (98-107); Creatinine Clr Calc Pharmacy 66.1 ml/min; Est GFR (African American) 87.1 ml/min; Est GFR (Non-African American) 75.1 ml/min; Globulin 2.3 gm/dl (2.5-4.0); Glucose 107 mg/dl (70-99(Fasting)); Magnesium 2.1 mg/dl (1.7-2.4); Potassium 3.5 mmol/L (3.5-5.1); Sodium 141 mmol/L (136-145); Total Protein 6.4 gm/dl (6.0-8.3)
[2022-01-25 12:54] LABS: Troponin I < 0.03 ng/ml (0-0.04)
[2022-01-25] MEDS ORDERED: SODIUM CHLORIDE 0.9% 1000ML 1,000 ML IV STA (13:08)
--- NOTE | 2022-01-25 15:10 | History & Physical Report ---
Date of Service January 25, 2022 Assessment & Plan (1) Leg weakness: Plan: Left sided leg weakness, delayed anesthesia recovery/AMS postop No leukocytosis Normal coags Creatinine 0.77 at admission, normal baseline, creatinine clearance drug dosing 66.1 Troponin negative in ER Lipid panel 01/23: Triglycerides 124, cholesterol 162, LDL 78, HDL 59 NIHSS stroke scale of 1 Case was called as a stroke alert, discussed with Dr. Rachid Roberson, [facility] telestroke. TNA case/thrombolytics not recommended. Covid negative CThead: No acute findings CTA head: No acute findings CTA neck: No acute findings, no significant atherosclerotic plaque of the aortic arch, common carotid, external carotid, vertebral arteries. EKG: Sinus tachycardia, QTC 44, no territorial signs of ischemia Echo pending MRI pending Stroke eval as above. Left lower extremity strength and sensation is improving but does have diminished sensation and strength compared to the right. Patient now with some discomfort in the deep calf with no asymmetry. PT pulse is intact, toes with brisk refill. Differential includes CVA/TIA as above, neuropraxia/compression injury positionally, less likely central with a history of rods in her back. Given postop status and helpingdeep calf tenderness will attain a Doppler of the left lower extremity. Patient does have a history of intermittent delayed clearance/recovery following anesthesia. Has done well recently, but with anesthesia with this episode did have some slowness waking up and mood instability. Improving at time of bedside assessment. (2) History of heart artery stent: Plan: CAD with history of NSTEMI and PCI PCI to obtuse marginal 06/2018, RCA 12/2020 Underwent cardiac cath 01/2021 for unstable angina showing patent stents with no new stenosis, nonobstructive proximal LAD disease known in follow-up History of statin intolerance with myalgias, was found to actully be Zertia --> currently tolerating Atorvastatin 10 mg p.o. every other day Last echo 12/2020: Normal LV SF EF 55 to 60%. Continue aspirin daily No signs of ACS at this time, EKG as above (3) HLD (hyperlipidemia): Plan: Continue atorvastatin as noted Has discussed PCSK9 inhibitors, declined these in the past and is not interested in these (4) Dcdgxdq-Pzdvi-Hxxbz disease type 2: Plan: Wqywswg-Pitdj-Sssug, Type 2 - Developed worsening sx about 5 years ago - Neuropathy x20 years -Status post right second, third, fourth hammertoe amputation 01/25. No signs of neurovascular compromise. (5) Atrial fibrillation: Plan: No history of Afib/arrythmia per patient EKG: Sinus tachycardia, rate 103, no territorial ST depression/elevation. Per chart review patient has history of this 20 years ago without recurrence. Not required rate control or anticoagulation (6) DVT prophylaxis: Plan: Patient is postop, SCDs at this time, Lovenox 24 hours postop if okay per surgery Plan: DVT prophylaxis: As above Diet: Bedside speech eval, then heart healthy advance as tolerated CODE STATUS: Full code, surrogate decision maker would be her see [facility] for contacted formation if needed Disposition: Medical telemetry, stroke without TPA eval History of Present Illness Primary Care Provider: Jesus Membreno MD Beth Pham is a 76-year-old female with a past medical history of hyperlipidemia, ACS status post PCI, hammertoe, pedis anserine tendinitis of the right lower extremity, and Eobagme-Hcvxo-Cbhtm with severe peripheral neuropathy who underwent right lower extremity removal of 3 toes under local anesthesia these showed with IV sedation propofol/fentanyl who progressed through coverage slowly and has been recommended for observation for left weakness and concern of slow anesthesia recovery versus TIA symptoms with stroke rule out. NIHSS 1, last known normal 4-1/2 hours, was a stroke alert to the emergency department which was discussed with [facility] Dr. Rachid Roberson who did not recommend any thrombolytics at this time. Recommended standard stroke rule out, and observation at this time. "My mind is clearing up. My L leg still feels not normal. not like a log, but still not normal." Headache coming and going currently mild 1-2/10 on the top, front, and above the eyes. not throbbing. Had 3 toes amputated this morning. "I was told it took forever to wake up from anesthesia, that happens for me sometimes. Not everytime but sometimes." With prior procedures has had prolonged sedation and even felt tired up to a week after. Patient reports her said she was grossy and crying, pt does not remember this. She remembers eventually waking up in the surgery center and her LEFT leg 'felt like a log. Couldn't move it at all' Also had no sensation in it. no pins and needles R leg felt and continues to feel normal. No chest pain, no chest pressure. Did have some discomfort and palpitations after getting contrast for the CT scan which passed. No pain at assessment. NO shortness of breath at bedside assessment, some SoB and palpitations as above with CT contrast. No swelling of the tongue, lips, or mouth, no difficulty breathing or wheezing. No vision change, but decreased acuity without contacts in. No fevers, chills or sweats. Has been cold. Medical History: Reviewed Medications: Reviewed Surgical History: Reviewed Allergies: Reviewed Social History: No tobacco, alcohol, or MM use. Code Status: Surrogate decision maker [place]vi [place] Ankit [phone]. Full Code, discussed with patient. - A Allergies Allergy/AdvReac Type Severity Reaction Status Date / Time adhesive Allergy Unknown Redness of Verified 01/25/22 12:31 Skin cefaclor Allergy Unknown Hives Verified 01/25/22 12:31 daptomycin Allergy Unknown PNEUMONIA Verified 01/25/22 12:31 gluten Allergy Unknown Gastrointestinal Verified 01/25/22 12:31 Upset moxifloxacin Allergy Unknown CAN'T Verified 01/25/22 12:31 REMEMBER nitrofurantoin Allergy Unknown CAN'T Verified 01/25/22 12:31 REMEMBER Penicillins Allergy Unknown Hives Verified 01/25/22 12:31 strawberry Allergy Unknown Anaphylaxis Verified 01/25/22 12:31 Sulfa (Sulfonamide Allergy Unknown Hives Verified 01/25/22 12:31 Antibiotics) tetracycline Allergy Unknown CAN'T Verified 01/25/22 12:31 REMEMBER indomethacin AdvReac Severe UNCONSIOUS Verified 01/25/22 12:31 FOR 6 HOURS. ceftaroline fosamil AdvReac Unknown WHITE Verified 01/25/22 12:31 BLOOD COUNT DECREASE diphenhydramine AdvReac Unknown SHAKING Verified 01/25/22 12:31 ALL OVER ezetimibe [From Zetia] AdvReac Unknown Unknown Verified 01/25/22 12:31 vancomycin AdvReac Unknown JANET Verified 01/25/22 12:31 BEBETO SYNDROME Home Medications Medication Instructions Recorded Confirmed Type multivitamin 1 tab PO QAM 04/08/19 01/25/22 History epinephrine 0.3 mg/0.3 mL 0.3 mg IM ONCE PRN #2 ea 08/26/19 03/16/22 History injection, auto-injector albuterol sulfate 90 mcg/actuation 2 puffs INH QID PRN #18 gm 12/10/19 01/25/22 Rx aerosol inhaler nitroglycerin 0.4 mg sublingual 0.4 mg SUBLINGUAL UD PRN 03/25/21 01/25/22 History tablet aspirin 81 mg chewable tablet 81 mg PO QAM 07/06/21 01/25/22 History atorvastatin 10 mg tablet 10 mg PO Q OTHER DAY 01/25/22 01/25/22 History Past Med/Surg History Medical History (Updated 01/25/22 @ 15:57 by Todd Knight MD) Abrasion of toe, left, infected Asthma uses PRN INH 1xmo on average Atrial fibrillation ONSET 40 YEARS AGO - NO MEDS - FOLLOWS W/ DR. RUBALCAVA > no pacer Mrejasj-Zjgnt-Qckhb disease TYPE II Coronary artery disease Hammer toe of left foot Hammer toe of second toe of right foot Hiatal hernia Hip bursitis, left Myocardial Infarction 2017 NSTEMI (non-ST elevated myocardial infarction) 2018 > stent Osteoarthritis Other hammer toe(s) (acquired), right foot Pes anserine bursitis Pes anserinus tendonitis of right lower extremity Right knee DJD Sleep apnea CPAP TMJ (temporomandibular joint disorder) Urinary leakage Surgical History History of arthroscopy of left knee History of cardiac cath TOTAL CARDIAC CATH X3 - 06/2018 - DC - [facility] - 1 STENT - FOLLOWS W/ DR. RUBALCAVA DEC 2020 STENT X1 [facility] - RIGHT CORONARY ARTERY 95% BLOCKED JANUARY 2021 - C/P...CATH..NO STENT PLACED History of carpal tunnel surgery of left wrist History of carpal tunnel surgery of right wrist History of cholecystectomy History of colonoscopy History of esophagogastroduodenoscopy (EGD) History of foot surgery LEFT History of hysterectomy History of lumbar spinal fusion History of thoracic spinal fusion History of tooth extraction History of tubal ligation Hx of cataract extraction bilat Hx of surgical procedure Left Second Toe Amputation Slow to wake up after anesthesia pt reports can take several days to stop feeling sleepy all day Stented coronary artery x2 most recent Dec 2020 at [facility] Family History Mother Family history of diabetes mellitus Myocardial infarction Brother Family history of diabetes mellitus Grandmother (Maternal) Family history of diabetes mellitus Father Myocardial infarction Other Family history non-contributory Social History Smoking Status: Never smoker Second Hand Exposure: No; Hx Alcohol Use: No Hx Substance Use: No Preferred Language: Dutch Communication Ability: Effective Programs Assistant Required: No Beliefs That Will Affect Care: None marital status: Current Living Situation: Spouse current occupation: Retired Feels Safe at Home: Yes Assistive Devices: Contacts Review of Systems Review of Systems: All systems reviewed & are unremarkable except as noted in HPI & below Physical Exam Physical Exam: General: A&Ox3. NAD. Cooperative. HEENT: Atraumatic, normocephalic. Pulm: CTAB A&P. -wheezes, -rales, -rhonchi. Symmetrical chest rise. No increased work of breathing. No respiratory distress. Cardiac: Mild tachycardia, regular, -mrg. Radial pulses intact and symmetrical. Abdominal: Nontender, nondistended, soft. BS present. CRANIAL NERVES: II: Pupils equal and reactive, no relative afferent pupillary defect, no VF cuts III, IV, : EOM intact, no gaze preference or deviation, no nystagmus. V: normal sensation in V1, V2, and V3 segments bilaterally VII: no asymmetry, no nasolabial fold flattening VIII: normal hearing to speech IX, X: normal palatal elevation, no uvular deviation XI: 5/5 head turn and 5/5 shoulder shrug bilaterally XII: midline tongue protrusion MOTOR: RUE: 5/5 Shoulder internal rotation, external rotation, flexion, extension, abduction, adduction 5/5 Elbow flexion/extension, wrist flexion/extension 5/5 header up strength, finger flexion/extension, interosseus LUE: 5/5 Shoulder internal rotation, external rotation, flexion, extension, abduction, adduction 5/5 Elbow flexion/extension, wrist flexion/extension 5/5 header up strength, finger flexion/extension, interosseus RLE: Right lower extremity status post second, third, and fourth toe amputation. Hallux cap refill intact and brisk, PT pulse intact in feet bilaterally without asymmetry. 4/5 to hip flexion/extension, knee flexion/extension, ankle dorsiflexion/plantarflexion LLE: 4-/5 to hip flexion/extension, knee flexion/extension, ankle dorsiflexion/plantarflexion REFLEXES: 2/4 patella DTR without asymmetry. SENSORY: Sensation intact in upper and lower extremities to soft touch and temperature bilaterally, qualitative diminished sensation to soft touch in left lower extremity which normalizes towards the proximal lower extremity Results & Data Results & Data ([facility]) Vital Signs (Past 12 Hours) Vital Signs Temp Pulse Resp BP Pulse Ox 01/25/22 13:54 36.4 C L 18 98 01/25/22 13:30 95 H 18 155/89 H 96 01/25/22 13:00 100 H 23 155/89 H 01/25/22 12:51 102 H 22 150/94 H 01/25/22 12:50 100 H 24 150/94 H 01/25/22 12:42 101 H 21 166/103 H 01/25/22 12:40 106 H 18 01/25/22 12:36 109 H 24 01/25/22 12:24 106 H 21 96 01/25/22 12:13 105 H 18 160/93 H 98 PG Care Time/CCT Total # of Minutes Spent Total Time Spent with Patient: Total time spent is greater than 50% in coordination of care (as documented) at patient's floor/unit and/or counseling patient: Coding Level of Care Code INT OBSERVATION CARE 50M LVL 2 Diagnoses Leg weakness R29.898 History of heart artery stent Z95.5 HLD (hyperlipidemia) E78.5 Hyperlipidemia type: unspecified DVT prophylaxis Z29.9 Mxkvhtj-Evdhm-Mvcae disease type 2 G60.0 Atrial fibrillation I48.91 (1) HLD (hyperlipidemia) Hyperlipidemia type: unspecified Qualified Code(s): E78.5 - Hyperlipidemia, unspecified
[2022-01-25] MEDS ORDERED: PHARMACIST DISCHARGE MED REC CONSULT PRN (18:01)
[2022-01-25] MEDS ORDERED: ALBUTEROL HFA 8 GM INHALER INH PRN (18:01)
[2022-01-25] MEDS ORDERED: POLYETHYLENE (MIRALAX) 17 GM PACK PO PRN (18:01)
[2022-01-25] MEDS ORDERED: NITROGLYCERIN SL 0.4 MG/TAB TAB SL PRN (18:01)
[2022-01-25] MEDS ORDERED: EPINEPHrine INJ 1 MG/ML AMP IM PRN (18:08)
[2022-01-25] MEDS: ACETAMINOPHEN 325 MG TAB PO PRN (22:16)
[2022-01-26] MEDS: ACETAMINOPHEN 325 MG TAB PO PRN (05:15)
--- NOTE | 2022-01-26 07:06 | Ultrasound Report ---
ULTRASOUND LEFT LOWER EXTREMITY VENOUS CLINICAL HISTORY: Left leg pain and swelling. COMPARISON STUDY: No priors. TECHNIQUE: Real-time, grayscale, and color Doppler sonography of the deep veins of the left lower ext remity was performed from the inguinal crease to the calf. Compression and augmentation were utilized . FINDINGS: There is no sonographic evidence of deep venous thrombosis identified in the left lower ext remity. The common femoral, superficial femoral, and popliteal veins are patent and normally compress ible. The greater saphenous vein and the profunda femoris vein at the junction with the common femora l vein are clear. The visualized calf veins are patent. There is a 3.8 x 0.9 x 1.2 cm nonvascular com plex fluid collection in the medial aspect of the proximal calf. IMPRESSION: 1. There is no sonographic evidence of deep venous thrombosis identified in the left lower extremity. 2. There is a 3.8 cm nonvascular complex fluid collection the medial aspect of the proximal calf, pos sibly representing a small hematoma. Clinical correlation will be required. Consider precautionary fo llow-up ultrasound in 6-8 weeks' time to document resolution. ACT 112: Negative or not required by law. Electronically signed by: Royce Henry M.D. 01/26/2022 7:05 AM
--- NOTE | 2022-01-26 07:10 | Magnetic Resonance Report ---
MRI OF THE BRAIN WITHOUT IV CONTRAST CLINICAL HISTORY: Transient ischemic attack COMPARISON STUDY: CT of the brain dated 01/25/2022. TECHNIQUE: MRI of the brain was performed utilizing various T1 and T2-weighted sequences in the axial , sagittal, and coronal planes. IV contrast was not administered for this examination. FINDINGS: Brain parenchyma: There is age-related involutional change noting mild subcortical and periventricula r microangiopathic disease. There is no hemorrhage or mass effect. There is no restricted diffusion t o suggest acute ischemia. A tiny chronic lacunar infarct is noted in the right cerebellar hemisphere. Jolly-white matter differentiation is preserved. No extra-axial fluid collection is seen. The cerebel lar tonsils are normal in configuration. Ventricles, sulci, and cisterns: Prominent secondary to involutional change. Pituitary and sella: Unremarkable. Intracranial vasculature: Normal flow voids are maintained at the skull base. Orbits: The bony orbits are grossly intact. Orbital contents are normal in appearance noting bilatera l ocular lens implants. Sinuses and mastoids: Clear. Calvarium: Unremarkable. Cervical cord: Partially visualized cervical spinal cord is normal in morphology and signal intensity . IMPRESSION: No acute intracranial abnormality. ACT 112: Negative or not required by law. Electronically signed by: Royce Henry M.D. 01/26/2022 7:07 AM
[2022-01-26 07:13] LABS: Basophils # (auto) 0.01 K/uL (0-0.2); Basophils % (auto) 0.1 %; Eosinophils # (auto) 0.19 K/uL (0-0.5); Eosinophils % (auto) 2.8 %; Hematocrit (blood only) 37.1 % (37-47); Hemoglobin 12.3 g/dL (12.0-16.0); Lymphocytes # (auto) 1.74 K/uL (1.2-3.4); Lymphocytes % (auto) 26.1 %; Mean Corpuscular Hemoglobin 30.2 pg (25-34); Mean Corpuscular Hgb Conc 33.2 g/dL (32-36); Mean Corpuscular Volume 91.2 fL (80-100); Mean Platelet Volume 9.3 fL (7.4-10.4); Monocytes # (auto) 0.75 K/uL (0.11-0.59); Monocytes % (auto) 11.2 %; Neutrophils # (auto) 3.98 K/uL (1.4-6.5); Neutrophils % (auto) 59.8 %; Platelet Count 201 K/uL (130-400); RDW Coefficient of Variation 14.9 % (11.5-14.5); Red Blood Count 4.07 M/uL (4.2-5.4); White Blood Count 6.67 K/uL (4.8-10.8)
[2022-01-26 07:35] LABS: Estimated Average Glucose 126 mg/dl
[2022-01-26 07:46] LABS: BUN Creatinine Ratio 15.9 (10-20); Calcium 8.7 mg/dl (8.5-10.1); Creatinine Clr Calc Pharmacy 55.6 ml/min; Est GFR (African American) 79.4 ml/min; Est GFR (Non-African American) 68.5 ml/min
[2022-01-26] MEDS ORDERED: MULTIVITAMIN TAB PO SCH (09:00)
[2022-01-26] MEDS ORDERED: ASPIRIN 81 MG ECTAB PO SCH (09:00)
[2022-01-26] MEDS ORDERED: ATORVASTATIN 10 MG TAB PO SCH (09:00)
--- NOTE | 2022-01-26 09:27 | Neurology Consultation ---
Date of Consultation January 26, 2022 Assessment & Plan (1) Leg weakness: (2) Numbness and tingling of left leg: (3) Tpdgomi-Naoux-Pzfoz disease type 2: this patient had the onset of significant weakness and numbness of the left lower extremity post anesthesia and surgical procedure ( right foot digit amputation) January 25. Currently she is back to her baseline with strength and sensation in legs. She had no other significant symptoms. The etiology of this is likely transient neurologic dysfunction from anesthesia ( she has a longstanding history of slowly recovering from anesthetics). there was no evidence for a stroke ( MRI was unremarkable). I suppose I cannot entirely exclude a TIA secondary to the surgical procedure/hypertension but I am inclined to believe that this was more of a side effect from anesthesia of a temporary nature. Recommendations: 1. Echocardiogram is pending. 2. I see no need for additional neurologic testing or treatment at this time. Remain on 81 milligram aspirin tablet daily. 3. otherwise, contact me if I can be of further assistance on this case. Overall, I spent a total of 120 minutes including review of records, review of MRI films, direct evaluation the patient at bedside, and discussion of the case with the patient and RN at bedside, and Dr. Knight, including differential diagnosis and treatment options. History of Present Illness Reason for Consultation: Patient is a 76-year-old, who I was asked to see at the request of Dr. Knight, for neurologic consultation regarding possible stroke. Requesting Physician: Dr. Knight Attending Physician: Todd Knight MD History of Present Illness The patient has a history of coronary artery disease with DE requiring stent in 2018. There is a remote history of atrial fibrillation 40 years ago, but the patient believes this may have been a sinus dysrhythmia. She is followed closely by Dr. Rubalcava. She does not have a history of diabetes or hypertension and was never a smoker. This patient has a history of Qxnrbga-Uhymr-Lymqr disease, specifically diagnosed at the [facility],followed by Dr. Charly Floyd. 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 The predominant symptoms and this some type of CMT tend to be sensory. She has numbness which is progressive starting in early to mid 50s and now is up to her mid thighs. The hands are involved as well. She has atrophy and weakness of the intrinsic muscles of the hands and feet. Patient has had problems with hammertoes, infection, and pain. she had left foot digits 2 through 4 amputated in December and the right foot digits 2 through 4 January 25. Patient came to the outpatient surgery center around 0730 on January 25. At 08:30 she was taken to the OR to have the amputation procedure. Apparently she was out of the procedure by 0935 and "woke up" around 1115. patient does not recall much of this but she heard from her that she was very slow to come out of anesthesia and talk. When she was coming around, she felt "funny" in her whole body. She apparently had crying but does not remember this. She does remember the left lower extremity being completely numb with lack of sensation from the mid thigh down to the foot a circumferential fashion. This was not the case on the right. Left leg was paralyzed and she was unable to move it she claims as well. Right leg was weak but she did not notice any abnormal or new symptoms in the right leg or both upper extremities. Her face had no new symptoms. She did not speech problems. She arrived to the emergency room January 25 at 1213, with a temperature of 36.4, respiratory rate of 18, blood pressure 160/93, pulse 105, and O2 saturation 98 percent. She had some decreased sensation in the left leg and the exam showed a little bit of weakness and "drift" in left lower extremity as well. NIH stroke scale was 1. tele stroke with Ashley resulted in the decision not to give tPA because she was rapidly improving. CBC and Chem profile were unremarkable. CT scan of the head was unremarkable. CT angiography of the head and neck were unremarkable with no vascular stenoses or anomalies. Ultrasound showed no DVT in the left leg. MRI of the brain revealed some mild generalized atrophy and small vessel ischemic disease but no acute stroke. I reviewed these films. Today she feels that her left lower extremity is back to baseline. Although she had a headache of a generalized fashion yesterday, she has minimal headache currently. Lipid profile from January 23 was quite good with a triglyceride of 124 and total cholesterol 162. Hemoglobin A1c was 6.0 and repeat Chem and CBC were unremarkable this Morning. Allergies Allergy/AdvReac Type Severity Reaction Status Date / Time adhesive Allergy Unknown Redness of Verified 01/25/22 12:31 Skin cefaclor Allergy Unknown Hives Verified 01/25/22 12:31 daptomycin Allergy Unknown PNEUMONIA Verified 01/25/22 12:31 gluten Allergy Unknown Gastrointestinal Verified 01/25/22 12:31 Upset moxifloxacin Allergy Unknown CAN'T Verified 01/25/22 12:31 REMEMBER nitrofurantoin Allergy Unknown CAN'T Verified 01/25/22 12:31 REMEMBER Penicillins Allergy Unknown Hives Verified 01/25/22 12:31 strawberry Allergy Unknown Anaphylaxis Verified 01/25/22 12:31 Sulfa (Sulfonamide Allergy Unknown Hives Verified 01/25/22 12:31 Antibiotics) tetracycline Allergy Unknown CAN'T Verified 01/25/22 12:31 REMEMBER indomethacin AdvReac Severe UNCONSIOUS Verified 01/25/22 12:31 FOR 6 HOURS. ceftaroline fosamil AdvReac Unknown WHITE Verified 01/25/22 12:31 BLOOD COUNT DECREASE diphenhydramine AdvReac Unknown SHAKING Verified 01/25/22 12:31 ALL OVER ezetimibe [From Zetia] AdvReac Unknown Unknown Verified 01/25/22 12:31 vancomycin AdvReac Unknown CHARLY Verified 01/25/22 12:31 BEBETO SYNDROME Home Medications Medication Instructions Recorded Confirmed Type multivitamin 1 tab PO QAM 04/08/19 01/25/22 History epinephrine 0.3 mg/0.3 mL 0.3 mg IM ONCE PRN #2 ea 07/07/19 01/25/22 History injection, auto-injector albuterol sulfate 90 mcg/actuation 2 puffs INH QID PRN #18 gm 12/10/19 01/25/22 Rx aerosol inhaler nitroglycerin 0.4 mg sublingual 0.4 mg SUBLINGUAL UD PRN 03/25/21 01/25/22 History tablet aspirin 81 mg chewable tablet 81 mg PO QAM 07/06/21 01/25/22 History atorvastatin 10 mg tablet 10 mg PO Q OTHER DAY 01/25/22 01/25/22 History Patient History Medical History Abrasion of toe, left, infected Asthma uses PRN INH 1xmo on average Atrial fibrillation ONSET 40 YEARS AGO - NO MEDS - FOLLOWS W/ DR. RUBALCAVA > no pacer Jvqjbda-Kgzjm-Hiahl disease TYPE II Coronary artery disease Hammer toe of left foot Hammer toe of second toe of right foot Hiatal hernia Hip bursitis, left Myocardial Infarction 2018 NSTEMI (non-ST elevated myocardial infarction) 2018 > stent Osteoarthritis Other hammer toe(s) (acquired), right foot Pes anserine bursitis Pes anserinus tendonitis of right lower extremity Right knee DJD Sleep apnea CPAP TMJ (temporomandibular joint disorder) Urinary leakage Surgical History History of arthroscopy of left knee History of cardiac cath TOTAL CARDIAC CATH X3 - 06/2018 - [place] - [facility] - 1 STENT - FOLLOWS W/ DR. RUBALCAVA DEC 2020 STENT X1 [facility] - RIGHT CORONARY ARTERY 95% BLOCKED JANUARY 2021 - C/P...CATH..NO STENT PLACED History of carpal tunnel surgery of left wrist History of carpal tunnel surgery of right wrist History of cholecystectomy History of colonoscopy History of esophagogastroduodenoscopy (EGD) History of foot surgery LEFT History of hysterectomy History of lumbar spinal fusion History of thoracic spinal fusion History of tooth extraction History of tubal ligation Hx of cataract extraction bilat Hx of surgical procedure Left Second Toe Amputation Slow to wake up after anesthesia pt reports can take several days to stop feeling sleepy all day Stented coronary artery x2 most recent Dec 2020 at [facility] Family History Mother , age 76 of an DE Family history of diabetes mellitus Myocardial infarction Brother Family history of diabetes mellitus Grandmother (Maternal) Family history of diabetes mellitus Father , age 85 with dementia and pneumonia Myocardial infarction Dementia Other Family history non-contributory Social History Smoking Status: Never smoker Second Hand Exposure: No; Hx Alcohol Use: No Hx Substance Use: No Preferred Language: Zambian Communication Ability: Effective Blowing Weasand Required: No Beliefs That Will Affect Care: None marital status: Current Living Situation: Spouse Current Living Situation Comment: home with current occupational status: retired 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 Other Information That Helps Us Care for You: No Feels Safe at Home: Yes Safety Concerns: Feels Safe At This Time Assistive Devices: None Assistive Devices Comment: "walking stick" Review of Systems Constitutional: no fever, no fatigue and no weakness Eyes: no diplopia, no eye pain and no worsening vision Ear, Nose, Mouth, Throat: no ear pain, no tinnitus, no hearing loss, no dizziness, no snoring, no hoarseness and no dysphagia Respiratory: no cough and no dyspnea Cardiovascular: no chest pain, no palpitations and no lightheadedness Gastrointestinal: no abdominal pain, no nausea and no vomiting Genitourinary: no dysuria, no urinary frequency and no urinary incontinence Musculoskeletal: no back pain, no neck pain, no radicular pain, no joint pain and no myalgia Integumentary: no rash and no lesions Neurologic: + gait abnormality, + localized weakness, + numbness and + headache(s); no generalized weakness, no tingling, no tremor(s), no abnormal movements, no abnormal speech, no confusion and no memory loss Psychiatric: no depression, no irritability, no anxiety, no difficulty concentrating, no confusion and no hallucinations Endocrine: no fatigue and no flushing Hematologic / Lymphatic: no easy bleeding and no easy bruising Allergy / Immunological: no urticaria and no problem reported Exam (Neuro) Physical Exam: The patient is right-handed. The patient is awake, alert, and attentive. Speech is normal without any aphasia or dysarthria. The patient can name objects, repeat phrases, and has normal spontaneous speech. Mentation and thought processes are intact, with orientation to person, place and time, and normal fund of knowledge. Attention and concentration are normal. Mood and affect are normal and appropriate. General appearance and grooming are normal. Short and long-term memory are intact. Pupils are 4 mm bilaterally and reactive to light. Extraocular eye muscles are intact without nystagmus. Visual acuity and visual cox seem normal grossly to confrontation. There are no deficits to sensation in the face in all 3 distributions of the fifth cranial nerve bilaterally. Corneal reflexes are positive bilaterally. Facial strength and symmetry was normal bilaterally. Hearing seems normal bilaterally. Palate moves well without asymmetry. There is normal sternocleidomastoid and trapezius (shoulder shrug) strength bilaterally. Tongue is midline with good strength bilaterally. Neck has a full range of motion without discomfort. There are no cervical bruits bilaterally. There are no cranial or ocular bruits. Heart is without murmur. There is a regular rhythm and rate. Cervical, thoracic, and lumbar spine are nontender to palpation. gait was not tested but stance sitting up in bed is quite normal. With outstretched arms there is no drift. There are no resting, postural, or action tremors. There is no ataxia with finger to nose testing. There is good facility in the hands. No other abnormal involuntary movements are noted. Motor strength is 5/5 diffusely in the arms Proximally including deltoids, biceps, and triceps. Intrinsic hand muscles and machine erector were 4/5, with atrophy in small muscles of the hand particularly the 1st dorsal interosseous and abductor pollicis brevis muscles Proximal leg strength was 4+/ 5 in the hip flexors, quadriceps, and hamstring muscles. Distal muscles were 4/5 but intrinsic muscles in the feet could not be tested due to recent surgery and amputation of toes. Extensor hallucis muscles were 4/5 bilaterally. The limbs have good tone without rigidity or spasticity. no fasciculations seen. Sensory examination Reveals some decreased sensation distally but no difference between sides. Reflexes are 2/4 in the biceps, triceps, brachioradialis, and quadriceps tendons bilaterally. Achilles tendon reflexes were absent bilaterally. There is no clonus bilaterally. Toes are downgoing with plantar stimulation On the left. There is no peripheral edema noted in the limbs. Results & Data ([facility]) Vital Signs (Past 12 Hours) Vital Signs Temp Pulse Pulse Resp BP BP Pulse Ox 01/26/22 06:50 36.7 C 80 20 126/66 92 01/26/22 06:19 74 01/26/22 03:13 37.0 C 84 20 122/66 94 01/25/22 23:18 37.1 C 86 20 131/62 95 01/25/22 22:28 85 PG Care Time/CCT Total # of Minutes Spent Total Time Spent with Patient: Total time spent is greater than 50% in coordination of care (as documented) at patient's floor/unit and/or counseling patient: Coding Level of Care Code 50886 Initial Inpt Care Lvl 3 Diagnoses Leg weakness R29.898 Numbness and tingling of left leg R20.0; R20.2 Nlztnfv-Ijrir-Tukdb disease type 2 G60.0 Time Spent (min) 120 Comment add Modifiers as able
[2022-01-26] MEDS ORDERED: STROKE PATIENT DISCHARGE STA (13:09)
--- NOTE | 2022-01-26 13:18 | Discharge Summary ---
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 NIHSS 1, last known normal 4-1/2 hours, was a stroke alert to the emergency department which was discussed with [facility] Dr. Rachid Roberson who did not recommend any thrombolytics at this time. Recommended standard stroke rule out, and observation at this time. "My mind is clearing up. My L leg still feels not normal. not like a log, but still not normal." Headache coming and going currently mild 1-2/10 on the top, front, and above the eyes. not throbbing. Had 3 toes amputated this morning. "I was told it took forever to wake up from anesthesia, that happens for me sometimes. Not everytime but sometimes." With prior procedures has had prolonged sedation and even felt tired up to a week after. Patient reports her said she was grossy and crying, pt does not remember this. She remembers eventually waking up in the surgery center and her LEFT leg 'felt like a log. Couldn't move it at all' Also had no sensation in it. no pins and needles R leg felt and continues to feel normal. No chest pain, no chest pressure. Did have some discomfort and palpitations after getting contrast for the CT scan which passed. No pain at assessment. NO shortness of breath at bedside assessment, some SoB and palpitations as above with CT contrast. No swelling of the tongue, lips, or mouth, no difficulty breathing or wheezing. No vision change, but decreased acuity without contacts in. No fevers, chills or sweats. Has been cold. Medical History: Reviewed Medications: Reviewed Surgical History: Reviewed Allergies: Reviewed Social History: No tobacco, alcohol, or MM use. Code Status: Surrogate decision maker Ovi Pham [phone]. Full Code, discussed with patient. - A Principal Diagnosis Delayed anesthesia clearance Discharge Exam General: A&Ox3. NAD. Cooperative. HEENT: Atraumatic, normocephalic. Pulm: CTAB A&P. -wheezes, -rales, -rhonchi. Symmetrical chest rise. No increased work of breathing. No respiratory distress. Cardiac: Mild tachycardia, regular, -mrg. Radial pulses intact and symmetrical. Abdominal: Nontender, nondistended, soft. BS present. CRANIAL NERVES: II: Pupils equal and reactive III, IV, : EOM intact, no gaze preference or deviation, no nystagmus. VII: no asymmetry, no nasolabial fold flattening VIII: normal hearing to speech MOTOR: RUE: 5/5 bead inspector strength, finger flexion/extension, interosseus LUE: 5/5 bead inspector strength, finger flexion/extension, interosseus RLE: Right lower extremity status post second, third, and fourth toe amputation. Hallux cap refill intact and brisk, PT pulse intact in feet bilaterally without asymmetry. 4/5 to hip flexion/extension, knee flexion/extension, ankle dorsiflexion/plantarflexion LLE: 4/5 to hip flexion/extension, knee flexion/extension, ankle dorsiflexion/plantarflexion SENSORY: Sensation intact in upper and lower extremities to soft touch and temperature bilaterally Discharge Data Allergies Allergy/AdvReac Type Severity Reaction Status Date / Time adhesive Allergy Unknown Redness of Verified 01/25/22 12:31 Skin cefaclor Allergy Unknown Hives Verified 01/25/22 12:31 daptomycin Allergy Unknown PNEUMONIA Verified 01/25/22 12:31 gluten Allergy Unknown Gastrointestinal Verified 01/25/22 12:31 Upset moxifloxacin Allergy Unknown CAN'T Verified 01/25/22 12:31 REMEMBER nitrofurantoin Allergy Unknown CAN'T Verified 01/25/22 12:31 REMEMBER Penicillins Allergy Unknown Hives Verified 01/25/22 12:31 strawberry Allergy Unknown Anaphylaxis Verified 01/25/22 12:31 Sulfa (Sulfonamide Allergy Unknown Hives Verified 01/25/22 12:31 Antibiotics) tetracycline Allergy Unknown CAN'T Verified 01/25/22 12:31 REMEMBER indomethacin AdvReac Severe UNCONSIOUS Verified 01/25/22 12:31 FOR 6 HOURS. ceftaroline fosamil AdvReac Unknown WHITE Verified 01/25/22 12:31 BLOOD COUNT DECREASE diphenhydramine AdvReac Unknown SHAKING Verified 01/25/22 12:31 ALL OVER ezetimibe [From Zetia] AdvReac Unknown Unknown Verified 01/25/22 12:31 vancomycin AdvReac Unknown JANET Verified 01/25/22 12:31 BEBETO SYNDROME Consultations 01/25/22 14:26 ED Decision to Admit Stat 01/26/22 09:00 Consult Neurology Routine Ordered Studies 01/25/22 12:18 CT angio head w con Stat CT angio neck with con Stat CT head/brain wo con Stat 01/25/22 16:10 MR brain wo con Routine US venous doppler LE LT Urgent Hospital Course (1) Leg weakness: Beth is a 76-year-old female who underwent operative 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 She has had intermittent history of delayed clearance of anesthesia in the past, was referred for further evaluation with differential including stroke/TIA. MRI of the brain did not show any strokelike pathology. Her symptoms did gradually improve and she returned to her normal baseline ov ernight. Review of anesthesiology records indicate the patient had gotten 1 mg of Versed, propofol, and 100 mcg of fentanyl. Patient had previously tolerated 1/2 mg of Versed with propofol pushes during procedures well, suspected that likely had delayed clearance of the Versed leading to symptoms. No residual symptoms at time of discharge. To do as outpatient 1. Routine follow-up with PCP 2. follow-up with surgeon for routine postop care 3. Follow-up of echo final read, was pending at time of discharge Left sided leg weakness, delayed anesthesia recovery No leukocytosis Normal coags Creatinine 0.77 at admission, normal baseline, creatinine clearance drug dosing 66.1 Troponin negative in ER Lipid panel 01/23: Triglycerides 124, cholesterol 162, LDL 78, HDL 59 NIHSS stroke scale of 1 Case was called as a stroke alert, discussed with Dr. Rachid Roberson, [facility] telestroke. TNA case/thrombolytics not recommended. Covid negative CThead: No acute findings CTA head: No acute findings CTA neck: No acute findings, no significant atherosclerotic plaque of the aortic arch, common carotid, external carotid, vertebral arteries. EKG: Sinus tachycardia, QTC 44, no territorial signs of ischemia Echo pending at discharge MRI with no strokelike pathology Doppler with no signs of DVT in the extremity Highly likely to be delayed clearance of anesthesia and patient has experienced other symptoms before. Cannot definitively exclude TIA or transient nerve compression/neuropraxia. (2) History of heart artery stent: CAD with history of NSTEMI and PCI PCI to obtuse marginal 06/2018, RCA 12/2020 Underwent cardiac cath 01/2021 for unstable angina showing patent stents with no new stenosis, nonobstructive proximal LAD disease known in follow-up History of statin intolerance with myalgias, was found to actully be Zertia --> currently tolerating Atorvastatin 10 mg p.o. every other day Last echo 12/2020: Normal LV SF EF 55 to 60%. Continue aspirin daily No signs of ACS at this time, EKG as above (3) HLD (hyperlipidemia): Continue atorvastatin as noted Has discussed PCSK9 inhibitors, declined these in the past and is not interested in these (4) Olxtftq-Hbmtb-Nmxje disease type 2: Ptwtglo-Qakdw-Zfxmj, Type 2 - Developed worsening sx about 5 years ago - Neuropathy x20 years -Status post right second, third, fourth hammertoe amputation 01/25. No signs of neurovascular compromise. (5) Atrial fibrillation: No history of Afib/arrythmia per patient EKG: Sinus tachycardia, rate 103, no territorial ST depression/elevation. Per chart review patient has history of this 20 years ago without recurrence. Not required rate control or anticoagulation (6) DVT prophylaxis: Total Time Total Time Spent Total Time Spent (In Minutes): Time spend day of discharge 60 minutes including direct patient care, documentation, review of labs and images, and coordination of care. Discharge Plan Discharge Items Patient Disposition: Home - Self-Care Reason For Visit: STROKE EVAL, L LEG WEAKNESS POSTOP, DELAYED ANESTH Discharge Diagnosis: Delayed anesthesia clearance, left leg weakness Activity: Per Instructions section Non-emergency contact: Primary Care Provider Call non-emergency contact if: you have any medication questions, your symptoms worsen, your pain is not controlled and your pain is worsening Follow-up/Referrals: Sean Pham MD [Physician] - Jesus Membreno MD [Primary Care Provider] - Diet: Heart Healthy Addtl Attending Provider Instructions: You were seen in the hospital for left lower extremity weakness following anesthesia. You have had a history of intermittent delayed recovery to anesthesia in the past. A stroke evaluation including an MRI did not show any evidence of ischemia/stroke. While a mini stroke/TIA cannot be definitively ruled out, it is likely that your symptoms were due to anesthesia. You did receive 1mg versed, propofol and 100 mcg of fentanyl for anesthesia during your procedure, it was suspected that the Versed may have had delayed clearance leading to your symptoms. You had returned to baseline with no residual symptoms at time of discharge. Please call your primary care physician to schedule a follow-up appointment for within 1 to 2 weeks when you return home. Please follow the activity instructions given to you by your surgeon. If you develop any new or worsening symptoms including fever, chills, sweats, chest pain, chest pressure, difficulty breathing, uncontrolled nausea/vomiting, rash, wheezing, passing out or nearly passing out, bleeding, black/bloody bowel movements, or other new or concerning symptoms please call your primary care physician, or call 911 for re-evaluation in the emergency department if you are very concerned. Pending Studies at Discharge: No Stand-Alone Forms: My [facility], Smoking Cessation Medications and DC Order Prescriptions: Continued epinephrine 0.3 mg/0.3 mL auto-injector 0.3 mg IM ONCE PRN (Reason: anaphylaxis) Qty: 2 RF: 0 multivitamin Tablet 1 tab PO QAM RF: 0 albuterol sulfate 90 mcg/actuation HFA aerosol inhaler 2 puffs INH QID PRN (Reason: shortness of breath or wheezing) Qty: 18 RF: 0 atorvastatin 10 mg tablet 10 mg PO Q OTHER DAY RF: 0 nitroglycerin 0.4 mg tablet, sublingual 0.4 mg sublingual UD PRN (Reason: Chest Pain) RF: 0 aspirin 81 mg tablet,chewable 81 mg PO QAM RF: 0 Discharge Orders: Discharge Order (Routine); Ordered 01/26/22 Ordered By: Todd Knight Admission Data Admit Date/Time: 01/25/22 15:40 Attending Provider: Todd Knight Admit Provider: Todd Knight Primary Care Provider: Jesus Membreno Other Providers: Todd Knight ; Randall Dodson Coding Level of Care Code D/C DAY MANAGEMENT >30 MINS Diagnoses Leg weakness R29.898 History of heart artery stent Z95.5 HLD (hyperlipidemia) E78.5 Hyperlipidemia type: unspecified Nrvhvuq-Ezhyt-Amirk disease type 2 G60.0 Atrial fibrillation I48.91 DVT prophylaxis Z29.9
--- NOTE | 2022-01-26 18:11 | XCELERA ---
[id number]
--- NOTE | 2022-01-27 05:50 | Electrocardiogram Report ---
Test Reason : Blood Pressure : / mmHG Vent. Rate : 102 BPM Atrial Rate : 102 BPM P-R Int : 148 ms QRS Dur : 084 ms QT Int : 372 ms P-R-T Axes : 032 047 038 degrees QTc Int : 484 ms Sinus tachycardia Nonspecific ST abnormality Abnormal ECG When compared with ECG of 26-JAN-2021 17:45, Nonspecific T wave abnormality, improved in Anterolateral leads Confirmed by Will Garza ([id number]) on 01/27/2022 5:49:32 AM Referred By: Confirmed By:Will Garza
--- NOTE | 2022-01-27 05:53 | Electrocardiogram Report ---
Test Reason : Blood Pressure : / mmHG Vent. Rate : 103 BPM Atrial Rate : 103 BPM P-R Int : 150 ms QRS Dur : 088 ms QT Int : 360 ms P-R-T Axes : 020 -02 007 degrees QTc Int : 471 ms Sinus tachycardia Nonspecific ST abnormality Abnormal ECG When compared with ECG of 25-JAN-2022 12:07, No significant change was found Confirmed by Will Garza ([id number]) on 01/27/2022 5:53:14 AM Referred By: REFERRED SELF Confirmed By:Will Garza
== END 2022-01-26 13:52 | disposition home or self-care (01) ==
LOC: ED 11:56 → 2N 11:56
DX: Z90.710 Acquired absence of both cervix and uterus; R29.898 Other symptoms and signs involving the musculoskeletal system; M19.90 Unspecified osteoarthritis, unspecified site; Z95.5 Presence of coronary angioplasty implant and graft; M20.41 Other hammer toe(s) (acquired), right foot; G47.30 Sleep apnea, unspecified; Z91.018 Allergy to other foods; Z79.899 Other long term (current) drug therapy; Z79.02 Long term (current) use of antithrombotics/antiplatelets; Z88.2 Allergy status to sulfonamides; I25.2 Old myocardial infarction; Z98.61 Coronary angioplasty status; Z88.0 Allergy status to penicillin; Z88.6 Allergy status to analgesic agent; G60.0 Hereditary motor and sensory neuropathy; J45.909 Unspecified asthma, uncomplicated; I48.91 Unspecified atrial fibrillation; E78.5 Hyperlipidemia, unspecified; Z91.048 Other nonmedicinal substance allergy status; I25.10 Atherosclerotic heart disease of native coronary artery without angina pectoris; Z88.1 Allergy status to other antibiotic agents; Z89.422 Acquired absence of other left toe(s); Z88.8 Allergy status to other drugs, medicaments and biological substances; Z79.82 Long term (current) use of aspirin

== ENCOUNTER 2025-10-05 18:28 | Observation (INO) ==
[2025-10-05] MEDS: SODIUM CHLORIDE 0.9% 1,000 ML IV SCH (19:27)
[2025-10-05] MEDS: ACETAMINOPHEN 1,000 MG/100 ML VIAL IV STA (19:27)
[2025-10-05 19:38] LABS: Hematocrit (blood only) 41.9 % (37.0-47.0); Hemoglobin 14.4 g/dL (12.0-16.0); Immature Granulocytes # (auto) 0.02 K/uL (0.01-0.20); Immature Granulocytes % (auto) 0.3 %; Mean Corpuscular Hemoglobin 30.3 pg (25.0-34.0); Mean Corpuscular Volume 88.2 fL (80.0-100.0); Platelet Count 183 K/uL (130-400); RDW Standard Deviation 48.0 fL (36.4-46.3); Red Blood Count 4.75 M/uL (4.20-5.40); White Blood Count 6.91 K/ul (4.8-10.8)
[2025-10-05 19:57] LABS: Alanine Aminotransferase 13 U/L (7-52); Albumin Globulin Ratio 1.2 (0.9-2); Albumin Level 3.8 gm/dl (3.4-5.0); Alkaline Phosphatase 76 U/L (34-104); Anion Gap 8 (3-11); Bilirubin,Total 0.6 mg/dl (0.2-1.0); Blood Urea Nitrogen 14 mg/dl (6-23); Calcium 9.4 mg/dl (8.6-10.3); Carbon Dioxide 25 mmol/L (21-32); Chloride 98 mmol/L (98-107); Globulin 3.2 gm/dl (2.5-4.0); Glucose 123 mg/dl (70-99(Fasting)); Magnesium 1.9 mg/dl (1.7-2.4); Potassium 4.2 mmol/L (3.5-5.1); Sodium 131 mmol/L (136-145); Total Protein 7.0 gm/dl (6.0-8.3)
[2025-10-05 20:07] LABS: INR 1.0 (0.9-1.1); Partial Thromboplastin Time 28 Seconds (21-31); Prothrombin Time 10.6 Seconds (9.0-12.0)
[2025-10-05 20:38] LABS: Chlamydia pneumoniae PCR Not Detected (NotDetected); Coronavirus 229E PCR Not Detected (NotDetected); Coronavirus CoV-2 (COVID19)PCR Not Detected (NotDetected); Coronavirus HKU1 PCR Not Detected (NotDetected); Coronavirus NL63 PCR Not Detected (NotDetected); Coronavirus OC43PCR Not Detected (NotDetected); Human Metapneumovirus PCR DETECTED (NotDetected); Parainfluenza Virus 1 PCR Not Detected (NotDetected); Parainfluenza Virus 2 PCR Not Detected (NotDetected); Parainfluenza Virus 3 PCR Not Detected (NotDetected); Parainfluenza Virus 4 PCR Not Detected (NotDetected); Respiratory Syncytial VirusPCR Not Detected (NotDetected); Rhinovirus/Enterovirus PCR Not Detected (NotDetected)
--- NOTE | 2025-10-05 21:15 | XRay Report ---
Exam(s): XR CXR 2 VIEWS EXAM: XR Chest, 2 Views CLINICAL HISTORY: Reason for exam: Dyspnea. TECHNIQUE: Frontal and lateral views of the chest. COMPARISON: 03/07/2024 FINDINGS: Lungs: Unremarkable. No consolidation. Pleural space: Trace left pleural effusion. No pneumothorax. Heart: Unremarkable. No cardiomegaly. Mediastinum: Unremarkable. Normal mediastinal contour. Bones/joints: Postop changes lower thoracic and upper lumbar spine. No acute fracture. IMPRESSION: Trace left pleural effusion. Electronically signed by: Moose Santiago MD 10/05/25 21:15 PM
--- NOTE | 2025-10-05 21:21 | Emergency Department Note ---
ED Visit Note I was consulted by the Advanced Practice Provider. I personally made/approved the management plan and take responsibility for the patient management. I performed a substantive portion of the visit. This includes the aspects of: [-I independently interpreted the following studies:][Chest x-ray shows some chronic change with some atelectasis at the bases, especially on the left. There is a small left pleural effusion.] The patient presents with a fever and tachycardia. She was found to have a human metapneumovirus by workup. Laboratory workup did show a slight troponin elevation. Given her age, given her complaints/findings, admission and further workup/care is warranted. The on-call hospitalist was consulted. .
--- NOTE | 2025-10-05 21:38 | Emergency Department Note ---
Impression & Plan Hypoxia, Human metapneumovirus (hMPV) pneumonia, Fever, Tachycardia ED Provider Note CHIEF COMPLAINT: Shortness of breath, pneumonia HISTORY OF PRESENTING ILLNESS: Patient is an 79-year-old female presents to the emergency department today for complaints of shortness of breath, chest pain, pneumonia, blood in emesis. Patient's is at bedside and acts as secondary historian. He reports listening to her lungs and hearing some crackling that he believes is pneumonia. 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 About 6 days ago she began with congestion and a cough and then yesterday developed fevers and chills. Her had started her on Keflex and she has had 2 doses. He reports her SpO2 is typically around 98% but today has been 92%. He also reports she had an emesis earlier today that was positive for blood. She denies history of GI bleeds and is not currently anticoagulated. She did take an omeprazole which she reports has helped her symptoms. Patient denies any recent travel, tobacco use, hormonal use, exposure to any other illnesses, abdominal pain, HENDERSON, lightheadedness, dizziness, syncope. REVIEW OF SYSTEMS: See HPI for pertinent positives and pertinent negatives. ALLERGIES: See below MEDICATIONS: See below PAST MEDICAL HISTORY: See below PHYSICAL EXAM: VITALS: Vitals are noted on the nurse's note and reviewed by myself. GENERAL: Non toxic, in no acute distress, non-diaphoretic. SKIN: Capillary refill <2 sec. EYES: PERRLA. EOMI. Conjunctivae without injection, sclerae without icterus. NOSE: Patent without discharge. HEART: Regular rate and rhythm without murmurs gallops or rubs. LUNGS: Clear to auscultation bilaterally without wheezes, rales or rhonchi. No retractions or accessory muscle use. Patient does have a cough on exam with deep inhalation. ABDOMEN: Positive bowel sounds x 4. Normal tympanic percussion. Soft, nontender to palpation. NEURO: Patient was alert and oriented. No focal neurological deficits. DIFFERENTIAL DIAGNOSIS: Differential diagnosis includes: Viral infections, bacterial infections, group A strep- strep throat/pharyngitis, otitis media, sinusitis, epiglottitis, pertussis, allergic rhinitis, vasomotor rhinitis, GERD, mono, foreign body aspiration, among others. ED COURSE AND MEDICAL DECISION MAKING: HISTORY FROM INDEPENDENT HISTORIAN: History was provided by the patient and her who is at bedside and secondary historian. MONITOR: Continuous automation mechanic: Order was placed for continuous automation mechanic. Patient was placed on the automation mechanic and continuous pulse ox. Patient was noted to be in normal sinus rhythm at an initial rate of 107 bpm per my interpretation. EKG: EKG was interpreted by myself as sinus tachycardia with nonspecific ST abnormality at a rate of 122 bpm. INTERPRETATION OF LABS: I interpreted the labs with full lab results as below in the lab section of this note. Laboratory results pertinent to the emergent complaint are discussed in the MDM section below. The patient was advised to follow up with their PCP and/or specialist(s) for further outpatient monitoring and management of any abnormal results. INTERPRETATION OF IMAGING: Imaging studies were interpreted by myself and read by radiology as per the imaging section of this note. The patient was advised to follow up with their PCP and/or specialist(s) for further outpatient management of any non-emergent abnormal findings. CHRONIC MEDICAL/SOCIAL CONDITIONS AFFECTING CARE: No social concerns were identified as barriers to patients care. ESCALATION OF CARE CONSIDERED: I considered admission on this patient due to elevated troponin and new oxygen requirement. CONSULTATIONS: I had a meaningful discussion about this patient with Dr. Pratt who agrees with my assessment and the treatment plan. SUMMARY: I examined the patient for complaints of chest pain, shortness of breath, blood in vomit. A physical exam and history were performed. Nursing notes, EMR, and medication list were personally reviewed. On arrival the patients SpO2 was 88%, patient was placed on 3L of O2 via NC with improvement to 95%. Noted to be febrile and tachycardic as well. Patient given Tylenol 1gm and 1L NSS upon arrival. CBC showed no leukocytosis, anemia, thrombocytopenia. Lactate was 1.8. Procalcitonin was 0.05. PT/INR and APTT were normal. CMP showed no emergent findings but a sodium of 131. Magnesium was 1.9. Troponin was 23.2, 2-hour repeat was 26.2. Patient does deny any chest pain or significant SOB on re- evaluation. I do not have concerns for ACS at this time. Likely related to dehydration and tachycardia. BioFire was positive for human metapneumovirus. Chest x-ray showed trace left pleural effusion. On re-evaluation, the patient was feeling significantly better, tachycardia had resolved and patient was afebrile. Antibiotics held until admission as this is likely just a viral infection. No concerns for sepsis as there was no leukocytosis, normal procalcitonin and normal lactate. At this time I feel the patient will benefit from admission due to her symptoms and oxygen requirement. I consulted with Dr. Washington who accepts the patient for admission. DIAGNOSIS: Human metapneumovirus, hypoxia, elevated troponin, hyponatremia TREATMENT PLAN/DISCHARGE INSTRUCTIONS: Admit to hospitalist services. The chart was completed utilizing [employer] Speech voice recognition software.Grammatical errors, random word insertions, pronoun errors, and incomplete sentences are an occasional consequence of this system due to software limitations, ambient noise, and hardware issues.Any formal questions or concerns about the content, text, or information contained within the body of this dictation should be directly addressed to the physician for clarification. Past Med/Surg History Problem List (Updated 10/06/25 @ 02:03 by Oneida Dodson PA-C) Hyponatremia Elevated troponin Tachycardia (Acute) Fever (Acute) Hypoxia (Acute) Human metapneumovirus (hMPV) pneumonia (Acute) Posterior tibial tendinitis Disorder of right rotator cuff Disorder of left rotator cuff MENDEZ (dyspnea on exertion) Cellulitis Numbness and tingling of left leg Atrial fibrillation ONSET 40 YEARS AGO - NO MEDS - FOLLOWS W/ DR. RUBALCAVA > no pacer Bkcqjrs-Dqcnb-Egoph disease type 2 Coronary artery disease Leg weakness History of heart artery stent X 1 Bronchitis (Acute) DVT prophylaxis Chest pain (Acute) HLD (hyperlipidemia) DVT prophylaxis Acute coronary syndrome S/P coronary artery stent placement Hyperlipidemia Unstable angina (Acute) Bilateral carpal tunnel syndrome Hammer toe of left foot Ingrown toenail of left foot resolved Muscle pain Encounter for pre-operative examination Stroke-like symptoms (Acute) Other hammer toe(s) (acquired), right foot Hammer toe of second toe of right foot Abrasion of toe, left, infected Pes anserinus tendonitis of right lower extremity Right knee DJD Hip bursitis, left Hammer toe of left foot Medical History NSTEMI (non-ST elevated myocardial infarction) 2018 > stent Pes anserine bursitis Iqxpoou-Hsmdb-Ykzrh disease TYPE II Osteoarthritis Urinary leakage Hiatal hernia TMJ (temporomandibular joint disorder) Myocardial Infarction 2018 Sleep apnea CPAP Asthma uses PRN INH 1xmo on average Surgical History Hx of surgical procedure Left Second Toe Amputation Hx of cataract extraction bilat History of carpal tunnel surgery of right wrist History of carpal tunnel surgery of left wrist Slow to wake up after anesthesia pt reports can take several days to stop feeling sleepy all day History of tooth extraction History of tubal ligation History of hysterectomy History of cholecystectomy History of arthroscopy of left knee History of foot surgery LEFT History of thoracic spinal fusion History of lumbar spinal fusion History of esophagogastroduodenoscopy (EGD) History of colonoscopy History of cardiac cath TOTAL CARDIAC CATH X3 - 06/2018 - [place] - [facility] - 1 STENT - FOLLOWS W/ DR. RUBALCAVA DEC 2020 STENT X1 [facility] - RIGHT CORONARY ARTERY 95% BLOCKED JANUARY 2021 - C/P...CATH..NO STENT PLACED Stented coronary artery x2 most recent Dec 2020 at [facility] Family History Mother , age 76 of an [place] Family history of diabetes mellitus Myocardial infarction Brother Family history of diabetes mellitus Grandmother (Maternal) Family history of diabetes mellitus Father , age 85 with dementia and pneumonia Myocardial infarction Dementia Other Family history non-contributory Social History Smoking Status: Never smoker Second Hand Exposure: No; Do You Dip or Chew Tobacco: No; Hx Alcohol Use: No Hx Substance Use: No Preferred Language: Polish Communication Ability: Effective Belt Sander Stone Required: No Beliefs That Will Affect Care: None marital status: Current Living Situation: Spouse Current Living Situation Comment: home with current occupational status: retired current occupation: Retired Other Information That Helps Us Care for You: No Feels Safe at Home: Yes Safety Concerns: Feels Safe At This Time Assistive Devices: Cane Allergies Allergies Allergy/AdvReac Type Severity Reaction Status Date / Time strawberry Allergy Severe Anaphylaxis Verified 10/05/25 22:10 cefaclor Allergy Intermediate Hives Verified 10/05/25 22:10 Penicillins Allergy Intermediate Hives Verified 10/05/25 22:10 Sulfa (Sulfonamide Allergy Intermediate Hives Verified 10/05/25 22:10 Antibiotics) adhesive Allergy Mild Redness of Verified 10/05/25 22:10 Skin moxifloxacin Allergy Unknown CAN'T Verified 10/05/25 22:10 REMEMBER nitrofurantoin Allergy Unknown CAN'T Verified 10/05/25 22:10 REMEMBER tetracycline Allergy Unknown CAN'T Verified 10/05/25 22:10 REMEMBER indomethacin AdvReac Severe UNCONSIOUS Verified 10/05/25 22:10 FOR 6 HOURS. ceftaroline fosamil AdvReac Intermediate WHITE Verified 10/05/25 22:10 BLOOD COUNT DECREASE daptomycin AdvReac Intermediate PNEUMONIA Verified 10/05/25 22:10 diphenhydramine AdvReac Intermediate SHAKING Verified 10/05/25 22:10 ALL OVER gluten AdvReac Intermediate Gastrointestinal Verified 10/05/25 22:10 Upset vancomycin AdvReac Intermediate JANET Verified 10/05/25 22:10 BEBETO SYNDROME ezetimibe [From Zetia] AdvReac Unknown Unknown Verified 10/05/25 22:10 Home Meds Home Medications Medication Instructions Recorded Confirmed multivitamin 1 tab PO QAM 04/08/19 10/05/25 epinephrine 0.3 mg/0.3 mL 0.3 mg IM DIRECTED PRN 07/07/19 10/05/25 injection, auto-injector anaphylaxis #2 ea nitroglycerin 0.4 mg sublingual 0.4 mg sublingual UD PRN Chest Pain 03/25/21 10/05/25 tablet aspirin 81 mg chewable tablet 81 mg PO QAM 07/06/21 10/05/25 estradiol 0.01% (0.1 mg/gram) 1 applic vaginal 2XWK 03/07/24 10/05/25 vaginal cream acetaminophen 650 mg 650 mg PO Q8H PRN Pain 10/05/25 10/05/25 tablet,extended release (Tylenol 8 Hour) propylene glycol 1 %-glycerin 0.3 1 drp ophthalmic (eye) TID PRN Dry 10/05/25 10/05/25 % eye drops (Artificial Tears Eyes (glycerin-peg)) Previous Rx's Medication Instructions Recorded albuterol sulfate 90 mcg/actuation 2 puffs inhalation QID PRN 12/10/19 aerosol inhaler shortness of breath or wheezing #18 grams atorvastatin 10 mg tablet 10 mg PO DAILY #90 tabs 01/22/24 Results & Data (ED) Vital Signs Vital Signs - 24 hr 10/05/25 18:32 10/05/25 19:21 10/05/25 19:26 Temperature 37.9 C H Temperature Source Oral Pulse Rate 127 H 120 H 116 H Pulse Rate [Apical] Pulse Rhythm Regular Respiratory Rate 22 Respiratory Effort / Characteristics Non-Labored Spontaneous Respiratory Depth Normal Respiratory Pattern Regular Blood Pressure 144/79 H Blood Pressure [Left Arm] Blood Pressure Mean 100 Blood Pressure Mean [Left Arm] Blood Pressure Position Sitting Pulse Oximetry 95 92 Oxygen Delivery Method Nasal Cannula Oxygen Flow Rate 3 Sepsis Recent Fever Within 48 Hours Yes Sepsis New/Unexplained Change in Mental Status No Sepsis Action Taken by Nursing Physician Notified 10/05/25 19:29 10/05/25 20:14 10/05/25 22:30 Temperature 36.9 C Temperature Source Oral Pulse Rate Pulse Rate [Apical] 115 H 107 H 95 H Pulse Rhythm Respiratory Rate 34 H 26 H 22 Respiratory Effort / Characteristics Spontaneous Respiratory Depth Shallow Shallow Respiratory Pattern Rapid/Shallow Blood Pressure Blood Pressure [Left Arm] 147/85 H 128/74 Blood Pressure Mean Blood Pressure Mean [Left Arm] 105 92 Blood Pressure Position Pulse Oximetry 96 95 95 Oxygen Delivery Method Nasal Cannula Nasal Cannula Nasal Cannula Oxygen Flow Rate 3 3 3 Sepsis Recent Fever Within 48 Hours Sepsis New/Unexplained Change in Mental Status Sepsis Action Taken by Nursing 10/05/25 23:16 Temperature Temperature Source Pulse Rate 94 H Pulse Rate [Apical] Pulse Rhythm Respiratory Rate Respiratory Effort / Characteristics Respiratory Depth Respiratory Pattern Blood Pressure Blood Pressure [Left Arm] Blood Pressure Mean Blood Pressure Mean [Left Arm] Blood Pressure Position Pulse Oximetry Oxygen Delivery Method Oxygen Flow Rate Sepsis Recent Fever Within 48 Hours Sepsis New/Unexplained Change in Mental Status Sepsis Action Taken by Nursing Laboratory Data 10/05/25 19:16 10/06/25 06:40 Lab Results 10/05/25 10/05/25 10/05/25 Range/Units 19:16 19:36 21:07 WBC 6.91 (4.8-10.8) K/ul RBC 4.75 (4.20-5.40) M/uL Hgb 14.4 (12.0-16.0) g/dL Hct 41.9 (37.0-47.0) % MCV 88.2 (80.0-100.0) fL MCH 30.3 (25.0-34.0) pg MCHC 34.4 (32.0-36.0) g/dL RDW Std Deviation 48.0 H (36.4-46.3) fL RDW Coeff of Ramesh 14.7 H (11.5-14.5) % Plt Count 183 (130-400) K/uL MPV 9.3 L (9.4-12.4) fL Immature Gran % (Auto) 0.3 % Neut % (Auto) 75.8 % Lymph % (Auto) 13.5 % Obion % (Auto) 10.1 % Eos % (Auto) 0.0 % Baso % (Auto) 0.3 % Neut # (Auto) 5.24 (1.40-6.50) K/uL Lymph # (Auto) 0.93 L (1.20-3.40) K/uL [place]ion # (Auto) 0.70 H (0.11-0.59) K/uL Eos # (Auto) 0.00 (0.00-0.50) K/uL Baso # (Auto) 0.02 (0.00-0.20) K/uL Immature Gran # (Auto) 0.02 (0.01-0.20) K/uL PT 10.6 (9.0-12.0) Seconds INR 1.0 (0.9-1.1) APTT 28 (21-31) Seconds PTT Ratio 1.0 Sodium 131 L (136-145) mmol/L Potassium 4.2 (3.5-5.1) mmol/L Chloride 98 (98-107) mmol/L Carbon Dioxide 25 (21-32) mmol/L Anion Gap 8 (3-11) BUN 14 (6-23) mg/dl Creatinine 0.85 (0.6-1.2) mg/dl Est Cr Clr Drug Dosing Not Reportable eGFR 68.79 BUN/Creatinine Ratio 16.5 (10-20) Glucose 123 H (70-99(Fasting)) mg/dl Lactate 1.8 (0.4-2.0) mmol/L Calcium 9.4 (8.6-10.3) mg/dl Magnesium 1.9 (1.7-2.4) mg/dl Total Bilirubin 0.6 (0.2-1.0) mg/dl AST 20 (13-39) U/L ALT 13 (7-52) U/L Alkaline Phosphatase 76 (34-104) U/L Troponin I High Sens 23.2 H 26.2 H (0-14) pg/ml Total Protein 7.0 (6.0-8.3) gm/dl Albumin 3.8 (3.4-5.0) gm/dl Globulin 3.2 (2.5-4.0) gm/dl Albumin/Globulin Ratio 1.2 (0.9-2) Procalcitonin 0.05 (0-0.5) ng/ml Adenovirus (PCR) Not Detected (NotDetected) B. pertussis DNA (PCR) Not Detected (NotDetected) B.parapertussis DNA PCR Not Detected (NotDetected) C. pneumoniae DNA (PCR) Not Detected (NotDetected) Coronavirus OC43 (PCR) Not Detected (NotDetected) Coronavirus HKU1 (PCR) Not Detected (NotDetected) Coronavirus 229E (PCR) Not Detected (NotDetected) SARS-CoV-2 (PCR) Not Detected (NotDetected) Coronavirus NL63 (PCR) Not Detected (NotDetected) Human Metapneumovir PCR DETECTED A (NotDetected) Influenza Type A (PCR) Not Detected (NotDetected) Influenza Type B (PCR) Not Detected (NotDetected) M. pneumoniae (PCR) Not Detected (NotDetected) Parainfluenza 1 (PCR) Not Detected (NotDetected) Parainfluenza 2 (PCR) Not Detected (NotDetected) Parainfluenza 3 (PCR) Not Detected (NotDetected) Parainfluenza 4 (PCR) Not Detected (NotDetected) RSV (PCR) Not Detected (NotDetected) Entero/Rhino (PCR) Not Detected (NotDetected) Administered Medications Acetaminophen (Acetaminophen 325 Mg Tab) 650 mg PO Q4H PRN PRN Reason: Pain or Fever Stop: 11/05/25 01:55 Last Admin: 10/06/25 16:20 Dose: 650 mg Documented By: Admin: 10/06/25 08:33 Dose: 650 mg Documented By: MARK Aspirin (Aspirin 81 Mg Chew) 81 mg PO QAM BARBRA Stop: 11/05/25 08:59 Last Admin: 10/06/25 08:33 Dose: 81 mg Documented By: MARK Atorvastatin Calcium (Atorvastatin 10 Mg Tab) 10 mg PO DAILY BARBRA Stop: 11/05/25 08:59 Last Admin: 10/06/25 08:33 Dose: 10 mg Documented By: MARK Discontinued Medications Sodium Chloride (Nss) 1,000 mls @ 999 mls/hr IV .Q1H1M BARBRA Stop: 10/05/25 20:00 Last Infusion: 10/05/25 21:00 Dose: Infused Documented By: abl Admin: 10/05/25 19:27 Dose: 999 mls/hr Documented By: abl Acetaminophen (Ofirmev) 1,000 mg in 100 mls @ 400 mls/hr IV NOW STA Stop: 10/05/25 19:12 Last Infusion: 10/05/25 19:43 Dose: Infused Documented By: abl Admin: 10/05/25 19:27 Dose: 400 mls/hr Documented By: abl Lactated Ringer's (Lr) 1,000 mls @ 80 mls/hr IV .[id number] BARBRA Stop: 10/06/25 12:44 Last Infusion: 10/06/25 12:52 Dose: Infused Documented By: Admin: 10/06/25 00:46 Dose: 80 mls/hr Documented By: abl Imaging Data Radiologist's Impression: Chest X-Ray 10/05/25 18:59 Exam(s): XR CXR 2 VIEWS EXAM: XR Chest, 2 Views CLINICAL HISTORY: Reason for exam: Dyspnea. TECHNIQUE: Frontal and lateral views of the chest. COMPARISON: 03/07/2024 FINDINGS: Lungs: Unremarkable. No consolidation. Pleural space: Trace left pleural effusion. No pneumothorax. Heart: Unremarkable. No cardiomegaly. Mediastinum: Unremarkable. Normal mediastinal contour. Bones/joints: Postop changes lower thoracic and upper lumbar spine. No acute fracture. IMPRESSION: Trace left pleural effusion. Electronically signed by: Moose Santiago MD 10/05/25 21:15 PM Discharge Plan Visit Data Chief Complaint: Abdominal Pain Stated Complaint: LT LOWER LOBE PNEUMONIA, ABD PAIN, DEHYDRATED CNT ED Provider: Royce Pratt ED Midlevel Provider: Saldana,Wilma L Discharge Problem: Hypoxia, Human metapneumovirus (hMPV) pneumonia, Fever, Tachycardia Patient Disposition: Admitted As Inpatient Condition: Good Discharge Instructions Interventions: ED Discharge Assessment Last Done: 10/06/25 01:20 Discharge Problem: Fever Qualifiers: Fever type: unspecified Qualified Code(s): R50.9 - Fever, unspecified
--- NOTE | 2025-10-05 23:43 | History & Physical Report ---
Date of Service October 05, 2025 Assessment & Plan (1) Hypoxia: (2) Human metapneumovirus (hMPV) pneumonia: (3) Elevated troponin: (4) Hyponatremia: Plan 79-year-old female PMHx HLD, CAD s/p stent, coronary tooth disease type II, A- fib not anticoagulated, and orthopedic conditions presenting for fever. CBC without leukocytosis or leukopenia and with a stable H&H. Electrolytes with decreased sodium 131 and slightly elevated glucose 123. Lactate and procalcitonin are normal. Does have a slight elevation in troponin, no chest pain. Admission for hypoxia, diagnosed with human metapneumovirus at admission. #Hypoxia/Human metapneumovirus Prior h/o LLL PNA per patient, the day [employer], family member prescribed her abx and she took ~ 2 doses. In ED, O2 sat decreased to 92% on RA, requiring supplemental O2 at time of admission. - CBC w/o leukocytosis/leukopenia; lactate + procal WNL - BioFire (+) human metapneumovirus - CXR trace L pleural effusion - Isolation precautions - O2 via NC prn - none at baseline, wean as tolerated - DuoNebs prn wheezing/SOB - Acetaminophen prn fever/pain - Deferred abx at time of admission - WBC, lactate, procal WNL, CXR w/o PNA #Elevated troponin/Tachycardia H/o CAD, s/p stents most recent 2 years ago per patient. No CP, SOB, or palpitations. Can sense her heart beating fast per patient. Tachycardia likely in setting of known viral illness, not meeting SIRS criteria at admission. - Troponin 23.2, 26.2 on repeat - trend - EKG sinus tachy @ 122 bpm - Likely 2/2 demand #Hyponatremia Decreased intake over the past few days 2/2 not feeling well. - Na 131, glucose 123 - BMP am - IVF LR @ 80 mL/hr x 1L Dispo: Obs, med/tele VTE prophylaxis: SCDs This document was dictated utilizing BlogCN. Please excuse any grammatical errors that may be secondary to use of this software. Admission and Anticipated Discharge Date Admission Date: 10/05/2025 History of Present Illness Chief Complaint: Fever Primary Care Provider: Kervin Gray MD 79-year-old female PMHx HLD, CAD s/p stent, coronary tooth disease type II, A- fib not anticoagulated, and orthopedic conditions presenting for fever. Pt reports that she is "not feeling so hot." States that she was diagnosed with PNA the day of arrival by her who is a doctor and prescribed her oral antibiotics. She reports taking 2 doses and still feeling ill with development of a fever so she came to the ED. Tmax 103 degrees Fahrenheit. Reports that she has been coughing but it is nonproductive. She is not wheezing and does not feel SOB. She can feel that her heart rate is sped up, but denies palpitations or dizziness. She has a history of cardiac stents ~ 2 years [employer], states she presented with elevated heart rate so she was concerned when her heart seemed to be going fast again. Her heart was going "too fast... 130s with walking" on the day of arrival. She does not feel weak. Denies sick contacts. No CP, palpitations, SOB, abdominal pain, N/V/D/C, numbness/tingling, URI symptoms, LUTS, syncope, or falls. ED evaluation reveals CBC without leukocytosis or leukopenia, stable H&H; PT/INR WNL; CMP sodium 131, glucose 123; lactate 1.8; procalcitonin 0.05; troponin 23.2, 26.2 on repeat; BioFire positive human metapneumovirus; CXR trace L pleural effusion; EKG sinus tachycardia with nonspecific ST at 122 bpm.; Provided with 1L NSS and acetaminophen 1 g IV in ED. Please see Dr. Izquierdo's attestation for adjustments/additions to treatment plan. Allergies Allergy/AdvReac Type Severity Reaction Status Date / Time strawberry Allergy Severe Anaphylaxis Verified 10/05/25 22:10 cefaclor Allergy Intermediate Hives Verified 10/05/25 22:10 Penicillins Allergy Intermediate Hives Verified 10/05/25 22:10 Sulfa (Sulfonamide Allergy Intermediate Hives Verified 10/05/25 22:10 Antibiotics) adhesive Allergy Mild Redness of Verified 10/05/25 22:10 Skin moxifloxacin Allergy Unknown CAN'T Verified 10/05/25 22:10 REMEMBER nitrofurantoin Allergy Unknown CAN'T Verified 10/05/25 22:10 REMEMBER tetracycline Allergy Unknown CAN'T Verified 10/05/25 22:10 REMEMBER indomethacin AdvReac Severe UNCONSIOUS Verified 10/05/25 22:10 FOR 6 HOURS. ceftaroline fosamil AdvReac Intermediate WHITE Verified 10/05/25 22:10 BLOOD COUNT DECREASE daptomycin AdvReac Intermediate PNEUMONIA Verified 10/05/25 22:10 diphenhydramine AdvReac Intermediate SHAKING Verified 10/05/25 22:10 ALL OVER gluten AdvReac Intermediate Gastrointestinal Verified 10/05/25 22:10 Upset vancomycin AdvReac Intermediate JANET Verified 10/05/25 22:10 BEBETO SYNDROME ezetimibe [From Zetia] AdvReac Unknown Unknown Verified 10/05/25 22:10 Home Medications Medication Instructions Recorded Confirmed Type multivitamin 1 tab PO QAM 04/08/19 10/05/25 History epinephrine 0.3 mg/0.3 mL 0.3 mg IM DIRECTED PRN 07/07/19 10/05/25 History injection, auto-injector anaphylaxis #2 ea albuterol sulfate 90 mcg/actuation 2 puffs inhalation QID PRN 12/10/19 10/05/25 Rx aerosol inhaler shortness of breath or wheezing #18 grams nitroglycerin 0.4 mg sublingual 0.4 mg sublingual UD PRN Chest Pain 03/25/21 10/05/25 History tablet aspirin 81 mg chewable tablet 81 mg PO QAM 07/06/21 10/05/25 History atorvastatin 10 mg tablet 10 mg PO DAILY #90 tabs 01/22/24 10/05/25 Rx estradiol 0.01% (0.1 mg/gram) 1 applic vaginal 2XWK 03/07/24 10/05/25 History vaginal cream acetaminophen 650 mg 650 mg PO Q8H PRN Pain 10/05/25 10/05/25 History tablet,extended release (Tylenol 8 Hour) propylene glycol 1 %-glycerin 0.3 1 drp ophthalmic (eye) TID PRN Dry 10/05/25 10/05/25 History % eye drops (Artificial Tears Eyes (glycerin-peg)) Past Med/Surg History Problem List (Updated 10/06/25 @ 02:03 by Oneida Dodson PA-C) Hyponatremia Elevated troponin Tachycardia (Acute) Fever (Acute) Hypoxia (Acute) Human metapneumovirus (hMPV) pneumonia (Acute) Posterior tibial tendinitis Disorder of right rotator cuff Disorder of left rotator cuff MENDEZ (dyspnea on exertion) Cellulitis Numbness and tingling of left leg Atrial fibrillation ONSET 40 YEARS AGO - NO MEDS - FOLLOWS W/ DR. RUBALCAVA > no pacer Mhjlvtt-Stxfc-Gillv disease type 2 Coronary artery disease Leg weakness History of heart artery stent X 1 Bronchitis (Acute) DVT prophylaxis Chest pain (Acute) HLD (hyperlipidemia) DVT prophylaxis Acute coronary syndrome S/P coronary artery stent placement Hyperlipidemia Unstable angina (Acute) Bilateral carpal tunnel syndrome Hammer toe of left foot Ingrown toenail of left foot resolved Muscle pain Encounter for pre-operative examination Stroke-like symptoms (Acute) Other hammer toe(s) (acquired), right foot Hammer toe of second toe of right foot Abrasion of toe, left, infected Pes anserinus tendonitis of right lower extremity Right knee DJD Hip bursitis, left Hammer toe of left foot Medical History NSTEMI (non-ST elevated myocardial infarction) 2018 > stent Pes anserine bursitis Jkfcioe-Gppmf-Xrafh disease TYPE II Osteoarthritis Urinary leakage Hiatal hernia TMJ (temporomandibular joint disorder) Myocardial Infarction 2018 Sleep apnea CPAP Asthma uses PRN INH 1xmo on average Surgical History Hx of surgical procedure Left Second Toe Amputation Hx of cataract extraction bilat History of carpal tunnel surgery of right wrist History of carpal tunnel surgery of left wrist Slow to wake up after anesthesia pt reports can take several days to stop feeling sleepy all day History of tooth extraction History of tubal ligation History of hysterectomy History of cholecystectomy History of arthroscopy of left knee History of foot surgery LEFT History of thoracic spinal fusion History of lumbar spinal fusion History of esophagogastroduodenoscopy (EGD) History of colonoscopy History of cardiac cath TOTAL CARDIAC CATH X3 - 06/2018 - PR - [facility] - 1 STENT - FOLLOWS W/ DR. RUBALCAVA DEC 2020 STENT X1 [facility] - RIGHT CORONARY ARTERY 95% BLOCKED JANUARY 2021 - C/P...CATH..NO STENT PLACED Stented coronary artery x2 most recent Dec 2020 at [facility] Family History Mother , age 76 of an PR Family history of diabetes mellitus Myocardial infarction Brother Family history of diabetes mellitus Grandmother (Maternal) Family history of diabetes mellitus Father , age 85 with dementia and pneumonia Myocardial infarction Dementia Other Family history non-contributory Social History Smoking Status: Never smoker Second Hand Exposure: No; Do You Dip or Chew Tobacco: No; Hx Alcohol Use: No Hx Substance Use: No Preferred Language: Wolof Communication Ability: Effective Skin Specialist Required: No Beliefs That Will Affect Care: None marital status: Current Living Situation: Spouse Current Living Situation Comment: home with current occupational status: retired current occupation: Retired Other Information That Helps Us Care for You: No Feels Safe at Home: Yes Safety Concerns: Feels Safe At This Time Assistive Devices: Cane Review of Systems Review of Systems: All systems reviewed & are unremarkable except as noted in Subjective Physical Exam Physical Exam: General: No acute distress Skin: Warm and dry Head: Normocephalic, atraumatic Eyes: PERRL, conjunctivae clear, sclera non-icteric ENT: External ear and ear canal without swelling; nose atraumatic; good dentition, tongue normal appearance, pharynx normal Neck: Supple, no LAD Cardio: RRR, no M/G/R, S1 and S2 normal Resp: O2 via NC; No respiratory distress, cough sounds dry, lungs CTA in all lobes bilaterally, no wheezes, rales, or rhonchi Abdomen: Soft, symmetric, nontender; No masses or hepatosplenomegaly; Bowel sounds normoactive MSK: No deformities; pulses palpable and equal; no edema. Neuro: Awake, alert; Sensation intact bilaterally; CN grossly intact Psych: Appropriate mood and affect; good judgement and insight. Results & Data Results & Data Vital Signs (Past 12 Hours) Vital Signs Temp Pulse Pulse Resp BP BP Pulse Ox 10/05/25 23:16 94 H 10/05/25 22:30 95 H 22 128/74 95 10/05/25 20:14 36.9 C 107 H 26 H 95 10/05/25 19:29 115 H 34 H 147/85 H 96 10/05/25 19:26 116 H 10/05/25 19:21 120 H 92 10/05/25 18:32 37.9 C H 127 H 22 144/79 H 95 O2 Del Method O2 Flow Rate 10/05/25 23:16 10/05/25 22:30 Nasal Cannula 3 10/05/25 20:14 Nasal Cannula 3 10/05/25 19:29 Nasal Cannula 3 10/05/25 19:26 10/05/25 19:21 Nasal Cannula 3 10/05/25 18:32 Laboratory Results 10/05/25 19:02 Aerobic Blood Culture - Pending Blood Anaerobic Blood Culture - Pending 10/05/25 19:16 Aerobic Blood Culture - Pending Blood Anaerobic Blood Culture - Pending 10/05/25 10/05/25 10/05/25 21:07 19:36 19:16 WBC 6.91 RBC 4.75 Hgb 14.4 Hct 41.9 MCV 88.2 MCH 30.3 MCHC 34.4 RDW Std Deviation 48.0 H RDW Coeff of Ramesh 14.7 H Plt Count 183 MPV 9.3 L Immature Gran % (Auto) 0.3 Neut % (Auto) 75.8 Lymph % (Auto) 13.5 [place] % (Auto) 10.1 Eos % (Auto) 0.0 Baso % (Auto) 0.3 Neut # (Auto) 5.24 Lymph # (Auto) 0.93 L [place] # (Auto) 0.70 H Eos # (Auto) 0.00 Baso # (Auto) 0.02 Immature Gran # (Auto) 0.02 PT 10.6 INR 1.0 APTT 28 PTT Ratio 1.0 Sodium 131 L Potassium 4.2 Chloride 98 Carbon Dioxide 25 Anion Gap 8 BUN 14 Creatinine 0.85 Est Cr Clr Drug Dosing Not Reportable eGFR 68.79 BUN/Creatinine Ratio 16.5 Glucose 123 H Lactate 1.8 Calcium 9.4 Magnesium 1.9 Total Bilirubin 0.6 AST 20 ALT 13 Alkaline Phosphatase 76 Troponin I High Sens 26.2 H 23.2 H Total Protein 7.0 Albumin 3.8 Globulin 3.2 Albumin/Globulin Ratio 1.2 Procalcitonin 0.05 Adenovirus (PCR) Not Detected B. pertussis DNA (PCR) Not Detected B.parapertussis DNA PCR Not Detected C. pneumoniae DNA (PCR) Not Detected Coronavirus OC43 (PCR) Not Detected Coronavirus HKU1 (PCR) Not Detected Coronavirus 229E (PCR) Not Detected SARS-CoV-2 (PCR) Not Detected Coronavirus NL63 (PCR) Not Detected Human Metapneumovir PCR DETECTED A Influenza Type A (PCR) Not Detected Influenza Type B (PCR) Not Detected M. pneumoniae (PCR) Not Detected Parainfluenza 1 (PCR) Not Detected Parainfluenza 2 (PCR) Not Detected Parainfluenza 3 (PCR) Not Detected Parainfluenza 4 (PCR) Not Detected RSV (PCR) Not Detected Entero/Rhino (PCR) Not Detected Diagnostic Findings Chest X-Ray 10/05/25 18:59 Exam(s): XR CXR 2 VIEWS EXAM: XR Chest, 2 Views CLINICAL HISTORY: Reason for exam: Dyspnea. TECHNIQUE: Frontal and lateral views of the chest. COMPARISON: 03/07/2024 FINDINGS: Lungs: Unremarkable. No consolidation. Pleural space: Trace left pleural effusion. No pneumothorax. Heart: Unremarkable. No cardiomegaly. Mediastinum: Unremarkable. Normal mediastinal contour. Bones/joints: Postop changes lower thoracic and upper lumbar spine. No acute fracture. IMPRESSION: Trace left pleural effusion. Electronically signed by: Moose Santiago MD 10/05/25 21:15 PM Medications Administered 1L NSS Acetaminophen 1g IV ECG Additional Comments: Sinus tachycardia, nonspecific ST abnormality 122 bpm, WI 130, QRS 78, QT/QTc 432/444, PRT 46/66/63 Code Status & VTE Plan Code Status Full Supervising Physician Co-Signing Physician Notes attending addendum: I have physically seen this patient, have supervised the WINSTON's activities, and agree with the H&P unless as otherwise noted. Assessment and Plan: The patient is an 79-year-old female with past medical history including CAD status post stent hyperlipidemia, atrial fibrillation not anticoagulated, and multiple orthopedic conditions. She presents to the emergency department with symptoms of generalized fatigue and fever. Human metapneumovirus/acute respiratory failure with hypoxia- She had been prescribed an antibiotic by family member, has taken 2 doses so far. Oxygen saturation had been decreased to 88% in the emergency department, and improved to the mid 90s with 2 L nasal cannula oxygen Respiratory BioFire test positive for human metapneumovirus Droplet precautions DuoNebs every 2 hours as needed Acetaminophen 650 mg by mouth every 6 hours as needed for mild pain or fever Status post 1 L normal saline bolus in the ED and was given Tylenol 1 g IV as well Elevated troponin/sinus tachycardia- Troponin initially 23.2 with follow-up 26.2 The patient will be admitted to telemetry for serial cardiac enzymes, serial EKG's, cardiac rhythm monitoring and a 2-D echocardiogram with Dopplers. Likely supply/demand mismatch Continue IV fluids with LR at 80 mL/h x 1 L Hyponatremia- Sodium 131 on admission Repeat laboratories in a.m. following IV fluid rehydration PG Care Time/CCT Total # of Minutes Spent Total Time Spent with Patient: Total time spent is greater than 50% in coordination of care (as documented) at patient's floor/unit and/or counseling patient: Coding Level of Care Code 82618 INT INP/OBS CARE 3/75MIN Diagnoses Hypoxia R09.02 Human metapneumovirus (hMPV) pneumonia J12.3 Elevated troponin R79.89 Hyponatremia E87.1
[2025-10-06 00:43] LABS: Appearance Urine Clear (Clear); Bacteria Urine Automated None Seen (None Seen); Cast Urine Automated 0-2 /lpf (0-2); Epithelial Cell Urine Auto 0-2 /hpf (0-2); Glucose Urine UA Negative (Negative); RBC Urine Automated 0-2 /hpf (0-2); WBC Urine Automated 0-5 /hpf (0-5)
[2025-10-06] MEDS: LACTATED RINGER'S 1,000 ML IV SCH (00:46)
[2025-10-06] MEDS ORDERED: ONDANSETRON INJ 2 MG/ML 2 ML VIAL IV PRN (01:56)
[2025-10-06] MEDS ORDERED: ALBUT/IPRATROP 3MG/0.5MG NEB 3 ML VIAL NEB PRN (01:56)
[2025-10-06] MEDS ORDERED: MELATONIN 3 MG TAB PO PRN (01:56)
[2025-10-06] MEDS ORDERED: POLYETHYLENE (MIRALAX) 17 GM PACK PO PRN (01:56)
[2025-10-06] MEDS ORDERED: ACETAMINOPHEN 325 MG TAB PO PRN (02:23)
[2025-10-06] MEDS ORDERED: ARTIFICIAL TEARS OP PRN (02:25)
[2025-10-06 07:21] LABS: Anion Gap 7.0 (3-11); Blood Urea Nitrogen 16.0 mg/dl (6-23); Calcium 8.4 mg/dl (8.6-10.3); Carbon Dioxide 24.0 mmol/L (21-32); Chloride 104.0 mmol/L (98-107); Creatinine Clr Calc Pharmacy 65.8 ml/min; Glucose 101.0 mg/dl (70-99(Fasting)); Potassium 4.2 mmol/L (3.5-5.1); Sodium 135.0 mmol/L (136-145)
[2025-10-06] MEDS: ASPIRIN 81 MG CHEW PO SCH (08:33)
[2025-10-06] MEDS: ATORVASTATIN 10 MG TAB PO SCH (08:33)
[2025-10-06] MEDS: ACETAMINOPHEN 325 MG TAB PO PRN (08:33)
--- NOTE | 2025-10-06 13:01 | Electrocardiogram Report ---
Test Reason : Blood Pressure : */* mmHG Vent. Rate : 122 BPM Atrial Rate : 122 BPM P-R Int : 130 ms QRS Dur : 78 ms QT Int : 312 ms P-R-T Axes : 46 66 63 degrees QTcB Int : 444 ms Sinus tachycardia Nonspecific ST abnormality Abnormal ECG When compared with ECG of 07-Mar-2024 14:40, No significant change was found Confirmed by Osiel Casillas ([id number]) on 10/06/2025 1:00:52 PM Referred By: REFERRED SELF Confirmed By: Osiel Casillas
[2025-10-06] MEDS: ALBUT/IPRATROP 3MG/0.5MG NEB 3 ML VIAL NEB SCH (19:43)
--- NOTE | 2025-10-06 22:22 | Hospitalist Progress Note ---
Date of Service October 06, 2025 Assessment & Plan (1) Hypoxia: (2) Human metapneumovirus (hMPV) pneumonia: (3) Elevated troponin: (4) Hyponatremia: Plan 79-year-old female PMHx HLD, CAD s/p stent, coronary tooth disease type II, A- fib not anticoagulated, and orthopedic conditions presenting for fever. CBC without leukocytosis or leukopenia and with a stable H&H. Electrolytes with decreased sodium 131 and slightly elevated glucose 123. Lactate and procalcitonin are normal. Does have a slight elevation in troponin, no chest pain. Admission for hypoxia, diagnosed with human metapneumovirus at admission. #Hypoxia/Human metapneumovirus Prior h/o LLL PNA per patient, the day [employer], family member prescribed her abx and she took ~ 2 doses. In ED, O2 sat decreased to 92% on RA, requiring supplemental O2 at time of admission. - CBC w/o leukocytosis/leukopenia; lactate + procal WNL - BioFire (+) human metapneumovirus - CXR trace L pleural effusion - Isolation precautions - O2 via NC prn - none at baseline, wean as tolerated - DuoNebs prn wheezing/SOB - Acetaminophen prn fever/pain - Deferred abx at time of admission - WBC, lactate, procal WNL, CXR w/o PNA -ordered albuterol QID, will hold steroids. #Elevated troponin/Tachycardia H/o CAD, s/p stents most recent 2 years ago per patient. No CP, SOB, or palpitations. Can sense her heart beating fast per patient. Tachycardia likely in setting of known viral illness, not meeting SIRS criteria at admission. - Troponin 23.2, 26.2 on repeat - trend - EKG sinus tachy @ 122 bpm - Likely 2/2 demand #Hyponatremia Decreased intake over the past few days 2/2 not feeling well. - Na 131, glucose 123 - BMP am - IVF LR @ 80 mL/hr x 1L Dispo: Obs, med/tele VTE prophylaxis: SCDs Admission and Anticipated Discharge Date Admission Date: October 05, 2025 Subjective 79 yo female reports having a cough, and feeling mildly better today. Physical Exam Constitutional: WD/WN, vitals as above Neck: trachea midline, no thyromegaly Respiratory: normal respiratory effort Auscultation: + wheezes Cardiovascular: RRR, no murmur, no edema Results & Data Results & Data Vital Signs (Past 12 Hours) Vital Signs Temp Pulse Pulse Pulse Resp BP Pulse Ox 10/06/25 21:04 10/06/25 19:43 96 H 18 93 10/06/25 19:32 36.4 C L 86 18 121/69 92 10/06/25 16:06 37.2 C 83 20 115/70 92 10/06/25 14:42 83 10/06/25 12:13 36.4 C L 82 16 127/71 94 O2 Del Method O2 Flow Rate 10/06/25 21:04 Nasal Cannula 2 10/06/25 19:43 Nasal Cannula 2 10/06/25 19:32 Nasal Cannula 2 10/06/25 16:06 Nasal Cannula 2 10/06/25 14:42 10/06/25 12:13 Nasal Cannula 2 PG Care Time/CCT Total # of Minutes Spent Total Time Spent with Patient: Total time spent is greater than 50% in coordination of care (as documented) at patient's floor/unit and/or counseling patient: Coding Level of Care Code 27326 SUB INP/OBS CARE 3/50MIN Diagnoses Hypoxia R09.02 Human metapneumovirus (hMPV) pneumonia J12.3 Elevated troponin R79.89 Hyponatremia E87.1
[2025-10-06] MEDS: ALBUTEROL 0.083% NEBU SOLN 3 ML VIAL NEB PRN (23:54)
[2025-10-07 07:46] LABS: Hematocrit (blood only) 38.4 % (37.0-47.0); Hemoglobin 12.9 g/dL (12.0-16.0); Mean Corpuscular Hemoglobin 29.7 pg (25.0-34.0); Mean Corpuscular Volume 88.3 fL (80.0-100.0); Platelet Count 184 K/uL (130-400); RDW Standard Deviation 48.1 fL (36.4-46.3); Red Blood Count 4.35 M/uL (4.20-5.40); White Blood Count 5.10 K/ul (4.8-10.8)
[2025-10-07 08:10] LABS: Anion Gap 9.0 (3-11); Blood Urea Nitrogen 20.0 mg/dl (6-23); Calcium 8.4 mg/dl (8.6-10.3); Carbon Dioxide 21.0 mmol/L (21-32); Chloride 103.0 mmol/L (98-107); Creatinine Clr Calc Pharmacy 59.5 ml/min; Glucose 106.0 mg/dl (70-99(Fasting)); Potassium 3.8 mmol/L (3.5-5.1); Sodium 133.0 mmol/L (136-145)
[2025-10-07 08:25] LABS: Acanthocytes 1+; Immature Granulocytes # (auto) 0.02 K/uL (0.01-0.20); Immature Granulocytes % (auto) 0.4 %; Polychromasia 1+
[2025-10-07 14:59] VITALS: BP 125/68; RESP 20; TEMP 97.7; O2SAT 92
--- NOTE | 2025-10-07 15:32 | Discharge Summary ---
Discharge Summary Date of Service October 07, 2025 Principal Dx & Hospital Course #1 = Principal Diagnosis (1) Hypoxia: (2) Human metapneumovirus (hMPV) pneumonia: (3) Elevated troponin: (4) Hyponatremia: Plan 79-year-old female PMHx HLD, CAD s/p stent, coronary tooth disease type II, A- fib not anticoagulated, and orthopedic conditions presenting for fever. CBC without leukocytosis or leukopenia and with a stable H&H. Electrolytes with decreased sodium 131 and slightly elevated glucose 123. Lactate and procalcitonin are normal. Does have a slight elevation in troponin, no chest pain. Admission for hypoxia, diagnosed with human metapneumovirus at admission. #Hypoxia/Human metapneumovirus Prior h/o LLL PNA per patient, the day [employer], family member prescribed her abx and she took ~ 2 doses. In ED, O2 sat decreased to 92% on RA, requiring supplemental O2 at time of admission. - CBC w/o leukocytosis/leukopenia; lactate + procal WNL - BioFire (+) human metapneumovirus - CXR trace L pleural effusion - Isolation precautions - Acetaminophen prn fever/pain - Deferred abx at time of admission - WBC, lactate, procal WNL, CXR w/o PNA -improved with supportive care, no steroids were given as this may prolong recovery. -She no longer required oxygen. #Elevated troponin/Tachycardia H/o CAD, s/p stents most recent 2 years ago per patient. No CP, SOB, or palp itations. Can sense her heart beating fast per patient. Tachycardia likely in setting of known viral illness, not meeting SIRS criteria at admission. - Troponin 23.2, 26.2 on repeat - trend - EKG sinus tachy @ 122 bpm - Likely 2/2 demand #Hyponatremia Decreased intake over the past few days 2/2 not feeling well. - Na 131, glucose 123 - BMP am - IVF LR @ 80 mL/hr x 1L Admission HPI Per Admitting Provider 79-year-old female PMHx HLD, CAD s/p stent, coronary tooth disease type II, A- fib not anticoagulated, and orthopedic conditions presenting for fever. Pt reports that she is "not feeling so hot." States that she was diagnosed with PNA the day of arrival by her who is a doctor and prescribed her oral antibiotics. She reports taking 2 doses and still feeling ill with development of a fever so she came to the ED. Tmax 103 degrees Fahrenheit. Reports that she has been coughing but it is nonproductive. She is not wheezing and does not feel SOB. She can feel that her heart rate is sped up, but denies palpitations or dizziness. She has a history of cardiac stents ~ 2 years [employer], states she presented with elevated heart rate so she was concerned when her heart seemed to be going fast again. Her heart was going "too fast... 130s with walking" on the day of arrival. She does not feel weak. Denies sick contacts. No CP, palpitations, SOB, abdominal pain, N/V/D/C, numbness/tingling, URI symptoms, LUTS, syncope, or falls. ED evaluation reveals CBC without leukocytosis or leukopenia, stable H&H; PT/INR WNL; CMP sodium 131, glucose 123; lactate 1.8; procalcitonin 0.05; troponin 23.2, 26.2 on repeat; BioFire positive human metapneumovirus; CXR trace L pleural effusion; EKG sinus tachycardia with nonspecific ST at 122 bpm.; Provided with 1L NSS and acetaminophen 1 g IV in ED. Please see Dr. Izquierdo's attestation for adjustments/additions to treatment plan. Discharge Exam Constitutional WD/WN, vitals as above Neck trachea midline, no thyromegaly Respiratory normal respiratory effort Auscultation: + wheezes (decreased) Cardiovascular RRR, no murmur, no edema Discharge Plan Discharge Items Patient Disposition: Home - Self-Care Reason For Visit: HYPOXIA, HUMAN METAPNEUMOVIRUS Discharge Diagnosis: Hypoxia Condition on Discharge: Good Activity: Resume your previous activity Non-emergency contact: Primary Care Provider Call non-emergency contact if: you have any medication questions Follow-up/Referrals: Kervin Gray MD [Primary Care Provider] - 10/13/25 1:15 pm (Date & Time 10/13/2025 1:15 PM Provider: Kervin Gray MD Internal Medicine, [place] ) Diet: Heart Healthy Addtl Attending Provider Instructions: continue supportive care by resting, staying hydrated, and managing symptoms with [id number] medication. You should also practice good hygiene, such as frequent handwashing and covering coughs/sneezes, and avoid close contact with others to prevent the spread of the virus. Monitor for worsening symptoms and seek immediate medical attention if they arise. Recommend followup with PCP in 1-2 weeks Pending Studies at Discharge: No Stand-Alone Forms: [facility], Smoking Cessation Medications and DC Order Prescriptions: Continued atorvastatin 10 mg tablet 10 mg PO DAILY Qty: 90 3RF Rx Instructions: PER PT "TAKE UNTIL GET LEG CRAMPS, THEN STOP FOR A COUPLE OF DAYS, THEN RESTART AGAIN, OVER AND OVER". epinephrine 0.3 mg/0.3 mL auto-injector 0.3 mg IM DIRECTED PRN (Reason: anaphylaxis) Qty: 2 multivitamin Tablet 1 tab PO QAM nitroglycerin 0.4 mg tablet, sublingual 0.4 mg sublingual UD PRN (Reason: Chest Pain) Rx Instructions: as needed for chest pain aspirin 81 mg tablet,chewable 81 mg PO QAM estradiol 0.01 % (0.1 mg/gram) cream 1 applic VAGINAL 2XWK acetaminophen [Tylenol 8 Hour] 650 mg Tablet Extended Release 650 mg PO Q8H PRN (Reason: Pain) Artificial Tears(glycerin-peg) 1-0.3 % Drops 1 drp OPHTHALMIC (EYE) TID PRN (Reason: Dry Eyes) albuterol sulfate 90 mcg/actuation HFA aerosol inhaler 2 puffs INH QID PRN (Reason: shortness of breath or wheezing) Qty: 18 0RF Discharge Orders: Discharge Order (Routine); Ordered 10/07/25 Ordered By: Atif Edgar Admission Data Admit Date/Time: 10/05/25 23:46 Attending Provider: Atif Edgar Admit Provider: Zack Izqueirdo Primary Care Provider: Kervin Gray Other Providers: Zack Izquierdo Other Interventions: Discharge Summary Assessment (RN) Last Done: 10/07/25 15:55 Hospital Stay Data Consultations 10/05/25 21:38 ED Decision to Admit Stat Pending Results Patient Have Any Pending Studies at Discharge: No Discharge Instructions Given to Patient (Per Discharging Provider) continue supportive care by resting, staying hydrated, and managing symptoms with [id number] medication. You should also practice good hygiene, such as frequent handwashing and covering coughs/sneezes, and avoid close contact with others to prevent the spread of the virus. Monitor for worsening symptoms and seek immediate medical attention if they arise. Recommend followup with PCP in 1-2 weeks Total Time Total Time Spent Total Time Spent (In Minutes): 35 spent over 30 minutes evaluating patient, discussing with respiratory therapist, discussing with patient and , formulating discharge plan Coding Level of Care Code 61450 INP/OBS DISCH >30 MIN Diagnoses Hypoxia R09.02 Human metapneumovirus (hMPV) pneumonia J12.3 Elevated troponin R79.89 Hyponatremia E87.1
[2025-10-07 15:56] VITALS: PULSE 111
== END 2025-10-07 16:46 | disposition home or self-care (01) ==
LOC: ED 18:28 → 2W 18:28 → SUATTDRO 23:46 → 2W 10-06 01:20